=== PATIENT | female | born 1950 | race Asian ===

== ENCOUNTER 2016-11-03 16:22 | Inpatient (IN) | payer MEDICARE, MEDICAID ==
--- NOTE | 2016-11-03 16:49 | ED Physician Chart ---
Chief Complaint/HPI - Patient Information Date Seen:: 11/03/16 Time Seen:: 16:34 Chief Complaint:: psych disorder History of Present Illness:: THIS IS A 65 YO FEMALE PSYCH PATIENT WHO HAS DIFFICULT TO MANAGE, NOT EATING, COMBATIVE AND HAS PERIODS OF CONFUSION. Allergies:: Allergies Allergy/AdvReac Type Severity Reaction Status Date / Time No Known Allergies Allergy Verified 11/03/16 16:33 Vitals:: Vital Signs - 8 hr 11/03/16 16:33 Temp 97.8 F HR 80 RR 16 BP 142/72 O2 Sat % 97 Historian:: EMS, Medical Records Review:: Nurse's Note Reviewed Review of Systems - Review of Systems General/Constitutional: No fever, No chills, No weight loss, No weakness, No diaphoresis, No edema, No loss of appetite, Other (THIS PATIENT IS UNABLE TO GIVE A REVIEW OF SYSTEM.) Skin: No skin lesions, No rash, No bruising Head: No headache, No light-headedness Eyes: No loss of vision, No pain, No diplopia ENT: No earache, No nasal drainage, No sore throat, No tinnitus Neck: No neck pain, No swelling, No thyromegaly, No stiffness, No mass noted Cardio Vascular: No chest pain, No palpitations, No PND, No orthopnea, No edema Pulmonary: No SOB, No cough, No sputum, No wheezing GI: No nausea, No vomiting, No diarrhea, No pain, No melena, No hematochezia, No constipation, No hematemesis G/U: No dysuria, No frequency, No hematuria Musculoskeletal: No bone or joint pain, No back pain, No muscle pain Endocrine: No polyuria, No polydipsia Psychiatric: No prior psych history, No depression, No anxiety, No suicidal ideation Hematopoietic: No bruising, No lymphadenopathy Allergic/Immuno: No urticaria, No angioedema Neurological: No syncope, No focal symptoms, No weakness, No paresthesia, No headache, No seizure, No dizziness, No confusion, No vertigo Past Medical History - Past Medical History Obtainable: Yes Past Medical History: Asthma/COPD, Dyslipidemia, Thyroid disorder, Dementia Social History: Non Smoker, No Alcohol, No Drug Use, Care Facility Surgical History: None Psychiatricy History: Schizophrenia, Dementia Medication: Reviewed Family Medical History - Family Member Mother History Unknown: Yes Physical Exam - Physical Examination General/Constitutional: Awake, Well-developed, well-nourished, Alert, No distress, GCS 15, Non-toxic appearing, Ambulatory Head: Atraumatic Eyes: Lids, conjuctiva normal, PERRL, EOMI Other Eyes comments:: 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 Skin: Nl inspection, No rash, No skin lesions, No ecchymosis, Well hydrated, No lymphadenopathy ENMT: External ears, nose nl, Nasal exam nl, Lips, teeth, gums nl (POOR DENTAL REPAIR) Neck: Nontender, Full ROM w/o pain, No JVD, No nuchal rigidity, No bruit, No mass, No stridor Respiratory: Nl effort/Exclusion, Clear to Auscultation, No Wheeze/Rhonchi/Rales Cardio Vascular: RRR, No murmur, gallop, rubs, NL S1 S2 GI: No tenderness/rebounding/guarding, No organomegaly, No hernia, Normal BS's, Nondistended, No mass/bruits, No McBurney tenderness : No CVA tenderness Extremities: No tenderness or effusion, Full ROM, normal strength in all extremities, No edema, Normal digits & nails Neuro/Psych: DTR's symmetric, Normal sensory exam, Normal motor strength, Normal gait, No focal deficits Other Neuro/Psych comments:: THIS PATIENT IS DISORIENTED TIMES FOUR. SHE IS CONFUSED AND UNCOOPERATIVE Misc: normal gait, Normal back, No paraspinal tenderness Labs/Radiology/EKG Results - Lab Results Results: Laboratory Results - last 24 hr 11/03/16 11/03/16 11/03/16 16:40 16:40 16:40 WBC 7.0 RBC 4.53 Hgb 13.1 Hct 39.1 MCV 86.2 MCH 28.8 MCHC Differential 33.5 RDW 12.9 Plt Count 396 D MPV 7.3 Neutrophils % 61.4 Lymphocytes % 30.2 Monocytes % 7.1 Eosinophils % 0.7 Basophils % 0.6 PT INR PTT (Actin FS) Specimen Source Sample Site pH pCO2 pO2 HCO3 Base Excess O2 Saturation Papa Test Vent Rate Inspired O2 Tidal Volume PEEP Pressure (ins/psv/peep) Critical Value Sodium 138 Potassium 3.7 Chloride 106 Carbon Dioxide 25.0 Anion Gap 10.7 BUN 15 Creatinine 0.6 Est GFR ( Amer) > 60.0 Est GFR (Non-Af Amer) > 60.0 BUN/Creatinine Ratio 25.0 Glucose 99 Calcium 9.7 Total Bilirubin 1.0 AST 24 ALT 20 Alkaline Phosphatase 61 Troponin I Total Protein 8.1 Albumin 3.7 Globulin 4.4 Albumin/Globulin Ratio 0.8 L Triglycerides 165 H Cholesterol 220 H LDL Cholesterol Direct 154 HDL Cholesterol 44 Urine Source Urine Color Urine Clarity Urine pH Ur Specific Seltzer Urine Protein Urine Glucose (UA) Urine Ketones Urine Blood Urine Nitrate Urine Bilirubin Urine Urobilinogen Ur Leukocyte Esterase Urine RBC Urine WBC Ur Epithelial Cells Urine Bacteria 11/03/16 11/03/16 11/03/16 16:40 16:40 16:42 WBC RBC Hgb Hct MCV MCH MCHC Differential RDW Plt Count MPV Neutrophils % Lymphocytes % Monocytes % Eosinophils % Basophils % PT 9.8 INR 0.94 PTT (Actin FS) 24.1 L Specimen Source Sample Site pH pCO2 pO2 HCO3 Base Excess O2 Saturation Papa Test Vent Rate Inspired O2 Tidal Volume PEEP Pressure (ins/psv/peep) Critical Value Sodium Potassium Chloride Carbon Dioxide Anion Gap BUN Creatinine Est GFR ( Amer) Est GFR (Non-Af Amer) BUN/Creatinine Ratio Glucose Calcium Total Bilirubin AST ALT Alkaline Phosphatase Troponin I 0.01 Total Protein Albumin Globulin Albumin/Globulin Ratio Triglycerides Cholesterol LDL Cholesterol Direct HDL Cholesterol Urine Source CLEAN C Urine Color YELLOW Urine Clarity CLEAR Urine pH 7.0 Ur Specific Seltzer 1.015 Urine Protein NEGATIVE Urine Glucose (UA) NEGATIVE Urine Ketones NEGATIVE Urine Blood NEGATIVE Urine Nitrate NEGATIVE Urine Bilirubin NEGATIVE Urine Urobilinogen 0.2 Ur Leukocyte Esterase TRACE H Urine RBC NONE SEEN Urine WBC 2-5 Ur Epithelial Cells NONE SEEN Urine Bacteria NONE SEEN 11/03/16 17:00 WBC RBC Hgb Hct MCV MCH MCHC Differential RDW Plt Count MPV Neutrophils % Lymphocytes % Monocytes % Eosinophils % Basophils % PT INR PTT (Actin FS) Specimen Source Arterial Sample Site Right Radial pH 7.45 pCO2 42.0 pO2 72.0 L HCO3 29.2 H Base Excess 4.7 H O2 Saturation 95.0 Papa Test YES Vent Rate NA Inspired O2 21 Tidal Volume NA PEEP NA Pressure (ins/psv/peep) NA Critical Value E.ARROYO Sodium Potassium Chloride Carbon Dioxide Anion Gap BUN Creatinine Est GFR ( Amer) Est GFR (Non-Af Amer) BUN/Creatinine Ratio Glucose Calcium Total Bilirubin AST ALT Alkaline Phosphatase Troponin I Total Protein Albumin Globulin Albumin/Globulin Ratio Triglycerides Cholesterol LDL Cholesterol Direct HDL Cholesterol Urine Source Urine Color Urine Clarity Urine pH Ur Specific Seltzer Urine Protein Urine Glucose (UA) Urine Ketones Urine Blood Urine Nitrate Urine Bilirubin Urine Urobilinogen Ur Leukocyte Esterase Urine RBC Urine WBC Ur Epithelial Cells Urine Bacteria - Radiology Results Results: CHEST X-RAY = NAD - EKG Interpretations EKG Time:: 17:00 Rhythm: SINUS [place]: RIGHT Rate: 82 ED Septic Shock - . Is Septic Shock (SBP<90, OR Lactate>4 mmol\L) present?: No - <6hrs of presentation: Vital Signs: Vital Signs - 8 hr 11/03/16 16:33 Temp 97.8 F HR 80 RR 16 BP 142/72 O2 Sat % 97 Reassessment (Disposition) - Reassessment Reassessment Condition:: Unchanged - Diagnosis Diagnosis:: HYPOXEMIA PSYCHOSIS URINARY TRACT INFECTION HYPERCHOLESTEROLEMIA - Patient Disposition Discharge/Transfer:: Acute Care w/in this hosp Admitting Medical Physician:: Bhanu Turcios Time:: 17:43 Condition at Disposition:: Improved ED Discharge Plan - Patient Disposition Admit/Discharge/Transfer: Acute Care w/in this hosp Condition at Disposition: Unchanged
[2016-11-03 17:00] LABS: % BASOPHILS 0.6 % (0.0-2.0); % EOSINOPHILS 0.7 % (0.0-5.0); % LYMPHOCYTES 30.2 % (20.0-50.0); % MONOCYTES 7.1 % (2.0-10.0); % NEUTROPHILS 61.4 % (40.0-80.0); HEMATOCRIT 39.1 % (35.0-45.0); HEMOGLOBIN 13.1 gm/dL (11.7-16.1); MEAN CELL VOLUME 86.2 fl (81-100); MEAN CORPUSCULAR HEMOGLOBIN 28.8 pg (27.0-31.0); MEAN CORPUSCULAR HGB CONC 33.5 pg (28.0-36.0); MEAN PLATELET VOLUME 7.3 fl; NEUTROPHILE ABSOLUTE 4.4 Th/cmm (1.8-8.0); RED BLOOD COUNT 4.53 Mil/cmm (3.80-5.20); RED CELL DISTRIBUTION WIDTH 12.9 % (11.5-20.0)
[2016-11-03 17:07] LABS: PLATELET COUNT 396 Th/cmm (150-400)
[2016-11-03 17:10] LABS: INR 0.94 (0.5-1.4); PROTHROMBIN TIME (TEST) 9.8 SECONDS (9.5-11.5)
[2016-11-03 17:14] LABS: ALB/GLOB RATIO 0.8 (1.0-1.8); ALKALINE PHOSPHATASE 61 U/L (34-104); ANION GAP 10.7 (7.0-16.0); BUN - UREA NITROGEN 15 mg/dL (7-25); CALCIUM SERUM 9.7 mg/dL (8.6-10.3); CHLORIDE 106 mEq/L (98-107); CHOLESTEROL 220 mg/dL (<200); CREATININE - SERUM 0.6 mg/dL (0.6-1.2); GLUCOSE 99 mg/dL (70-105); POTASSIUM SERUM 3.7 mEq/L (3.5-5.1); SGOT 24 U/L (13-39); SGPT/ALT 20 U/L (7-52); SODIUM SERUM 138 mEq/L (136-145); TRIGLYCERIDES 165 mg/dL (<150)
[2016-11-03 17:15] LABS: URINE BACTERIA NONE SEEN /hpf (NONE SEEN); URINE BILIRUBIN NEGATIVE (NEGATIVE); URINE BLOOD NEGATIVE (NEGATIVE); URINE COLOR YELLOW; URINE EPITHELIAL CELLS NONE SEEN /lpf (FEW); URINE GLUCOSE (UA) NEGATIVE (NEGATIVE); URINE KETONE NEGATIVE (NEGATIVE); URINE PROTEIN NEGATIVE (NEGATIVE); URINE RBC NONE SEEN /hpf (0-5); URINE UROBILINOGEN 0.2 E.U./dL (0.2 - 1.0)
[2016-11-03 17:30] LABS: ABG SOURCE Arterial; ALLEN TEST YES; BE(B) 4.7 mmol/L (-3.0-3.0); FIO2 21; HCO3 29.2 mmol/L (20.0-26.0); pH 7.45 (7.35-7.45)
[2016-11-03] MEDS ORDERED: Ipratropium Neb 0.5 mg/2.5 mL UD IH PRN (18:58)
[2016-11-03] MEDS ORDERED: guaiFENesin 200 MG/10 ML UDC PO PRN (18:58)
[2016-11-03] MEDS ORDERED: Albuterol Nebulizer 2.5mg/3mL IH PRN (18:58)
[2016-11-03 19:11] VITALS: BP 115/68
[2016-11-03] MEDS ORDERED: Non-Formulary Item 1 EA (Fenofibrate Nanocrystallized [Tricor] 145 MG) PO SCH (21:00)
[2016-11-03] MEDS ORDERED: MIRTAZAPINE 30 MG PO SCH (21:00)
[2016-11-03] MEDS: Levofloxacin 500mg/100mL 500 MG/100 ML BAG IV SCH (21:07)
[2016-11-03] MEDS: D5-0.45NS 1,000 ML IV SCH (21:30)
[2016-11-04] MEDS: Levothyroxine 0.075 Mg Tab PO SCH (06:34)
[2016-11-04] MEDS: Multivitamin Tab PO SCH (09:15)
[2016-11-04] MEDS: Atorvastatin Calcium 10 MG TAB PO SCH (09:16)
[2016-11-04] MEDS: Vitamin B Complex w/Vitamin C Tab PO SCH (09:16)
--- NOTE | 2016-11-04 10:31 | Diagnostic Imaging Report ---
Portable chest x-ray History: Cough Allowing for portable technique the heart size is normal. No focal pulmonary parenchymal processes. No hilar or mediastinal abnormalities. Arthritic changes noted about the shoulders. Impression: No acute abnormalities.
[2016-11-04] MEDS: D5-0.45NS 1,000 ML IV SCH (11:27)
[2016-11-04] MEDS ORDERED: Vancomycin HCl 500 MG in Sodium Chloride 0.9% 100 ML IV SCH (16:00)
[2016-11-04] MEDS: Levofloxacin 500mg/100mL 500 MG/100 ML BAG IV SCH (18:12)
--- NOTE | 2016-11-04 20:41 | Admit Criteria Form ---
Admit Criteria Forms - Admit Criteria Diagnosis: GENERAL ADMISSION CRITERIA (Place 'X' for any and all applicable criteria): Admission is indicated for ANY ONE of the following: [ ]I. Hemodynamic instability as indicated by ANY ONE of the following(1)(2) (3)(4)(5): [ ]a) Vital sign abnormality not readily corrected by appropriate treatment within 12 to 24 hours indicated by ANY ONE of the following: [ ]i) Hypotension [ ]ii) Symptomatic Tachycardia unresponsive to treatment (eg , analgesia, fluids, sedation as indicated) [ ]iii) Orthostatic vital sign changes unresponsive to treatment (eg, fluids) [ ]b) Vital sign abnormality that is severe indicated by ANY ONE of the following: [ ]i) Inadequate perfusion indicated by ANY ONE of the following: [ ]1) Lactic acidosis (greater than 2 mmol/L) [ ]2) New abnormal capillary refill (greater than 3 seconds) [ ]3) Other metabolic acidosis (arterial pH less than 7.35) not otherwise explained [ ]4) Reduced urine output [ ]5) Altered mental status [ ]6) Myocardial Ischemia [ ]v) Mean arterial pressure[A] less than 60 mm Hg [ ]vi) Mean arterial pressure[A] less than 70 mm Hg after 30 minutes of appropriate treatment (eg, fluid resuscitation) [ ]vii) IV inotropic or vasopressor medication required to maintain adequate blood pressure or perfusion [ ]viii) Sustained heart rate greater than 120 beats per minute in adult or child 6 years or older[B]] [ ]II. Hypertension requiring inpatient treatment as indicated by ANY ONE of the following(6)(7)(8): [ ]a) SBP greater than 220 mm Hg or DBP greater than 120 mm Hg despite treatment [ ]b) SBP greater than 140 mm Hg or DBP greater than 100 mm Hg with evidence of acute end organ damage as indicated by ANY ONE of the following: [ ]i) Encephalopathy [ ]ii) Acute renal failure as indicated by new onset of ANY ONE of the following(9)(10)(11)(12)(13): [ ]1) A 3-fold rise in serum creatinine from baseline [ ]2) Serum creatinine greater than 4 mg/dL ( 354 micromoles/L) with acute rise greater than 0.5 mg/dL (44.2 micromoles/L) [ ]3) Reduction of more than 75% in estimated glomerular filtration rate from baseline [ ]4) Estimated glomerular filtration rate less than 35 mL/min/1.73m2 (0.59 mL/sec/1.73m2) in child up to 18 years of age [ ]5) Cessation of urine output indicated by ALL of the following: [ ]A. Adequate volume status [ ]B. Inadequate urine output as indicated by ANY ONE of the following: [ ]a. Urine output less than 0.3 mL/kg/hr for 24 hours [ ]b. Anuria (urine output less than 0.1 mL/kg/hr) for 12 hours [ ]iii) Aortic dissection [ ]iv) Myocardial ischemia [ ]v) Left ventricular heart failure [ ]vi) Retinal hemorrhage [ ]vii) Other significant finding [ ]c) Hypertension in child requiring inpatient treatment as indicated by ALL of the following(14)(15)(16): [ ]i) Outpatient treatment not effective, not available, or not appropriate [ ]ii) SBP or DBP greater than 95th percentile for age [ ]iii) Evidence of acute end organ damage as indicated by ANY ONE of the following: [ ]1) Altered mental status [ ]2) Acute renal failure as indicated by new onset of ANY ONE of the following(9)(10)(11)(12)(13): [ ]A. A 3-fold rise in serum creatinine from baseline [ ]B. Serum creatinine greater than 4 mg/dL (354 micromoles/L) with acute rise greater than 0.5 mg/dL (44.2 micromoles/L) [ ]C. Reduction of more than 75% in estimated glomerular filtration rate from baseline [ ]D. Estimated glomerular filtration rate less than 35 mL/min/1.73m2 (0.59 mL/sec/1.73m2)in child up to 18 years of age [ ]E. Cessation of urine output indicated by ALL of the following: [ ]a. Adequate volume status [ ]b. Inadequate urine output as indicated by ANY ONE of the following: [ ]1) Urine output less than 0.3 mL/kg/hr for 24 hours [ ]2) Anuria (urine output less than 0.1 mL/kg/hr) for 12 hours [ ]3) Severe headache [ ]4) Visual disturbance [ ]5) Retinal hemorrhage [ ]6) Other significant finding [ ]III. Acute cardiac or peripheral ischemia as indicated by ANY ONE of the following: [ ]a) Acute coronary syndrome(17)(18) [ ]b) Acute peripheral ischemia (eg, pulseless, cool, mottled, or cyanotic extremity)(19) [ ]IV. Cardiac arrhythmias or findings of immediate concern indicated by ANY ONE of the following(20)(21): [ ]a) Heart rhythms that are inherently dangerous or unstable indicated by ANY ONE of the following(22)(23)(24): [ ]i) Resuscitated ventricular fibrillation or cardiac arrest [ ]ii) Ventricular escape rhythm [ ]iii) Sustained ventricular tachycardia (30 seconds or more of ventricular rhythm at greater than 100 beats per minute) [ ]iv) Nonsustained ventricular tachycardia and ANY ONE of the following: [ ]1) Suspected cardiac ischemia as cause or consequence of ventricular tachycardia [ ]2) In setting of acute myocarditis [ ]b) Unstable cardiac conduction defects indicated by ANY ONE of the following(24)(25)(26): [ ]i) Type II second-degree atrioventricular block [ ]ii) Third-degree atrioventricular block [ ]iii) New-onset left bundle branch block with suspected myocardial ischemia [ ]c) Any heart rhythm and ANY ONE of the following(22)(23)(27)(28)( 29): [ ] i) Continuous long-term ECG monitoring needed (eg, initiation of drug requiring monitoring for more than 24 hours) [ ] ii) Patient has automatic implanted cardioverter defibrillator that is repeatedly firing, malfunctioning, or in need of immediate adjustment of settings beyond the scope of ambulatory or observation care. [ ]d) Heart rhythms of concern due to ANY ONE of the following: [ ]i) Hypotension [ ]ii) Respiratory distress [ ]iii) Association with other significant symptoms (eg, bradycardia with syncope or ongoing dizziness, supraventricular tachycardia with chest pain) (27)(28) (30) [ ] V. Severe heart failure as indicated by ANY ONE of the following ( 31)(32): [ ]a) Respiratory distress [ ]b) Hypotension [ ]c) Anasarca (refractory to outpatient therapy) [ ]d) Cardiac arrhythmias of immediate concern [ ]e) Myocardial ischemia [X]. Respiratory abnormalities, including ANY ONE of the following(33)(34) (35)(36): [ ]a) Respiratory rate greater than 30 breaths per minute unresponsive to treatment [A] [X]b) New saturation of arterial oxygen less than 90% [ ]c) New partial pressure of carbon dioxide greater than 44 mm Hg ( 5.9 kPa) [X]d) Supplemental oxygen or respiratory treatments needed that are new or not performable at other levels of care [ ]e) New-onset cyanosis [ ]f) Inability to protect airway [ ]g) Chronic lung disease with severe deterioration (not responsive to emergency and observation care treatment as appropriate) as indicated by ANY ONE of the following(34)(36 ): [ ]i) SaO2 5% below baseline in patient with chronic hypoxemia [ ]ii) New requirement for supplemental oxygen to keep SaO2 at baseline or acceptable level [ ]iii) Required supplemental oxygen performable only in acute inpatient setting [ ]iv) Severe airflow or ventilation abnormalities [ ]v) Previously mobile patient unable to walk between rooms [ ]vi Inability to eat or sleep due to dyspnea [ ]vii) Rapid rate of exacerbation onset [ ]viii) Altered mental status ]VII. Severe airflow or ventilation abnormalities (not responsive to emergency and observation care treatment as appropriate) as indicated by ANY ONE of the following(33)(34)(35)(37): [ ]a) PCO2 greater than 42 mm Hg (5.6 kPa) and pH less than 7.35 (new ) [ ]b) Documented PCO2 increased more than 5 mm Hg (0.7 kPa) from disease baseline [ ]c) Airflow measurements [B] less than 60% of previous best or predicted (eg, peak expiratory flow rate less than 300 L/minute) despite intensive emergent treatment [C] [ ]d) Required respiratory treatments that are performable only in acute inpatient setting [ ]VIII. Impending or actual respiratory arrest ( Also use Respiratory Failure GRG for severe respiratory disease and long-term mechanical ventilation patients) [ ]IX. Neurologic abnormalities, including ANY ONE of the following: [ ]a) New findings that suggest ANY ONE of the following: [ ]i) EVP SALES infection(38) [ ]ii) Cerebral bleeding, ischemia, or vasospasm(39)(40) [ ]iii) Increased intracranial pressure, hydrocephalus, or cerebral edema(41)(42)(43) [ ]iv) Spinal cord injury(44) [ ]b) Uncontrolled seizures(45) [ ]c) New-onset coma (eg, [place] coma scale score less than 9) or unexplained abnormal mental status (eg, [place] coma scale score less than 14) [D](41)(46)(47) [ ]X. New-onset severe neurologic findings requiring inpatient care; examples include(42)(48)(49): [ ]a) Papilledema [ ]b) Cerebral edema [ ]c) Mass effect on CT scan [ ]XI. Suspected acute intra-abdominal process with peritoneal signs, abdominal mass, or similar findings (50)(51)(52) [ ]XII. Severe physiologic disorder remaining after emergency or observation level care (as appropriate) as indicated by ANY ONE of the following (53): [ ]a) Significant dehydration [ ]b) Diabetic ketoacidosis [ ]c) Hyperglycemic hyperosmolar state (eg, osmolality greater than 320 mOsm/kg (mmol/kg) [ ]d) Hypoglycemia [ ]e) Other (new) acid-base disorder with pH less than 7.35 or greater than 7.5(54) [ ]f) Thyroid storm (55) [ ]g) Myxedema coma (55) [ ]XIII. Abdominal abnormalities with ANY ONE of the following(56)(57): [ ]a) Absent bowel sounds with complete ileus [ ]b) Signs of intestinal obstruction or peritonitis [E] [ ]c) Nausea and vomiting that cannot be controlled with outpatient or observation care [ ]XIV. Acute renal failure as indicated by new onset of ANY ONE of the following(9)(10)(11)(12)(13): [ ]a) A 3-fold rise in serum creatinine from baseline [ ]b) Serum creatinine greater than 4 mg/dL (354 micromoles/L) with acute rise greater than 0.5 mg/dL (44.2 micromoles/L) [ ]c) Reduction of more than 75% in estimated glomerular filtration rate from baseline [ ]d) Estimated glomerular filtration rate less than 35 mL/min/ 1.73m2 (0.59 mL/sec/1.73m2) in child up to 18 years of age [ ]e) Cessation of urine output indicated by ALL of the following: [ ]i) Adequate volume status [ ]ii) Inadequate urine output as indicated by ANY ONE of the following: [ ]1) Urine output less than 0.3 mL/kg/hr for 24 hours [ ]2) Anuria (urine output less than 0.1 mL/kg/hr) for 12 hours [ ]XV. Significant uremic complications as indicated by ANY ONE of the following(58)(59)(60): [ ]a) Outpatient therapy is ineffective or not feasible for ANY ONE of the following: [ ]i) Severe heart failure [ ]ii) Severehypertension [ ]iii) Pleural effusion [ ]iv) Pericarditis or pericardial effusion [ ]b) Cardiac arrhythmias of immediate concern [ ]c) Intractable nausea or vomiting [ ]d) Recurrent seizures [ ]e) Encephalopathy [ ]f) Bleeding abnormalities (eg, platelet dysfunction) with active (eg, gastrointestinal) bleeding [ ]g) Dialysis indicated before long-term access or ambulatory arrangements can be made [ ]h) Significant metabolic or electrolyte abnormalities (eg, severe acidosis or hyperkalemia) [ ]XVI. High fever or other high-risk infection situation as indicated by ANY ONE of the following(61)(62)(63)(64): [ ]a) Outpatient and observation care antimicrobial treatment unavailable, not effective, or not appropriate [ ]b) Documented bacteremia [ ]c) Temperature greater than 40.5 degrees C (104.9 degrees F) ( oral) [ ]d) Temperature greater than 39.5 degrees C (103.1 degrees F) ( oral) or less than 36 degrees C (96.8 degrees F) (rectal) that does not respond to e treatment and observation care [ ] XVII. Temperature less than 95 degrees F (35 degrees C)(rectal)(65) [ ] XVIII. Severe nutritional abnormalities as indicated by ALL of the following (66)(67): [ ]a) Inability to tolerate or establish sufficient oral or other enteral nutrition in outpatient setting [ ]b) Parenteral nutrition regimen need that must be implemented on inpatient basis [ ] XIX. Severe electrolyte abnormalities indicated by ALL of the following(68) (69)(70): [ ]a) Electrolytes and associated findings are not as expected for patient baseline or acceptable treatment effects. [ ]b) Severe abnormalities indicated by ANY ONE of the following: [ ]i) Sodium less than 130 mEq/L (mmol/L) (new) [ ]ii)Sodium less than 135 mEq/L (mmol/L) with ANY ONE of the following: [ ]1) Uncorrectable (to near normal or chronic baseline) after trial of outpatient and emergency treatment [ ]2) Altered mental status [ ]3) Seizures [ ]4) Severe medical etiology requiring inpatient management (eg, heart failure, hypovolemia) [ ]iii) Sodium greater than 155 mEq/L (mmol/L) [ ]iv) Sodium greater than 150 mEq/L (mmol/L) with ANY ONE of the following: [ ]1) Uncorrectable (to near normal or chronic baseline) with outpatient and emergency treatment [ ]2) Altered mental status [ ]3) Seizures [ ]4) Severe medical etiology (eg, hypovolemia, diabetes insipidus) [ ]v) Potassium less than 2.5 mEq/L (mmol/L) despite outpatient and emergency treatment [ ]vi) Potassium less than 3 mEq/L (mmol/L) with ANY ONE of the following: [ ]1) Weakness [ ]2) Cardiac abnormality (eg, arrhythmia, conduction disturbance) [ ]3) Cardiac ischemia [ ]4) Ileus [ ]5) Ongoing medical cause requiring inpatient management (eg, acute renal wasting or SIADH) [ ]6) Other severe symptoms [ ]vii) Potassium greater than 6.5 mEq/L (mmol/L) [ ]viii) Potassium greater than 5 mEq/L (mmol/L) with ANY ONE of the following: [ ]1) Uncorrectable (to near normal or chronic baseline) with outpatient and emergency treatment [ ]2) Severe ECG findings [F] [ ]3) Acute worsening of renal failure (creatinine greater than 2.5 mg/dL (221 micromoles/L) or significant elevation for age and size) [ ]4) Severe weakness [ ]5) Severe medical etiology (eg, hemolysis, infection, drug overdose) [ ]ix) Calcium less than 7 mg/dL (1.75 mmol/L) despite outpatient and emergency treatment (72) [ ]x) Calcium less than 8 mg/dL (2 mmol/L) with significant symptoms or findings; examples include(72): [ ]1) Altered mental status [ ]2) Muscle spasms [ ]3) Seizures [ ]4) Breathing difficulty [ ]5) Cardiac abnormality (eg, arrhythmia or conduction disturbance) [ ]xi) Calcium greater than 14 mg/dL (3.5 mmol/L)(72) [ ]xii) Calcium greater than 12 mg/dL (3 mmol/L) with ANY ONE of the following(72): [ ]1) Uncorrectable (to near normal or chronic baseline) with outpatient and emergency treatment [ ]2) Significant dehydration or hypovolemia as indicated by ALL of the following(70)(73)(74): [ ]A. Not resolved with initial treatments [ ]B. Clinically significant dehydration as indicated by ANY ONE of the following: [ ]a. Vomiting refractory to outpatient treatment (ie, precluding oral rehydration) [ ]b. Inability to drink [ ]c. Hypernatremia or other electrolyte abnormality unable to be corrected with outpatient and emergency treatment [ ]d. Failure to remain hydrated with outpatient therapy [ ]e. Reduced urine output [ ]f. Hypotension [ ]g. Serious cause for dehydration requiring acute hospitalization (eg, bowel obstruction, increased intracranial pressure, infectious cause) [ ]h. Child with ANY ONE of the following(75): [ ]1) Severe abdominal tenderness [ ]2) Adequate care not available at home [ ]3) Severe dehydration ( greater than 9% loss of body weight) [ ]4) Significant symptoms or findings; examples include: [ ]A. Altered mental status [ ]B. Cardiac abnormality (eg, arrhythmia, conduction disturbance) [ ]C. Malignant etiology requiring inpatient treatment [ ]xiii) Phosphorus less than 1 mg/dL (0.32 mmol/L) [ ]xiv) Phosphorus less than 1.5 mg/dL (0.48 mmol/L) with ANY ONE of the following: [ ]1) Patient unresponsive to outpatient and emergency treatment [ ]2) Significant symptoms or findings; examples include: [ ]A. Weakness [ ]B. Altered mental status [ ]C. Breathing difficulty [ ]D. Seizures [ ]E. Rhabdomyolysis [ ]xv) Phosphorus greater than 10 mg/dL (3.2 mmol/L) [ ]xvi) Phosphorus greater than 4.5 mg/dL (1.45 mmol/L) (new) with ANY ONE of the following: [ ]1) Severe medical etiology (eg, crush injury, acute renal failure) [ ]2) Associated hypocalcemia with significant findings; examples include: [ ]A. Neurologic symptoms [ ]B. Altered mental status [ ]C. Muscle spasms [ ]D. Seizures [ ]E. Breathing difficulty [ ]F. Cardiac abnormality (eg, arrhythmia, conduction disturbance) [ ]xvii) Magnesium less than 1 mg/dL (0.41 mmol/L) [ ]xviii) Magnesium less than 1.5 mg/dL (0.62 mmol/L) with ANY ONE of the following: [ ]1) Patient unresponsive to outpatient and emergency treatment [ ]2) Associated hypocalcemia with significant findings; examples include: [ ]A. Altered mental status [ ]B. Muscle spasms [ ]C. Seizures [ ]D. Breathing difficulty [ ]E. Cardiac abnormality (eg, arrhythmia , conduction disturbance) [ ]3) Associated hypokalemia (potassium less than 3 mEq/L (mmol/L)) with risk of arrhythmia [ ]xix) Magnesium greater than 4 mEq/L (2 mmol/L) [ ]xx) Magnesium greater than 2.5 mEq/L (1.25 mmol/L) with significant symptoms or findings; examples include: [ ]1) Weakness [ ]2) Altered mental status [ ]3) Cardiac abnormality (eg, arrhythmia, conduction disturbance) [ ]4) Breathing difficulty [ ]5) Severe medical etiology (eg, renal failure, hypovolemia) [ ]xxi) Uric acid greater than 20 mg/dL (1190 micromoles/L)(76) [ ]xxii) Uric acid greater than 8 mg/dL (476 micromoles/L) with significant symptoms or findings of tumor lysis syndrome; examples include(76): [ ]1) Creatinine greater than 1.5 times upper limit of normal [ ]2) Cardiac abnormality (eg, arrhythmia, conduction disturbance) [ ]3) Seizure [ ]XX. Acute blood loss causing significant abnormality as indicated by ANY ONE of the following(77)(78): [ ]a) Hemoglobin less than 10 g/dL (100 g/L) (not baseline) [ ]b) Hematocrit less than 30% (0.30) (not baseline) [ ]c) Repeat hematocrit decreased more than 2% (0.02) [ ]d) Uncontrolled bleeding [ ]XXI. Severe anemia indicated by ANY ONE of the following(78)(79): [ ]a) Altered mental status [ ]b) Chest pain [ ]c) Exertional dyspnea [ ]d) Syncope [ ]e) Other findings suggesting inadequate perfusion [ ]f) Treatment with transfusion or volume replacement is ineffective at resolving ANY ONE of the following [G]: [ ]i) Tachycardia for age [ ]ii) Orthostatic vital sign changes as indicated by ANY ONE of the following(80): [ ]1) Fall in SBP of 20 mm Hg or more 1 to 3 minutes after patient sits or stands from recumbent position [ ]2) Fall in DBP of 10 mm Hg or more 1 to 3 minutes after patient sits or stands from recumbent position [ ]XXII. High-risk low platelet count as indicated by ANY ONE of the following( 81)(82): [ ]a) Severe or life-threatening bleeding (eg, intracranial, major gastrointestinal, or extensive mucosal bleeding), with any reduced platelet count [ ]b) Platelet count less than 20,000/mm3 (20 x109/L) with any active bleeding [ ]c) Platelet count less than 10,000/mm3 (10 x109/L) with minor purpura or petechiae [ ]d) Platelet count less than 5000/mm3 (5 x109/L) [ ]e) Low platelet count with hemolytic anemia [ ]XXIII. Disseminated intravascular coagulation(77)(83) [ ]XXIV. Severe adverse drug or systemic toxin reaction requiring inpatient treatment; examples include(84)(85): [ ]a) Serotonin syndrome(86) [ ]b) Neuroleptic malignant syndrome(86) [ ]c) Cholinergic syndrome with severe symptoms (eg, bronchorrhea, weakness, mental status changes, seizures) [ ]d) Sympathetic syndrome with severe symptoms (eg, seizures, mental status changes, cardiac dysrhythmias) [ ]e) Anticholinergic syndrome [ ]XXV. Severe pain requiring acute inpatient management as indicated by ALL of the following (87)(88)(89): [ ]a) Continuous or frequent (eg, every 2 to 4 hours) parenteral analgesics required [H] [ ]b) Rapid improvement expected from treatment or acute intervention (eg, surgery, anesthesia procedure) [ ]XXVI.Severe behavioral health issues judged unmanageable at a lower level of care (eg, residential) in a patient who is ANY ONE of the following(91) [ ]a) Acutely suicidal [ ]b) A danger to self (eg, self-mutilating or suicidal behavior) [ ]c) A danger to others (eg, assaultive or homicidal behavior) [ ]d) Incapacitated because of grave disability (eg, inability to provide for self at lower level of care) (92) [ ]XXVII. Inpatient monitoring needed; examples include(1)(3)(87)(93)(94)(95)(96 ): [ ]a) Vital signs, neurologic signs, or vascular checks more frequently than every 4 hours [ ]b) Cardiac or respiratory monitoring beyond the scope (eg, over 24 hours) of observation care [ ]c) Pulmonary artery catheter monitoring [ ]d) Suspected compartment syndrome(97) (98) [ ]e) Cerebral bleeding, hydrocephalus, or vasospasm monitoring [ ]f) Increased intracranial pressure or cerebral edema monitoring [ ]g) monitoring [ ]XXVIII. Treatment requiring inpatient care; examples include: [ ]a) IV fluid to replace significant ongoing losses (greater than 3 L/m2 per day)(53) [ ]b) High concentration oxygen (greater than 40%)(33)(99)(100) [ ]c) Frequent respiratory therapy (more frequently than every 4 hours) to maintain airflow rates greater than 60% of baseline(33)(99)(100) [ ]d) Epidural analgesia(87) [ ]e) IV anticoagulation, vasoactive, or antiarrhythmic medication(19 )(23) [ ]f) Acute thrombolytics (generally require 24 hours of observation )(101)(102) [ ]XXIX. Emergency procedures needed; examples include: [ ]a) Emergency inpatient surgery [ ]b) Temporary pacemaker placement(103) [ ]c) Chest tube placement with active evacuation (eg, suction, drainage)(104) [ ]d) Emergent cardioversion(105) [ ]e) Emergent cardiac or vascular procedures (eg, cardiac catheterization, angioplasty) (17)(18) [ ]f) Emergent dialysis access placement and institution(10)(106) [ ]g) Emergent pericardiocentesis(107) [ ]h) Emergent plasmapheresis or leukapheresis(83) [ ]i) Emergent tracheostomy The original [employer] content created by [employer] has been revised. The portions of the content which have been revised are identified through the use of italic text or in bold, and [facility] has neither reviewed nor approved the modified material. All other unmodified content is copyright [employer]. Please see references footnoted in the original [facility] edition 2016 Admit Criteria Met?: Yes
[2016-11-04] MEDS ORDERED: Haloperidol Lactate 5 mg/mL 1mL Vial IM ONE (22:35)
[2016-11-05] MEDS: Vancomycin HCl 500 MG in Sodium Chloride 0.9% 100 ML IV SCH ×3 (02:14→18:12)
[2016-11-05 07:20] LABS: HEMOGLOBIN 11.2 gm/dL (11.7-16.1); MEAN PLATELET VOLUME 7.2 fl
[2016-11-05 07:40] LABS: ALB/GLOB RATIO 0.9 (1.0-1.8); ALKALINE PHOSPHATASE 46 U/L (34-104); ANION GAP 6.5 (7.0-16.0); BILIRUBIN,TOTAL 0.5 mg/dL (0.3-1.0); BUN - UREA NITROGEN 14 mg/dL (7-25); CALCIUM SERUM 8.5 mg/dL (8.6-10.3); CHLORIDE 113 mEq/L (98-107); CREATININE - SERUM 0.5 mg/dL (0.6-1.2); GLUCOSE 100 mg/dL (70-105); POTASSIUM SERUM 3.5 mEq/L (3.5-5.1); SGOT 21 U/L (13-39); SGPT/ALT 16 U/L (7-52); SODIUM SERUM 141 mEq/L (136-145)
[2016-11-05 07:45] LABS: RED BLOOD COUNT 3.85 Mil/cmm (3.80-5.20); WHITE BLOOD COUNT 6.1 Th/cmm (4.8-10.8)
[2016-11-05 07:46] LABS: % LYMPHOCYTES 27.2 % (20.0-50.0); % MONOCYTES 11.3 % (2.0-10.0); % NEUTROPHILS 59.2 % (40.0-80.0); HEMATOCRIT 32.8 % (35.0-45.0); MEAN CELL VOLUME 85.2 fl (81-100); MEAN CORPUSCULAR HEMOGLOBIN 29.1 pg (27.0-31.0); MEAN CORPUSCULAR HGB CONC 34.1 pg (28.0-36.0); PLATELET COUNT 318 Th/cmm (150-400); RED CELL DISTRIBUTION WIDTH 12.8 % (11.5-20.0)
[2016-11-05 07:47] LABS: % BASOPHILS 0.7 % (0.0-2.0); NEUTROPHILE ABSOLUTE 3.6 Th/cmm (1.8-8.0)
[2016-11-05 07:48] LABS: % EOSINOPHILS 1.7 % (0.0-5.0)
--- NOTE | 2016-11-05 09:09 | Consultation ---
The patient was seen, chart reviewed, discussed with staff. HISTORY OF PRESENT ILLNESS: The patient is a 65-year-old female with a history of chronic mental illness, known to myself from prior treatment at her [facility] facility, currently on Medical Floor, has been restless, anxious, agitated, talking fast, making no sense at times. The patient has been having some episodes where she requires redirection by staff. PAST PSYCHIATRIC HISTORY: Multiple hospitalizations, chronic history of mental illness. PSYCHOSOCIAL HISTORY: The patient resides at [facility]. She requires complete care. PAST MEDICAL HISTORY: As per Dr. Turcios. MENTAL STATUS EXAMINATION: The patient is somewhat disheveled. Speech is sporadic at times, irrelevant. Thought process is fragmented. Insight is limited. Judgment is impaired. The patient is highly paranoid and talking to herself. ASSESSMENT: Schizoaffective disorder in psychotic phase. MEDICAL: As per medical history. PLAN: At this time, I would recommend continuation of medical and supportive measures. The patient was admitted to the hospital for failure to thrive and dehydration. Monitor p.o. intake. The patient would benefit from psychiatric hospitalization given the level of disorganized behavior. JOB# [id number]
[2016-11-05] MEDS: Levothyroxine 0.075 Mg Tab PO SCH ×2 (09:22→09:51)
[2016-11-05] MEDS: Atorvastatin Calcium 10 MG TAB PO SCH ×2 (09:22→09:51)
[2016-11-05] MEDS: Multivitamin Tab PO SCH ×2 (09:23→09:52)
[2016-11-05] MEDS: Vitamin B Complex w/Vitamin C Tab PO SCH (09:52)
--- NOTE | 2016-11-05 14:28 | Internal Medicine Prog Note ---
Internal Medicine Subjective - Subjective Patient seen and examined:: with staff, chart reviewed Patient is:: awake, verbal, in bed Patient Complaints of:: congestion Per staff patient is:: no adverse event, agitated, combative, noncompliant, confused Internal Medicine Objective - Results Result Diagrams: 11/05/16 06:57 11/05/16 06:57 Recent Labs: Laboratory Last Values WBC 6.1 Th/cmm (4.8-10.8) 11/05/16 06:57 RBC 3.85 Mil/cmm (3.80-5.20) 11/05/16 06:57 Hgb 11.2 gm/dL (11.7-16.1) L 11/05/16 06:57 Hct 32.8 % (35.0-45.0) L D 11/05/16 06:57 MCV 85.2 fl (81-100) 11/05/16 06:57 MCH 29.1 pg (27.0-31.0) 11/05/16 06:57 MCHC Differential 34.1 pg (28.0-36.0) 11/05/16 06:57 RDW 12.8 % (11.5-20.0) 11/05/16 06:57 Plt Count 318 Th/cmm (150-400) 11/05/16 06:57 MPV 7.2 fl 11/05/16 06:57 Neutrophils % 59.2 % (40.0-80.0) 11/05/16 06:57 Lymphocytes % 27.2 % (20.0-50.0) 11/05/16 06:57 Monocytes % 11.3 % (2.0-10.0) H 11/05/16 06:57 Eosinophils % 1.7 % (0.0-5.0) 11/05/16 06:57 Basophils % 0.7 % (0.0-2.0) 11/05/16 06:57 PT 9.8 SECONDS (9.5-11.5) 11/03/16 16:40 INR 0.94 (0.5-1.4) 11/03/16 16:40 PTT (Actin FS) 24.1 SECONDS (26.0-38.0) L 11/03/16 16:40 Specimen Source Arterial 11/03/16 17:00 Sample Site Right Radial 11/03/16 17:00 pH 7.45 (7.35-7.45) 11/03/16 17:00 pCO2 42.0 mmHg (35.0-45.0) 11/03/16 17:00 pO2 72.0 mmHg (80.0-100.0) L 11/03/16 17:00 HCO3 29.2 mmol/L (20.0-26.0) H 11/03/16 17:00 Base Excess 4.7 mmol/L (-3.0-3.0) H 11/03/16 17:00 O2 Saturation 95.0 % (92.0-100.0) 11/03/16 17:00 Papa Test YES 11/03/16 17:00 Vent Rate NA 11/03/16 17:00 Inspired O2 21 11/03/16 17:00 Tidal Volume NA 11/03/16 17:00 PEEP NA 11/03/16 17:00 Pressure (ins/psv/peep) NA 11/03/16 17:00 Critical Value E.ARROYO 11/03/16 17:00 Sodium 141 mEq/L (136-145) 11/05/16 06:57 Potassium 3.5 mEq/L (3.5-5.1) 11/05/16 06:57 Chloride 113 mEq/L (98-107) H 11/05/16 06:57 Carbon Dioxide 25.0 mEq/L (21.0-31.0) 11/05/16 06:57 Anion Gap 6.5 (7.0-16.0) L 11/05/16 06:57 BUN 14 mg/dL (7-25) 11/05/16 06:57 Creatinine 0.5 mg/dL (0.6-1.2) L 11/05/16 06:57 Est GFR ( Amer) > 60.0 ml/min (>90) 11/05/16 06:57 Est GFR (Non-Af Amer) > 60.0 ml/min 11/05/16 06:57 BUN/Creatinine Ratio 28.0 11/05/16 06:57 Glucose 100 mg/dL (70-105) 11/05/16 06:57 Calcium 8.5 mg/dL (8.6-10.3) L 11/05/16 06:57 Magnesium 2.0 mg/dL (1.9-2.7) 11/05/16 06:57 Total Bilirubin 0.5 mg/dL (0.3-1.0) 11/05/16 06:57 AST 21 U/L (13-39) 11/05/16 06:57 ALT 16 U/L (7-52) 11/05/16 06:57 Alkaline Phosphatase 46 U/L (34-104) 11/05/16 06:57 Ammonia 44 umol/L (16-53) 11/05/16 06:57 Troponin I 0.01 ng/mL (0.01-0.05) 11/03/16 16:40 B-Natriuretic Peptide 29.8 pg/mL (5.0-100.0) 11/05/16 06:57 Total Protein 6.3 gm/dL (6.0-8.3) 11/05/16 06:57 Albumin 2.9 gm/dL (3.7-5.3) L 11/05/16 06:57 Globulin 3.4 gm/dL 11/05/16 06:57 Albumin/Globulin Ratio 0.9 (1.0-1.8) L 11/05/16 06:57 Triglycerides 165 mg/dL (<150) H 11/03/16 16:40 Cholesterol 220 mg/dL (<200) H 11/03/16 16:40 LDL Cholesterol Direct 154 mg/dL (75-193) 11/03/16 16:40 HDL Cholesterol 44 mg/dL (23-92) 11/03/16 16:40 TSH 1.69 uIU/ml (0.34-5.60) 11/03/16 16:40 Urine Source CLEAN C 11/03/16 16:42 Urine Color YELLOW 11/03/16 16:42 Urine Clarity CLEAR (CLEAR) 11/03/16 16:42 Urine pH 7.0 11/03/16 16:42 Ur Specific [place] 1.015 (1.005-1.030) 11/03/16 16:42 Urine Protein NEGATIVE mg/dL (NEGATIVE) 11/03/16 16:42 Urine Glucose (UA) NEGATIVE mg/dL (NEGATIVE) 11/03/16 16:42 Urine Ketones NEGATIVE mg/dL (NEGATIVE) 11/03/16 16:42 Urine Blood NEGATIVE (NEGATIVE) 11/03/16 16:42 Urine Nitrate NEGATIVE (NEGATIVE) 11/03/16 16:42 Urine Bilirubin NEGATIVE (NEGATIVE) 11/03/16 16:42 Urine Urobilinogen 0.2 E.U./dL (0.2 - 1.0) 11/03/16 16:42 Ur Leukocyte Esterase TRACE (NEGATIVE) H 11/03/16 16:42 Urine RBC NONE SEEN /hpf (0-5) 11/03/16 16:42 Urine WBC 2-5 /hpf (0-5) 11/03/16 16:42 Ur Epithelial Cells NONE SEEN /lpf (FEW) 11/03/16 16:42 Urine Bacteria NONE SEEN /hpf (NONE SEEN) 11/03/16 16:42 RPR NONREACTIVE (NONREACTIVE) 11/03/16 16:40 - Physical Exam Vitals and I&O: Vital Signs Temp 97.5 F 11/05/16 00:00 Pulse 69 11/05/16 07:59 Resp 16 11/05/16 08:40 BP 101/55 11/05/16 00:00 Pulse Ox 96 11/05/16 07:59 Intake & Output 11/04/16 11/05/16 11/05/16 18:59 06:59 18:59 Intake Total 1000 100 100 Balance 1000 100 100 Weight (lbs) 46.584 kg Intake: Intake, IV Amount 1000 100 100 D5-0.45NS 1,000 ml @ 80 1000 mls/hr IV .[id number] [facility] Rx #:[id number] Vancomycin HCl 500 mg In 100 100 Sodium Chloride 0.9% 100 ml @ 100 mls/hr IV Q8HR@ 0000,0800,1600 [facility] Rx#: [id number] Active Medications: Current Medications Acetaminophen (Tylenol) 650 mg PO Q4HR PRN PRN Reason: Fever > 100.5 Stop: 01/02/17 18:52 Albuterol Sulfate (Albuterol 2.5mg/3ml Neb Ud) 2.5 mg IH Q2HR PRN PRN Reason: Shortness of Breath or Wheeze Stop: 01/02/17 18:57 Ascorbic Acid (Vitamin C) 500 mg PO DAILY [facility] Stop: 01/03/17 08:59 Last Admin: 11/05/16 09:51 Dose: Not Given Atorvastatin Calcium (Lipitor) 20 mg PO DAILY [facility] PRN Reason: Protocol Stop: 01/03/17 08:59 Last Admin: 11/05/16 09:51 Dose: Not Given Diphenhydramine HCl (Benadryl 50 Mg/Ml) 50 mg IM Q4HR PRN PRN Reason: Agitation Stop: 01/03/17 22:31 Fenofibrate (Tricor) 134 mg PO HS [facility] Stop: 01/04/17 20:59 Guaifenesin (Robitussin) 100 mg PO Q4H PRN PRN Reason: Cough or Congestion Stop: 01/02/17 18:57 Heparin Sodium (Porcine) (Heparin) 5,000 units SUBQ Q12HR [facility] Stop: 01/02/17 20:59 Last Admin: 11/05/16 09:51 Dose: Not Given Dextrose/Sodium Chloride (D5-0.45ns) 1,000 mls @ 80 mls/hr IV .[id number] [facility] Stop: 01/02/17 18:59 Last Admin: 11/04/16 11:27 Dose: 80 mls/hr Levofloxacin (Levaquin Pb) 500 mg in 100 mls @ 100 mls/hr IV Q24HR [facility] Stop: 01/02/17 18:59 Last Admin: 11/04/16 18:12 Dose: 100 mls/hr Vancomycin HCl 500 mg/ Sodium (Chloride) 100 mls @ 100 mls/hr IV Q8HR@0000,0800 ,1600 [facility] Stop: 01/03/17 15:59 Last Infusion: 11/05/16 11:30 Dose: Infused Ipratropium [place] (Atrovent Neb 0.5mg/2.5ml) 0.5 mg IH Q2HR PRN PRN Reason: Shortness of Breath or Wheeze Stop: 01/02/17 18:57 Levothyroxine Sodium (Synthroid) 0.075 mg PO QDAC [facility] Stop: 01/03/17 07:29 Last Admin: 11/05/16 09:51 Dose: Not Given Lorazepam (Ativan) 2 mg PO Q8H PRN; Protocol PRN Reason: Anxiety Stop: 01/02/17 18:52 Last Admin: 11/04/16 21:25 Dose: 2 mg Mirtazapine (Remeron) 30 mg PO HS [facility] Stop: 01/04/17 20:59 Miscellaneous (Vancomycin Iv Per Pharmacy) 1 ea MC PRN [facility] Stop: 01/03/17 15:14 Multivitamins/Vitamin C (Theragran) 1 tab PO DAILY [facility] Stop: 01/03/17 08:59 Last Admin: 11/05/16 09:52 Dose: Not Given Mupirocin (Bactroban Oint) 1 appl NS BID [facility] Stop: 11/09/16 17:01 Last Admin: 11/05/16 09:54 Dose: Not Given Olanzapine (Zyprexa) 10 mg PO BID [facility] PRN Reason: Protocol Stop: 01/03/17 08:59 Last Admin: 11/05/16 09:52 Dose: Not Given Ondansetron HCl (Zofran) 4 mg IV Q8H PRN PRN Reason: Nausea / Vomiting Stop: 01/02/17 18:57 Vitamin B Complex/Vit C/Folic Acid (Vitamin B Complex W/Vitamin C) 1 tab PO DAILY [facility] Stop: 01/03/17 08:59 Last Admin: 11/05/16 09:52 Dose: Not Given General: demented HEENT: NC/AT, PERRLA Neck: Supple, No JVD Lungs: congested Cardiovascular: RRR, Normal S1, Normal S2 Abdomen: soft non-tender, globular, positive bowel sound Extremities: excoriation, contracture Neurological: disorganized, unable to follow command - Procedures Procedures: Procedures Procedure Code Date EMERGENCY DEPT VISIT 19131 11/13/11 EMERGENCY DEPT VISIT 43327 10/11/11 Internal Medicine Assmt/Plan - Assessment Assessment: uti ftt agitation sad hypoxemia - Plan Plan: cont on iv abx iv hydration psych fu cpm dw rn huong dubois yesterday Nutritional Asmnt/Malnutr-PDOC - Dietary Evaluation Malnutrition Findings (Please click <Entered> for more info): Nutritional Asmnt/Malnutrition Start: 11/05/16 10: 29 Text: Status: Complete Freq: Document 11/05/16 10:30 [facility] (Rec: 11/05/16 10:31 [facility] [id number]) Nutritional Asmnt/Malnutrition Patient General Information Nutritional Screening Consult Diagnosis Schizoaffective disorder Pertinent Medical Hx/Surgical Hx Asthma/COPD, dyslipidemia, thyroid disorder, dementia, schizophrenia, chronic hx of mental illness Subjective Information Nutrition consult for failure to thrive received and completed. Pt is a 65-year-old female from [facility] admitted with chief complaint of psych disorder. Pt was easily arousable during time of visit. Pt speaks another language and some Japanese as well. Pt able to verbalize her needs and preferences. Pt appears thin with a small body frame but no signs of muscle or fat depletion observed. Per ER report, pt was not eating prior to admit with periods of confusion. Currently, appetite has improved with consistent PO intake of 100%. RD verified intake by reviewing breakfast tray. Pt is not an appropriate historian for nutrition education at this time. RD weighed pt today via bedscale. Pt was unable to recall her current body weight or UBW. IBW 104#/47.3 kg adjusted for small body frame. Current Diet Order/ Nutrition Support Regular Patient / S.O Not Indicated Pertinent Medications Vitamin C, Lipitor, D5-0.45 ns (provides additional 170 kcals/day), Levaquin, Theragran, Zyprexa, Zofran, Vancomycin, Vitamin B Complex/ Vitamin C/Folic Acid Pertinent Labs (11/05) Creatinine 0.5L Nutritional Hx/Data Height 1.6 m Height (Calculated Centimeters) 160.0 Current Weight (lbs) 46.584 kg Weight (Calculated Kilograms) 46.6 Weight (Calculated Grams) 90050.9 [place] Body Weight 104 % [place] Body Weight 99 Weight Status Underweight GI Symptoms GI Symptoms None Food Allergies No Cultural/Ethnic/Mu-Ism Belief Per medical records at [facility], cultural preferences of large bowl of rice at all meals. Pt likes apple, orange juice, soda, rice, and chicken nuggets. Usual diet at home Fortified regular with HPN 4 oz at meals, Magic Cup and lunch and dinner Skin Integrity/Comment: Jose G [place]. Skin intact. Current %PO Good (75-100%) Estimated Nutritional Goals BEE in Kcals: Using Current wt Calories/Kcals/Kg Based on CBW 102.7#/46.7 kg, promote gradual wt gain due to low BMI Kcals Calculated 5713-4953 kcals/day (30-35 kcals/kg) Protein: Using Current wt Protein g/kg: Based on CBW 102.7#/46.7 kg, promote gradual wt gain due to low BMI Protein Calculated 47-58 gm/day (1-1.25 gm/kg) Fluid: ml 7389-7815 ml/day (1 ml/kcal) Nutritional Problem 1. Problem Problem Underweight related to Etiology small body frame and possible inconsistent nutrient intake as evidenced by Signs/Symptoms: BMI 18.2 kg/m2, ER report with poor PO intake prior to admission. Malnutrition Alert Is there a minimum of two criteria No selected? Query Text:Check all the applicable criteria. A minimum of two criteria are recommended for diagnosis of either severe or non-severe malnutrition. Malnutrition Related to Morbid Obesity Malnutrition related to morbid obesity No Intervention/Recommendation Comments 1. Continue with current diet. PO intake is appropriate to meet estimated nutritional needs. [place] food preferences, as able. Expected Outcomes/Goals Expected Outcomes/Goals Upward wt gain towards IBW or normal BMI range. Physician Parameters for PEM Normal Weight % 90% - 110% (Normal) Body Mass Index (BMI) 18 - 24 (Mild) Serum Albumin (g/dl) 2.4 - 3.0 (Moderate) 11/05/16 10:45 Dietitian Notes by Mili Rodriguez Nutrition Note Nutrition Consult and Initial Nutrition Assessment completed by Mili Rodriguez on 11/05/16. Please refer to nutrition assessment under Patient Care tab of EMR. Nutrition Interventions: 1. Continue with current diet. PO intake is appropriate to meet estimated nutritional needs. [place] food preferences, as able. F/U in 3-5 days as Moderate risk, 11/08-11/10. Initialized on 11/05/16 10:45 - END OF NOTE
[2016-11-05] MEDS: Fenofibrate, Micronized 134 mg Cap PO SCH (21:32)
--- NOTE | 2016-11-06 02:28 | Progress Notes ---
SUBJECTIVE: The patient was seen. Still restless, anxious, required being given emergency medications last night. The patient was pulling out IVs and attempting to hit staff. Her insight is poor and judgment remains impaired. ASSESSMENT: The patient is still highly agitated. PLAN: We will continue to monitor closely. Continue supportive measures. Consider psychiatric hospitalization. [facility]# [id number]
[2016-11-06] MEDS: Vancomycin HCl 500 MG in Sodium Chloride 0.9% 100 ML IV SCH ×2 (02:44→10:04)
[2016-11-06] MEDS: D5-0.45NS 1,000 ML IV SCH (06:42)
[2016-11-06] MEDS: Levothyroxine 0.075 Mg Tab PO SCH (10:01)
[2016-11-06] MEDS: Multivitamin Tab PO SCH (10:03)
[2016-11-06] MEDS: Atorvastatin Calcium 10 MG TAB PO SCH (10:03)
[2016-11-06] MEDS: Vitamin B Complex w/Vitamin C Tab PO SCH (10:04)
[2016-11-06] MEDS: Sulfamethoxazole/TMP 800/160mg Tab PO SCH (16:39)
[2016-11-06] MEDS: Fenofibrate, Micronized 134 mg Cap PO SCH (21:12)
--- NOTE | 2016-11-07 01:16 | Progress Notes ---
SUBJECTIVE: The patient was seen today, discussed with staff, chart reviewed. Still disorganized, confused, irritable, easily agitated episodes, where she is talking to herself. The patient's insight is still limited. Judgment remains impaired. The patient required being given emergency medications yesterday. ASSESSMENT: The patient is still in psychotic phase. PLAN: Continue to monitor closely. Continue stabilization. The patient might benefit from psychiatric hospitalization once medically cleared. [facility]# [id number]
[2016-11-07 06:13] LABS: FOLIC ACID 15.2 ng/mL (>3.0)
[2016-11-07] MEDS: Levothyroxine 0.075 Mg Tab PO SCH (08:05)
[2016-11-07] MEDS: Atorvastatin Calcium 10 MG TAB PO SCH (09:34)
[2016-11-07] MEDS: Multivitamin Tab PO SCH (09:35)
[2016-11-07] MEDS: Sulfamethoxazole/TMP 800/160mg Tab PO SCH ×2 (09:36→17:15)
[2016-11-07] MEDS: Vitamin B Complex w/Vitamin C Tab PO SCH (09:36)
--- NOTE | 2016-11-07 11:34 | Internal Medicine Prog Note ---
Internal Medicine Subjective - Subjective Service Date: 11/07/16 Patient seen and examined:: with staff Patient is:: awake Per staff patient is:: no adverse event Internal Medicine Objective - Results Result Diagrams: 11/05/16 06:57 11/05/16 06:57 Recent Labs: Laboratory Last Values WBC 6.1 Th/cmm (4.8-10.8) 11/05/16 06:57 RBC 3.85 Mil/cmm (3.80-5.20) 11/05/16 06:57 Hgb 11.2 gm/dL (11.7-16.1) L 11/05/16 06:57 Hct 32.8 % (35.0-45.0) L D 11/05/16 06:57 MCV 85.2 fl (81-100) 11/05/16 06:57 MCH 29.1 pg (27.0-31.0) 11/05/16 06:57 MCHC Differential 34.1 pg (28.0-36.0) 11/05/16 06:57 RDW 12.8 % (11.5-20.0) 11/05/16 06:57 Plt Count 318 Th/cmm (150-400) 11/05/16 06:57 MPV 7.2 fl 11/05/16 06:57 Neutrophils % 59.2 % (40.0-80.0) 11/05/16 06:57 Lymphocytes % 27.2 % (20.0-50.0) 11/05/16 06:57 Monocytes % 11.3 % (2.0-10.0) H 11/05/16 06:57 Eosinophils % 1.7 % (0.0-5.0) 11/05/16 06:57 Basophils % 0.7 % (0.0-2.0) 11/05/16 06:57 PT 9.8 SECONDS (9.5-11.5) 11/03/16 16:40 INR 0.94 (0.5-1.4) 11/03/16 16:40 PTT (Actin FS) 24.1 SECONDS (26.0-38.0) L 11/03/16 16:40 Specimen Source Arterial 11/03/16 17:00 Sample Site Right Radial 11/03/16 17:00 pH 7.45 (7.35-7.45) 11/03/16 17:00 pCO2 42.0 mmHg (35.0-45.0) 11/03/16 17:00 pO2 72.0 mmHg (80.0-100.0) L 11/03/16 17:00 HCO3 29.2 mmol/L (20.0-26.0) H 11/03/16 17:00 Base Excess 4.7 mmol/L (-3.0-3.0) H 11/03/16 17:00 O2 Saturation 95.0 % (92.0-100.0) 11/03/16 17:00 Papa Test YES 11/03/16 17:00 Vent Rate NA 11/03/16 17:00 Inspired O2 21 11/03/16 17:00 Tidal Volume NA 11/03/16 17:00 PEEP NA 11/03/16 17:00 Pressure (ins/psv/peep) NA 11/03/16 17:00 Critical Value E.ARROYO 11/03/16 17:00 Sodium 141 mEq/L (136-145) 11/05/16 06:57 Potassium 3.5 mEq/L (3.5-5.1) 11/05/16 06:57 Chloride 113 mEq/L (98-107) H 11/05/16 06:57 Carbon Dioxide 25.0 mEq/L (21.0-31.0) 11/05/16 06:57 Anion Gap 6.5 (7.0-16.0) L 11/05/16 06:57 BUN 14 mg/dL (7-25) 11/05/16 06:57 Creatinine 0.5 mg/dL (0.6-1.2) L 11/05/16 06:57 Est GFR ( Amer) > 60.0 ml/min (>90) 11/05/16 06:57 Est GFR (Non-Af Amer) > 60.0 ml/min 11/05/16 06:57 BUN/Creatinine Ratio 28.0 11/05/16 06:57 Glucose 100 mg/dL (70-105) 11/05/16 06:57 Calcium 8.5 mg/dL (8.6-10.3) L 11/05/16 06:57 Magnesium 2.0 mg/dL (1.9-2.7) 11/05/16 06:57 Total Bilirubin 0.5 mg/dL (0.3-1.0) 11/05/16 06:57 AST 21 U/L (13-39) 11/05/16 06:57 ALT 16 U/L (7-52) 11/05/16 06:57 Alkaline Phosphatase 46 U/L (34-104) 11/05/16 06:57 Ammonia 44 umol/L (16-53) 11/05/16 06:57 Troponin I 0.01 ng/mL (0.01-0.05) 11/03/16 16:40 B-Natriuretic Peptide 29.8 pg/mL (5.0-100.0) 11/05/16 06:57 Total Protein 6.3 gm/dL (6.0-8.3) 11/05/16 06:57 Albumin 2.9 gm/dL (3.7-5.3) L 11/05/16 06:57 Globulin 3.4 gm/dL 11/05/16 06:57 Albumin/Globulin Ratio 0.9 (1.0-1.8) L 11/05/16 06:57 Triglycerides 165 mg/dL (<150) H 11/03/16 16:40 Cholesterol 220 mg/dL (<200) H 11/03/16 16:40 LDL Cholesterol Direct 154 mg/dL (75-193) 11/03/16 16:40 HDL Cholesterol 44 mg/dL (23-92) 11/03/16 16:40 Vitamin B12 785 pg/mL (211-946) 11/05/16 06:57 Folic Acid 15.2 ng/mL (>3.0) 11/05/16 06:57 TSH 1.69 uIU/ml (0.34-5.60) 11/03/16 16:40 Urine Source CLEAN C 11/03/16 16:42 Urine Color YELLOW 11/03/16 16:42 Urine Clarity CLEAR (CLEAR) 11/03/16 16:42 Urine pH 7.0 11/03/16 16:42 Ur Specific [place] 1.015 (1.005-1.030) 11/03/16 16:42 Urine Protein NEGATIVE mg/dL (NEGATIVE) 11/03/16 16:42 Urine Glucose (UA) NEGATIVE mg/dL (NEGATIVE) 11/03/16 16:42 Urine Ketones NEGATIVE mg/dL (NEGATIVE) 11/03/16 16:42 Urine Blood NEGATIVE (NEGATIVE) 11/03/16 16:42 Urine Nitrate NEGATIVE (NEGATIVE) 11/03/16 16:42 Urine Bilirubin NEGATIVE (NEGATIVE) 11/03/16 16:42 Urine Urobilinogen 0.2 E.U./dL (0.2 - 1.0) 11/03/16 16:42 Ur Leukocyte Esterase TRACE (NEGATIVE) H 11/03/16 16:42 Urine RBC NONE SEEN /hpf (0-5) 11/03/16 16:42 Urine WBC 2-5 /hpf (0-5) 11/03/16 16:42 Ur Epithelial Cells NONE SEEN /lpf (FEW) 11/03/16 16:42 Urine Bacteria NONE SEEN /hpf (NONE SEEN) 11/03/16 16:42 Vancomycin Trough 4.2 ug/mL (10-20) L 11/07/16 07:30 RPR NONREACTIVE (NONREACTIVE) 11/03/16 16:40 - Physical Exam Vitals and I&O: Vital Signs Temp 98.4 F 11/07/16 04:00 Pulse 77 11/07/16 04:00 Resp 18 11/07/16 04:00 BP 136/84 11/07/16 04:00 Pulse Ox 98 11/07/16 04:00 Intake & Output 11/06/16 11/07/16 11/07/16 18:59 06:59 18:59 Intake Total 350 200 Balance 350 200 Intake: Oral 350 200 Other: # Voids 2 3 # Bowel Movements 1 Stool Characteristics Formed Active Medications: Current Medications Acetaminophen (Tylenol) 650 mg PO Q4HR PRN PRN Reason: Fever > 100.5 Stop: 01/02/17 18:52 Ascorbic Acid (Vitamin C) 500 mg PO DAILY [facility] Stop: 01/03/17 08:59 Last Admin: 11/07/16 09:35 Dose: 500 mg Atorvastatin Calcium (Lipitor) 20 mg PO DAILY [facility] PRN Reason: Protocol Stop: 01/03/17 08:59 Last Admin: 11/07/16 09:34 Dose: 20 mg Fenofibrate (Tricor) 134 mg PO HS [facility] Stop: 01/04/17 20:59 Last Admin: 11/06/16 21:12 Dose: 134 mg Levothyroxine Sodium (Synthroid) 0.075 mg PO QDAC [facility] Stop: 01/03/17 07:29 Last Admin: 11/06/16 10:01 Dose: 0.075 mg Lorazepam (Ativan) 2 mg PO Q8H PRN; Protocol PRN Reason: Anxiety Stop: 01/02/17 18:52 Last Admin: 11/06/16 16:39 Dose: 2 mg Mirtazapine (Remeron) 30 mg PO HS [facility] Stop: 01/04/17 20:59 Last Admin: 11/06/16 21:11 Dose: 30 mg Multivitamins/Vitamin C (Theragran) 1 tab PO DAILY [facility] Stop: 01/03/17 08:59 Last Admin: 11/07/16 09:35 Dose: 1 tab Mupirocin (Bactroban Oint) 1 appl NS BID [facility] Stop: 11/09/16 17:01 Last Admin: 11/07/16 09:37 Dose: 1 appl Olanzapine (Zyprexa) 10 mg PO BID [facility] PRN Reason: Protocol Stop: 01/03/17 08:59 Last Admin: 11/07/16 09:35 Dose: 10 mg Trimethoprim/Sulfamethoxazole (Bactrim Ds) 1 tab PO BID [facility] Stop: 11/13/16 16:59 Last Admin: 11/07/16 09:36 Dose: 1 tab Vitamin B Complex/Vit C/Folic Acid (Vitamin B Complex W/Vitamin C) 1 tab PO DAILY [facility] Stop: 01/03/17 08:59 Last Admin: 11/07/16 09:36 Dose: 1 tab General: alert HEENT: NC/AT, PERRLA Neck: Supple Lungs: CTAB Cardiovascular: RRR, Normal S1, Normal S2, without murmur Abdomen: soft non-tender, non-distended Extremities: clear - Procedures Procedures: Procedures Procedure Code Date EMERGENCY DEPT VISIT 67218 11/13/11 EMERGENCY DEPT VISIT 45470 10/11/11 Internal Medicine Assmt/Plan - Assessment Assessment: uti ftt agitation sad hypoxemia - Plan Plan: cont on iv abx ivf for hydration awaiting for bed available in [facility] Nutritional Asmnt/Malnutr-PDOC - Dietary Evaluation Malnutrition Findings (Please click <Entered> for more info): Nutritional Asmnt/Malnutrition Start: 11/05/16 10: 29 Text: Status: Complete Freq: Document 11/05/16 10:30 [facility] [address] (Rec: 11/05/16 10:31 [facility] [id number]) Nutritional Asmnt/Malnutrition Patient General Information Nutritional Screening Consult Diagnosis Schizoaffective disorder Pertinent Medical Hx/Surgical Hx Asthma/COPD, dyslipidemia, thyroid disorder, dementia, schizophrenia, chronic hx of mental illness Subjective Information Nutrition consult for failure to thrive received and completed. Pt is a 65-year-old female from [facility] admitted with chief complaint of psych disorder. Pt was easily arousable during time of visit. Pt speaks another language and some [place]ian as well. Pt able to verbalize her needs and preferences. Pt appears thin with a small body frame but no signs of muscle or fat depletion observed. Per ER report, pt was not eating prior to admit with periods of confusion. Currently, appetite has improved with consistent PO intake of 100%. RD verified intake by reviewing breakfast tray. Pt is not an appropriate historian for nutrition education at this time. RD weighed pt today via bedscale. Pt was unable to recall her current body weight or UBW. IBW 104#/47.3 kg adjusted for small body frame. Current Diet Order/ Nutrition Support Regular Patient / S.O Not Indicated Pertinent Medications Vitamin C, Lipitor, D5-0.45 ns (provides additional 170 kcals/day), Levaquin, Theragran, Zyprexa, Zofran, Vancomycin, Vitamin B Complex/ Vitamin C/Folic Acid Pertinent Labs (11/05) Creatinine 0.5L Nutritional Hx/Data Height 5 ft 3 in Height (Calculated Centimeters) 160.0 Current Weight (lbs) 102 lb 11.2 oz Weight (Calculated Kilograms) 46.6 Weight (Calculated Grams) 44867.9 [place] Body Weight 104 % [place] Body Weight 99 Weight Status Underweight GI Symptoms GI Symptoms None Food Allergies No Cultural/Ethnic/B[employer]ist Belief Per medical records at [facility], cultural preferences of large bowl of rice at all meals. Pt likes apple, orange juice, soda, rice, and chicken nuggets. Usual diet at home Fortified regular with HPN 4 oz at meals, Magic Cup and lunch and dinner Skin Integrity/Comment: Jose G 20. Skin intact. Current %PO Good (75-100%) Estimated Nutritional Goals BEE in Kcals: Using Current wt Calories/Kcals/Kg Based on CBW 102.7#/46.7 kg, promote gradual wt gain due to low BMI Kcals Calculated 1995-5855 kcals/day (30-35 kcals/kg) Protein: Using Current wt Protein g/kg: Based on CBW 102.7#/46.7 kg, promote gradual wt gain due to low BMI Protein Calculated 47-58 gm/day (1-1.25 gm/kg) Fluid: ml 7532-3813 ml/day (1 ml/kcal) Nutritional Problem 1. Problem Problem Underweight related to Etiology small body frame and possible inconsistent nutrient intake as evidenced by Signs/Symptoms: BMI 18.2 kg/m2, ER report with poor PO intake prior to admission. Malnutrition Alert Is there a minimum of two criteria No selected? Query Text:Check all the applicable criteria. A minimum of two criteria are recommended for diagnosis of either severe or non-severe malnutrition. Malnutrition Related to Morbid Obesity Malnutrition related to morbid obesity No Intervention/Recommendation Comments 1. Continue with current diet. PO intake is appropriate to meet estimated nutritional needs. [place] food preferences, as able. Expected Outcomes/Goals Expected Outcomes/Goals Upward wt gain towards IBW or normal BMI range. Physician Parameters for PEM Normal Weight % 90% - 110% (Normal) Body Mass Index (BMI) 18 - 24 (Mild) Serum Albumin (g/dl) 2.4 - 3.0 (Moderate) 11/05/16 10:45 Dietitian Notes by Mili Rodriguez Nutrition Note Nutrition Consult and Initial Nutrition Assessment completed by Mili Rodriguez on 11/05/16. Please refer to nutrition assessment under Patient Care tab of EMR. Nutrition Interventions: 1. Continue with current diet. PO intake is appropriate to meet estimated nutritional needs. [place] food preferences, as able. F/U in 3-5 days as Moderate risk, 11/08-11/10. Initialized on 11/05/16 10:45 - END OF NOTE
[2016-11-07] MEDS: Fenofibrate, Micronized 134 mg Cap PO SCH (20:53)
--- NOTE | 2016-11-10 14:31 | History & Physical ---
CHIEF COMPLAINT: Change in mental status . HISTORY OF PRESENT ILLNESS: This is a 65-year-old Moroc[place] female with history of dementia, Alzheimer's, hypercholesterolemia and hypothyroidism, who was admitted from a nursing facility secondary to not eating or drinking. The patient was clinically dehydrated. The patient ____ fever in the nursing facility. Apparently, labs showed Gram-positive growth in the blood culture. PAST MEDICAL HISTORY: As mentioned in History of Present Illness. PAST SURGICAL HISTORY: Denies surgeries in the past. ALLERGIES: No known drug allergies. MEDICATIONS: The patient is on Synthroid, Ativan, atorvastatin, Tylenol, olanzapine, Vitamin B and C. FAMILY HISTORY: Noncontributory. SOCIAL HISTORY: The patient is a [facility] patient, requiring 24-hour total care. REVIEW OF SYSTEMS: This is limited secondary to the patient's current medical status. We will obtain more detailed review of systems at a later date by talking to family members number [phone]. We will also try to get information from nursing staff at [facility], , as well as from Dr. Archer who knows the patient. PHYSICAL EXAMINATION: VITAL SIGNS: Blood pressure ____/74, respirations 18, pulse 77, temperature 98.0. GENERAL: Elderly female who appears stated age. NECK: Supple. No mass. LUNGS: Equal breath sounds, few rhonchi. HEART: Regular rate and rhythm. No appreciable murmurs. ABDOMEN: Soft and nontender. EXTREMITIES: No clubbing, cyanosis or edema. LABORATORY DATA: Blood culture is growing Gram-positive cocci. WBC 7.7, hemoglobin 13, platelets 306. The pO2 was 72. ____ 220. UA showed 5 wbc's. ASSESSMENT: 1. Gram-positive bacteremia. 2. Hypoxemia. 3. Sepsis. 4. Failure to thrive. 5. Urinary tract infection. 6. Dehydration. 7. Hypothyroidism. 8. Dementia. 9. Status post fall. 10. Hypercholesterolemia. PLAN: We will continue the patient on IV antibiotic and IV hydration. We will continue ____ the patient. We will add vancomycin ____. We will continue to monitor the patient closely. JOB# [id number]
--- NOTE | 2016-12-14 08:53 | Discharge Summary ---
DATE OF DISCHARGE: 11/07/2016 FINAL DIAGNOSES: Gram-positive bacteremia, hypoxemia, sepsis, failure to thrive, urinary tract infection, dehydration, hypothyroidism, dementia, status post fall, hypercholesterolemia. HISTORY OF PRESENT ILLNESS: This is a 65-year-old [place] female with history of dementia, Alzheimer's, hypercholesterolemia and hypothyroidism who is admitted from nursing facility secondary to not eating or drinking. The patient clinically is dehydrated. PHYSICAL EXAMINATION: GENERAL: The patient is well developed, well nourished, in no acute distress. VITAL SIGNS: Stable. HEENT: Head is normocephalic and atraumatic. NECK: Supple. No mass. LUNGS: Clear. CARDIOVASCULAR: Regular rate rhythm. ABDOMEN: Soft, nontender, and nondistended. HOSPITAL COURSE: During the hospital stay, the patient was admitted to the Med/Surg unit. The patient was kept on empiric IV antibiotics, also IV fluids for hydration. The patient's CBC and BMP were being monitored. The patient had a chest x-ray done and the impression is no acute abnormality. The patient did not have any fevers during hospital stay ____. The patient was stable for discharge. CONDITION UPON DISCHARGE: Fair. DISPOSITION: The patient is going to Geropsych unit. JOB# [id number]
== END 2016-11-07 21:55 | DRG 871 ==
LOC: ER 16:22 → MSI 17:57
PROVIDERS: ADMIT Internal Medicine; ATTEND Internal Medicine
DX: A41.9 Sepsis, unspecified organism (principal); E43 Unspecified severe protein-calorie malnutrition; G93.41 Metabolic encephalopathy; N39.0 Urinary tract infection, site not specified; F03.90 Unspecified dementia, unspecified severity, without behavioral disturbance, psychotic disturbance, mood disturbance, and anxiety; F25.9 Schizoaffective disorder, unspecified; R62.7 Adult failure to thrive; R09.02 Hypoxemia; E78.5 Hyperlipidemia, unspecified; E03.9 Hypothyroidism, unspecified; J44.9 Chronic obstructive pulmonary disease, unspecified; F29 Unspecified psychosis not due to a substance or known physiological condition; E78.00 Pure hypercholesterolemia, unspecified; Z91.14 Patient's other noncompliance with medication regimen
CPT/HCPCS: 36415-UA; 36600-90; 71010-TC; 80053-TC; 80061-TC; 80202-TC; 81001-TC; 82140-TC; 82607-90; 82746-90; 82803-TC; 82948-90; 83735-TC; 83880-TC; 84443-TC; 84484-TC; 85025-TC; 85610-TC; 85730-TC; 86592-TC; 93005; 94760; J1200; J1644; J1956; J3370; J7030; J7051; Z7610

== ENCOUNTER 2016-11-07 22:10 | Inpatient (IN) | payer MEDICARE, MEDICAID ==
[2016-11-07] MEDS ORDERED: Magnesium Hydroxide (MOM) 30 mL UDC PO PRN (23:38)
[2016-11-07] MEDS ORDERED: Maalox 30 mL Cup PO PRN (23:38)
--- NOTE | 2016-11-08 00:53 | Progress Notes ---
SUBJECTIVE: The patient was seen and discussed with staff. Still anxious, guarded, still paranoid, talking to herself, episodes of restlessness. The patient, however, is taking her medications most of the time with from staff. The patient remains poor. Judgment remains impaired. ASSESSMENT: Schizoaffective disorder, still in psychotic phase. PLAN: We will continue supportive measure. Continue medication management. Inpatient hospitalization is recommended. [facility]# [id number]
[2016-11-08 04:45] VITALS: BP 136/78
[2016-11-08] MEDS: Levothyroxine 0.075 Mg Tab PO SCH (06:37)
[2016-11-08] MEDS: Multivitamin Tab PO SCH ×3 (08:57→12:19)
[2016-11-08] MEDS: Sulfamethoxazole/TMP 800/160mg Tab PO SCH ×4 (08:57→17:26)
[2016-11-08] MEDS: Vitamin B Complex w/Vitamin C Tab PO SCH ×3 (08:57→12:19)
[2016-11-08] MEDS: Atorvastatin Calcium 10 MG TAB PO SCH ×3 (08:57→12:18)
--- NOTE | 2016-11-08 11:10 | Internal Medicine Prog Note ---
Internal Medicine Subjective - Subjective Service Date: 11/08/16 Patient seen and examined:: with staff Patient is:: awake Per staff patient is:: no adverse event Internal Medicine Objective - Physical Exam Vitals and I&O: Vital Signs Temp 98.0 F 11/08/16 06:08 Pulse 77 11/08/16 06:08 Resp 20 11/08/16 06:08 BP 133/89 11/08/16 06:08 Pulse Ox 98 11/08/16 06:08 Intake & Output 11/07/16 11/08/16 11/08/16 18:59 06:59 18:59 Other: # Voids 1 # Bowel Movements 0 Active Medications: Current Medications Acetaminophen (Tylenol) 650 mg PO Q4HR PRN PRN Reason: Pain Stop: 01/06/17 23:37 Al Hydrox/Mg Hydrox/Simethicone (Maalox) 30 ml PO Q4HR PRN PRN Reason: GI DISTRESS Stop: 01/06/17 23:37 Ascorbic Acid (Vitamin C) 500 mg PO DAILY GUS Stop: 01/07/17 08:59 Last Admin: 11/08/16 09:05 Dose: Not Given Atorvastatin Calcium (Lipitor) 20 mg PO DAILY GUS PRN Reason: Protocol Stop: 01/07/17 08:59 Last Admin: 11/08/16 09:04 Dose: Not Given Fenofibrate (Tricor) 134 mg PO HS GUS Stop: 01/07/17 20:59 Levothyroxine Sodium (Synthroid) 0.075 mg PO QDAC GUS Stop: 01/07/17 07:29 Last Admin: 11/08/16 06:37 Dose: 0.075 mg Lorazepam (Ativan) 0.5 mg PO Q4HR PRN; Protocol PRN Reason: Anxiety Stop: 12/07/16 23:37 Mirtazapine (Remeron) 30 mg PO HS GUS PRN Reason: Protocol Stop: 01/07/17 20:59 Multivitamins/Vitamin C (Theragran) 1 tab PO DAILY GUS Stop: 01/07/17 08:59 Last Admin: 11/08/16 09:11 Dose: Not Given Mupirocin (Bactroban Oint) 1 appl NS BID GUS Stop: 11/09/16 17:01 Last Admin: 11/08/16 09:04 Dose: Not Given Olanzapine (Zyprexa) 10 mg PO BID GUS PRN Reason: Protocol Stop: 01/07/17 08:59 Last Admin: 11/08/16 09:04 Dose: Not Given Trimethoprim/Sulfamethoxazole (Bactrim Ds) 1 tab PO BID [facility] Stop: 11/12/16 08:59 Last Admin: 11/08/16 09:05 Dose: Not Given Vitamin B Complex/Vit C/Folic Acid (Vitamin B Complex W/Vitamin C) 1 tab PO DAILY [facility] Stop: 01/07/17 08:59 Last Admin: 11/08/16 09:11 Dose: Not Given Zolpidem Tartrate (Ambien) 5 mg PO HS PRN PRN Reason: Insomnia Stop: 01/06/17 23:37 General: alert HEENT: NC/AT, PERRLA Neck: Supple Lungs: CTAB Cardiovascular: RRR, Normal S1, Normal S2, without murmur Abdomen: soft non-tender, non-distended, positive bowel sound Neurological: no change - Procedures Procedures: Procedures Procedure Code Date EMERGENCY DEPT VISIT 34257 11/13/11 EMERGENCY DEPT VISIT 37037 10/11/11 Internal Medicine Assmt/Plan - Assessment Assessment: uti agitation sad - Plan Plan: encourage fluids fall precautions cpm
[2016-11-08] MEDS: Fenofibrate, Micronized 134 mg Cap PO SCH (20:20)
--- NOTE | 2016-11-08 21:11 | Psychosocial Evaluation ---
TIME OF EVALUATION: 4 p.m. CHIEF COMPLAINT: Psychotic disorder. HISTORY OF PRESENT ILLNESS: The patient is a 65-year-old female with a history of schizoaffective disorder, known to myself from treatment at their facility, was on medical floor, transferred to geropsychiatric unit because of increased agitation, paranoia, hitting staff, talking to herself. The patient has a baseline of some psychosis and hallucinations, but usually she is not this agitated and she is calmer patient, she is a very poor historian, kept talking to herself. PAST PSYCHIATRIC HISTORY: Multiple hospitalizations, chronic history of mental illness. PAST MEDICAL HISTORY: As per Dr. Turcios. PSYCHOSOCIAL HISTORY: The patient resides at [facility]. She requires complete care. MENTAL STATUS EXAMINATION: The patient is disheveled, unkempt, oriented to person, not oriented to time, but she is oriented to place. Thought process, fragmented, poverty of thoughts. The patient is actively hallucinating, talking to herself, highly agitated. The patient's strengths, the patient is passively accepting treatment and medication. The patient's weakness, lack of insight. ASSESSMENT: Schizoaffective disorder in psychotic phase, rule out dementia, Alzheimer's type ____ has medical history. PLAN: At this time, we will admit the patient for hospitalization, we will start individual and group therapy to assess psychopharmacological intervention. ESTIMATED LENGTH OF STAY: 7 days. CRITERIA FOR DISCHARGE: Improved condition, no agitation, further stabilization and safe disposition, outpatient treatment plan. [facility]# [id number]
[2016-11-09] MEDS: Levothyroxine 0.075 Mg Tab PO SCH (06:35)
[2016-11-09] MEDS: Multivitamin Tab PO SCH (09:07)
[2016-11-09] MEDS: Vitamin B Complex w/Vitamin C Tab PO SCH (09:07)
[2016-11-09] MEDS: Atorvastatin Calcium 10 MG TAB PO SCH (09:08)
[2016-11-09] MEDS: Sulfamethoxazole/TMP 800/160mg Tab PO SCH ×2 (09:08→16:31)
--- NOTE | 2016-11-09 11:38 | Internal Medicine Prog Note ---
Internal Medicine Subjective - Subjective Service Date: 11/09/16 Patient seen and examined:: with staff Patient is:: awake Per staff patient is:: no adverse event Internal Medicine Objective - Physical Exam Vitals and I&O: Vital Signs Temp 97.8 F 11/08/16 15:36 Pulse 87 11/09/16 10:16 Resp 18 11/09/16 10:16 BP 110/72 11/08/16 15:36 Pulse Ox 98 11/08/16 06:08 Intake & Output 11/08/16 11/09/16 11/09/16 18:59 06:59 18:59 Intake Total 1400 Balance 1400 Intake: Oral 1400 Other: # Voids 3 # Bowel Movements 1 Stool Characteristics Soft Soft Formed Formed Active Medications: Current Medications Acetaminophen (Tylenol) 650 mg PO Q4HR PRN PRN Reason: Pain Stop: 01/06/17 23:37 Al Hydrox/Mg Hydrox/Simethicone (Maalox) 30 ml PO Q4HR PRN PRN Reason: GI DISTRESS Stop: 01/06/17 23:37 Ascorbic Acid (Vitamin C) 500 mg PO DAILY GUS Stop: 01/07/17 08:59 Last Admin: 11/09/16 09:07 Dose: 500 mg Atorvastatin Calcium (Lipitor) 20 mg PO DAILY GUS PRN Reason: Protocol Stop: 01/07/17 08:59 Last Admin: 11/09/16 09:08 Dose: 20 mg Fenofibrate (Tricor) 134 mg PO HS GUS Stop: 01/07/17 20:59 Last Admin: 11/08/16 20:20 Dose: 134 mg Levothyroxine Sodium (Synthroid) 0.075 mg PO QDAC GUS Stop: 01/07/17 07:29 Last Admin: 11/09/16 06:35 Dose: 0.075 mg Lorazepam (Ativan) 0.5 mg PO Q4HR PRN; Protocol PRN Reason: Anxiety Stop: 12/07/16 23:37 Last Admin: 11/09/16 09:08 Dose: 0.5 mg Mirtazapine (Remeron) 30 mg PO HS GUS PRN Reason: Protocol Stop: 01/07/17 20:59 Last Admin: 11/08/16 20:20 Dose: 30 mg Multivitamins/Vitamin C (Theragran) 1 tab PO DAILY GUS Stop: 01/07/17 08:59 Last Admin: 11/09/16 09:07 Dose: 1 tab Mupirocin (Bactroban Oint) 1 appl NS BID [facility] Stop: 11/09/16 17:01 Last Admin: 11/09/16 09:08 Dose: 1 appl Olanzapine (Zyprexa) 10 mg PO BID GUS PRN Reason: Protocol Stop: 01/07/17 08:59 Last Admin: 11/09/16 09:08 Dose: 10 mg Trimethoprim/Sulfamethoxazole (Bactrim Ds) 1 tab PO BID GUS Stop: 11/12/16 08:59 Last Admin: 11/09/16 09:08 Dose: 1 tab Vitamin B Complex/Vit C/Folic Acid (Vitamin B Complex W/Vitamin C) 1 tab PO DAILY [facility] Stop: 01/07/17 08:59 Last Admin: 11/09/16 09:07 Dose: 1 tab Zolpidem Tartrate (Ambien) 5 mg PO HS PRN PRN Reason: Insomnia Stop: 01/06/17 23:37 General: weak HEENT: NC/AT Neck: Supple Lungs: CTAB Cardiovascular: RRR, Normal S1, Normal S2, without murmur Abdomen: soft non-tender, non-distended - Procedures Procedures: Procedures Procedure Code Date EMERGENCY DEPT VISIT 48283 11/13/11 EMERGENCY DEPT VISIT 98606 10/11/11 Internal Medicine Assmt/Plan - Assessment Assessment: uti agitation sad - Plan Plan: encourage fluids fall precautions cpm
[2016-11-09] MEDS: Fenofibrate, Micronized 134 mg Cap PO SCH (20:54)
--- NOTE | 2016-11-10 06:31 | Progress Notes ---
SUBJECTIVE: The patient was seen. Remains paranoid, disorganized, talking to herself, actively hallucinating, requiring redirecting by staff, still with episodes of anger outburst. ASSESSMENT: The patient is still in psychotic phase, highly disorganized. PLAN: Continue hospitalization. Continue stabilization. Continue to monitor closely. JOB# [id number]
[2016-11-10] MEDS: Levothyroxine 0.075 Mg Tab PO SCH (06:36)
[2016-11-10] MEDS: Atorvastatin Calcium 10 MG TAB PO SCH (09:21)
[2016-11-10] MEDS: Vitamin B Complex w/Vitamin C Tab PO SCH (09:22)
[2016-11-10] MEDS: Sulfamethoxazole/TMP 800/160mg Tab PO SCH ×2 (09:22→16:31)
[2016-11-10] MEDS: Multivitamin Tab PO SCH (09:22)
--- NOTE | 2016-11-10 13:18 | Internal Medicine Prog Note ---
Internal Medicine Subjective - Subjective Patient seen and examined:: with staff, chart reviewed Patient is:: awake, verbal, interactive Per staff patient is:: no adverse event, combative, noncompliant, confused Internal Medicine Objective - Physical Exam Vitals and I&O: Vital Signs Temp 98.1 F 11/10/16 06:48 Pulse 84 11/10/16 06:48 Resp 19 11/10/16 06:48 BP 114/80 11/10/16 06:48 Pulse Ox 99 11/10/16 06:48 Intake & Output 11/09/16 11/10/16 11/10/16 18:59 06:59 18:59 Intake Total 1500 Balance 1500 Intake: Oral 1500 Other: # Voids 4 2 # Bowel Movements 1 Stool Characteristics Soft Formed Active Medications: Current Medications Acetaminophen (Tylenol) 650 mg PO Q4HR PRN PRN Reason: Pain Stop: 01/06/17 23:37 Al Hydrox/Mg Hydrox/Simethicone (Maalox) 30 ml PO Q4HR PRN PRN Reason: GI DISTRESS Stop: 01/06/17 23:37 Ascorbic Acid (Vitamin C) 500 mg PO DAILY GUS Stop: 01/07/17 08:59 Last Admin: 11/10/16 09:21 Dose: 500 mg Atorvastatin Calcium (Lipitor) 20 mg PO DAILY GUS PRN Reason: Protocol Stop: 01/07/17 08:59 Last Admin: 11/10/16 09:21 Dose: 20 mg Fenofibrate (Tricor) 134 mg PO HS GUS Stop: 01/07/17 20:59 Last Admin: 11/09/16 20:54 Dose: Not Given Levothyroxine Sodium (Synthroid) 0.075 mg PO QDAC GUS Stop: 01/07/17 07:29 Last Admin: 11/10/16 06:36 Dose: 0.075 mg Lorazepam (Ativan) 0.5 mg PO Q4HR PRN; Protocol PRN Reason: Anxiety Stop: 12/07/16 23:37 Last Admin: 11/09/16 19:43 Dose: 0.5 mg Mirtazapine (Remeron) 30 mg PO HS GUS PRN Reason: Protocol Stop: 01/07/17 20:59 Last Admin: 11/09/16 20:54 Dose: Not Given Multivitamins/Vitamin C (Theragran) 1 tab PO DAILY GUS Stop: 01/07/17 08:59 Last Admin: 11/10/16 09:22 Dose: 1 tab Olanzapine (Zyprexa) 10 mg PO BID GUS PRN Reason: Protocol Stop: 01/07/17 08:59 Last Admin: 11/10/16 09:22 Dose: 10 mg Trimethoprim/Sulfamethoxazole (Bactrim Ds) 1 tab PO BID GUS Stop: 11/12/16 08:59 Last Admin: 11/10/16 09:22 Dose: 1 tab Vitamin B Complex/Vit C/Folic Acid (Vitamin B Complex W/Vitamin C) 1 tab PO DAILY GUS Stop: 01/07/17 08:59 Last Admin: 11/10/16 09:22 Dose: 1 tab Zolpidem Tartrate (Ambien) 5 mg PO HS PRN PRN Reason: Insomnia Stop: 01/06/17 23:37 General: demented HEENT: NC/AT, PERRLA Neck: Supple, No JVD Lungs: CTAB Cardiovascular: RRR, Normal S1, Normal S2 Abdomen: soft non-tender, globular Extremities: excoriation, contracture Neurological: disorganized, unable to follow command - Procedures Procedures: Procedures Procedure Code Date EMERGENCY DEPT VISIT 85339 11/13/11 EMERGENCY DEPT VISIT 72250 10/11/11 Internal Medicine Assmt/Plan - Assessment Assessment: uti agitation sad - Plan Plan: cont on bp meds low na diet fall and aspiration precaution dw rn Nutritional Asmnt/Malnutr-PDOC - Dietary Evaluation Malnutrition Findings (Please click <Entered> for more info): Nutritional Asmnt/Malnutrition Start: 11/09/16 16: 40 Text: Status: Complete Freq: Document 11/09/16 16:42 GSUN (Rec: 11/09/16 16:43 GSUN [email or web address]) Nutritional Asmnt/Malnutrition Patient General Information Nutritional Screening High Risk Screening Diagnosis Agitation, UTI Pertinent Medical Hx/Surgical Hx RN notes: COPD, hyperlipidemia , anemia schizophrenia, anxiety, hypercholesterolemia, adult FTT Subjective Information 65 year old female from SNF, trasnfered from [facility]. Pt was seen sitting in rec room with CHILLER TECHNICIAN assisting with meals, no difficulties noted. Pt speaks both Irish and Mandarin, responds more to Mandarin. Pt was confused, talking about personal life, needs encouragement to take every bite. CHILLER TECHNICIAN informed RD of pt's food preferences. Pt appeared small frame, no significant fat/muscle wasting noted. Avg PO intake 75-100% of meals, meeting nutritional needs. Current Diet Order/ Nutrition Support Regular Pertinent Medications Maalox, Vitamin C, Lipitor, Synthroid, Theragran, Vitamin B Complex w/Vitamin C Pertinent Labs No current labs. Nutritional Hx/Data Height 1.6 m Height (Calculated Centimeters) 160.0 Current Weight (lbs) 46.584 kg Weight (Calculated Kilograms) 46.6 Weight (Calculated Grams) 15359.9 [place] Body Weight 115lb Weight Status Underweight GI Symptoms Cultural/Ethnic/Episcopalian Belief Unknown. Usual diet at home [facility] SNF: regular. Skin Integrity/Comment: Jose G 18. Skin intact. Current %PO Good (75-100%) Estimated Nutritional Goals Calories/Kcals/Kg IBW 115lb/52kg, 25-30kcal/kg Kcals Calculated 1300-1560kcal Protein g/kg: IBW, 1g/kg Protein Calculated 52g Fluid: ml 1300-1560ml (1ml/kcal) Nutritional Problem 1. Problem Problem Slef-feeding difficulty related to Etiology likely cognition/dementia aeb Signs/Symptoms: requiring total assist, requiring encouragement with every bite, looks at food confused Intervention/Recommendation Comments 1. Continue with regular diet. Continue with total assist. Encourage PO with every bite. 2. FNS will honor pt's food preferences. 3. Obtain new weight. Current BMI 18.19 Expected Outcomes/Goals Expected Outcomes/Goals 1. PO intake continue to meet at least 100% of estimated nutritional needs.
[2016-11-10] MEDS: Fenofibrate, Micronized 134 mg Cap PO SCH (20:18)
--- NOTE | 2016-11-11 03:15 | Progress Notes ---
SUBJECTIVE: I met this patient, discussed with staff, chart reviewed. Remains superficial talking to herself, anger outbursts, episodes of restlessness, still pacing on the unit requiring redirection by staff. The patient's thought process is fragmented. Insight is limited, judgment remains impaired. ASSESSMENT: The patient continues to be in psychotic phase. PLAN: Continue hospitalization. Continue medication management. The patient continues to have episodes of agitation. JOB# [id number]
[2016-11-11] MEDS: Levothyroxine 0.075 Mg Tab PO SCH (06:35)
[2016-11-11] MEDS: Vitamin B Complex w/Vitamin C Tab PO SCH (09:32)
[2016-11-11] MEDS: Atorvastatin Calcium 10 MG TAB PO SCH (09:32)
[2016-11-11] MEDS: Sulfamethoxazole/TMP 800/160mg Tab PO SCH ×2 (09:32→17:14)
[2016-11-11] MEDS: Multivitamin Tab PO SCH (09:32)
--- NOTE | 2016-11-11 12:52 | Internal Medicine Prog Note ---
Internal Medicine Subjective - Subjective Service Date: 11/11/16 Patient seen and examined:: with staff Patient is:: awake Per staff patient is:: no adverse event Internal Medicine Objective - Physical Exam Vitals and I&O: Vital Signs Temp 98.1 F 11/10/16 20:11 Pulse 76 11/10/16 20:11 Resp 20 11/10/16 20:11 BP 115/72 11/10/16 20:11 Pulse Ox 98 11/10/16 20:11 Intake & Output 11/10/16 11/11/16 11/11/16 18:59 06:59 18:59 Intake Total 850 240 Balance 850 240 Intake: Oral 850 240 Other: # Voids 3 1 2 # Bowel Movements 0 Stool Characteristics Soft Formed Active Medications: Current Medications Acetaminophen (Tylenol) 650 mg PO Q4HR PRN PRN Reason: Pain Stop: 01/06/17 23:37 Al Hydrox/Mg Hydrox/Simethicone (Maalox) 30 ml PO Q4HR PRN PRN Reason: GI DISTRESS Stop: 01/06/17 23:37 Ascorbic Acid (Vitamin C) 500 mg PO DAILY GUS Stop: 01/07/17 08:59 Last Admin: 11/11/16 09:32 Dose: 500 mg Atorvastatin Calcium (Lipitor) 20 mg PO DAILY GUS PRN Reason: Protocol Stop: 01/07/17 08:59 Last Admin: 11/11/16 09:32 Dose: 20 mg Fenofibrate (Tricor) 134 mg PO HS GUS Stop: 01/07/17 20:59 Last Admin: 11/10/16 20:18 Dose: 134 mg Levothyroxine Sodium (Synthroid) 0.075 mg PO QDAC GUS Stop: 01/07/17 07:29 Last Admin: 11/11/16 06:35 Dose: 0.075 mg Lorazepam (Ativan) 0.5 mg PO Q4HR PRN; Protocol PRN Reason: Anxiety Stop: 12/07/16 23:37 Last Admin: 11/11/16 11:56 Dose: 0.5 mg Mirtazapine (Remeron) 30 mg PO HS GUS PRN Reason: Protocol Stop: 01/07/17 20:59 Last Admin: 11/10/16 20:18 Dose: 30 mg Multivitamins/Vitamin C (Theragran) 1 tab PO DAILY GUS Stop: 01/07/17 08:59 Last Admin: 11/11/16 09:32 Dose: 1 tab Olanzapine (Zyprexa) 10 mg PO BID GUS PRN Reason: Protocol Stop: 01/07/17 08:59 Last Admin: 11/11/16 09:32 Dose: 10 mg Trimethoprim/Sulfamethoxazole (Bactrim Ds) 1 tab PO BID GUS Stop: 11/12/16 08:59 Last Admin: 11/11/16 09:32 Dose: 1 tab Vitamin B Complex/Vit C/Folic Acid (Vitamin B Complex W/Vitamin C) 1 tab PO DAILY GUS Stop: 01/07/17 08:59 Last Admin: 11/11/16 09:32 Dose: 1 tab Zolpidem Tartrate (Ambien) 5 mg PO HS PRN PRN Reason: Insomnia Stop: 01/06/17 23:37 General: alert HEENT: NC/AT, PERRLA Neck: Supple Lungs: CTAB Cardiovascular: RRR, Normal S1, Normal S2, without murmur Abdomen: soft non-tender, non-distended Extremities: clear - Procedures Procedures: Procedures Procedure Code Date EMERGENCY DEPT VISIT 97150 11/13/11 EMERGENCY DEPT VISIT 51305 10/11/11 Internal Medicine Assmt/Plan - Assessment Assessment: uti agitation sad - Plan Plan: encourage fluids fall precautions cpm Nutritional Asmnt/Malnutr-PDOC - Dietary Evaluation Malnutrition Findings (Please click <Entered> for more info): Nutritional Asmnt/Malnutrition Start: 11/09/16 16: 40 Text: Status: Complete Freq: Document 11/09/16 16:42 GSUN (Rec: 11/09/16 16:43 GSUN [email or web address]) Nutritional Asmnt/Malnutrition Patient General Information Nutritional Screening High Risk Screening Diagnosis Agitation, UTI Pertinent Medical Hx/Surgical Hx RN notes: COPD, hyperlipidemia , anemia schizophrenia, anxiety, hypercholesterolemia, adult FTT Subjective Information 65 year old female from SNF, trasnfered from [facility]. Pt was seen sitting in rec room with DIMENSION [employer]ARRY SUPERVISOR assisting with meals, no difficulties noted. Pt speaks both Panamanian and Mandarin, responds more to Mandarin. Pt was confused, talking about personal life, needs encouragement to take every bite. DIMENSION STONE [employer]ARRY SUPERVISOR informed RD of pt's food preferences. Pt appeared small frame, no significant fat/muscle wasting noted. Avg PO intake 75-100% of meals, meeting nutritional needs. Current Diet Order/ Nutrition Support Regular Pertinent Medications Maalox, Vitamin C, Lipitor, Synthroid, Theragran, Vitamin B Complex w/Vitamin C Pertinent Labs No current labs. Nutritional Hx/Data Height 5 ft 3 in Height (Calculated Centimeters) 160.0 Current Weight (lbs) 102 lb 11.2 oz Weight (Calculated Kilograms) 46.6 Weight (Calculated Grams) 80301.9 [place] Body Weight 115lb Weight Status Underweight GI Symptoms Cultural/Ethnic/Samaritan Belief Unknown. Usual diet at home [facility]: regular. Skin Integrity/Comment: Jose G 18. Skin intact. Current %PO Good (75-100%) Estimated Nutritional Goals Calories/Kcals/Kg IBW 115lb/52kg, 25-30kcal/kg Kcals Calculated 1300-1560kcal Protein g/kg: IBW, 1g/kg Protein Calculated 52g Fluid: ml 1300-1560ml (1ml/kcal) Nutritional Problem 1. Problem Problem Slef-feeding difficulty related to Etiology likely cognition/dementia aeb Signs/Symptoms: requiring total assist, requiring encouragement with every bite, looks at food confused Intervention/Recommendation Comments 1. Continue with regular diet. Continue with total assist. Encourage PO with every bite. 2. FNS will honor pt's food preferences. 3. Obtain new weight. Current BMI 18.19 Expected Outcomes/Goals Expected Outcomes/Goals 1. PO intake continue to meet at least 100% of estimated nutritional needs.
--- NOTE | 2016-11-11 20:08 | Progress Notes ---
SUBJECTIVE: The patient was seen and discussed with staff. Still guarded, paranoid, and still talking to herself. Insight is poor. Judgment remains impaired. The patient continues to require redirecting by staff. ASSESSMENT: The patient is still in psychotic phase. PLAN: Continue stabilization. Continue medication management. Add risperidone 0.5 mg p.o. b.i.d. Unfortunately, when psychotic, it has not been enough and she has refractory psychosis. [facility]# [id number]
[2016-11-11] MEDS: Fenofibrate, Micronized 134 mg Cap PO SCH (20:12)
[2016-11-12] MEDS: Levothyroxine 0.075 Mg Tab PO SCH (06:32)
[2016-11-12] MEDS: Atorvastatin Calcium 10 MG TAB PO SCH (08:16)
[2016-11-12] MEDS: Multivitamin Tab PO SCH (08:16)
[2016-11-12] MEDS: Vitamin B Complex w/Vitamin C Tab PO SCH (08:17)
--- NOTE | 2016-11-12 16:07 | Internal Medicine Prog Note ---
Internal Medicine Subjective - Subjective Service Date: 11/12/16 Patient seen and examined:: with staff Patient is:: awake Per staff patient is:: no adverse event Internal Medicine Objective - Physical Exam Vitals and I&O: Vital Signs Temp 97.6 F 11/12/16 15:29 Pulse 103 11/12/16 15:29 Resp 20 11/12/16 15:29 BP 120/59 11/12/16 15:29 Pulse Ox 95 11/12/16 15:29 Intake & Output 11/11/16 11/12/16 11/12/16 17:59 06:59 18:59 Intake Total Balance Intake: Oral Other: # Voids # Bowel Movements Stool Characteristics Active Medications: Current Medications Acetaminophen (Tylenol) 650 mg PO Q4HR PRN PRN Reason: Pain Stop: 01/06/17 23:37 Al Hydrox/Mg Hydrox/Simethicone (Maalox) 30 ml PO Q4HR PRN PRN Reason: GI DISTRESS Stop: 01/06/17 23:37 Ascorbic Acid (Vitamin C) 500 mg PO DAILY GUS Stop: 01/07/17 08:59 Last Admin: 11/12/16 08:17 Dose: 500 mg Atorvastatin Calcium (Lipitor) 20 mg PO DAILY GUS PRN Reason: Protocol Stop: 01/07/17 08:59 Last Admin: 11/12/16 08:16 Dose: 20 mg Fenofibrate (Tricor) 134 mg PO HS GUS Stop: 01/07/17 20:59 Last Admin: 11/11/16 20:12 Dose: 134 mg Levothyroxine Sodium (Synthroid) 0.075 mg PO QDAC GUS Stop: 01/07/17 07:29 Last Admin: 11/12/16 06:32 Dose: 0.075 mg Lorazepam (Ativan) 0.5 mg PO Q4HR PRN; Protocol PRN Reason: Anxiety Stop: 12/07/16 23:37 Last Admin: 11/11/16 17:14 Dose: 0.5 mg Mirtazapine (Remeron) 30 mg PO HS GUS PRN Reason: Protocol Stop: 01/07/17 20:59 Last Admin: 11/11/16 20:12 Dose: 30 mg Multivitamins/Vitamin C (Theragran) 1 tab PO DAILY GUS Stop: 01/07/17 08:59 Last Admin: 11/12/16 08:16 Dose: 1 tab Olanzapine (Zyprexa) 10 mg PO BID GUS PRN Reason: Protocol Stop: 01/07/17 08:59 Last Admin: 11/12/16 08:17 Dose: 10 mg Risperidone (Risperdal) 0.5 mg PO BID GUS PRN Reason: Protocol Stop: 01/10/17 16:59 Last Admin: 11/12/16 08:17 Dose: 0.5 mg Vitamin B Complex/Vit C/Folic Acid (Vitamin B Complex W/Vitamin C) 1 tab PO DAILY GUS Stop: 01/07/17 08:59 Last Admin: 11/12/16 08:17 Dose: 1 tab Zolpidem Tartrate (Ambien) 5 mg PO HS PRN PRN Reason: Insomnia Stop: 01/06/17 23:37 General: alert HEENT: NC/AT, PERRLA Neck: Supple Lungs: CTAB Cardiovascular: RRR, Normal S1, Normal S2, without murmur Abdomen: soft non-tender, non-distended, positive bowel sound Neurological: no change - Procedures Procedures: Procedures Procedure Code Date EMERGENCY DEPT VISIT 01628 11/13/11 EMERGENCY DEPT VISIT 55761 10/11/11 Internal Medicine Assmt/Plan - Assessment Assessment: uti agitation sad - Plan Plan: encourage fluids fall precautions cpm Nutritional Asmnt/Malnutr-PDOC - Dietary Evaluation Malnutrition Findings (Please click <Entered> for more info): Nutritional Asmnt/Malnutrition Start: 11/09/16 16: 40 Text: Status: Complete Freq: Document 11/09/16 16:42 GSUN (Rec: 11/09/16 16:43 GSUN [email or web address]) Nutritional Asmnt/Malnutrition Patient General Information Nutritional Screening High Risk Screening Diagnosis Agitation, UTI Pertinent Medical Hx/Surgical Hx RN notes: COPD, hyperlipidemia , anemia schizophrenia, anxiety, hypercholesterolemia, adult FTT Subjective Information 65 year old female from SNF, trasnfered from [facility]. Pt was seen sitting in rec room with PLASTIC FIXTURE BUILDER assisting with meals, no difficulties noted. Pt speaks both Latvian and Mandarin, responds more to Mandarin. Pt was confused, talking about personal life, needs encouragement to take every bite. PLASTIC FIXTURE BUILDER informed RD of pt's food preferences. Pt appeared small frame, no significant fat/muscle wasting noted. Avg PO intake 75-100% of meals, meeting nutritional needs. Current Diet Order/ Nutrition Support Regular Pertinent Medications Maalox, Vitamin C, Lipitor, Synthroid, Theragran, Vitamin B Complex w/Vitamin C Pertinent Labs No current labs. Nutritional Hx/Data Height 5 ft 3 in Height (Calculated Centimeters) 160.0 Current Weight (lbs) 102 lb 11.2 oz Weight (Calculated Kilograms) 46.6 Weight (Calculated Grams) 48431.9 [place] Body Weight 115lb Weight Status Underweight GI Symptoms Cultural/Ethnic/Denominational Belief Unknown. Usual diet at home [facility]: regular. Skin Integrity/Comment: Jose G 18. Skin intact. Current %PO Good (75-100%) Estimated Nutritional Goals Calories/Kcals/Kg IBW 115lb/52kg, 25-30kcal/kg Kcals Calculated 1300-1560kcal Protein g/kg: IBW, 1g/kg Protein Calculated 52g Fluid: ml 1300-1560ml (1ml/kcal) Nutritional Problem 1. Problem Problem Slef-feeding difficulty related to Etiology likely cognition/dementia aeb Signs/Symptoms: requiring total assist, requiring encouragement with every bite, looks at food confused Intervention/Recommendation Comments 1. Continue with regular diet. Continue with total assist. Encourage PO with every bite. 2. FNS will honor pt's food preferences. 3. Obtain new weight. Current BMI 18.19 Expected Outcomes/Goals Expected Outcomes/Goals 1. PO intake continue to meet at least 100% of estimated nutritional needs.
[2016-11-12] MEDS: Fenofibrate, Micronized 134 mg Cap PO SCH (20:35)
--- NOTE | 2016-11-12 22:51 | Progress Notes ---
SUBJECTIVE: The patient was seen, discussed with staff, chart reviewed. Still wandering on the unit, talking to herself, some anger outburst episodes, where she is paranoid, actively hallucinating, limited insight to her issues. The patient, however, is taking her medications. Vital signs stable. ASSESSMENT: The patient is still in psychotic phase, highly disorganized. PLAN: We will continue to monitor closely. Continue supportive measures. [facility]# [id number]
[2016-11-13] MEDS: Levothyroxine 0.075 Mg Tab PO SCH (06:35)
[2016-11-13] MEDS: Multivitamin Tab PO SCH (08:20)
[2016-11-13] MEDS: Vitamin B Complex w/Vitamin C Tab PO SCH (08:21)
[2016-11-13] MEDS: Atorvastatin Calcium 10 MG TAB PO SCH (08:21)
--- NOTE | 2016-11-13 12:17 | Internal Medicine Prog Note ---
Internal Medicine Subjective - Subjective Service Date: 11/13/16 Patient seen and examined:: with staff Patient is:: awake Per staff patient is:: no adverse event Internal Medicine Objective - Physical Exam Vitals and I&O: Vital Signs Temp 97.7 F 11/13/16 06:42 Pulse 66 11/13/16 09:56 Resp 18 11/13/16 09:56 BP 126/75 11/13/16 06:42 Pulse Ox 97 11/13/16 06:42 Intake & Output 11/12/16 11/13/16 11/13/16 18:59 06:59 18:59 Intake Total 900 120 Balance 900 120 Intake: Oral 900 120 Other: # Voids 3 3 # Bowel Movements 1 Active Medications: Current Medications Acetaminophen (Tylenol) 650 mg PO Q4HR PRN PRN Reason: Pain Stop: 01/06/17 23:37 Al Hydrox/Mg Hydrox/Simethicone (Maalox) 30 ml PO Q4HR PRN PRN Reason: GI DISTRESS Stop: 01/06/17 23:37 Ascorbic Acid (Vitamin C) 500 mg PO DAILY GUS Stop: 01/07/17 08:59 Last Admin: 11/13/16 08:21 Dose: 500 mg Atorvastatin Calcium (Lipitor) 20 mg PO DAILY GUS PRN Reason: Protocol Stop: 01/07/17 08:59 Last Admin: 11/13/16 08:21 Dose: 20 mg Fenofibrate (Tricor) 134 mg PO HS GUS Stop: 01/07/17 20:59 Last Admin: 11/12/16 20:35 Dose: 134 mg Levothyroxine Sodium (Synthroid) 0.075 mg PO QDAC GUS Stop: 01/07/17 07:29 Last Admin: 11/13/16 06:35 Dose: 0.075 mg Lorazepam (Ativan) 0.5 mg PO Q4HR PRN; Protocol PRN Reason: Anxiety Stop: 12/07/16 23:37 Last Admin: 11/11/16 17:14 Dose: 0.5 mg Mirtazapine (Remeron) 30 mg PO HS GUS PRN Reason: Protocol Stop: 01/07/17 20:59 Last Admin: 11/12/16 20:35 Dose: 30 mg Multivitamins/Vitamin C (Theragran) 1 tab PO DAILY GUS Stop: 01/07/17 08:59 Last Admin: 11/13/16 08:20 Dose: 1 tab Olanzapine (Zyprexa) 10 mg PO BID GUS PRN Reason: Protocol Stop: 01/07/17 08:59 Last Admin: 11/13/16 08:20 Dose: 10 mg Risperidone (Risperdal) 0.5 mg PO BID GUS PRN Reason: Protocol Stop: 01/10/17 16:59 Last Admin: 11/13/16 08:20 Dose: 0.5 mg Vitamin B Complex/Vit C/Folic Acid (Vitamin B Complex W/Vitamin C) 1 tab PO DAILY GUS Stop: 01/07/17 08:59 Last Admin: 11/13/16 08:21 Dose: 1 tab Zolpidem Tartrate (Ambien) 5 mg PO HS PRN PRN Reason: Insomnia Stop: 01/06/17 23:37 General: alert HEENT: NC/AT, PERRLA Neck: Supple Lungs: CTAB Cardiovascular: RRR, Normal S1, Normal S2, without murmur Abdomen: soft non-tender, non-distended Extremities: clear - Procedures Procedures: Procedures Procedure Code Date EMERGENCY DEPT VISIT 36023 11/13/11 EMERGENCY DEPT VISIT 88218 10/11/11 Internal Medicine Assmt/Plan - Assessment Assessment: uti agitation sad - Plan Plan: encourage fluids fall precautions cpm Nutritional Asmnt/Malnutr-PDOC - Dietary Evaluation Malnutrition Findings (Please click <Entered> for more info): Nutritional Asmnt/Malnutrition Start: 11/09/16 16: 40 Text: Status: Complete Freq: Document 11/09/16 16:42 GSUN (Rec: 11/09/16 16:43 GSUN [email or web address]) Nutritional Asmnt/Malnutrition Patient General Information Nutritional Screening High Risk Screening Diagnosis Agitation, UTI Pertinent Medical Hx/Surgical Hx RN notes: COPD, hyperlipidemia , anemia schizophrenia, anxiety, hypercholesterolemia, adult FTT Subjective Information 65 year old female from SNF, trasnfered from [facility]. Pt was seen sitting in rec room with BUTTON TUFTING MACHINE OPERATOR assisting with meals, no difficulties noted. Pt speaks both Estonian and Mandarin, responds more to Mandarin. Pt was confused, talking about personal life, needs encouragement to take every bite. BUTTON TUFTING MACHINE OPERATOR informed RD of pt's food preferences. Pt appeared small frame, no significant fat/muscle wasting noted. Avg PO intake 75-100% of meals, meeting nutritional needs. Current Diet Order/ Nutrition Support Regular Pertinent Medications Maalox, Vitamin C, Lipitor, Synthroid, Theragran, Vitamin B Complex w/Vitamin C Pertinent Labs No current labs. Nutritional Hx/Data Height 5 ft 3 in Height (Calculated Centimeters) 160.0 Current Weight (lbs) 102 lb 11.2 oz Weight (Calculated Kilograms) 46.6 Weight (Calculated Grams) 32760.9 [place] Body Weight 115lb Weight Status Underweight GI Symptoms Cultural/Ethnic/Confucianist Belief Unknown. Usual diet at home [facility]: regular. Skin Integrity/Comment: Jose G 18. Skin intact. Current %PO Good (75-100%) Estimated Nutritional Goals Calories/Kcals/Kg IBW 115lb/52kg, 25-30kcal/kg Kcals Calculated 1300-1560kcal Protein g/kg: IBW, 1g/kg Protein Calculated 52g Fluid: ml 1300-1560ml (1ml/kcal) Nutritional Problem 1. Problem Problem Slef-feeding difficulty related to Etiology likely cognition/dementia aeb Signs/Symptoms: requiring total assist, requiring encouragement with every bite, looks at food confused Intervention/Recommendation Comments 1. Continue with regular diet. Continue with total assist. Encourage PO with every bite. 2. FNS will honor pt's food preferences. 3. Obtain new weight. Current BMI 18.19 Expected Outcomes/Goals Expected Outcomes/Goals 1. PO intake continue to meet at least 100% of estimated nutritional needs.
--- NOTE | 2016-11-13 20:04 | Progress Notes ---
SUBJECTIVE: I met this patient, discussed with staff, and chart reviewed. Still forgetful and confused, running around the unit, requiring redirecting by staff, still talking to herself. Her agitation and anger outburst appear to be decreasing and she is easier to redirect. ASSESSMENT: The patient is still in psychotic phase. PLAN: Continue hospitalization. Continue supportive measures. Monitor closely. [facility]# [id number]
[2016-11-13] MEDS: Fenofibrate, Micronized 134 mg Cap PO SCH (21:13)
[2016-11-14] MEDS: Levothyroxine 0.075 Mg Tab PO SCH (06:45)
[2016-11-14] MEDS: Atorvastatin Calcium 10 MG TAB PO SCH (09:44)
[2016-11-14] MEDS: Vitamin B Complex w/Vitamin C Tab PO SCH (09:44)
[2016-11-14] MEDS: Multivitamin Tab PO SCH (09:44)
--- NOTE | 2016-11-14 12:51 | Internal Medicine Prog Note ---
Internal Medicine Subjective - Subjective Service Date: 11/14/16 Patient seen and examined:: with staff Patient is:: awake Per staff patient is:: no adverse event Internal Medicine Objective - Physical Exam Vitals and I&O: Vital Signs Temp 98.1 F 11/14/16 06:31 Pulse 92 11/14/16 06:31 Resp 20 11/14/16 06:31 BP 111/72 11/14/16 06:31 Pulse Ox 95 11/14/16 06:31 Intake & Output 11/13/16 11/14/16 11/14/16 18:59 06:59 18:59 Intake Total 950 120 Balance 950 120 Intake: Oral 950 120 Other: # Voids 3 2 # Bowel Movements 1 0 Active Medications: Current Medications Acetaminophen (Tylenol) 650 mg PO Q4HR PRN PRN Reason: Pain Stop: 01/06/17 23:37 Al Hydrox/Mg Hydrox/Simethicone (Maalox) 30 ml PO Q4HR PRN PRN Reason: GI DISTRESS Stop: 01/06/17 23:37 Ascorbic Acid (Vitamin C) 500 mg PO DAILY GUS Stop: 01/07/17 08:59 Last Admin: 11/14/16 09:44 Dose: Not Given Atorvastatin Calcium (Lipitor) 20 mg PO DAILY GUS PRN Reason: Protocol Stop: 01/07/17 08:59 Last Admin: 11/14/16 09:44 Dose: Not Given Fenofibrate (Tricor) 134 mg PO HS GUS Stop: 01/07/17 20:59 Last Admin: 11/13/16 21:13 Dose: Not Given Levothyroxine Sodium (Synthroid) 0.075 mg PO QDAC GUS Stop: 01/07/17 07:29 Last Admin: 11/14/16 06:45 Dose: Not Given Lorazepam (Ativan) 0.5 mg PO Q4HR PRN; Protocol PRN Reason: Anxiety Stop: 12/07/16 23:37 Last Admin: 11/13/16 17:18 Dose: 0.5 mg Mirtazapine (Remeron) 30 mg PO HS GUS PRN Reason: Protocol Stop: 01/07/17 20:59 Last Admin: 11/13/16 21:13 Dose: Not Given Multivitamins/Vitamin C (Theragran) 1 tab PO DAILY GUS Stop: 01/07/17 08:59 Last Admin: 03/14/17 09:44 Dose: Not Given Olanzapine (Zyprexa) 10 mg PO BID GUS PRN Reason: Protocol Stop: 01/07/17 08:59 Last Admin: 11/14/16 09:44 Dose: Not Given Risperidone (Risperdal) 0.5 mg PO BID GUS PRN Reason: Protocol Stop: 01/10/17 16:59 Last Admin: 11/14/16 09:44 Dose: Not Given Vitamin B Complex/Vit C/Folic Acid (Vitamin B Complex W/Vitamin C) 1 tab PO DAILY GUS Stop: 01/07/17 08:59 Last Admin: 11/14/16 09:44 Dose: Not Given Zolpidem Tartrate (Ambien) 5 mg PO HS PRN PRN Reason: Insomnia Stop: 01/06/17 23:37 General: alert HEENT: NC/AT Neck: Supple Lungs: CTAB Cardiovascular: RRR, Normal S1, Normal S2, without murmur Abdomen: soft non-tender, non-distended, positive bowel sound Extremities: clear Neurological: no change - Procedures Procedures: Procedures Procedure Code Date EMERGENCY DEPT VISIT 52620 11/13/11 EMERGENCY DEPT VISIT 62220 10/11/11 Internal Medicine Assmt/Plan - Assessment Assessment: uti agitation sad - Plan Plan: encourage fluids fall precautions cpm Nutritional Asmnt/Malnutr-PDOC - Dietary Evaluation Malnutrition Findings (Please click <Entered> for more info): Nutritional Asmnt/Malnutrition Start: 11/09/16 16: 40 Text: Status: Complete Freq: Document 11/09/16 16:42 GSUN (Rec: 11/09/16 16:43 GSUN [email or web address]) Nutritional Asmnt/Malnutrition Patient General Information Nutritional Screening High Risk Screening Diagnosis Agitation, UTI Pertinent Medical Hx/Surgical Hx RN notes: COPD, hyperlipidemia , anemia schizophrenia, anxiety, hypercholesterolemia, adult FTT Subjective Information 65 year old female from SNF, trasnfered from [facility]. Pt was seen sitting in rec room with TURF SALES PERSON assisting with meals, no difficulties noted. Pt speaks both Salvadorean and Mandarin, responds more to Mandarin. Pt was confused, talking about personal life, needs encouragement to take every bite. TURF SALES PERSON informed RD of pt's food preferences. Pt appeared small frame, no significant fat/muscle wasting noted. Avg PO intake 75-100% of meals, meeting nutritional needs. Current Diet Order/ Nutrition Support Regular Pertinent Medications Maalox, Vitamin C, Lipitor, Synthroid, Theragran, Vitamin B Complex w/Vitamin C Pertinent Labs No current labs. Nutritional Hx/Data Height 5 ft 3 in Height (Calculated Centimeters) 160.0 Current Weight (lbs) 102 lb 11.2 oz Weight (Calculated Kilograms) 46.6 Weight (Calculated Grams) 38423.9 [place] Body Weight 115lb Weight Status Underweight GI Symptoms Cultural/Ethnic/Orthodoxy Belief Unknown. Usual diet at home [facility] SNF: regular. Skin Integrity/Comment: Jose G 18. Skin intact. Current %PO Good (75-100%) Estimated Nutritional Goals Calories/Kcals/Kg IBW 115lb/52kg, 25-30kcal/kg Kcals Calculated 1300-1560kcal Protein g/kg: IBW, 1g/kg Protein Calculated 52g Fluid: ml 1300-1560ml (1ml/kcal) Nutritional Problem 1. Problem Problem Slef-feeding difficulty related to Etiology likely cognition/dementia aeb Signs/Symptoms: requiring total assist, requiring encouragement with every bite, looks at food confused Intervention/Recommendation Comments 1. Continue with regular diet. Continue with total assist. Encourage PO with every bite. 2. FNS will honor pt's food preferences. 3. Obtain new weight. Current BMI 18.19 Expected Outcomes/Goals Expected Outcomes/Goals 1. PO intake continue to meet at least 100% of estimated nutritional needs.
[2016-11-14] MEDS: Fenofibrate, Micronized 134 mg Cap PO SCH (21:22)
--- NOTE | 2016-11-15 03:43 | Progress Notes ---
SUBJECTIVE: I met this patient, remains confused, disorganized, still paranoid; however, she is easier to redirect by staff and her anger outburst appears to be decreasing. The patient is tolerating the addition of risperidone well. Her insight remains poor, judgment remains impaired. ASSESSMENT: The patient still in psychotic phase. PLAN: We will continue supportive measures, continue to monitor closely. JOB# [id number]
[2016-11-15] MEDS: Levothyroxine 0.075 Mg Tab PO SCH (06:37)
[2016-11-15] MEDS: Atorvastatin Calcium 10 MG TAB PO SCH (09:28)
[2016-11-15] MEDS: Multivitamin Tab PO SCH (09:28)
[2016-11-15] MEDS: Vitamin B Complex w/Vitamin C Tab PO SCH (09:28)
--- NOTE | 2016-11-15 16:15 | Internal Medicine Prog Note ---
Internal Medicine Subjective - Subjective Service Date: 11/15/16 Patient seen and examined:: with staff Patient is:: awake Per staff patient is:: no adverse event, unstable gait Internal Medicine Objective - Physical Exam Vitals and I&O: Vital Signs Temp 97.8 F 11/15/16 06:18 Pulse 96 11/15/16 11:15 Resp 20 11/15/16 11:15 BP 116/76 11/15/16 06:18 Pulse Ox 98 11/15/16 06:18 Intake & Output 11/14/16 11/15/16 11/15/16 18:59 06:59 18:59 Intake Total 850 240 Balance 850 240 Intake: Oral 850 240 Other: # Voids 3 3 # Bowel Movements 1 0 Active Medications: Current Medications Acetaminophen (Tylenol) 650 mg PO Q4HR PRN PRN Reason: Pain Stop: 01/06/17 23:37 Al Hydrox/Mg Hydrox/Simethicone (Maalox) 30 ml PO Q4HR PRN PRN Reason: GI DISTRESS Stop: 01/06/17 23:37 Ascorbic Acid (Vitamin C) 500 mg PO DAILY GUS Stop: 01/07/17 08:59 Last Admin: 11/15/16 09:28 Dose: Not Given Atorvastatin Calcium (Lipitor) 20 mg PO DAILY GUS PRN Reason: Protocol Stop: 01/07/17 08:59 Last Admin: 11/15/16 09:28 Dose: Not Given Fenofibrate (Tricor) 134 mg PO HS GUS Stop: 01/07/17 20:59 Last Admin: 11/14/16 21:22 Dose: 134 mg Levothyroxine Sodium (Synthroid) 0.075 mg PO QDAC GUS Stop: 01/07/17 07:29 Last Admin: 11/15/16 06:37 Dose: 0.075 mg Lorazepam (Ativan) 0.5 mg PO Q4HR PRN; Protocol PRN Reason: Anxiety Stop: 12/07/16 23:37 Last Admin: 11/13/16 17:18 Dose: 0.5 mg Mirtazapine (Remeron) 30 mg PO HS GUS PRN Reason: Protocol Stop: 01/07/17 20:59 Last Admin: 11/14/16 21:22 Dose: 30 mg Multivitamins/Vitamin C (Theragran) 1 tab PO DAILY GUS Stop: 01/07/17 08:59 Last Admin: 11/15/16 09:28 Dose: Not Given Olanzapine (Zyprexa) 10 mg PO BID GUS PRN Reason: Protocol Stop: 01/07/17 08:59 Last Admin: 11/15/16 09:28 Dose: Not Given Risperidone (Risperdal) 1 mg PO BID GUS PRN Reason: Protocol Stop: 01/14/17 16:01 Vitamin B Complex/Vit C/Folic Acid (Vitamin B Complex W/Vitamin C) 1 tab PO DAILY GUS Stop: 01/07/17 08:59 Last Admin: 11/15/16 09:28 Dose: Not Given Zolpidem Tartrate (Ambien) 5 mg PO HS PRN PRN Reason: Insomnia Stop: 01/06/17 23:37 Last Admin: 11/14/16 21:22 Dose: 5 mg General: alert HEENT: NC/AT, PERRLA Neck: Supple Lungs: CTAB Cardiovascular: RRR, Normal S1, Normal S2, without murmur Abdomen: soft non-tender, non-distended, positive bowel sound Neurological: no change - Procedures Procedures: Procedures Procedure Code Date EMERGENCY DEPT VISIT 48828 11/13/11 EMERGENCY DEPT VISIT 72242 10/11/11 Internal Medicine Assmt/Plan - Assessment Assessment: uti agitation sad - Plan Plan: encourage fluids fall precautions cpm Nutritional Asmnt/Malnutr-PDOC - Dietary Evaluation Malnutrition Findings (Please click <Entered> for more info): Nutritional Asmnt/Malnutrition Start: 11/09/16 16: 40 Text: Status: Complete Freq: Document 11/09/16 16:42 GSUN (Rec: 11/09/16 16:43 GSUN [email or web address]) Nutritional Asmnt/Malnutrition Patient General Information Nutritional Screening High Risk Screening Diagnosis Agitation, UTI Pertinent Medical Hx/Surgical Hx RN notes: COPD, hyperlipidemia , anemia schizophrenia, anxiety, hypercholesterolemia, adult FTT Subjective Information 65 year old female from SNF, trasnfered from [facility]. Pt was seen sitting in rec room with HABILITATION WORKER assisting with meals, no difficulties noted. Pt speaks both Polish and Mandarin, responds more to Mandarin. Pt was confused, talking about personal life, needs encouragement to take every bite. HABILITATION WORKER informed RD of pt's food preferences. Pt appeared small frame, no significant fat/muscle wasting noted. Avg PO intake 75-100% of meals, meeting nutritional needs. Current Diet Order/ Nutrition Support Regular Pertinent Medications Maalox, Vitamin C, Lipitor, Synthroid, Theragran, Vitamin B Complex w/Vitamin C Pertinent Labs No current labs. Nutritional Hx/Data Height 5 ft 3 in Height (Calculated Centimeters) 160.0 Current Weight (lbs) 102 lb 11.2 oz Weight (Calculated Kilograms) 46.6 Weight (Calculated Grams) 44602.9 [place] Body Weight 115lb Weight Status Underweight GI Symptoms Cultural/Ethnic/Yarsanism Belief Unknown. Usual diet at home [facility]: regular. Skin Integrity/Comment: Jose G 18. Skin intact. Current %PO Good (75-100%) Estimated Nutritional Goals Calories/Kcals/Kg IBW 115lb/52kg, 25-30kcal/kg Kcals Calculated 1300-1560kcal Protein g/kg: IBW, 1g/kg Protein Calculated 52g Fluid: ml 1300-1560ml (1ml/kcal) Nutritional Problem 1. Problem Problem Slef-feeding difficulty related to Etiology likely cognition/dementia aeb Signs/Symptoms: requiring total assist, requiring encouragement with every bite, looks at food confused Intervention/Recommendation Comments 1. Continue with regular diet. Continue with total assist. Encourage PO with every bite. 2. FNS will honor pt's food preferences. 3. Obtain new weight. Current BMI 18.19 Expected Outcomes/Goals Expected Outcomes/Goals 1. PO intake continue to meet at least 100% of estimated nutritional needs.
--- NOTE | 2016-11-15 20:29 | Progress Notes ---
SUBJECTIVE: I met this patient. She is still guarded, still paranoid. Still episodes of ____. She was talking to herself, but her insight is limited and judgment remains impaired. The patient's anger outbursts have decreased. The patient is taking her medications. ASSESSMENT: The patient is still in psychotic phase. PLAN: Continue stabilization. Continue hospitalization. Continue to monitor closely. Increase risperidone to 1 mg p.o. b.i.d. Monitor closely for any sedation. [facility]# [id number]
[2016-11-15] MEDS: Fenofibrate, Micronized 134 mg Cap PO SCH (20:58)
[2016-11-16] MEDS: Levothyroxine 0.075 Mg Tab PO SCH (06:36)
[2016-11-16] MEDS: Atorvastatin Calcium 10 MG TAB PO SCH (08:21)
[2016-11-16] MEDS: Multivitamin Tab PO SCH (08:21)
[2016-11-16] MEDS: Vitamin B Complex w/Vitamin C Tab PO SCH (08:23)
[2016-11-16] MEDS ORDERED: Haloperidol Lactate 5 mg/mL 1mL Vial ONE (15:28)
[2016-11-16] MEDS ORDERED: Haloperidol Lactate 5 mg/mL 1mL Vial IM ONE (15:30)
[2016-11-16] MEDS: Fenofibrate, Micronized 134 mg Cap PO SCH (20:57)
--- NOTE | 2016-11-16 21:06 | Internal Medicine Prog Note ---
Internal Medicine Subjective - Subjective Patient seen and examined:: with staff, chart reviewed Patient is:: awake, verbal, interactive Per staff patient is:: no adverse event, no episodes of fall, confused Internal Medicine Objective - Physical Exam Vitals and I&O: Vital Signs Temp 97.6 F 11/16/16 14:00 Pulse 80 11/16/16 14:00 Resp 20 11/16/16 14:00 BP 112/66 11/16/16 14:00 Pulse Ox 96 11/16/16 14:00 Intake & Output 11/16/16 11/16/16 11/17/16 06:59 18:59 06:59 Intake Total 120 1000 Balance 120 1000 Intake: Oral 120 1000 Other: # Voids 3 3 # Bowel Movements 1 Active Medications: Current Medications Acetaminophen (Tylenol) 650 mg PO Q4HR PRN PRN Reason: Pain Stop: 01/06/17 23:37 Al Hydrox/Mg Hydrox/Simethicone (Maalox) 30 ml PO Q4HR PRN PRN Reason: GI DISTRESS Stop: 01/06/17 23:37 Ascorbic Acid (Vitamin C) 500 mg PO DAILY GUS Stop: 01/07/17 08:59 Last Admin: 11/16/16 08:21 Dose: Not Given Atorvastatin Calcium (Lipitor) 20 mg PO DAILY GUS PRN Reason: Protocol Stop: 01/07/17 08:59 Last Admin: 11/16/16 08:21 Dose: Not Given Fenofibrate (Tricor) 134 mg PO HS GUS Stop: 01/07/17 20:59 Last Admin: 11/16/16 20:57 Dose: 134 mg Levothyroxine Sodium (Synthroid) 0.075 mg PO QDAC GUS Stop: 01/07/17 07:29 Last Admin: 11/16/16 06:36 Dose: 0.075 mg Lorazepam (Ativan) 0.5 mg PO Q4HR PRN; Protocol PRN Reason: Anxiety Stop: 12/07/16 23:37 Last Admin: 11/13/16 17:18 Dose: 0.5 mg Mirtazapine (Remeron) 30 mg PO HS GUS PRN Reason: Protocol Stop: 01/07/17 20:59 Last Admin: 11/16/16 20:57 Dose: 30 mg Multivitamins/Vitamin C (Theragran) 1 tab PO DAILY GUS Stop: 01/07/17 08:59 Last Admin: 11/16/16 08:21 Dose: Not Given Olanzapine (Zyprexa) 10 mg PO BID GUS PRN Reason: Protocol Stop: 01/07/17 08:59 Last Admin: 11/16/16 17:25 Dose: Not Given Risperidone (Risperdal) 1 mg PO BID GUS PRN Reason: Protocol Stop: 01/14/17 16:01 Last Admin: 11/16/16 17:25 Dose: Not Given Vitamin B Complex/Vit C/Folic Acid (Vitamin B Complex W/Vitamin C) 1 tab PO DAILY GUS Stop: 01/07/17 08:59 Last Admin: 11/16/16 08:23 Dose: Not Given Zolpidem Tartrate (Ambien) 5 mg PO HS PRN PRN Reason: Insomnia Stop: 01/06/17 23:37 Last Admin: 11/14/16 21:22 Dose: 5 mg General: demented HEENT: NC/AT, PERRLA Neck: Supple, No JVD Lungs: CTAB Cardiovascular: RRR, Normal S1, Normal S2 Abdomen: soft non-tender, globular, positive bowel sound Extremities: excoriation Neurological: no change, disorganized - Procedures Procedures: Procedures Procedure Code Date EMERGENCY DEPT VISIT 67967 11/13/11 EMERGENCY DEPT VISIT 28313 10/11/11 Internal Medicine Assmt/Plan - Assessment Assessment: uti agitation sad dementia - Plan Plan: cont on bp meds low na diet fall and aspiration precaution dw rn Nutritional Asmnt/Malnutr-PDOC - Dietary Evaluation Malnutrition Findings (Please click <Entered> for more info): Nutritional Asmnt/Malnutrition Start: 11/09/16 16: 40 Text: Status: Complete Freq: Document 11/09/16 16:42 GSUN (Rec: 11/09/16 16:43 GSUN [email or web address]) Nutritional Asmnt/Malnutrition Patient General Information Nutritional Screening High Risk Screening Diagnosis Agitation, UTI Pertinent Medical Hx/Surgical Hx RN notes: COPD, hyperlipidemia , anemia schizophrenia, anxiety, hypercholesterolemia, adult FTT Subjective Information 65 year old female from SNF, trasnfered from [facility]. Pt was seen sitting in rec room with GENERAL COUNSEL assisting with meals, no difficulties noted. Pt speaks both [place] and Mandarin, responds more to Mandarin. Pt was confused, talking about personal life, needs encouragement to take every bite. GENERAL COUNSEL informed RD of pt's food preferences. Pt appeared small frame, no significant fat/muscle wasting noted. Avg PO intake 75-100% of meals, meeting nutritional needs. Current Diet Order/ Nutrition Support Regular Pertinent Medications Maalox, Vitamin C, Lipitor, Synthroid, Theragran, Vitamin B Complex w/Vitamin C Pertinent Labs No current labs. Nutritional Hx/Data Height 1.6 m Height (Calculated Centimeters) 160.0 Current Weight (lbs) 46.584 kg Weight (Calculated Kilograms) 46.6 Weight (Calculated Grams) 13211.9 [place] Body Weight 115lb Weight Status Underweight GI Symptoms Cultural/Ethnic/Episcopalian Belief Unknown. Usual diet at home [facility] SNF: regular. Skin Integrity/Comment: Jose G Nicholson. Skin intact. Current %PO Good (75-100%) Estimated Nutritional Goals Calories/Kcals/Kg IBW 115lb/52kg, 25-30kcal/kg Kcals Calculated 1300-1560kcal Protein g/kg: IBW, 1g/kg Protein Calculated 52g Fluid: ml 1300-1560ml (1ml/kcal) Nutritional Problem 1. Problem Problem Slef-feeding difficulty related to Etiology likely cognition/dementia aeb Signs/Symptoms: requiring total assist, requiring encouragement with every bite, looks at food confused Intervention/Recommendation Comments 1. Continue with regular diet. Continue with total assist. Encourage PO with every bite. 2. FNS will honor pt's food preferences. 3. Obtain new weight. Current BMI 18.19 Expected Outcomes/Goals Expected Outcomes/Goals 1. PO intake continue to meet at least 100% of estimated nutritional needs.
--- NOTE | 2016-11-16 22:33 | Progress Notes ---
SUBJECTIVE: I met this patient, still talking to herself, actively hallucinating, some paranoia and agitation, episodes of trying to hit staff when they are trying to help her with her ADLs or clean her. The patient is compliant with her medications, but her insight remains poor. Judgment still impaired. ASSESSMENT: The patient still in psychotic phase, still highly paranoid and agitated. PLAN: Continue hospitalization. Continue medications. The patient is currently taking 2 antipsychotics. [facility]# [id number]
[2016-11-17] MEDS: Levothyroxine 0.075 Mg Tab PO SCH (06:39)
[2016-11-17] MEDS: Multivitamin Tab PO SCH (08:40)
[2016-11-17] MEDS: Vitamin B Complex w/Vitamin C Tab PO SCH (08:40)
[2016-11-17] MEDS: Atorvastatin Calcium 10 MG TAB PO SCH (08:40)
--- NOTE | 2016-11-17 14:22 | Internal Medicine Prog Note ---
Internal Medicine Subjective - Subjective Service Date: 11/17/16 Patient seen and examined:: with staff Patient is:: awake Per staff patient is:: no adverse event Internal Medicine Objective - Physical Exam Vitals and I&O: Vital Signs Temp 97 F 11/17/16 13:46 Pulse 69 11/17/16 13:46 Resp 18 11/17/16 13:46 BP 118/75 11/17/16 13:46 Pulse Ox 98 11/17/16 13:46 Intake & Output 11/16/16 11/17/16 11/17/16 18:59 06:59 18:59 Intake Total 1000 120 Balance 1000 120 Intake: Oral 1000 120 Other: # Voids 3 3 # Bowel Movements 1 Active Medications: Current Medications Acetaminophen (Tylenol) 650 mg PO Q4HR PRN PRN Reason: Pain Stop: 01/06/17 23:37 Al Hydrox/Mg Hydrox/Simethicone (Maalox) 30 ml PO Q4HR PRN PRN Reason: GI DISTRESS Stop: 01/06/17 23:37 Ascorbic Acid (Vitamin C) 500 mg PO DAILY GUS Stop: 01/07/17 08:59 Last Admin: 11/17/16 08:39 Dose: Not Given Atorvastatin Calcium (Lipitor) 20 mg PO DAILY GUS PRN Reason: Protocol Stop: 01/07/17 08:59 Last Admin: 11/17/16 08:40 Dose: Not Given Fenofibrate (Tricor) 134 mg PO HS GUS Stop: 01/07/17 20:59 Last Admin: 11/16/16 20:57 Dose: 134 mg Levothyroxine Sodium (Synthroid) 0.075 mg PO QDAC GUS Stop: 01/07/17 07:29 Last Admin: 11/17/16 06:39 Dose: Not Given Lorazepam (Ativan) 0.5 mg PO Q4HR PRN; Protocol PRN Reason: Anxiety Stop: 12/07/16 23:37 Last Admin: 11/13/16 17:18 Dose: 0.5 mg Mirtazapine (Remeron) 30 mg PO HS GUS PRN Reason: Protocol Stop: 01/07/17 20:59 Last Admin: 11/16/16 20:57 Dose: 30 mg Multivitamins/Vitamin C (Theragran) 1 tab PO DAILY GUS Stop: 01/07/17 08:59 Last Admin: 11/17/16 08:40 Dose: Not Given Olanzapine (Zyprexa) 10 mg PO BID GUS PRN Reason: Protocol Stop: 01/07/17 08:59 Last Admin: 11/17/16 08:40 Dose: Not Given Risperidone (Risperdal) 1 mg PO BID GUS PRN Reason: Protocol Stop: 01/14/17 16:01 Last Admin: 11/17/16 08:40 Dose: Not Given Vitamin B Complex/Vit C/Folic Acid (Vitamin B Complex W/Vitamin C) 1 tab PO DAILY GUS Stop: 01/07/17 08:59 Last Admin: 11/17/16 08:40 Dose: Not Given Zolpidem Tartrate (Ambien) 5 mg PO HS PRN PRN Reason: Insomnia Stop: 01/06/17 23:37 Last Admin: 11/14/16 21:22 Dose: 5 mg General: alert HEENT: NC/AT, PERRLA Neck: Supple Lungs: CTAB Cardiovascular: RRR, Normal S1, Normal S2, without murmur Abdomen: soft non-tender, non-distended, positive bowel sound Neurological: no change - Procedures Procedures: Procedures Procedure Code Date EMERGENCY DEPT VISIT 12838 11/13/11 EMERGENCY DEPT VISIT 58788 10/11/11 Internal Medicine Assmt/Plan - Assessment Assessment: uti agitation sad - Plan Plan: encourage fluids fall precautions cpm Nutritional Asmnt/Malnutr-PDOC - Dietary Evaluation Malnutrition Findings (Please click <Entered> for more info): Nutritional Asmnt/Malnutrition Start: 11/09/16 16: 40 Text: Status: Complete Freq: Document 11/09/16 16:42 GSUN (Rec: 11/09/16 16:43 GSUN [email or web address]) Nutritional Asmnt/Malnutrition Patient General Information Nutritional Screening High Risk Screening Diagnosis Agitation, UTI Pertinent Medical Hx/Surgical Hx RN notes: COPD, hyperlipidemia , anemia schizophrenia, anxiety, hypercholesterolemia, adult FTT Subjective Information 65 year old female from SNF, trasnfered from [facility]. Pt was seen sitting in rec room with RECRUITING SCHEDULER assisting with meals, no difficulties noted. Pt speaks both [place] and Mandarin, responds more to Mandarin. Pt was confused, talking about personal life, needs encouragement to take every bite. RECRUITING SCHEDULER informed RD of pt's food preferences. Pt appeared small frame, no significant fat/muscle wasting noted. Avg PO intake 75-100% of meals, meeting nutritional needs. Current Diet Order/ Nutrition Support Regular Pertinent Medications Maalox, Vitamin C, Lipitor, Synthroid, Theragran, Vitamin B Complex w/Vitamin C Pertinent Labs No current labs. Nutritional Hx/Data Height 5 ft 3 in Height (Calculated Centimeters) 160.0 Current Weight (lbs) 102 lb 11.2 oz Weight (Calculated Kilograms) 46.6 Weight (Calculated Grams) 19565.9 [place] Body Weight 115lb Weight Status Underweight GI Symptoms Cultural/Ethnic/Oriental Orthodox Belief Unknown. Usual diet at home [facility] SNF: regular. Skin Integrity/Comment: Jose G 18. Skin intact. Current %PO Good (75-100%) Estimated Nutritional Goals Calories/Kcals/Kg IBW 115lb/52kg, 25-30kcal/kg Kcals Calculated 1300-1560kcal Protein g/kg: IBW, 1g/kg Protein Calculated 52g Fluid: ml 1300-1560ml (1ml/kcal) Nutritional Problem 1. Problem Problem Slef-feeding difficulty related to Etiology likely cognition/dementia aeb Signs/Symptoms: requiring total assist, requiring encouragement with every bite, looks at food confused Intervention/Recommendation Comments 1. Continue with regular diet. Continue with total assist. Encourage PO with every bite. 2. FNS will honor pt's food preferences. 3. Obtain new weight. Current BMI 18.19 Expected Outcomes/Goals Expected Outcomes/Goals 1. PO intake continue to meet at least 100% of estimated nutritional needs.
--- NOTE | 2016-11-17 19:46 | Discharge Summary ---
REASON FOR HOSPITALIZATION: Schizoaffective disorder, psychotic phase. HISTORY OF PRESENT ILLNESS: The patient is a 65-year-old female with a history of chronic mental illness, was admitted to the hospital for increased paranoia and agitation, aggressive behavior and increased confusion. The patient was noticed talking to herself and having episodes where she was threatening staff for no apparent reason. HOSPITALIZATION COURSE: The medications were implemented. The patient's compliance improved. Risperidone was added. Anger outbursts and agitation subsided down. On 11/17/2016, the patient was superficially disorganized, no longer angry or agitated. She is oriented to person, being in the hospital. The patient has no suicidal or homicidal thoughts. The patient's appetite and sleep were fair. The patient was discharged back to her facility. FINAL DIAGNOSES: Schizophrenia, paranoid type, versus schizoaffective disorder. Medical: Hypertension, hyperlipidemia. CONDITION ON DISCHARGE: Improved. No agitation, no aggressive behavior with stable vital signs. Fair sleep and appetite. No suicidal or homicidal thoughts. DISPOSITION: The patient was discharged to [facility]. EXPECTED COURSE OF RECOVERY: The patient with chronic condition. JOB# [id number]
== END 2016-11-17 19:30 | DRG 885 ==
LOC: GERO 22:10
DX: F20.0 Paranoid schizophrenia (principal); Z91.14 Patient's other noncompliance with medication regimen; I10 Essential (primary) hypertension; N39.0 Urinary tract infection, site not specified; E78.5 Hyperlipidemia, unspecified
CPT/HCPCS: 90899; G0410; J1200; J1630; J2060; Z7610

== ENCOUNTER 2017-05-08 18:46 | Inpatient (IN) | payer MEDICARE, MEDICAID ==
--- NOTE | 2017-05-08 19:09 | ED Physician Chart ---
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 pt has been cross w staff and striking out at staff. here for bandar morales. no known recent illness. pt was cooperative w ems in transit. Allergies:: Allergies Allergy/AdvReac Type Severity Reaction Status Date / Time No Known Allergies Allergy Verified 11/03/16 16:33 Historian:: Patient, EMS Review:: Transfer documents Reviewed Review of Systems - Review of Systems General/Constitutional: No fever, No chills, No weight loss, No weakness, No diaphoresis, No edema, No loss of appetite Skin: No skin lesions, No rash, No bruising Head: No headache, No light-headedness Eyes: No loss of vision, No pain, No diplopia ENT: No earache, No nasal drainage, No sore throat, No tinnitus Neck: No neck pain, No swelling, No thyromegaly, No stiffness, No mass noted Cardio Vascular: No chest pain, No palpitations, No PND, No orthopnea, No edema Pulmonary: No SOB, No cough, No sputum, No wheezing GI: No nausea, No vomiting, No diarrhea, No pain, No melena, No hematochezia, No constipation, No hematemesis G/U: No dysuria, No frequency, No hematuria Musculoskeletal: No bone or joint pain, No back pain, No muscle pain Endocrine: No polyuria, No polydipsia Psychiatric: Prior psych history, No depression, No anxiety, No suicidal ideation, Other (agitation) Hematopoietic: No bruising, No lymphadenopathy Allergic/Immuno: No urticaria, No angioedema Neurological: No syncope, No focal symptoms, No weakness, No paresthesia, No headache, No seizure, No dizziness, No confusion, No vertigo Past Medical History - Past Medical History Past Medical History: Asthma/COPD, Dyslipidemia, Thyroid disorder, Other (anemia ) Social History: Non Smoker, Care Facility Medication: Reviewed Family Medical History - Family Member Mother History Unknown: Yes Ethnicity: Non- Living Status: Unknown Hx Family Cancer: (unknown PT CONFUSED) Hx Family Coronary Artery Disease: (UNKNOWN) Hx Family Congestive Heart Failure: (UNKNOWN) Hx Family Hypertension: (UNKNOWN) Hx Family Stroke: (UNKNOWN) Hx Family Diabetes: (UNKNOWN) Hx Family Seizures: (UNKNOWN) Hx Family Dementia: (UNKNOWN) Hx Family AIDS: (UNKNOWN) Hx Family COPD: (UNKNOWN) Hx Family Hepatitis: (UNKNOWN) Hx Family Psychiatric Problems: (UNKNOWN) Hx Family Tuberculosis: (UNKNOWN) Physical Exam - Physical Examination General/Constitutional: Awake, Well-developed, well-nourished, Alert, No distress, GCS 15, Non-toxic appearing, Ambulatory Other Gen/Cons comments:: alert and talking. very alert...talking to self at times. wn/wh. no obvious injury. moves all extr well. Head: Atraumatic Eyes: Lids, conjuctiva normal, PERRL, EOMI Skin: Nl inspection, No rash, No skin lesions, No ecchymosis, Well hydrated, No lymphadenopathy ENMT: External ears, nose nl, Nasal exam nl, Lips, teeth, gums nl Neck: Nontender, Full ROM w/o pain, No JVD, No nuchal rigidity, No bruit, No mass, No stridor Respiratory: Nl effort/Exclusion, Clear to Auscultation, No Wheeze/Rhonchi/Rales Cardio Vascular: RRR, No murmur, gallop, rubs, NL S1 S2 GI: No tenderness/rebounding/guarding, No organomegaly, No hernia, Normal BS's, Nondistended, No mass/bruits, No McBurney tenderness : No CVA tenderness Extremities: No tenderness or effusion, Full ROM, normal strength in all extremities, No edema, Normal digits & nails Neuro/Psych: Alert/oriented, DTR's symmetric, Normal sensory exam, Normal motor strength, Judgement/insight normal, Mood normal, Normal gait, No focal deficits Misc: normal gait, Normal back, No paraspinal tenderness Labs/Radiology/EKG Results - Lab Results Results: Laboratory Tests 05/08/17 05/08/17 05/08/17 19:14 19:14 19:14 WBC 9.5 D RBC 4.20 Hgb 12.6 Hct 37.1 D MCV 88.3 MCH 30.0 MCHC Differential 34.0 RDW 13.2 Plt Count 334 MPV 6.8 Neutrophils % 66.5 Lymphocytes % 24.5 Monocytes % 6.6 Eosinophils % 0.9 Basophils % 1.5 Sodium 136 Potassium 3.7 Chloride 104 Carbon Dioxide 24.0 Anion Gap 11.7 BUN 22 Creatinine 0.7 Est GFR ( Amer) > 60.0 Est GFR (Non-Af Amer) > 60.0 BUN/Creatinine Ratio 31.4 Glucose 146 H Calcium 9.3 Total Bilirubin 0.5 AST 20 ALT 16 Alkaline Phosphatase 79 Total Protein 6.8 Albumin 3.9 Globulin 2.9 Albumin/Globulin Ratio 1.3 Triglycerides 299 H Cholesterol 186 LDL Cholesterol Direct 129 HDL Cholesterol 39 TSH 3.33 Salicylates < 25.0 L Acetaminophen < 10.0 L Ethyl Alcohol < 10 - EKG Interpretations EKG Time:: 19:20 Rate & Rhythm: nsr 80 [place]: 75 Intervals: qtc 451 ED Septic Shock - . Is Septic Shock (SBP<90, OR Lactate>4 mmol\L) present?: No Reassessment (Disposition) - Reassessment Reassessment Condition:: Unchanged - Diagnosis Diagnosis:: 1 aggressive behavior 2 medically clear for geripsych admit - Patient Disposition Admitted to:: [facility] Condition at Disposition:: Unchanged
[2017-05-08 19:20] LABS: % BASOPHILS 1.5 % (0.0-2.0); % EOSINOPHILS 0.9 % (0.0-5.0); % LYMPHOCYTES 24.5 % (20.0-50.0); % MONOCYTES 6.6 % (2.0-10.0); % NEUTROPHILS 66.5 % (40.0-80.0); HEMOGLOBIN 12.6 gm/dL (11.7-16.1); MEAN CELL VOLUME 88.3 fl (81-100); MEAN PLATELET VOLUME 6.8 fl; NEUTROPHILE ABSOLUTE 6.4 Th/cmm (1.8-8.0); PLATELET COUNT 334 Th/cmm (150-400); RED CELL DISTRIBUTION WIDTH 13.2 % (11.5-20.0)
[2017-05-08 19:24] LABS: HEMATOCRIT 37.1 % (35.0-45.0); WHITE BLOOD COUNT 9.5 Th/cmm (4.8-10.8)
[2017-05-08 19:56] LABS: ALB/GLOB RATIO 1.3 (1.0-1.8); ALKALINE PHOSPHATASE 79 U/L (34-104); ANION GAP 11.7 (7.0-16.0); BILIRUBIN,TOTAL 0.5 mg/dL (0.3-1.0); BUN - UREA NITROGEN 22 mg/dL (7-25); BUN/CREATININE RATIO 31.4; CALCIUM SERUM 9.3 mg/dL (8.6-10.3); CHLORIDE 104 mEq/L (98-107); CHOLESTEROL 186 mg/dL (<200); CREATININE - SERUM 0.7 mg/dL (0.6-1.2); GLUCOSE 146 mg/dL (70-105); POTASSIUM SERUM 3.7 mEq/L (3.5-5.1); SGOT 20 U/L (13-39); SGPT/ALT 16 U/L (7-52); SODIUM SERUM 136 mEq/L (136-145); TRIGLYCERIDES 299 mg/dL (<150)
[2017-05-08 20:15] LABS: ACETAMINOPHEN < 10.0 ug/mL (10.0-30.0)
[2017-05-08 20:51] LABS: URINE BILIRUBIN NEGATIVE (NEGATIVE); URINE BLOOD NEGATIVE (NEGATIVE); URINE GLUCOSE (UA) NEGATIVE (NEGATIVE); URINE KETONE NEGATIVE (NEGATIVE); URINE PH 5.5 (4.6 - 8.0); URINE PROTEIN NEGATIVE (NEGATIVE); URINE UROBILINOGEN 0.2 E.U./dL (0.2 - 1.0)
[2017-05-08 21:12] LABS: AMPHETAMINE URINE NEGATIVE (NEGATIVE); BARBITURATES URINE NEGATIVE (NEGATIVE); METHADONE URINE NEGATIVE (NEGATIVE)
[2017-05-08 21:37] LABS: URINE COLOR YELLOW
[2017-05-08 21:38] LABS: URINE BACTERIA NONE SEEN /hpf (NONE SEEN); URINE EPITHELIAL CELLS NONE SEEN /lpf (FEW); URINE RBC NONE SEEN /hpf (0-5)
[2017-05-08] MEDS ORDERED: Maalox 30 mL Cup PO PRN (21:56)
[2017-05-08] MEDS ORDERED: Magnesium Hydroxide (MOM) 30 mL UDC PO PRN (21:56)
[2017-05-09 00:22] VITALS: BP 147/87
[2017-05-09] MEDS: Levothyroxine 0.075 Mg Tab PO SCH (06:34)
[2017-05-09] MEDS: Vitamin B Complex w/Vitamin C Tab PO SCH (09:06)
[2017-05-09] MEDS: Atorvastatin Calcium 10 MG TAB PO SCH (09:06)
[2017-05-09] MEDS: Multivitamin Tab PO SCH (09:07)
[2017-05-09] MEDS ORDERED: Haloperidol Lactate 5 mg/mL 1mL Vial ONE (09:30)
[2017-05-09] MEDS ORDERED: Haloperidol Lactate 5 mg/mL 1mL Vial IM ONE (09:35)
[2017-05-09] MEDS: Maxitrol Ophth Susp 5 mL Bottle LEFT EYE SCH ×3 (13:20→20:30)
--- NOTE | 2017-05-09 14:22 | Internal Medicine Prog Note ---
Internal Medicine Subjective - Subjective Service Date: 05/09/17 ([id number] [facility] ) Internal Medicine Objective - Results Result Diagrams: 05/08/17 19:14 05/08/17 19:14 Recent Labs: Laboratory Last Values WBC 9.5 Th/cmm (4.8-10.8) D 05/08/17 19:14 RBC 4.20 Mil/cmm (3.80-5.20) 05/08/17 19:14 Hgb 12.6 gm/dL (11.7-16.1) 05/08/17 19:14 Hct 37.1 % (35.0-45.0) D 05/08/17 19:14 MCV 88.3 fl (81-100) 05/08/17 19:14 MCH 30.0 pg (27.0-31.0) 05/08/17 19:14 MCHC Differential 34.0 pg (28.0-36.0) 05/08/17 19:14 RDW 13.2 % (11.5-20.0) 05/08/17 19:14 Plt Count 334 Th/cmm (150-400) 05/08/17 19:14 MPV 6.8 fl 05/08/17 19:14 Neutrophils % 66.5 % (40.0-80.0) 05/08/17 19:14 Lymphocytes % 24.5 % (20.0-50.0) 05/08/17 19:14 Monocytes % 6.6 % (2.0-10.0) 05/08/17 19:14 Eosinophils % 0.9 % (0.0-5.0) 05/08/17 19:14 Basophils % 1.5 % (0.0-2.0) 05/08/17 19:14 Sodium 136 mEq/L (136-145) 05/08/17 19:14 Potassium 3.7 mEq/L (3.5-5.1) 05/08/17 19:14 Chloride 104 mEq/L (98-107) 05/08/17 19:14 Carbon Dioxide 24.0 mEq/L (21.0-31.0) 05/08/17 19:14 Anion Gap 11.7 (7.0-16.0) 05/08/17 19:14 BUN 22 mg/dL (7-25) 05/08/17 19:14 Creatinine 0.7 mg/dL (0.6-1.2) 05/08/17 19:14 Est GFR ( Amer) > 60.0 ml/min (>90) 05/08/17 19:14 Est GFR (Non-Af Amer) > 60.0 ml/min 05/08/17 19:14 BUN/Creatinine Ratio 31.4 05/08/17 19:14 Glucose 146 mg/dL (70-105) H 05/08/17 19:14 Calcium 9.3 mg/dL (8.6-10.3) 05/08/17 19:14 Total Bilirubin 0.5 mg/dL (0.3-1.0) 05/08/17 19:14 AST 20 U/L (13-39) 05/08/17 19:14 ALT 16 U/L (7-52) 05/08/17 19:14 Alkaline Phosphatase 79 U/L (34-104) 05/08/17 19:14 Total Protein 6.8 gm/dL (6.0-8.3) 05/08/17 19:14 Albumin 3.9 gm/dL (3.7-5.3) 05/08/17 19:14 Globulin 2.9 gm/dL 05/08/17 19:14 Albumin/Globulin Ratio 1.3 (1.0-1.8) 05/08/17 19:14 Triglycerides 299 mg/dL (<150) H 05/08/17 19:14 Cholesterol 186 mg/dL (<200) 05/08/17 19:14 LDL Cholesterol Direct 129 mg/dL (75-193) 05/08/17 19:14 HDL Cholesterol 39 mg/dL (23-92) 05/08/17 19:14 TSH 3.33 uIU/ml (0.34-5.60) 05/08/17 19:14 Urine Source CLEAN C 05/08/17 20:25 Urine Color YELLOW 05/08/17 20:25 Urine Clarity CLEAR (CLEAR) 05/08/17 20:25 Urine pH 5.5 (4.6 - 8.0) 05/08/17 20:25 Ur Specific [place] 1.025 (1.005-1.030) 05/08/17 20:25 Urine Protein NEGATIVE mg/dL (NEGATIVE) 05/08/17 20:25 Urine Glucose (UA) NEGATIVE mg/dL (NEGATIVE) 05/08/17 20:25 Urine Ketones NEGATIVE mg/dL (NEGATIVE) 05/08/17 20:25 Urine Blood NEGATIVE (NEGATIVE) 05/08/17 20:25 Urine Nitrate NEGATIVE (NEGATIVE) 05/08/17 20:25 Urine Bilirubin NEGATIVE (NEGATIVE) 05/08/17 20:25 Urine Urobilinogen 0.2 E.U./dL (0.2 - 1.0) 05/08/17 20:25 Ur Leukocyte Esterase TRACE (NEGATIVE) H 05/08/17 20:25 Urine RBC NONE SEEN /hpf (0-5) 05/08/17 20:25 Urine WBC 2-5 /hpf (0-5) 05/08/17 20:25 Ur Epithelial Cells NONE SEEN /lpf (FEW) 05/08/17 20:25 Urine Bacteria NONE SEEN /hpf (NONE SEEN) 05/08/17 20:25 Salicylates < 25.0 mg/L (30.0-100.0) L 05/08/17 19:14 Urine Opiates Screen NEGATIVE (NEGATIVE) 05/08/17 20:25 Urine Methadone Screen NEGATIVE (NEGATIVE) 05/08/17 20:25 Acetaminophen < 10.0 ug/mL (10.0-30.0) L 05/08/17 19:14 Ur Barbiturates Screen NEGATIVE (NEGATIVE) 05/08/17 20:25 Ur Tricyclics Screen NEGATIVE (NEGATIVE) 05/08/17 20:25 Ur Phencyclidine Scrn NEGATIVE (NEGATIVE) 05/08/17 20:25 Amphetamines Screen NEGATIVE (NEGATIVE) 05/08/17 20:25 U Methamphetamines Scrn NEGATIVE (NEGATIVE) 05/08/17 20:25 U Benzodiazepines Scrn NEGATIVE (NEGATIVE) 05/08/17 20:25 U Cocaine Metab Screen NEGATIVE (NEGATIVE) 05/08/17 20:25 U Cannabinoids Screen NEGATIVE (NEGATIVE) 05/08/17 20:25 Ethyl Alcohol < 10 mg/dL (0-10) 05/08/17 19:14 - Physical Exam Vitals and I&O: Vital Signs Temp 97.9 F 05/09/17 06:35 Pulse 64 05/09/17 09:57 Resp 18 05/09/17 09:57 BP 129/78 05/09/17 06:35 Pulse Ox 98 05/09/17 06:35 Intake & Output 05/08/17 05/09/17 05/09/17 18:59 06:59 18:59 Other: # Voids 3 # Bowel Movements 0 Active Medications: Current Medications Acetaminophen (Tylenol) 650 mg PO Q4HR PRN PRN Reason: Mild Pain / Temp above 100 Stop: 07/07/17 21:55 Al Hydrox/Mg Hydrox/Simethicone (Maalox) 30 ml PO Q4HR PRN PRN Reason: GI DISTRESS Stop: 07/07/17 21:55 Atorvastatin Calcium (Lipitor) 10 mg PO DAILY GUS PRN Reason: Protocol Stop: 07/08/17 08:59 Last Admin: 05/09/17 09:06 Dose: 10 mg Benztropine Mesylate (Cogentin) 1 mg PO BID GUS Stop: 07/08/17 16:59 Fenofibrate (Tricor) 134 mg PO HS GUS Stop: 07/08/17 20:59 Haloperidol Decanoate (Haldol Dec) 50 mg IM QMONTH GUS PRN Reason: Protocol Stop: 07/12/17 08:59 Levothyroxine Sodium (Synthroid) 0.075 mg PO QDAC GUS Stop: 07/08/17 07:29 Last Admin: 05/09/17 06:34 Dose: Not Given Lorazepam (Ativan) 0.5 mg PO Q4HR PRN; Protocol PRN Reason: Anxiety Stop: 06/07/17 21:55 Magnesium Hydroxide (Milk Of Magnesia) 30 ml PO HS PRN PRN Reason: Constipation Multivitamins/Vitamin C (Theragran) 1 tab PO DAILY GUS Stop: 07/08/17 08:59 Last Admin: 05/09/17 09:07 Dose: 1 tab Neomycin/Polymyxin/Dexamethasone (Maxitrol Ophth Susp) 1 drop LEFT EYE TID GUS Stop: 07/08/17 08:59 Last Admin: 05/09/17 13:29 Dose: Not Given Quetiapine Fumarate (Seroquel) 150 mg PO HS GUS PRN Reason: Protocol Stop: 07/08/17 20:59 Quetiapine Fumarate (Seroquel) 50 mg PO BID GUS PRN Reason: Protocol Stop: 07/08/17 08:59 Last Admin: 05/09/17 13:26 Dose: 50 mg Vitamin B Complex/Vit C/Folic Acid (Vitamin B Complex W/Vitamin C) 1 tab PO DAILY GUS Stop: 07/08/17 08:59 Last Admin: 05/09/17 09:06 Dose: 1 tab Zolpidem Tartrate (Ambien) 5 mg PO HS PRN PRN Reason: Insomnia Stop: 07/07/17 21:55 - Procedures Procedures: Procedures Procedure Code Date EMERGENCY DEPT VISIT 94485 11/13/11 EMERGENCY DEPT VISIT 54502 10/11/11 Internal Medicine Assmt/Plan - Assessment Assessment: AGITATION ASTHMA COPD DYSLIPIDEMIA ANEMIA
--- NOTE | 2017-05-09 14:39 | History & Physical ---
ADMIT DATE: 05/09/2017 CHIEF COMPLAINT: Agitation. HISTORY OF PRESENT ILLNESS: This is a 66-year-old female who is a resident of [facility], was brought here to [facility] for increase of agitation, difficulty behavior. PAST MEDICAL HISTORY: Asthma, COPD, dyslipidemia, hypothyroid, anemia. SOCIAL HISTORY: The patient is a group home resident, requiring 24-hour nursing care. MEDICATIONS: Please see medication reconciliation. REVIEW OF SYSTEMS: Unable to obtain, patient is uncooperative. PHYSICAL EXAMINATION: GENERAL: The patient is well developed, well nourished, no acute distress. VITAL SIGNS: Temperature 97.9, heart rate 64, blood pressure ____, respiration 18, O2 98%. HEENT: Head; normocephalic, atraumatic. NECK: Supple. No mass. LUNGS: Clear bilaterally. HEART: Regular rate and rhythm. ABDOMEN: Soft and nontender. LABORATORY DATA: WBC 9.5, H and H 12.6 and 37.1, platelet of ____. Sodium 136, potassium 3.7, chloride 104, BUN 22, creatinine 0.7. ASSESSMENT: 1. Agitation. 2. Asthma. 3. Chronic obstructive pulmonary disease. 4. Dyslipidemia. 5. Hypothyroid. 5. Anemia. PLAN: We will add inhalation treatments as needed. Psychiatry followup. The patient to continue medications from the group home. We will continue to monitor the patient. [facility]# [id number]
[2017-05-09] MEDS: Benztropine 1 MG TAB PO SCH (16:29)
[2017-05-09] MEDS: Fenofibrate, Micronized 134 mg Cap PO SCH (20:23)
--- NOTE | 2017-05-09 22:48 | Psychosocial Evaluation ---
DATE OF SERVICE: 05/09/2017 CHIEF COMPLAINT: Psychotic disorder. HISTORY OF PRESENT ILLNESS: The patient is a 66-year-old female with chronic history of mental illness who was sent from her half-way facility for increased anger outburst, agitation, striking out at staff, talking to herself. The patient has been compliant with her medications for the most part, but at times she has episodes where she is refusing. The patient is a poor historian, required being given emergency medications this morning. PAST PSYCHIATRIC HISTORY: Multiple psychiatric hospitalizations, chronic history of mental illness. PAST MEDICAL HISTORY: Medically cleared in ER. PSYCHOSOCIAL HISTORY: The patient resides at [facility] as she requires complete care. MENTAL STATUS EXAMINATION: The patient is disheveled, unkempt. The patient is wandering around on the unit, refused to sit down, have a conversation. The patient was talking to herself, internally preoccupied and she is oriented to person, knew she was in the hospital. She did not know the time. Insight is poor. Judgment is impaired. The patient's strength, the patient is passively accepting treatment. The patient's weaknesses is poor impulse control. ASSESSMENT: Schizophrenia, paranoid type, acute exacerbation, dementia, Alzheimer's type. MEDICAL: As in medical history. PLAN: We will admit the patient for hospitalization. We will start individual and group therapy, assess psychopharmacological intervention. ESTIMATED LENGTH OF STAY: 5-7 days. CRITERIA FOR DISCHARGE: Improved condition, less agitation, no aggressive behavior and safe disposition, outpatient treatment plan. [facility]# [id number]
[2017-05-10] MEDS: Levothyroxine 0.075 Mg Tab PO SCH (06:45)
[2017-05-10] MEDS: Atorvastatin Calcium 10 MG TAB PO SCH (08:50)
[2017-05-10] MEDS: Multivitamin Tab PO SCH (08:51)
[2017-05-10] MEDS: Vitamin B Complex w/Vitamin C Tab PO SCH (08:52)
[2017-05-10] MEDS: Benztropine 1 MG TAB PO SCH ×2 (08:53→16:42)
[2017-05-10] MEDS: Maxitrol Ophth Susp 5 mL Bottle LEFT EYE SCH ×2 (09:42→13:11)
--- NOTE | 2017-05-10 10:26 | Internal Medicine Prog Note ---
Internal Medicine Subjective - Subjective Service Date: 05/10/17 Patient seen and examined:: with staff Patient is:: awake, verbal, ambulating, talking Per staff patient has:: no adverse event Internal Medicine Objective - Results Result Diagrams: 05/08/17 19:14 05/08/17 19:14 Recent Labs: Laboratory Last Values WBC 9.5 Th/cmm (4.8-10.8) D 05/08/17 19:14 RBC 4.20 Mil/cmm (3.80-5.20) 05/08/17 19:14 Hgb 12.6 gm/dL (11.7-16.1) 05/08/17 19:14 Hct 37.1 % (35.0-45.0) D 05/08/17 19:14 MCV 88.3 fl (81-100) 05/08/17 19:14 MCH 30.0 pg (27.0-31.0) 05/08/17 19:14 MCHC Differential 34.0 pg (28.0-36.0) 05/08/17 19:14 RDW 13.2 % (11.5-20.0) 05/08/17 19:14 Plt Count 334 Th/cmm (150-400) 05/08/17 19:14 MPV 6.8 fl 05/08/17 19:14 Neutrophils % 66.5 % (40.0-80.0) 05/08/17 19:14 Lymphocytes % 24.5 % (20.0-50.0) 05/08/17 19:14 Monocytes % 6.6 % (2.0-10.0) 05/08/17 19:14 Eosinophils % 0.9 % (0.0-5.0) 05/08/17 19:14 Basophils % 1.5 % (0.0-2.0) 05/08/17 19:14 Sodium 136 mEq/L (136-145) 05/08/17 19:14 Potassium 3.7 mEq/L (3.5-5.1) 05/08/17 19:14 Chloride 104 mEq/L (98-107) 05/08/17 19:14 Carbon Dioxide 24.0 mEq/L (21.0-31.0) 05/08/17 19:14 Anion Gap 11.7 (7.0-16.0) 05/08/17 19:14 BUN 22 mg/dL (7-25) 05/08/17 19:14 Creatinine 0.7 mg/dL (0.6-1.2) 05/08/17 19:14 Est GFR ( Amer) > 60.0 ml/min (>90) 05/08/17 19:14 Est GFR (Non-Af Amer) > 60.0 ml/min 05/08/17 19:14 BUN/Creatinine Ratio 31.4 05/08/17 19:14 Glucose 146 mg/dL (70-105) H 05/08/17 19:14 Calcium 9.3 mg/dL (8.6-10.3) 05/08/17 19:14 Total Bilirubin 0.5 mg/dL (0.3-1.0) 05/08/17 19:14 AST 20 U/L (13-39) 05/08/17 19:14 ALT 16 U/L (7-52) 05/08/17 19:14 Alkaline Phosphatase 79 U/L (34-104) 05/08/17 19:14 Total Protein 6.8 gm/dL (6.0-8.3) 05/08/17 19:14 Albumin 3.9 gm/dL (3.7-5.3) 05/08/17 19:14 Globulin 2.9 gm/dL 05/08/17 19:14 Albumin/Globulin Ratio 1.3 (1.0-1.8) 05/08/17 19:14 Triglycerides 299 mg/dL (<150) H 05/08/17 19:14 Cholesterol 186 mg/dL (<200) 05/08/17 19:14 LDL Cholesterol Direct 129 mg/dL (75-193) 05/08/17 19:14 HDL Cholesterol 39 mg/dL (23-92) 05/08/17 19:14 TSH 3.33 uIU/ml (0.34-5.60) 05/08/17 19:14 Urine Source CLEAN C 05/08/17 20:25 Urine Color YELLOW 05/08/17 20:25 Urine Clarity CLEAR (CLEAR) 05/08/17 20:25 Urine pH 5.5 (4.6 - 8.0) 05/08/17 20:25 Ur Specific [place] 1.025 (1.005-1.030) 05/08/17 20:25 Urine Protein NEGATIVE mg/dL (NEGATIVE) 05/08/17 20:25 Urine Glucose (UA) NEGATIVE mg/dL (NEGATIVE) 05/08/17 20:25 Urine Ketones NEGATIVE mg/dL (NEGATIVE) 05/08/17 20:25 Urine Blood NEGATIVE (NEGATIVE) 05/08/17 20:25 Urine Nitrate NEGATIVE (NEGATIVE) 05/08/17 20:25 Urine Bilirubin NEGATIVE (NEGATIVE) 05/08/17 20:25 Urine Urobilinogen 0.2 E.U./dL (0.2 - 1.0) 05/08/17 20:25 Ur Leukocyte Esterase TRACE (NEGATIVE) H 05/08/17 20:25 Urine RBC NONE SEEN /hpf (0-5) 05/08/17 20:25 Urine WBC 2-5 /hpf (0-5) 05/08/17 20:25 Ur Epithelial Cells NONE SEEN /lpf (FEW) 05/08/17 20:25 Urine Bacteria NONE SEEN /hpf (NONE SEEN) 05/08/17 20:25 Salicylates < 25.0 mg/L (30.0-100.0) L 05/08/17 19:14 Urine Opiates Screen NEGATIVE (NEGATIVE) 05/08/17 20:25 Urine Methadone Screen NEGATIVE (NEGATIVE) 05/08/17 20:25 Acetaminophen < 10.0 ug/mL (10.0-30.0) L 05/08/17 19:14 Ur Barbiturates Screen NEGATIVE (NEGATIVE) 05/08/17 20:25 Ur Tricyclics Screen NEGATIVE (NEGATIVE) 05/08/17 20:25 Ur Phencyclidine Scrn NEGATIVE (NEGATIVE) 05/08/17 20:25 Amphetamines Screen NEGATIVE (NEGATIVE) 05/08/17 20:25 U Methamphetamines Scrn NEGATIVE (NEGATIVE) 05/08/17 20:25 U Benzodiazepines Scrn NEGATIVE (NEGATIVE) 05/08/17 20:25 U Cocaine Metab Screen NEGATIVE (NEGATIVE) 05/08/17 20:25 U Cannabinoids Screen NEGATIVE (NEGATIVE) 05/08/17 20:25 Ethyl Alcohol < 10 mg/dL (0-10) 05/08/17 19:14 - Physical Exam Vitals and I&O: Vital Signs Temp 98 F 05/10/17 06:42 Pulse 67 05/10/17 06:42 Resp 21 05/10/17 06:42 BP 117/66 05/10/17 06:42 Pulse Ox 96 05/10/17 06:42 Intake & Output 05/09/17 05/10/17 05/10/17 18:59 06:59 18:59 Intake Total 800 120 Balance 800 120 Intake: Oral 800 120 Other: # Voids 3 3 # Bowel Movements 1 Active Medications: Current Medications Acetaminophen (Tylenol) 650 mg PO Q4HR PRN PRN Reason: Mild Pain / Temp above 100 Stop: 07/07/17 21:55 Al Hydrox/Mg Hydrox/Simethicone (Maalox) 30 ml PO Q4HR PRN PRN Reason: GI DISTRESS Stop: 07/07/17 21:55 Atorvastatin Calcium (Lipitor) 10 mg PO DAILY GUS PRN Reason: Protocol Stop: 07/08/17 08:59 Last Admin: 05/10/17 08:50 Dose: Not Given Benztropine Mesylate (Cogentin) 1 mg PO BID GUS Stop: 07/08/17 16:59 Last Admin: 05/10/17 08:53 Dose: Not Given Fenofibrate (Tricor) 134 mg PO HS GUS Stop: 07/08/17 20:59 Last Admin: 05/09/17 20:23 Dose: Not Given Haloperidol Decanoate (Haldol Dec) 50 mg IM QMONTH GUS PRN Reason: Protocol Stop: 07/12/17 08:59 Levothyroxine Sodium (Synthroid) 0.075 mg PO QDAC GUS Stop: 07/08/17 07:29 Last Admin: 05/10/17 06:45 Dose: Not Given Lorazepam (Ativan) 0.5 mg PO Q4HR PRN; Protocol PRN Reason: Anxiety Stop: 06/07/17 21:55 Magnesium Hydroxide (Milk Of Magnesia) 30 ml PO HS PRN PRN Reason: Constipation Multivitamins/Vitamin C (Theragran) 1 tab PO DAILY GUS Stop: 07/08/17 08:59 Last Admin: 05/10/17 08:51 Dose: 1 tab Neomycin/Polymyxin/Dexamethasone (Maxitrol Ophth Susp) 1 drop LEFT EYE TID GUS Stop: 07/08/17 08:59 Last Admin: 05/10/17 09:42 Dose: Not Given Quetiapine Fumarate (Seroquel) 150 mg PO HS GUS PRN Reason: Protocol Stop: 07/08/17 20:59 Last Admin: 05/09/17 20:23 Dose: Not Given Quetiapine Fumarate (Seroquel) 50 mg PO BID GUS PRN Reason: Protocol Stop: 07/08/17 08:59 Last Admin: 05/10/17 08:53 Dose: Not Given Vitamin B Complex/Vit C/Folic Acid (Vitamin B Complex W/Vitamin C) 1 tab PO DAILY GUS Stop: 07/08/17 08:59 Last Admin: 05/10/17 08:52 Dose: 1 tab Zolpidem Tartrate (Ambien) 5 mg PO HS PRN PRN Reason: Insomnia Stop: 07/07/17 21:55 General: alert HEENT: NC/AT, PERRLA Neck: Supple Lungs: CTAB Cardiovascular: RRR, Normal S1, Normal S2, without murmur Abdomen: soft, non-tender, non-distended Extremities: clear Neurological: no change - Procedures Procedures: Procedures Procedure Code Date EMERGENCY DEPT VISIT 60326 11/13/11 EMERGENCY DEPT VISIT 04452 10/11/11 Internal Medicine Assmt/Plan - Assessment Assessment: AGITATION ASTHMA COPD DYSLIPIDEMIA ANEMIA - Plan Plan: fall precautions continue current medications psych f/u
[2017-05-10] MEDS: NEOMYCIN LEFT EYE SCH (20:22)
[2017-05-10] MEDS: DEXAMETHASONE LEFT EYE SCH (20:22)
[2017-05-10] MEDS: POLYMYXIN B LEFT EYE SCH (20:22)
[2017-05-10] MEDS: Fenofibrate, Micronized 134 mg Cap PO SCH (20:23)
--- NOTE | 2017-05-10 23:17 | Progress Notes ---
DATE: 05/10/2017 SUBJECTIVE: The patient was seen, chart reviewed. Still anxious, restless. The patient is still easily agitated, wandering on the unit, requiring redirecting by staff. The patient continues to have some episodes also where she states she is single now and then she starts yelling at other patients for no apparent reason. ASSESSMENT: The patient is still in psychotic phase. PLAN: Continue stabilization. Increase Seroquel to 200 mg p.o. at bedtime. Continue rest of her medications. Monitor mood closely. JOB# [id number]
--- NOTE | 2017-05-11 03:59 | Admit Criteria Form ---
Admit Criteria Forms - Admit Criteria Diagnosis: PSYCHIATRIC DISORDERS (Place 'X' for any and all applicable criteria): Ongoing inpatient care may be needed for 1 or more of the following(1)(2)(3)(4)( 6)(7)(8): [ ]I. Danger to self or others not manageable at lower level of care. [ ]II. Grave disability (eg, inability to perform self care necessary at lower level of care) [X ]III. Agitation or inappropriate behavior interfering with care for primary condition (eg, attempting to discontinue lines or drains prematurely, unable to cooperate with respiratory care) [ ]IV. Severe disability or disorder indicated by ALL of the following: [ ]a) Severe behavioral health disorder-related symptoms or condition indicated by 1 or more of the following: [ ]i) Severe problem with cognition, memory, judgment, or impulse control [ ]ii) Severe clinical manifestations (eg, hallucinations, delusions, other acute psychotic symptoms, ellis, extreme agitation or anxiety) [ ]b) Patient management at lower level of care is not feasible until acute intervention or modification is initiated. Extended stay beyond goal length of stay for the primary condition may be needed until ALLof the following are present(1)(2)(3)(4)(722)(23): [ ]a) Danger to self or others is absent or manageable at lower level of care [ ]b) Behavior crisis management, including physical or chemical restraints, is required and is not available at a lower level of care. [ ]c) Behavioral symptoms (e.g., agitation, somnolence, inappropriate behavior) are present, and are not manageable at a lower level of care. [ ]d) Patient cannot understand follow-up treatment and crisis plan. [ ]e) Provider and supports are sufficiently available at lower level of care. [ ]f) Patient can participate (e.g., verify absence of plan for harm) and is in needed of monitoring. The original [facility] content created by [facility] has been revised. The portions of the content which have been revised are identified through the use of italic text or in bold, and [email or web address] has neither reviewed nor approved the modified material. All other unmodified content is copyright [facility]. Please see references footnoted in the original [facility] edition 2017 Admit Criteria Met?: Yes
[2017-05-11] MEDS: Levothyroxine 0.075 Mg Tab PO SCH (06:49)
[2017-05-11] MEDS: Multivitamin Tab PO SCH (09:08)
[2017-05-11] MEDS: Benztropine 1 MG TAB PO SCH ×2 (09:08→16:35)
[2017-05-11] MEDS: POLYMYXIN B LEFT EYE SCH ×3 (09:08→20:23)
[2017-05-11] MEDS: DEXAMETHASONE LEFT EYE SCH ×3 (09:08→20:23)
[2017-05-11] MEDS: NEOMYCIN LEFT EYE SCH ×3 (09:08→20:23)
[2017-05-11] MEDS: Atorvastatin Calcium 10 MG TAB PO SCH (09:08)
[2017-05-11] MEDS: Vitamin B Complex w/Vitamin C Tab PO SCH (09:09)
--- NOTE | 2017-05-11 13:01 | Internal Medicine Prog Note ---
Internal Medicine Subjective - Subjective Service Date: 05/11/17 Patient is:: awake, verbal, ambulating, talking Per staff patient has:: no adverse event Internal Medicine Objective - Results Result Diagrams: 05/08/17 19:14 05/08/17 19:14 Recent Labs: Laboratory Last Values WBC 9.5 Th/cmm (4.8-10.8) D 05/08/17 19:14 RBC 4.20 Mil/cmm (3.80-5.20) 05/08/17 19:14 Hgb 12.6 gm/dL (11.7-16.1) 05/08/17 19:14 Hct 37.1 % (35.0-45.0) D 05/08/17 19:14 MCV 88.3 fl (81-100) 05/08/17 19:14 MCH 30.0 pg (27.0-31.0) 05/08/17 19:14 MCHC Differential 34.0 pg (28.0-36.0) 05/08/17 19:14 RDW 13.2 % (11.5-20.0) 05/08/17 19:14 Plt Count 334 Th/cmm (150-400) 05/08/17 19:14 MPV 6.8 fl 05/08/17 19:14 Neutrophils % 66.5 % (40.0-80.0) 05/08/17 19:14 Lymphocytes % 24.5 % (20.0-50.0) 05/08/17 19:14 Monocytes % 6.6 % (2.0-10.0) 05/08/17 19:14 Eosinophils % 0.9 % (0.0-5.0) 05/08/17 19:14 Basophils % 1.5 % (0.0-2.0) 05/08/17 19:14 Sodium 136 mEq/L (136-145) 05/08/17 19:14 Potassium 3.7 mEq/L (3.5-5.1) 05/08/17 19:14 Chloride 104 mEq/L (98-107) 05/08/17 19:14 Carbon Dioxide 24.0 mEq/L (21.0-31.0) 05/08/17 19:14 Anion Gap 11.7 (7.0-16.0) 05/08/17 19:14 BUN 22 mg/dL (7-25) 05/08/17 19:14 Creatinine 0.7 mg/dL (0.6-1.2) 05/08/17 19:14 Est GFR ( Amer) > 60.0 ml/min (>90) 05/08/17 19:14 Est GFR (Non-Af Amer) > 60.0 ml/min 05/08/17 19:14 BUN/Creatinine Ratio 31.4 05/08/17 19:14 Glucose 146 mg/dL (70-105) H 05/08/17 19:14 Calcium 9.3 mg/dL (8.6-10.3) 05/08/17 19:14 Total Bilirubin 0.5 mg/dL (0.3-1.0) 05/08/17 19:14 AST 20 U/L (13-39) 05/08/17 19:14 ALT 16 U/L (7-52) 05/08/17 19:14 Alkaline Phosphatase 79 U/L (34-104) 05/08/17 19:14 Total Protein 6.8 gm/dL (6.0-8.3) 05/08/17 19:14 Albumin 3.9 gm/dL (3.7-5.3) 05/08/17 19:14 Globulin 2.9 gm/dL 05/08/17 19:14 Albumin/Globulin Ratio 1.3 (1.0-1.8) 05/08/17 19:14 Triglycerides 299 mg/dL (<150) H 05/08/17 19:14 Cholesterol 186 mg/dL (<200) 05/08/17 19:14 LDL Cholesterol Direct 129 mg/dL (75-193) 05/08/17 19:14 HDL Cholesterol 39 mg/dL (23-92) 05/08/17 19:14 TSH 3.33 uIU/ml (0.34-5.60) 05/08/17 19:14 Urine Source CLEAN C 05/08/17 20:25 Urine Color YELLOW 05/08/17 20:25 Urine Clarity CLEAR (CLEAR) 05/08/17 20:25 Urine pH 5.5 (4.6 - 8.0) 05/08/17 20:25 Ur Specific [place] 1.025 (1.005-1.030) 05/08/17 20:25 Urine Protein NEGATIVE mg/dL (NEGATIVE) 05/08/17 20:25 Urine Glucose (UA) NEGATIVE mg/dL (NEGATIVE) 05/08/17 20:25 Urine Ketones NEGATIVE mg/dL (NEGATIVE) 05/08/17 20:25 Urine Blood NEGATIVE (NEGATIVE) 05/08/17 20:25 Urine Nitrate NEGATIVE (NEGATIVE) 05/08/17 20:25 Urine Bilirubin NEGATIVE (NEGATIVE) 05/08/17 20:25 Urine Urobilinogen 0.2 E.U./dL (0.2 - 1.0) 05/08/17 20:25 Ur Leukocyte Esterase TRACE (NEGATIVE) H 05/08/17 20:25 Urine RBC NONE SEEN /hpf (0-5) 05/08/17 20:25 Urine WBC 2-5 /hpf (0-5) 05/08/17 20:25 Ur Epithelial Cells NONE SEEN /lpf (FEW) 05/08/17 20:25 Urine Bacteria NONE SEEN /hpf (NONE SEEN) 05/08/17 20:25 Salicylates < 25.0 mg/L (30.0-100.0) L 05/08/17 19:14 Urine Opiates Screen NEGATIVE (NEGATIVE) 05/08/17 20:25 Urine Methadone Screen NEGATIVE (NEGATIVE) 05/08/17 20:25 Acetaminophen < 10.0 ug/mL (10.0-30.0) L 05/08/17 19:14 Ur Barbiturates Screen NEGATIVE (NEGATIVE) 05/08/17 20:25 Ur Tricyclics Screen NEGATIVE (NEGATIVE) 05/08/17 20:25 Ur Phencyclidine Scrn NEGATIVE (NEGATIVE) 05/08/17 20:25 Amphetamines Screen NEGATIVE (NEGATIVE) 05/08/17 20:25 U Methamphetamines Scrn NEGATIVE (NEGATIVE) 05/08/17 20:25 U Benzodiazepines Scrn NEGATIVE (NEGATIVE) 05/08/17 20:25 U Cocaine Metab Screen NEGATIVE (NEGATIVE) 05/08/17 20:25 U Cannabinoids Screen NEGATIVE (NEGATIVE) 05/08/17 20:25 Ethyl Alcohol < 10 mg/dL (0-10) 05/08/17 19:14 - Physical Exam Vitals and I&O: Vital Signs Temp 97.6 F 05/10/17 20:00 Pulse 67 05/10/17 20:00 Resp 19 05/10/17 20:00 BP 139/87 05/10/17 20:00 Pulse Ox 98 05/10/17 20:00 Intake & Output 05/10/17 05/11/17 05/11/17 18:59 06:59 18:59 Intake Total 1200 120 Balance 1200 120 Weight (lbs) 121 lb 9.6 oz Intake: Oral 1200 120 Other: # Voids 2 # Bowel Movements 1 Active Medications: Current Medications Acetaminophen (Tylenol) 650 mg PO Q4HR PRN PRN Reason: Mild Pain / Temp above 100 Stop: 07/07/17 21:55 Al Hydrox/Mg Hydrox/Simethicone (Maalox) 30 ml PO Q4HR PRN PRN Reason: GI DISTRESS Stop: 07/07/17 21:55 Atorvastatin Calcium (Lipitor) 10 mg PO DAILY GUS PRN Reason: Protocol Stop: 07/08/17 08:59 Last Admin: 05/11/17 09:08 Dose: Not Given Benztropine Mesylate (Cogentin) 1 mg PO BID GUS Stop: 07/08/17 16:59 Last Admin: 05/11/17 09:08 Dose: Not Given Fenofibrate (Tricor) 134 mg PO HS GUS Stop: 07/08/17 20:59 Last Admin: 05/10/17 20:23 Dose: Not Given Haloperidol Decanoate (Haldol Dec) 50 mg IM QMONTH GUS PRN Reason: Protocol Stop: 07/10/17 11:01 Last Admin: 05/11/17 11:18 Dose: 50 mg Levothyroxine Sodium (Synthroid) 0.075 mg PO QDAC GUS Stop: 07/08/17 07:29 Last Admin: 05/11/17 06:49 Dose: Not Given Lorazepam (Ativan) 0.5 mg PO Q4HR PRN; Protocol PRN Reason: Anxiety Stop: 06/07/17 21:55 Magnesium Hydroxide (Milk Of Magnesia) 30 ml PO HS PRN PRN Reason: Constipation Multivitamins/Vitamin C (Theragran) 1 tab PO DAILY GUS Stop: 07/08/17 08:59 Last Admin: 05/11/17 09:08 Dose: Not Given Neomycin/Polymyxin/Dexamethasone (Maxitrol Ophth Oint) 1 appl LEFT EYE TID GUS Stop: 07/09/17 20:59 Last Admin: 05/11/17 09:08 Dose: Not Given Quetiapine Fumarate (Seroquel) 50 mg PO BID GUS PRN Reason: Protocol Stop: 07/08/17 08:59 Last Admin: 05/11/17 09:09 Dose: Not Given Quetiapine Fumarate (Seroquel) 200 mg PO HS GUS PRN Reason: Protocol Stop: 07/09/17 12:34 Last Admin: 05/10/17 20:23 Dose: Not Given Vitamin B Complex/Vit C/Folic Acid (Vitamin B Complex W/Vitamin C) 1 tab PO DAILY GUS Stop: 07/08/17 08:59 Last Admin: 05/11/17 09:09 Dose: Not Given Zolpidem Tartrate (Ambien) 5 mg PO HS PRN PRN Reason: Insomnia Stop: 07/07/17 21:55 General: alert HEENT: NC/AT, PERRLA Neck: Supple Lungs: CTAB Cardiovascular: RRR, Normal S1, Normal S2, without murmur Abdomen: soft, non-tender, non-distended Extremities: clear Neurological: no change - Procedures Procedures: Procedures Procedure Code Date EMERGENCY DEPT VISIT 94853 11/13/11 EMERGENCY DEPT VISIT 56007 10/11/11 Internal Medicine Assmt/Plan - Assessment Assessment: AGITATION ASTHMA COPD DYSLIPIDEMIA ANEMIA - Plan Plan: fall precautions continue current medications psych f/u Nutritional Asmnt/Malnutr-PDOC - Dietary Evaluation Malnutrition Findings (Please click <Entered> for more info): Nutritional Asmnt/Malnutrition Start: 05/10/17 18: 07 Text: Status: Complete Freq: Document 05/10/17 18:08 NICANOR (Rec: 05/10/17 18:15 [email or web address] [email or web address]) Nutritional Asmnt/Malnutrition Patient General Information Nutritional Screening Moderate Risk Screening Diagnosis Schizophrenia paranoid type acute exacerbation, dementia Alzheimer's Pertinent Medical Hx/Surgical Hx Asthma, COPD, dyslipidemia, hypothyrdois, anemia Subjective Information 66 year old female from SNF. Pt seen pacing in hallway, RD accompanied pt back to room and obtained CBW 121.6lb with bed properly calibrated. Pt with a belly, no muscle/fat wasting noted. Few missing teeth, no difficulties noted. Pt deneid nutritional concerns , focused topic on two children. Avg PO intake 75-100 % of meals since adm, meeting nutritional needs. Observed pt finishing almost 100% of meals during lunch. Spoke to RN TRAINING, RN TRAINING stated pt with great appetite, no nutritional concerns. Current Diet Order/ Nutrition Support Regular, Prosource QD Pertinent Medications Haldol, MOM, Theragran, Seroquel, Vitamin B Complex W/ Vitamin C Pertinent Labs 05/08: glucose 146H, triglycerides 299H Nutritional Hx/Data Height 5 ft 3 in Height (Calculated Centimeters) 160.0 Current Weight (lbs) 121 lb 9.6 oz Weight (Calculated Kilograms) 55.2 Weight (Calculated Grams) 39705.8 [place] Body Weight 115 Weight Status Approriate GI Symptoms Skin Integrity/Comment: Jose G 22. Skin intact. Current %PO Good (75-100%) Estimated Nutritional Goals BEE in Kcals: Using Current wt Calories/Kcals/Kg CBW 121.6lb/55.3kg Kcals Calculated 1383-1659kcal (25-30kcal/kg) Protein: Using Current wt Protein Calculated 55g (1g/kg) Fluid: ml 1383-1659ml (1ml/kcal) Nutritional Problem 1. Problem Problem No nutritional problem at this time. Intervention/Recommendation Comments 1. Continue with current diet order. Avg PO itnake is adequate. Expected Outcomes/Goals Expected Outcomes/Goals 1. PO intake continue to meet at least 75% of estimated nutritional needs.
[2017-05-11] MEDS: Fenofibrate, Micronized 134 mg Cap PO SCH (20:23)
--- NOTE | 2017-05-11 22:50 | Progress Notes ---
DATE: 05/11/2017 CHIEF COMPLAINT: Psychotic disorder. SUBJECTIVE: The patient was seen, discussed with staff, chart reviewed. Still wandering on the unit aimlessly, talking to herself, some anger outbursts, refusing medications most of the time. MENTAL STATUS EXAM: The patient is actively hallucinating, highly paranoid, suspicious, internally preoccupied. Insight is poor. Judgment is impaired. ASSESSMENT: The patient continues to be in psychotic phase. PLAN: Continue medication management. Encourage the patient to comply with medications. The patient agreed to take her Haldol injectable. [facility]# [id number]
[2017-05-12] MEDS: Levothyroxine 0.075 Mg Tab PO SCH (06:30)
[2017-05-12] MEDS: DEXAMETHASONE LEFT EYE SCH ×3 (08:10→20:31)
[2017-05-12] MEDS: Multivitamin Tab PO SCH (08:10)
[2017-05-12] MEDS: NEOMYCIN LEFT EYE SCH ×3 (08:10→20:31)
[2017-05-12] MEDS: POLYMYXIN B LEFT EYE SCH ×3 (08:10→20:31)
[2017-05-12] MEDS: Benztropine 1 MG TAB PO SCH ×2 (08:10→16:09)
[2017-05-12] MEDS: Atorvastatin Calcium 10 MG TAB PO SCH (08:10)
[2017-05-12] MEDS: Vitamin B Complex w/Vitamin C Tab PO SCH (08:10)
--- NOTE | 2017-05-12 14:00 | Progress Notes ---
DATE: 05/12/2017 SUBJECTIVE: The patient was seen, chart is reviewed, discussed with staff. Still ____, talking to herself, episodes where she is ____, but other episodes where she starts yelling require redirecting patient, however, took her Haldol Decanoate yesterday, but still refusing rest of her p.o. medications. ASSESSMENT: The patient still in psychotic phase. PLAN: Continue stabilization. Encourage the patient to comply with p.o. medications. JOB# [id number]
--- NOTE | 2017-05-12 15:00 | Internal Medicine Prog Note ---
Internal Medicine Subjective - Subjective Patient seen and examined:: with staff, chart reviewed Patient is:: awake, verbal, ambulating, talking Per staff patient has:: no adverse event, tolerating meds Internal Medicine Objective - Results Result Diagrams: 05/08/17 19:14 05/08/17 19:14 Recent Labs: Laboratory Last Values WBC 9.5 Th/cmm (4.8-10.8) D 05/08/17 19:14 RBC 4.20 Mil/cmm (3.80-5.20) 05/08/17 19:14 Hgb 12.6 gm/dL (11.7-16.1) 05/08/17 19:14 Hct 37.1 % (35.0-45.0) D 05/08/17 19:14 MCV 88.3 fl (81-100) 05/08/17 19:14 MCH 30.0 pg (27.0-31.0) 05/08/17 19:14 MCHC Differential 34.0 pg (28.0-36.0) 05/08/17 19:14 RDW 13.2 % (11.5-20.0) 05/08/17 19:14 Plt Count 334 Th/cmm (150-400) 05/08/17 19:14 MPV 6.8 fl 05/08/17 19:14 Neutrophils % 66.5 % (40.0-80.0) 05/08/17 19:14 Lymphocytes % 24.5 % (20.0-50.0) 05/08/17 19:14 Monocytes % 6.6 % (2.0-10.0) 05/08/17 19:14 Eosinophils % 0.9 % (0.0-5.0) 05/08/17 19:14 Basophils % 1.5 % (0.0-2.0) 05/08/17 19:14 Sodium 136 mEq/L (136-145) 05/08/17 19:14 Potassium 3.7 mEq/L (3.5-5.1) 05/08/17 19:14 Chloride 104 mEq/L (98-107) 05/08/17 19:14 Carbon Dioxide 24.0 mEq/L (21.0-31.0) 05/08/17 19:14 Anion Gap 11.7 (7.0-16.0) 05/08/17 19:14 BUN 22 mg/dL (7-25) 05/08/17 19:14 Creatinine 0.7 mg/dL (0.6-1.2) 05/08/17 19:14 Est GFR ( Amer) > 60.0 ml/min (>90) 05/08/17 19:14 Est GFR (Non-Af Amer) > 60.0 ml/min 05/08/17 19:14 BUN/Creatinine Ratio 31.4 05/08/17 19:14 Glucose 146 mg/dL (70-105) H 05/08/17 19:14 Calcium 9.3 mg/dL (8.6-10.3) 05/08/17 19:14 Total Bilirubin 0.5 mg/dL (0.3-1.0) 05/08/17 19:14 AST 20 U/L (13-39) 05/08/17 19:14 ALT 16 U/L (7-52) 05/08/17 19:14 Alkaline Phosphatase 79 U/L (34-104) 05/08/17 19:14 Total Protein 6.8 gm/dL (6.0-8.3) 05/08/17 19:14 Albumin 3.9 gm/dL (3.7-5.3) 05/08/17 19:14 Globulin 2.9 gm/dL 05/08/17 19:14 Albumin/Globulin Ratio 1.3 (1.0-1.8) 05/08/17 19:14 Triglycerides 299 mg/dL (<150) H 05/08/17 19:14 Cholesterol 186 mg/dL (<200) 05/08/17 19:14 LDL Cholesterol Direct 129 mg/dL (75-193) 05/08/17 19:14 HDL Cholesterol 39 mg/dL (23-92) 05/08/17 19:14 TSH 3.33 uIU/ml (0.34-5.60) 05/08/17 19:14 Urine Source CLEAN C 05/08/17 20:25 Urine Color YELLOW 05/08/17 20:25 Urine Clarity CLEAR (CLEAR) 05/08/17 20:25 Urine pH 5.5 (4.6 - 8.0) 05/08/17 20:25 Ur Specific [place] 1.025 (1.005-1.030) 05/08/17 20:25 Urine Protein NEGATIVE mg/dL (NEGATIVE) 05/08/17 20:25 Urine Glucose (UA) NEGATIVE mg/dL (NEGATIVE) 05/08/17 20:25 Urine Ketones NEGATIVE mg/dL (NEGATIVE) 05/08/17 20:25 Urine Blood NEGATIVE (NEGATIVE) 05/08/17 20:25 Urine Nitrate NEGATIVE (NEGATIVE) 05/08/17 20:25 Urine Bilirubin NEGATIVE (NEGATIVE) 05/08/17 20:25 Urine Urobilinogen 0.2 E.U./dL (0.2 - 1.0) 05/08/17 20:25 Ur Leukocyte Esterase TRACE (NEGATIVE) H 05/08/17 20:25 Urine RBC NONE SEEN /hpf (0-5) 05/08/17 20:25 Urine WBC 2-5 /hpf (0-5) 05/08/17 20:25 Ur Epithelial Cells NONE SEEN /lpf (FEW) 05/08/17 20:25 Urine Bacteria NONE SEEN /hpf (NONE SEEN) 05/08/17 20:25 Salicylates < 25.0 mg/L (30.0-100.0) L 05/08/17 19:14 Urine Opiates Screen NEGATIVE (NEGATIVE) 05/08/17 20:25 Urine Methadone Screen NEGATIVE (NEGATIVE) 05/08/17 20:25 Acetaminophen < 10.0 ug/mL (10.0-30.0) L 05/08/17 19:14 Ur Barbiturates Screen NEGATIVE (NEGATIVE) 05/08/17 20:25 Ur Tricyclics Screen NEGATIVE (NEGATIVE) 05/08/17 20:25 Ur Phencyclidine Scrn NEGATIVE (NEGATIVE) 05/08/17 20:25 Amphetamines Screen NEGATIVE (NEGATIVE) 05/08/17 20:25 U Methamphetamines Scrn NEGATIVE (NEGATIVE) 05/08/17 20:25 U Benzodiazepines Scrn NEGATIVE (NEGATIVE) 05/08/17 20:25 U Cocaine Metab Screen NEGATIVE (NEGATIVE) 05/08/17 20:25 U Cannabinoids Screen NEGATIVE (NEGATIVE) 05/08/17 20:25 Ethyl Alcohol < 10 mg/dL (0-10) 05/08/17 19:14 RPR NONREACTIVE (NONREACTIVE) 05/08/17 19:14 - Physical Exam Vitals and I&O: Vital Signs Temp 98.3 F 05/12/17 06:51 Pulse 95 05/12/17 14:08 Resp 18 05/12/17 14:08 BP 148/98 05/12/17 06:51 Pulse Ox 98 05/12/17 06:51 Intake & Output 05/11/17 05/12/17 05/12/17 18:59 06:59 18:59 Intake Total 950 Balance 950 Intake: Oral 950 Other: # Voids 4 3 # Bowel Movements 1 0 Stool Characteristics Formed Active Medications: Current Medications Acetaminophen (Tylenol) 650 mg PO Q4HR PRN PRN Reason: Mild Pain / Temp above 100 Stop: 07/07/17 21:55 Al Hydrox/Mg Hydrox/Simethicone (Maalox) 30 ml PO Q4HR PRN PRN Reason: GI DISTRESS Stop: 07/07/17 21:55 Atorvastatin Calcium (Lipitor) 10 mg PO DAILY GUS PRN Reason: Protocol Stop: 07/08/17 08:59 Last Admin: 05/12/17 08:10 Dose: Not Given Benztropine Mesylate (Cogentin) 1 mg PO BID GUS Stop: 07/08/17 16:59 Last Admin: 05/12/17 08:10 Dose: Not Given Fenofibrate (Tricor) 134 mg PO HS GUS Stop: 07/08/17 20:59 Last Admin: 05/11/17 20:23 Dose: Not Given Haloperidol Decanoate (Haldol Dec) 50 mg IM QMONTH GUS PRN Reason: Protocol Stop: 07/10/17 11:01 Last Admin: 05/11/17 11:18 Dose: 50 mg Levothyroxine Sodium (Synthroid) 0.075 mg PO QDAC GUS Stop: 07/08/17 07:29 Last Admin: 05/12/17 06:30 Dose: Not Given Lorazepam (Ativan) 0.5 mg PO Q4HR PRN; Protocol PRN Reason: Anxiety Stop: 06/07/17 21:55 Magnesium Hydroxide (Milk Of Magnesia) 30 ml PO HS PRN PRN Reason: Constipation Multivitamins/Vitamin C (Theragran) 1 tab PO DAILY GUS Stop: 07/08/17 08:59 Last Admin: 05/12/17 08:10 Dose: Not Given Neomycin/Polymyxin/Dexamethasone (Maxitrol Ophth Oint) 1 appl LEFT EYE TID GUS Stop: 07/09/17 20:59 Last Admin: 05/12/17 13:25 Dose: Not Given Quetiapine Fumarate (Seroquel) 50 mg PO BID GUS PRN Reason: Protocol Stop: 07/08/17 08:59 Last Admin: 05/12/17 08:10 Dose: Not Given Quetiapine Fumarate (Seroquel) 200 mg PO HS GUS PRN Reason: Protocol Stop: 07/09/17 12:34 Last Admin: 05/11/17 20:23 Dose: Not Given Vitamin B Complex/Vit C/Folic Acid (Vitamin B Complex W/Vitamin C) 1 tab PO DAILY GUS Stop: 07/08/17 08:59 Last Admin: 05/12/17 08:10 Dose: Not Given Zolpidem Tartrate (Ambien) 5 mg PO HS PRN PRN Reason: Insomnia Stop: 07/07/17 21:55 General: alert HEENT: NC/AT, PERRLA Neck: Supple Lungs: CTAB Cardiovascular: RRR, Normal S1, Normal S2, without murmur Abdomen: soft, non-tender, non-distended Extremities: clear Neurological: no change - Procedures Procedures: Procedures Procedure Code Date EMERGENCY DEPT VISIT 97216 11/13/11 EMERGENCY DEPT VISIT 71015 10/11/11 Internal Medicine Assmt/Plan - Assessment Assessment: AGITATION ASTHMA COPD DYSLIPIDEMIA ANEMIA - Plan Plan: - Plan Plan: fall precautions continue current medications psych f/u Nutritional Asmnt/Malnutr-PDOC - Dietary Evaluation Malnutrition Findings (Please click <Entered> for more info): Nutritional Asmnt/Malnutrition Start: 05/10/17 18: 07 Text: Status: Complete Freq: Document 05/10/17 18:08 GSUN (Rec: 05/10/17 18:15 [email or web address]) Nutritional Asmnt/Malnutrition Patient General Information Nutritional Screening Moderate Risk Screening Diagnosis Schizophrenia paranoid type acute exacerbation, dementia Alzheimer's Pertinent Medical Hx/Surgical Hx Asthma, COPD, dyslipidemia, hypothyrdois, anemia Subjective Information 66 year old female from SNF. Pt seen pacing in hallway, RD accompanied pt back to room and obtained CBW 121.6lb with bed properly calibrated. Pt with a belly, no muscle/fat wasting noted. Few missing teeth, no difficulties noted. Pt deneid nutritional concerns , focused topic on two children. Avg PO intake 75-100 % of meals since adm, meeting nutritional needs. Observed pt finishing almost 100% of meals during lunch. Spoke to [employer] PROFESSOR, [employer] PROFESSOR stated pt with great appetite, no nutritional concerns. Current Diet Order/ Nutrition Support Regular, Prosource QD Pertinent Medications Haldol, MOM, Theragran, Seroquel, Vitamin B Complex W/ Vitamin C Pertinent Labs 05/08: glucose 146H, triglycerides 299H Nutritional Hx/Data Height 1.6 m Height (Calculated Centimeters) 160.0 Current Weight (lbs) 55.157 kg Weight (Calculated Kilograms) 55.2 Weight (Calculated Grams) 36733.8 [place] Body Weight 115 Weight Status Approriate GI Symptoms Skin Integrity/Comment: Jose G [place]. Skin intact. Current %PO Good (75-100%) Estimated Nutritional Goals BEE in Kcals: Using Current wt Calories/Kcals/Kg CBW 121.6lb/55.3kg Kcals Calculated 1383-1659kcal (25-30kcal/kg) Protein: Using Current wt Protein Calculated 55g (1g/kg) Fluid: ml 1383-1659ml (1ml/kcal) Nutritional Problem 1. Problem Problem No nutritional problem at this time. Intervention/Recommendation Comments 1. Continue with current diet order. Avg PO itnake is adequate. Expected Outcomes/Goals Expected Outcomes/Goals 1. PO intake continue to meet at least 75% of estimated nutritional needs.
[2017-05-12] MEDS: Fenofibrate, Micronized 134 mg Cap PO SCH (20:31)
[2017-05-13] MEDS: Levothyroxine 0.075 Mg Tab PO SCH (06:31)
[2017-05-13] MEDS: Benztropine 1 MG TAB PO SCH ×2 (08:20→16:45)
[2017-05-13] MEDS: Atorvastatin Calcium 10 MG TAB PO SCH (08:20)
[2017-05-13] MEDS: NEOMYCIN LEFT EYE SCH ×3 (08:21→20:07)
[2017-05-13] MEDS: POLYMYXIN B LEFT EYE SCH ×3 (08:21→20:07)
[2017-05-13] MEDS: Multivitamin Tab PO SCH (08:21)
[2017-05-13] MEDS: DEXAMETHASONE LEFT EYE SCH ×3 (08:21→20:07)
[2017-05-13] MEDS: Vitamin B Complex w/Vitamin C Tab PO SCH (08:21)
--- NOTE | 2017-05-13 13:10 | Progress Notes ---
DATE: 05/13/2017 SUBJECTIVE: The patient was seen, discussed with staff, chart reviewed. Still ____ talking to herself. At times, refusing medications. MENTAL STATUS EXAM: The patient is guarded, irritable, still actively hallucinating. Insight is limited. Judgment is impaired. She is oriented to person and being in the hospital, but not oriented to time. ASSESSMENT: The patient is still in psychotic phase. PLAN: We will continue stabilization. Continue hospitalization. The patient received Haldol Decanoate a couple of days ago, still awaiting clinical efficacy. JOB# [id number]
--- NOTE | 2017-05-13 14:05 | Internal Medicine Prog Note ---
Internal Medicine Subjective - Subjective Patient seen and examined:: with staff, chart reviewed Patient is:: awake, verbal, ambulating, talking Per staff patient has:: no adverse event, tolerating meds Internal Medicine Objective - Results Result Diagrams: 05/08/17 19:14 05/08/17 19:14 Recent Labs: Laboratory Last Values WBC 9.5 Th/cmm (4.8-10.8) D 05/08/17 19:14 RBC 4.20 Mil/cmm (3.80-5.20) 05/08/17 19:14 Hgb 12.6 gm/dL (11.7-16.1) 05/08/17 19:14 Hct 37.1 % (35.0-45.0) D 05/08/17 19:14 MCV 88.3 fl (81-100) 05/08/17 19:14 MCH 30.0 pg (27.0-31.0) 05/08/17 19:14 MCHC Differential 34.0 pg (28.0-36.0) 05/08/17 19:14 RDW 13.2 % (11.5-20.0) 05/08/17 19:14 Plt Count 334 Th/cmm (150-400) 05/08/17 19:14 MPV 6.8 fl 05/08/17 19:14 Neutrophils % 66.5 % (40.0-80.0) 05/08/17 19:14 Lymphocytes % 24.5 % (20.0-50.0) 05/08/17 19:14 Monocytes % 6.6 % (2.0-10.0) 05/08/17 19:14 Eosinophils % 0.9 % (0.0-5.0) 05/08/17 19:14 Basophils % 1.5 % (0.0-2.0) 05/08/17 19:14 Sodium 136 mEq/L (136-145) 05/08/17 19:14 Potassium 3.7 mEq/L (3.5-5.1) 05/08/17 19:14 Chloride 104 mEq/L (98-107) 05/08/17 19:14 Carbon Dioxide 24.0 mEq/L (21.0-31.0) 05/08/17 19:14 Anion Gap 11.7 (7.0-16.0) 05/08/17 19:14 BUN 22 mg/dL (7-25) 05/08/17 19:14 Creatinine 0.7 mg/dL (0.6-1.2) 05/08/17 19:14 Est GFR ( Amer) > 60.0 ml/min (>90) 05/08/17 19:14 Est GFR (Non-Af Amer) > 60.0 ml/min 05/08/17 19:14 BUN/Creatinine Ratio 31.4 05/08/17 19:14 Glucose 146 mg/dL (70-105) H 05/08/17 19:14 Calcium 9.3 mg/dL (8.6-10.3) 05/08/17 19:14 Total Bilirubin 0.5 mg/dL (0.3-1.0) 05/08/17 19:14 AST 20 U/L (13-39) 05/08/17 19:14 ALT 16 U/L (7-52) 05/08/17 19:14 Alkaline Phosphatase 79 U/L (34-104) 05/08/17 19:14 Total Protein 6.8 gm/dL (6.0-8.3) 05/08/17 19:14 Albumin 3.9 gm/dL (3.7-5.3) 05/08/17 19:14 Globulin 2.9 gm/dL 05/08/17 19:14 Albumin/Globulin Ratio 1.3 (1.0-1.8) 05/08/17 19:14 Triglycerides 299 mg/dL (<150) H 05/08/17 19:14 Cholesterol 186 mg/dL (<200) 05/08/17 19:14 LDL Cholesterol Direct 129 mg/dL (75-193) 05/08/17 19:14 HDL Cholesterol 39 mg/dL (23-92) 05/08/17 19:14 TSH 3.33 uIU/ml (0.34-5.60) 05/08/17 19:14 Urine Source CLEAN C 05/08/17 20:25 Urine Color YELLOW 05/08/17 20:25 Urine Clarity CLEAR (CLEAR) 05/08/17 20:25 Urine pH 5.5 (4.6 - 8.0) 05/08/17 20:25 Ur Specific [place] 1.025 (1.005-1.030) 05/08/17 20:25 Urine Protein NEGATIVE mg/dL (NEGATIVE) 05/08/17 20:25 Urine Glucose (UA) NEGATIVE mg/dL (NEGATIVE) 05/08/17 20:25 Urine Ketones NEGATIVE mg/dL (NEGATIVE) 05/08/17 20:25 Urine Blood NEGATIVE (NEGATIVE) 05/08/17 20:25 Urine Nitrate NEGATIVE (NEGATIVE) 05/08/17 20:25 Urine Bilirubin NEGATIVE (NEGATIVE) 05/08/17 20:25 Urine Urobilinogen 0.2 E.U./dL (0.2 - 1.0) 05/08/17 20:25 Ur Leukocyte Esterase TRACE (NEGATIVE) H 05/08/17 20:25 Urine RBC NONE SEEN /hpf (0-5) 05/08/17 20:25 Urine WBC 2-5 /hpf (0-5) 05/08/17 20:25 Ur Epithelial Cells NONE SEEN /lpf (FEW) 05/08/17 20:25 Urine Bacteria NONE SEEN /hpf (NONE SEEN) 05/08/17 20:25 Salicylates < 25.0 mg/L (30.0-100.0) L 05/08/17 19:14 Urine Opiates Screen NEGATIVE (NEGATIVE) 05/08/17 20:25 Urine Methadone Screen NEGATIVE (NEGATIVE) 05/08/17 20:25 Acetaminophen < 10.0 ug/mL (10.0-30.0) L 05/08/17 19:14 Ur Barbiturates Screen NEGATIVE (NEGATIVE) 05/08/17 20:25 Ur Tricyclics Screen NEGATIVE (NEGATIVE) 05/08/17 20:25 Ur Phencyclidine Scrn NEGATIVE (NEGATIVE) 05/08/17 20:25 Amphetamines Screen NEGATIVE (NEGATIVE) 05/08/17 20:25 U Methamphetamines Scrn NEGATIVE (NEGATIVE) 05/08/17 20:25 U Benzodiazepines Scrn NEGATIVE (NEGATIVE) 05/08/17 20:25 U Cocaine Metab Screen NEGATIVE (NEGATIVE) 05/08/17 20:25 U Cannabinoids Screen NEGATIVE (NEGATIVE) 05/08/17 20:25 Ethyl Alcohol < 10 mg/dL (0-10) 05/08/17 19:14 RPR NONREACTIVE (NONREACTIVE) 05/08/17 19:14 - Physical Exam Vitals and I&O: Vital Signs Temp 97.1 F 05/13/17 06:21 Pulse 88 05/13/17 06:21 Resp 20 05/13/17 06:21 BP 147/86 05/13/17 06:21 Pulse Ox 99 05/13/17 06:21 Intake & Output 05/12/17 05/13/17 05/13/17 18:59 06:59 18:59 Intake Total 1000 120 Balance 1000 120 Intake: Oral 1000 120 Other: # Voids 3 3 # Bowel Movements 1 Active Medications: Current Medications Acetaminophen (Tylenol) 650 mg PO Q4HR PRN PRN Reason: Mild Pain / Temp above 100 Stop: 07/07/17 21:55 Al Hydrox/Mg Hydrox/Simethicone (Maalox) 30 ml PO Q4HR PRN PRN Reason: GI DISTRESS Stop: 07/07/17 21:55 Atorvastatin Calcium (Lipitor) 10 mg PO DAILY GUS PRN Reason: Protocol Stop: 07/08/17 08:59 Last Admin: 05/13/17 08:20 Dose: Not Given Benztropine Mesylate (Cogentin) 1 mg PO BID GUS Stop: 07/08/17 16:59 Last Admin: 05/13/17 08:20 Dose: Not Given Fenofibrate (Tricor) 134 mg PO HS GUS Stop: 07/08/17 20:59 Last Admin: 05/12/17 20:31 Dose: Not Given Haloperidol Decanoate (Haldol Dec) 50 mg IM QMONTH GUS PRN Reason: Protocol Stop: 07/10/17 11:01 Last Admin: 05/11/17 11:18 Dose: 50 mg Levothyroxine Sodium (Synthroid) 0.075 mg PO QDAC GUS Stop: 07/08/17 07:29 Last Admin: 05/13/17 06:31 Dose: Not Given Lorazepam (Ativan) 0.5 mg PO Q4HR PRN; Protocol PRN Reason: Anxiety Stop: 06/07/17 21:55 Magnesium Hydroxide (Milk Of Magnesia) 30 ml PO HS PRN PRN Reason: Constipation Multivitamins/Vitamin C (Theragran) 1 tab PO DAILY GUS Stop: 07/08/17 08:59 Last Admin: 05/13/17 08:21 Dose: Not Given Neomycin/Polymyxin/Dexamethasone (Maxitrol Ophth Oint) 1 appl LEFT EYE TID GUS Stop: 07/09/17 20:59 Last Admin: 05/13/17 08:21 Dose: Not Given Quetiapine Fumarate (Seroquel) 50 mg PO BID GUS PRN Reason: Protocol Stop: 07/08/17 08:59 Last Admin: 05/13/17 08:21 Dose: Not Given Quetiapine Fumarate (Seroquel) 200 mg PO HS GUS PRN Reason: Protocol Stop: 07/09/17 12:34 Last Admin: 05/12/17 20:31 Dose: Not Given Vitamin B Complex/Vit C/Folic Acid (Vitamin B Complex W/Vitamin C) 1 tab PO DAILY GUS Stop: 07/08/17 08:59 Last Admin: 05/13/17 08:21 Dose: Not Given Zolpidem Tartrate (Ambien) 5 mg PO HS PRN PRN Reason: Insomnia Stop: 07/07/17 21:55 General: alert HEENT: NC/AT, PERRLA Neck: Supple Lungs: CTAB Cardiovascular: RRR, Normal S1, Normal S2, without murmur Abdomen: soft, non-tender, non-distended Extremities: clear Neurological: no change - Procedures Procedures: Procedures Procedure Code Date EMERGENCY DEPT VISIT 70656 11/13/11 EMERGENCY DEPT VISIT 59875 10/11/11 Internal Medicine Assmt/Plan - Assessment Assessment: AGITATION ASTHMA COPD DYSLIPIDEMIA ANEMIA - Plan Plan: - Plan Plan: fall precautions continue current medications psych f/u Nutritional Asmnt/Malnutr-PDOC - Dietary Evaluation Malnutrition Findings (Please click <Entered> for more info): Nutritional Asmnt/Malnutrition Start: 05/10/17 18: 07 Text: Status: Complete Freq: Document 05/10/17 18:08 GSUN (Rec: 05/10/17 18:15 [email or web address]) Nutritional Asmnt/Malnutrition Patient General Information Nutritional Screening Moderate Risk Screening Diagnosis Schizophrenia paranoid type acute exacerbation, dementia Alzheimer's Pertinent Medical Hx/Surgical Hx Asthma, COPD, dyslipidemia, hypothyrdois, anemia Subjective Information 66 year old female from SNF. Pt seen pacing in hallway, RD accompanied pt back to room and obtained CBW 121.6lb with bed properly calibrated. Pt with a belly, no muscle/fat wasting noted. Few missing teeth, no difficulties noted. Pt deneid nutritional concerns , focused topic on two children. Avg PO intake 75-100 % of meals since adm, meeting nutritional needs. Observed pt finishing almost 100% of meals during lunch. Spoke to CORRECTIONS OFFICER, CORRECTIONS OFFICER stated pt with great appetite, no nutritional concerns. Current Diet Order/ Nutrition Support Regular, Prosource QD Pertinent Medications Haldol, MOM, Theragran, Seroquel, Vitamin B Complex W/ Vitamin C Pertinent Labs 05/08: glucose 146H, triglycerides 299H Nutritional Hx/Data Height 1.6 m Height (Calculated Centimeters) 160.0 Current Weight (lbs) 55.157 kg Weight (Calculated Kilograms) 55.2 Weight (Calculated Grams) 88444.8 [place] Body Weight 115 Weight Status Approriate GI Symptoms Skin Integrity/Comment: Jose G Arce. Skin intact. Current %PO Good (75-100%) Estimated Nutritional Goals BEE in Kcals: Using Current wt Calories/Kcals/Kg CBW 121.6lb/55.3kg Kcals Calculated 1383-1659kcal (25-30kcal/kg) Protein: Using Current wt Protein Calculated 55g (1g/kg) Fluid: ml 1383-1659ml (1ml/kcal) Nutritional Problem 1. Problem Problem No nutritional problem at this time. Intervention/Recommendation Comments 1. Continue with current diet order. Avg PO itnake is adequate. Expected Outcomes/Goals Expected Outcomes/Goals 1. PO intake continue to meet at least 75% of estimated nutritional needs.
[2017-05-13] MEDS: Fenofibrate, Micronized 134 mg Cap PO SCH (20:07)
[2017-05-14] MEDS: Levothyroxine 0.075 Mg Tab PO SCH (06:35)
[2017-05-14] MEDS: Multivitamin Tab PO SCH (09:32)
[2017-05-14] MEDS: Atorvastatin Calcium 10 MG TAB PO SCH (09:32)
[2017-05-14] MEDS: DEXAMETHASONE LEFT EYE SCH ×3 (09:33→21:08)
[2017-05-14] MEDS: Vitamin B Complex w/Vitamin C Tab PO SCH (09:33)
[2017-05-14] MEDS: NEOMYCIN LEFT EYE SCH ×3 (09:33→21:08)
[2017-05-14] MEDS: POLYMYXIN B LEFT EYE SCH ×3 (09:33→21:08)
[2017-05-14] MEDS: Benztropine 1 MG TAB PO SCH ×2 (09:33→16:38)
--- NOTE | 2017-05-14 11:18 | Internal Medicine Prog Note ---
Internal Medicine Subjective - Subjective Service Date: 05/14/17 Patient is:: awake, verbal, ambulating, talking Per staff patient has:: no adverse event, tolerating meds Internal Medicine Objective - Results Result Diagrams: 05/08/17 19:14 05/08/17 19:14 Recent Labs: Laboratory Last Values WBC 9.5 Th/cmm (4.8-10.8) D 05/08/17 19:14 RBC 4.20 Mil/cmm (3.80-5.20) 05/08/17 19:14 Hgb 12.6 gm/dL (11.7-16.1) 05/08/17 19:14 Hct 37.1 % (35.0-45.0) D 05/08/17 19:14 MCV 88.3 fl (81-100) 05/08/17 19:14 MCH 30.0 pg (27.0-31.0) 05/08/17 19:14 MCHC Differential 34.0 pg (28.0-36.0) 05/08/17 19:14 RDW 13.2 % (11.5-20.0) 05/08/17 19:14 Plt Count 334 Th/cmm (150-400) 05/08/17 19:14 MPV 6.8 fl 05/08/17 19:14 Neutrophils % 66.5 % (40.0-80.0) 05/08/17 19:14 Lymphocytes % 24.5 % (20.0-50.0) 05/08/17 19:14 Monocytes % 6.6 % (2.0-10.0) 05/08/17 19:14 Eosinophils % 0.9 % (0.0-5.0) 05/08/17 19:14 Basophils % 1.5 % (0.0-2.0) 05/08/17 19:14 Sodium 136 mEq/L (136-145) 05/08/17 19:14 Potassium 3.7 mEq/L (3.5-5.1) 05/08/17 19:14 Chloride 104 mEq/L (98-107) 05/08/17 19:14 Carbon Dioxide 24.0 mEq/L (21.0-31.0) 05/08/17 19:14 Anion Gap 11.7 (7.0-16.0) 05/08/17 19:14 BUN 22 mg/dL (7-25) 05/08/17 19:14 Creatinine 0.7 mg/dL (0.6-1.2) 05/08/17 19:14 Est GFR ( Amer) > 60.0 ml/min (>90) 05/08/17 19:14 Est GFR (Non-Af Amer) > 60.0 ml/min 05/08/17 19:14 BUN/Creatinine Ratio 31.4 05/08/17 19:14 Glucose 146 mg/dL (70-105) H 05/08/17 19:14 Calcium 9.3 mg/dL (8.6-10.3) 05/08/17 19:14 Total Bilirubin 0.5 mg/dL (0.3-1.0) 05/08/17 19:14 AST 20 U/L (13-39) 05/08/17 19:14 ALT 16 U/L (7-52) 05/08/17 19:14 Alkaline Phosphatase 79 U/L (34-104) 05/08/17 19:14 Total Protein 6.8 gm/dL (6.0-8.3) 05/08/17 19:14 Albumin 3.9 gm/dL (3.7-5.3) 05/08/17 19:14 Globulin 2.9 gm/dL 05/08/17 19:14 Albumin/Globulin Ratio 1.3 (1.0-1.8) 05/08/17 19:14 Triglycerides 299 mg/dL (<150) H 05/08/17 19:14 Cholesterol 186 mg/dL (<200) 05/08/17 19:14 LDL Cholesterol Direct 129 mg/dL (75-193) 05/08/17 19:14 HDL Cholesterol 39 mg/dL (23-92) 05/08/17 19:14 TSH 3.33 uIU/ml (0.34-5.60) 05/08/17 19:14 Urine Source CLEAN C 05/08/17 20:25 Urine Color YELLOW 05/08/17 20:25 Urine Clarity CLEAR (CLEAR) 05/08/17 20:25 Urine pH 5.5 (4.6 - 8.0) 05/08/17 20:25 Ur Specific [place] 1.025 (1.005-1.030) 05/08/17 20:25 Urine Protein NEGATIVE mg/dL (NEGATIVE) 05/08/17 20:25 Urine Glucose (UA) NEGATIVE mg/dL (NEGATIVE) 05/08/17 20:25 Urine Ketones NEGATIVE mg/dL (NEGATIVE) 05/08/17 20:25 Urine Blood NEGATIVE (NEGATIVE) 05/08/17 20:25 Urine Nitrate NEGATIVE (NEGATIVE) 05/08/17 20:25 Urine Bilirubin NEGATIVE (NEGATIVE) 05/08/17 20:25 Urine Urobilinogen 0.2 E.U./dL (0.2 - 1.0) 05/08/17 20:25 Ur Leukocyte Esterase TRACE (NEGATIVE) H 05/08/17 20:25 Urine RBC NONE SEEN /hpf (0-5) 05/08/17 20:25 Urine WBC 2-5 /hpf (0-5) 05/08/17 20:25 Ur Epithelial Cells NONE SEEN /lpf (FEW) 05/08/17 20:25 Urine Bacteria NONE SEEN /hpf (NONE SEEN) 05/08/17 20:25 Salicylates < 25.0 mg/L (30.0-100.0) L 05/08/17 19:14 Urine Opiates Screen NEGATIVE (NEGATIVE) 05/08/17 20:25 Urine Methadone Screen NEGATIVE (NEGATIVE) 05/08/17 20:25 Acetaminophen < 10.0 ug/mL (10.0-30.0) L 05/08/17 19:14 Ur Barbiturates Screen NEGATIVE (NEGATIVE) 05/08/17 20:25 Ur Tricyclics Screen NEGATIVE (NEGATIVE) 05/08/17 20:25 Ur Phencyclidine Scrn NEGATIVE (NEGATIVE) 05/08/17 20:25 Amphetamines Screen NEGATIVE (NEGATIVE) 05/08/17 20:25 U Methamphetamines Scrn NEGATIVE (NEGATIVE) 05/08/17 20:25 U Benzodiazepines Scrn NEGATIVE (NEGATIVE) 05/08/17 20:25 U Cocaine Metab Screen NEGATIVE (NEGATIVE) 05/08/17 20:25 U Cannabinoids Screen NEGATIVE (NEGATIVE) 05/08/17 20:25 Ethyl Alcohol < 10 mg/dL (0-10) 05/08/17 19:14 RPR NONREACTIVE (NONREACTIVE) 05/08/17 19:14 - Physical Exam Vitals and I&O: Vital Signs Temp 98.5 F 05/14/17 06:36 Pulse 73 05/14/17 06:36 Resp 20 05/14/17 06:36 BP 149/94 05/14/17 06:36 Pulse Ox 94 05/14/17 06:36 Intake & Output 05/13/17 05/14/17 05/14/17 18:59 06:59 18:59 Intake Total 800 Balance 800 Intake: Oral 800 Other: # Voids 2 3 # Bowel Movements 1 0 Active Medications: Current Medications Acetaminophen (Tylenol) 650 mg PO Q4HR PRN PRN Reason: Mild Pain / Temp above 100 Stop: 07/07/17 21:55 Al Hydrox/Mg Hydrox/Simethicone (Maalox) 30 ml PO Q4HR PRN PRN Reason: GI DISTRESS Stop: 07/07/17 21:55 Atorvastatin Calcium (Lipitor) 10 mg PO DAILY GUS PRN Reason: Protocol Stop: 07/08/17 08:59 Last Admin: 05/14/17 09:32 Dose: 10 mg Benztropine Mesylate (Cogentin) 1 mg PO BID GUS Stop: 07/08/17 16:59 Last Admin: 05/14/17 09:33 Dose: 1 mg Fenofibrate (Tricor) 134 mg PO HS GUS Stop: 07/08/17 20:59 Last Admin: 05/13/17 20:07 Dose: Not Given Haloperidol Decanoate (Haldol Dec) 50 mg IM QMONTH GUS PRN Reason: Protocol Stop: 07/10/17 11:01 Last Admin: 05/11/17 11:18 Dose: 50 mg Levothyroxine Sodium (Synthroid) 0.075 mg PO QDAC GUS Stop: 07/08/17 07:29 Last Admin: 05/14/17 06:35 Dose: Not Given Lorazepam (Ativan) 0.5 mg PO Q4HR PRN; Protocol PRN Reason: Anxiety Stop: 06/07/17 21:55 Magnesium Hydroxide (Milk Of Magnesia) 30 ml PO HS PRN PRN Reason: Constipation Multivitamins/Vitamin C (Theragran) 1 tab PO DAILY GUS Stop: 07/08/17 08:59 Last Admin: 05/14/17 09:32 Dose: 1 tab Neomycin/Polymyxin/Dexamethasone (Maxitrol Ophth Oint) 1 appl LEFT EYE TID GUS Stop: 07/09/17 20:59 Last Admin: 05/14/17 09:33 Dose: 1 appl Quetiapine Fumarate (Seroquel) 50 mg PO BID GUS PRN Reason: Protocol Stop: 07/08/17 08:59 Last Admin: 05/14/17 09:32 Dose: 50 mg Quetiapine Fumarate (Seroquel) 200 mg PO HS GUS PRN Reason: Protocol Stop: 07/09/17 12:34 Last Admin: 05/13/17 20:07 Dose: Not Given Vitamin B Complex/Vit C/Folic Acid (Vitamin B Complex W/Vitamin C) 1 tab PO DAILY GUS Stop: 07/08/17 08:59 Last Admin: 05/14/17 09:33 Dose: 1 tab Zolpidem Tartrate (Ambien) 5 mg PO HS PRN PRN Reason: Insomnia Stop: 07/07/17 21:55 General: alert HEENT: NC/AT, PERRLA Neck: Supple Lungs: CTAB Cardiovascular: RRR, Normal S1, Normal S2, without murmur Abdomen: soft, non-tender, non-distended Extremities: clear Neurological: no change - Procedures Procedures: Procedures Procedure Code Date EMERGENCY DEPT VISIT 26117 11/13/11 EMERGENCY DEPT VISIT 48204 10/11/11 Internal Medicine Assmt/Plan - Assessment Assessment: AGITATION ASTHMA COPD DYSLIPIDEMIA ANEMIA - Plan Plan: fall precautions continue current medications psych f/u Nutritional Asmnt/Malnutr-PDOC - Dietary Evaluation Malnutrition Findings (Please click <Entered> for more info): Nutritional Asmnt/Malnutrition Start: 05/10/17 18: 07 Text: Status: Complete Freq: Document 05/10/17 18:08 GSUN (Rec: 05/10/17 18:15 [email or web address] [email or web address]) Nutritional Asmnt/Malnutrition Patient General Information Nutritional Screening Moderate Risk Screening Diagnosis Schizophrenia paranoid type acute exacerbation, dementia Alzheimer's Pertinent Medical Hx/Surgical Hx Asthma, COPD, dyslipidemia, hypothyrdois, anemia Subjective Information 66 year old female from SNF. Pt seen pacing in hallway, RD accompanied pt back to room and obtained CBW 121.6lb with bed properly calibrated. Pt with a belly, no muscle/fat wasting noted. Few missing teeth, no difficulties noted. Pt deneid nutritional concerns , focused topic on two children. Avg PO intake 75-100 % of meals since adm, meeting nutritional needs. Observed pt finishing almost 100% of meals during lunch. Spoke to UPPER LEATHER SORTER, UPPER LEATHER SORTER stated pt with great appetite, no nutritional concerns. Current Diet Order/ Nutrition Support Regular, Prosource QD Pertinent Medications Haldol, MOM, Theragran, Seroquel, Vitamin B Complex W/ Vitamin C Pertinent Labs 05/08: glucose 146H, triglycerides 299H Nutritional Hx/Data Height 5 ft 3 in Height (Calculated Centimeters) 160.0 Current Weight (lbs) 121 lb 9.6 oz Weight (Calculated Kilograms) 55.2 Weight (Calculated Grams) 30491.8 [place] Body Weight 115 Weight Status Approriate GI Symptoms Skin Integrity/Comment: Jose G 22. Skin intact. Current %PO Good (75-100%) Estimated Nutritional Goals BEE in Kcals: Using Current wt Calories/Kcals/Kg CBW 121.6lb/55.3kg Kcals Calculated 1383-1659kcal (25-30kcal/kg) Protein: Using Current wt Protein Calculated 55g (1g/kg) Fluid: ml 1383-1659ml (1ml/kcal) Nutritional Problem 1. Problem Problem No nutritional problem at this time. Intervention/Recommendation Comments 1. Continue with current diet order. Avg PO itnake is adequate. Expected Outcomes/Goals Expected Outcomes/Goals 1. PO intake continue to meet at least 75% of estimated nutritional needs.
[2017-05-14] MEDS: Fenofibrate, Micronized 134 mg Cap PO SCH (21:08)
--- NOTE | 2017-05-15 00:13 | Progress Notes ---
DATE: 05/14/2017 PSYCHIATRIC PROGRESS NOTE SUBJECTIVE: Staff was spoken to. The patient is interviewed. Mood is noted to be irritable. Affect is constricted. Coping skills are noted to be still poor. Sleep and appetite are also noted to be poor. The patient continues to be very agitated. Insight and judgment are very much impaired. The patient is also noted to be very intrusive. The patient has no insight into her illness. The patient is screaming and yelling and is very paranoid. The patient is pacing most of the time on the unit. ASSESSMENT: The patient is still grossly psychotic and impulsive. PLAN: To continue the patient with Seroquel and the patient has been on Haldol; plan to continue the patient with that one also and follow the patient with the supportive therapy. JOB# [id number]
[2017-05-15] MEDS: Levothyroxine 0.075 Mg Tab PO SCH (06:32)
[2017-05-15] MEDS: Atorvastatin Calcium 10 MG TAB PO SCH ×2 (09:05→09:14)
[2017-05-15] MEDS: Vitamin B Complex w/Vitamin C Tab PO SCH ×2 (09:05→09:14)
[2017-05-15] MEDS: NEOMYCIN LEFT EYE SCH ×3 (09:05→20:11)
[2017-05-15] MEDS: Benztropine 1 MG TAB PO SCH ×4 (09:05→16:49)
[2017-05-15] MEDS: DEXAMETHASONE LEFT EYE SCH ×3 (09:05→20:11)
[2017-05-15] MEDS: POLYMYXIN B LEFT EYE SCH ×3 (09:05→20:11)
[2017-05-15] MEDS: Multivitamin Tab PO SCH ×2 (09:05→09:14)
--- NOTE | 2017-05-15 11:27 | Internal Medicine Prog Note ---
Internal Medicine Subjective - Subjective Service Date: 05/15/17 Patient is:: awake, verbal, ambulating, talking Per staff patient has:: no adverse event, tolerating meds Internal Medicine Objective - Results Result Diagrams: 05/08/17 19:14 05/08/17 19:14 Recent Labs: Laboratory Last Values WBC 9.5 Th/cmm (4.8-10.8) D 05/08/17 19:14 RBC 4.20 Mil/cmm (3.80-5.20) 05/08/17 19:14 Hgb 12.6 gm/dL (11.7-16.1) 05/08/17 19:14 Hct 37.1 % (35.0-45.0) D 05/08/17 19:14 MCV 88.3 fl (81-100) 05/08/17 19:14 MCH 30.0 pg (27.0-31.0) 05/08/17 19:14 MCHC Differential 34.0 pg (28.0-36.0) 05/08/17 19:14 RDW 13.2 % (11.5-20.0) 05/08/17 19:14 Plt Count 334 Th/cmm (150-400) 05/08/17 19:14 MPV 6.8 fl 05/08/17 19:14 Neutrophils % 66.5 % (40.0-80.0) 05/08/17 19:14 Lymphocytes % 24.5 % (20.0-50.0) 05/08/17 19:14 Monocytes % 6.6 % (2.0-10.0) 05/08/17 19:14 Eosinophils % 0.9 % (0.0-5.0) 05/08/17 19:14 Basophils % 1.5 % (0.0-2.0) 05/08/17 19:14 Sodium 136 mEq/L (136-145) 05/08/17 19:14 Potassium 3.7 mEq/L (3.5-5.1) 05/08/17 19:14 Chloride 104 mEq/L (98-107) 05/08/17 19:14 Carbon Dioxide 24.0 mEq/L (21.0-31.0) 05/08/17 19:14 Anion Gap 11.7 (7.0-16.0) 05/08/17 19:14 BUN 22 mg/dL (7-25) 05/08/17 19:14 Creatinine 0.7 mg/dL (0.6-1.2) 05/08/17 19:14 Est GFR ( Amer) > 60.0 ml/min (>90) 05/08/17 19:14 Est GFR (Non-Af Amer) > 60.0 ml/min 05/08/17 19:14 BUN/Creatinine Ratio 31.4 05/08/17 19:14 Glucose 146 mg/dL (70-105) H 05/08/17 19:14 Calcium 9.3 mg/dL (8.6-10.3) 05/08/17 19:14 Total Bilirubin 0.5 mg/dL (0.3-1.0) 05/08/17 19:14 AST 20 U/L (13-39) 05/08/17 19:14 ALT 16 U/L (7-52) 05/08/17 19:14 Alkaline Phosphatase 79 U/L (34-104) 05/08/17 19:14 Total Protein 6.8 gm/dL (6.0-8.3) 05/08/17 19:14 Albumin 3.9 gm/dL (3.7-5.3) 05/08/17 19:14 Globulin 2.9 gm/dL 05/08/17 19:14 Albumin/Globulin Ratio 1.3 (1.0-1.8) 05/08/17 19:14 Triglycerides 299 mg/dL (<150) H 05/08/17 19:14 Cholesterol 186 mg/dL (<200) 05/08/17 19:14 LDL Cholesterol Direct 129 mg/dL (75-193) 05/08/17 19:14 HDL Cholesterol 39 mg/dL (23-92) 05/08/17 19:14 TSH 3.33 uIU/ml (0.34-5.60) 05/08/17 19:14 Urine Source CLEAN C 05/08/17 20:25 Urine Color YELLOW 05/08/17 20:25 Urine Clarity CLEAR (CLEAR) 05/08/17 20:25 Urine pH 5.5 (4.6 - 8.0) 05/08/17 20:25 Ur Specific [place] 1.025 (1.005-1.030) 05/08/17 20:25 Urine Protein NEGATIVE mg/dL (NEGATIVE) 05/08/17 20:25 Urine Glucose (UA) NEGATIVE mg/dL (NEGATIVE) 05/08/17 20:25 Urine Ketones NEGATIVE mg/dL (NEGATIVE) 05/08/17 20:25 Urine Blood NEGATIVE (NEGATIVE) 05/08/17 20:25 Urine Nitrate NEGATIVE (NEGATIVE) 05/08/17 20:25 Urine Bilirubin NEGATIVE (NEGATIVE) 05/08/17 20:25 Urine Urobilinogen 0.2 E.U./dL (0.2 - 1.0) 05/08/17 20:25 Ur Leukocyte Esterase TRACE (NEGATIVE) H 05/08/17 20:25 Urine RBC NONE SEEN /hpf (0-5) 05/08/17 20:25 Urine WBC 2-5 /hpf (0-5) 05/08/17 20:25 Ur Epithelial Cells NONE SEEN /lpf (FEW) 05/08/17 20:25 Urine Bacteria NONE SEEN /hpf (NONE SEEN) 05/08/17 20:25 Salicylates < 25.0 mg/L (30.0-100.0) L 05/08/17 19:14 Urine Opiates Screen NEGATIVE (NEGATIVE) 05/08/17 20:25 Urine Methadone Screen NEGATIVE (NEGATIVE) 05/08/17 20:25 Acetaminophen < 10.0 ug/mL (10.0-30.0) L 05/08/17 19:14 Ur Barbiturates Screen NEGATIVE (NEGATIVE) 05/08/17 20:25 Ur Tricyclics Screen NEGATIVE (NEGATIVE) 05/08/17 20:25 Ur Phencyclidine Scrn NEGATIVE (NEGATIVE) 05/08/17 20:25 Amphetamines Screen NEGATIVE (NEGATIVE) 05/08/17 20:25 U Methamphetamines Scrn NEGATIVE (NEGATIVE) 05/08/17 20:25 U Benzodiazepines Scrn NEGATIVE (NEGATIVE) 05/08/17 20:25 U Cocaine Metab Screen NEGATIVE (NEGATIVE) 05/08/17 20:25 U Cannabinoids Screen NEGATIVE (NEGATIVE) 05/08/17 20:25 Ethyl Alcohol < 10 mg/dL (0-10) 05/08/17 19:14 RPR NONREACTIVE (NONREACTIVE) 05/08/17 19:14 - Physical Exam Vitals and I&O: Vital Signs Temp 98.3 F 05/14/17 16:26 Pulse 98 05/14/17 16:26 Resp 20 05/14/17 19:42 BP 102/53 05/14/17 16:26 Pulse Ox 95 05/14/17 16:26 Intake & Output 05/14/17 05/15/17 05/15/17 18:59 06:59 18:59 Intake Total 700 60 Balance 700 60 Intake: Oral 700 60 Other: # Voids 4 1 # Bowel Movements 1 0 Active Medications: Current Medications Acetaminophen (Tylenol) 650 mg PO Q4HR PRN PRN Reason: Mild Pain / Temp above 100 Stop: 07/07/17 21:55 Al Hydrox/Mg Hydrox/Simethicone (Maalox) 30 ml PO Q4HR PRN PRN Reason: GI DISTRESS Stop: 07/07/17 21:55 Atorvastatin Calcium (Lipitor) 10 mg PO DAILY GUS PRN Reason: Protocol Stop: 07/08/17 08:59 Last Admin: 05/15/17 09:14 Dose: Not Given Benztropine Mesylate (Cogentin) 1 mg PO BID GUS Stop: 07/08/17 16:59 Last Admin: 05/15/17 09:14 Dose: Not Given Fenofibrate (Tricor) 134 mg PO HS GUS Stop: 07/08/17 20:59 Last Admin: 05/14/17 21:08 Dose: Not Given Haloperidol Decanoate (Haldol Dec) 50 mg IM QMONTH GUS PRN Reason: Protocol Stop: 07/10/17 11:01 Last Admin: 05/11/17 11:18 Dose: 50 mg Levothyroxine Sodium (Synthroid) 0.075 mg PO QDAC GUS Stop: 07/08/17 07:29 Last Admin: 05/15/17 06:32 Dose: Not Given Lorazepam (Ativan) 0.5 mg PO Q4HR PRN; Protocol PRN Reason: Anxiety Stop: 06/07/17 21:55 Magnesium Hydroxide (Milk Of Magnesia) 30 ml PO HS PRN PRN Reason: Constipation Multivitamins/Vitamin C (Theragran) 1 tab PO DAILY GUS Stop: 07/08/17 08:59 Last Admin: 05/15/17 09:14 Dose: Not Given Neomycin/Polymyxin/Dexamethasone (Maxitrol Ophth Oint) 1 appl LEFT EYE TID GUS Stop: 07/09/17 20:59 Last Admin: 05/15/17 09:05 Dose: 1 appl Olanzapine (Zyprexa) 10 mg IM ONCE ONE PRN Reason: Protocol Stop: 05/16/17 19:00 Quetiapine Fumarate (Seroquel) 50 mg PO BID GUS PRN Reason: Protocol Stop: 07/08/17 08:59 Last Admin: 05/15/17 09:14 Dose: Not Given Quetiapine Fumarate (Seroquel) 200 mg PO HS GUS PRN Reason: Protocol Stop: 07/09/17 12:34 Last Admin: 05/14/17 21:08 Dose: Not Given Vitamin B Complex/Vit C/Folic Acid (Vitamin B Complex W/Vitamin C) 1 tab PO DAILY GUS Stop: 07/08/17 08:59 Last Admin: 05/15/17 09:14 Dose: Not Given Zolpidem Tartrate (Ambien) 5 mg PO HS PRN PRN Reason: Insomnia Stop: 07/07/17 21:55 General: alert HEENT: NC/AT, PERRLA Neck: Supple Lungs: CTAB Cardiovascular: RRR, Normal S1, Normal S2, without murmur Abdomen: soft, non-tender, non-distended Extremities: clear Neurological: no change - Procedures Procedures: Procedures Procedure Code Date EMERGENCY DEPT VISIT 61244 11/13/11 EMERGENCY DEPT VISIT 30815 10/11/11 Internal Medicine Assmt/Plan - Assessment Assessment: AGITATION ASTHMA COPD DYSLIPIDEMIA ANEMIA - Plan Plan: fall precautions continue current medications psych f/u Nutritional Asmnt/Malnutr-PDOC - Dietary Evaluation Malnutrition Findings (Please click <Entered> for more info): Nutritional Asmnt/Malnutrition Start: 05/10/17 18: 07 Text: Status: Complete Freq: Document 05/10/17 18:08 GSUN (Rec: 05/10/17 18:15 [email or web address] [email or web address]) Nutritional Asmnt/Malnutrition Patient General Information Nutritional Screening Moderate Risk Screening Diagnosis Schizophrenia paranoid type acute exacerbation, dementia Alzheimer's Pertinent Medical Hx/Surgical Hx Asthma, COPD, dyslipidemia, hypothyrdois, anemia Subjective Information 66 year old female from SNF. Pt seen pacing in hallway, RD accompanied pt back to room and obtained CBW 121.6lb with bed properly calibrated. Pt with a belly, no muscle/fat wasting noted. Few missing teeth, no difficulties noted. Pt deneid nutritional concerns , focused topic on two children. Avg PO intake 75-100 % of meals since adm, meeting nutritional needs. Observed pt finishing almost 100% of meals during lunch. Spoke to CLOCKSMITH, CLOCKSMITH stated pt with great appetite, no nutritional concerns. Current Diet Order/ Nutrition Support Regular, Prosource QD Pertinent Medications Haldol, MOM, Theragran, Seroquel, Vitamin B Complex W/ Vitamin C Pertinent Labs 05/08: glucose 146H, triglycerides 299H Nutritional Hx/Data Height 5 ft 3 in Height (Calculated Centimeters) 160.0 Current Weight (lbs) 121 lb 9.6 oz Weight (Calculated Kilograms) 55.2 Weight (Calculated Grams) 25819.8 [place] Body Weight 115 Weight Status Approriate GI Symptoms Skin Integrity/Comment: Jose G Arce. Skin intact. Current %PO Good (75-100%) Estimated Nutritional Goals BEE in Kcals: Using Current wt Calories/Kcals/Kg CBW 121.6lb/55.3kg Kcals Calculated 1383-1659kcal (25-30kcal/kg) Protein: Using Current wt Protein Calculated 55g (1g/kg) Fluid: ml 1383-1659ml (1ml/kcal) Nutritional Problem 1. Problem Problem No nutritional problem at this time. Intervention/Recommendation Comments 1. Continue with current diet order. Avg PO itnake is adequate. Expected Outcomes/Goals Expected Outcomes/Goals 1. PO intake continue to meet at least 75% of estimated nutritional needs.
[2017-05-15] MEDS: Fenofibrate, Micronized 134 mg Cap PO SCH (20:11)
--- NOTE | 2017-05-16 05:31 | Progress Notes ---
DATE: 05/15/2017 SUBJECTIVE: Staff was spoken to. The patient is interviewed. Mood is irritable. Affect is constricted. Insight and judgment are noted to be still impaired. The patient has been given the dose of the medication to calm her down. The patient's coping skills at this time are noted to be very poor. Insight and judgment also noted to be very poor. The patient is still testing the limits. The patient has no insight into her illness. The patient is very intrusive. The patient is currently receiving 50 mg twice a day of Seroquel and 200 mg at bedtime. The patient has been having difficult time. The patient has to be given 10 mg dose of olanzapine to calm her down. ASSESSMENT: The patient is still psychotic and impulsive. PLAN: To continue the patient with current medications. I encouraged the patient to verbalize the concerns rather than to act out. In view of aggressive behavior and mood swings, it is decided to start the patient with Depakote and the patient is going to be given Depakote ER 250 mg b.i.d., and the patient is going to be followed up with supportive therapy. JOB# [id number]
[2017-05-16] MEDS: Levothyroxine 0.075 Mg Tab PO SCH (06:36)
[2017-05-16] MEDS: Benztropine 1 MG TAB PO SCH ×2 (08:25→16:51)
[2017-05-16] MEDS: DEXAMETHASONE LEFT EYE SCH ×3 (10:05→20:38)
[2017-05-16] MEDS: POLYMYXIN B LEFT EYE SCH ×3 (10:05→20:38)
[2017-05-16] MEDS: NEOMYCIN LEFT EYE SCH ×3 (10:05→20:38)
--- NOTE | 2017-05-16 10:36 | Internal Medicine Prog Note ---
Internal Medicine Subjective - Subjective Service Date: 05/16/17 Patient is:: awake, verbal, ambulating, talking Per staff patient has:: no adverse event, tolerating meds Internal Medicine Objective - Results Result Diagrams: 05/08/17 19:14 05/08/17 19:14 Recent Labs: Laboratory Last Values WBC 9.5 Th/cmm (4.8-10.8) D 05/08/17 19:14 RBC 4.20 Mil/cmm (3.80-5.20) 05/08/17 19:14 Hgb 12.6 gm/dL (11.7-16.1) 05/08/17 19:14 Hct 37.1 % (35.0-45.0) D 05/08/17 19:14 MCV 88.3 fl (81-100) 05/08/17 19:14 MCH 30.0 pg (27.0-31.0) 05/08/17 19:14 MCHC Differential 34.0 pg (28.0-36.0) 05/08/17 19:14 RDW 13.2 % (11.5-20.0) 05/08/17 19:14 Plt Count 334 Th/cmm (150-400) 05/08/17 19:14 MPV 6.8 fl 05/08/17 19:14 Neutrophils % 66.5 % (40.0-80.0) 05/08/17 19:14 Lymphocytes % 24.5 % (20.0-50.0) 05/08/17 19:14 Monocytes % 6.6 % (2.0-10.0) 05/08/17 19:14 Eosinophils % 0.9 % (0.0-5.0) 05/08/17 19:14 Basophils % 1.5 % (0.0-2.0) 05/08/17 19:14 Sodium 136 mEq/L (136-145) 05/08/17 19:14 Potassium 3.7 mEq/L (3.5-5.1) 05/08/17 19:14 Chloride 104 mEq/L (98-107) 05/08/17 19:14 Carbon Dioxide 24.0 mEq/L (21.0-31.0) 05/08/17 19:14 Anion Gap 11.7 (7.0-16.0) 05/08/17 19:14 BUN 22 mg/dL (7-25) 05/08/17 19:14 Creatinine 0.7 mg/dL (0.6-1.2) 05/08/17 19:14 Est GFR ( Amer) > 60.0 ml/min (>90) 05/08/17 19:14 Est GFR (Non-Af Amer) > 60.0 ml/min 05/08/17 19:14 BUN/Creatinine Ratio 31.4 05/08/17 19:14 Glucose 146 mg/dL (70-105) H 05/08/17 19:14 Calcium 9.3 mg/dL (8.6-10.3) 05/08/17 19:14 Total Bilirubin 0.5 mg/dL (0.3-1.0) 05/08/17 19:14 AST 20 U/L (13-39) 05/08/17 19:14 ALT 16 U/L (7-52) 05/08/17 19:14 Alkaline Phosphatase 79 U/L (34-104) 05/08/17 19:14 Total Protein 6.8 gm/dL (6.0-8.3) 05/08/17 19:14 Albumin 3.9 gm/dL (3.7-5.3) 05/08/17 19:14 Globulin 2.9 gm/dL 05/08/17 19:14 Albumin/Globulin Ratio 1.3 (1.0-1.8) 05/08/17 19:14 Triglycerides 299 mg/dL (<150) H 05/08/17 19:14 Cholesterol 186 mg/dL (<200) 05/08/17 19:14 LDL Cholesterol Direct 129 mg/dL (75-193) 05/08/17 19:14 HDL Cholesterol 39 mg/dL (23-92) 05/08/17 19:14 TSH 3.33 uIU/ml (0.34-5.60) 05/08/17 19:14 Urine Source CLEAN C 05/08/17 20:25 Urine Color YELLOW 05/08/17 20:25 Urine Clarity CLEAR (CLEAR) 05/08/17 20:25 Urine pH 5.5 (4.6 - 8.0) 05/08/17 20:25 Ur Specific [place] 1.025 (1.005-1.030) 05/08/17 20:25 Urine Protein NEGATIVE mg/dL (NEGATIVE) 05/08/17 20:25 Urine Glucose (UA) NEGATIVE mg/dL (NEGATIVE) 05/08/17 20:25 Urine Ketones NEGATIVE mg/dL (NEGATIVE) 05/08/17 20:25 Urine Blood NEGATIVE (NEGATIVE) 05/08/17 20:25 Urine Nitrate NEGATIVE (NEGATIVE) 05/08/17 20:25 Urine Bilirubin NEGATIVE (NEGATIVE) 05/08/17 20:25 Urine Urobilinogen 0.2 E.U./dL (0.2 - 1.0) 05/08/17 20:25 Ur Leukocyte Esterase TRACE (NEGATIVE) H 05/08/17 20:25 Urine RBC NONE SEEN /hpf (0-5) 05/08/17 20:25 Urine WBC 2-5 /hpf (0-5) 05/08/17 20:25 Ur Epithelial Cells NONE SEEN /lpf (FEW) 05/08/17 20:25 Urine Bacteria NONE SEEN /hpf (NONE SEEN) 05/08/17 20:25 Salicylates < 25.0 mg/L (30.0-100.0) L 05/08/17 19:14 Urine Opiates Screen NEGATIVE (NEGATIVE) 05/08/17 20:25 Urine Methadone Screen NEGATIVE (NEGATIVE) 05/08/17 20:25 Acetaminophen < 10.0 ug/mL (10.0-30.0) L 05/08/17 19:14 Ur Barbiturates Screen NEGATIVE (NEGATIVE) 05/08/17 20:25 Ur Tricyclics Screen NEGATIVE (NEGATIVE) 05/08/17 20:25 Ur Phencyclidine Scrn NEGATIVE (NEGATIVE) 05/08/17 20:25 Amphetamines Screen NEGATIVE (NEGATIVE) 05/08/17 20:25 U Methamphetamines Scrn NEGATIVE (NEGATIVE) 05/08/17 20:25 U Benzodiazepines Scrn NEGATIVE (NEGATIVE) 05/08/17 20:25 U Cocaine Metab Screen NEGATIVE (NEGATIVE) 05/08/17 20:25 U Cannabinoids Screen NEGATIVE (NEGATIVE) 05/08/17 20:25 Ethyl Alcohol < 10 mg/dL (0-10) 05/08/17 19:14 RPR NONREACTIVE (NONREACTIVE) 05/08/17 19:14 - Physical Exam Vitals and I&O: Vital Signs Temp 97 F 05/16/17 06:34 Pulse 65 05/16/17 06:34 Resp 19 05/16/17 06:34 BP 133/76 05/16/17 06:34 Pulse Ox 96 05/16/17 06:34 Intake & Output 05/15/17 05/16/17 05/16/17 18:59 06:59 18:59 Intake Total 900 120 Balance 900 120 Intake: Oral 900 120 Other: # Voids 4 3 # Bowel Movements 1 0 Active Medications: Current Medications Acetaminophen (Tylenol) 650 mg PO Q4HR PRN PRN Reason: Mild Pain / Temp above 100 Stop: 07/07/17 21:55 Al Hydrox/Mg Hydrox/Simethicone (Maalox) 30 ml PO Q4HR PRN PRN Reason: GI DISTRESS Stop: 07/07/17 21:55 Atorvastatin Calcium (Lipitor) 10 mg PO DAILY GUS PRN Reason: Protocol Stop: 07/08/17 08:59 Last Admin: 05/15/17 09:14 Dose: Not Given Benztropine Mesylate (Cogentin) 1 mg PO BID GUS Stop: 07/08/17 16:59 Last Admin: 05/16/17 08:25 Dose: 1 mg Divalproex Sodium (Depakote Dr) 250 mg PO TID GUS PRN Reason: Protocol Stop: 07/15/17 13:59 Fenofibrate (Tricor) 134 mg PO HS [facility] Stop: 07/08/17 20:59 Last Admin: 05/15/17 20:11 Dose: 134 mg Haloperidol Decanoate (Haldol Dec) 50 mg IM QMONTH GUS PRN Reason: Protocol Stop: 07/10/17 11:01 Last Admin: 05/11/17 11:18 Dose: 50 mg Levothyroxine Sodium (Synthroid) 0.075 mg PO QDAC GUS Stop: 07/08/17 07:29 Last Admin: 05/16/17 06:36 Dose: Not Given Lorazepam (Ativan) 0.5 mg PO Q4HR PRN; Protocol PRN Reason: Anxiety Stop: 06/07/17 21:55 Magnesium Hydroxide (Milk Of Magnesia) 30 ml PO HS PRN PRN Reason: Constipation Multivitamins/Vitamin C (Theragran) 1 tab PO DAILY GUS Stop: 07/08/17 08:59 Last Admin: 05/15/17 09:14 Dose: Not Given Neomycin/Polymyxin/Dexamethasone (Maxitrol Ophth Oint) 1 appl LEFT EYE TID GUS Stop: 07/09/17 20:59 Last Admin: 05/15/17 20:11 Dose: Not Given Quetiapine Fumarate (Seroquel) 200 mg PO HS GUS PRN Reason: Protocol Stop: 07/09/17 12:34 Last Admin: 05/15/17 20:11 Dose: 200 mg Quetiapine Fumarate (Seroquel) 100 mg PO DAILY GUS PRN Reason: Protocol Stop: 07/16/17 08:59 Vitamin B Complex/Vit C/Folic Acid (Vitamin B Complex W/Vitamin C) 1 tab PO DAILY GUS Stop: 07/08/17 08:59 Last Admin: 05/15/17 09:14 Dose: Not Given Zolpidem Tartrate (Ambien) 5 mg PO HS PRN PRN Reason: Insomnia Stop: 07/07/17 21:55 Last Admin: 05/15/17 20:11 Dose: 5 mg General: alert HEENT: NC/AT, PERRLA Neck: Supple Lungs: CTAB Cardiovascular: RRR, Normal S1, Normal S2, without murmur Abdomen: soft, non-tender, non-distended Extremities: clear Neurological: no change - Procedures Procedures: Procedures Procedure Code Date EMERGENCY DEPT VISIT 66795 11/13/11 EMERGENCY DEPT VISIT 18119 10/11/11 Internal Medicine Assmt/Plan - Assessment Assessment: AGITATION ASTHMA COPD DYSLIPIDEMIA ANEMIA - Plan Plan: fall precautions continue current medications psych f/u Nutritional Asmnt/Malnutr-PDOC - Dietary Evaluation Malnutrition Findings (Please click <Entered> for more info): Nutritional Asmnt/Malnutrition Start: 05/10/17 18: 07 Text: Status: Complete Freq: Document 05/10/17 18:08 GSUN (Rec: 05/10/17 18:15 NICANOR [email or web address]) Nutritional Asmnt/Malnutrition Patient General Information Nutritional Screening Moderate Risk Screening Diagnosis Schizophrenia paranoid type acute exacerbation, dementia Alzheimer's Pertinent Medical Hx/Surgical Hx Asthma, COPD, dyslipidemia, hypothyrdois, anemia Subjective Information 66 year old female from SNF. Pt seen pacing in hallway, RD accompanied pt back to room and obtained CBW 121.6lb with bed properly calibrated. Pt with a belly, no muscle/fat wasting noted. Few missing teeth, no difficulties noted. Pt deneid nutritional concerns , focused topic on two children. Avg PO intake 75-100 % of meals since adm, meeting nutritional needs. Observed pt finishing almost 100% of meals during lunch. Spoke to [employer]OL[employer], [employer]OL[employer] stated pt with great appetite, no nutritional concerns. Current Diet Order/ Nutrition Support Regular, Prosource QD Pertinent Medications Haldol, MOM, Theragran, Seroquel, Vitamin B Complex W/ Vitamin C Pertinent Labs 05/08: glucose 146H, triglycerides 299H Nutritional Hx/Data Height 5 ft 3 in Height (Calculated Centimeters) 160.0 Current Weight (lbs) 121 lb 9.6 oz Weight (Calculated Kilograms) 55.2 Weight (Calculated Grams) 87397.8 [place] Body Weight 115 Weight Status Approriate GI Symptoms Skin Integrity/Comment: Jose G Arce. Skin intact. Current %PO Good (75-100%) Estimated Nutritional Goals BEE in Kcals: Using Current wt Calories/Kcals/Kg CBW 121.6lb/55.3kg Kcals Calculated 1383-1659kcal (25-30kcal/kg) Protein: Using Current wt Protein Calculated 55g (1g/kg) Fluid: ml 1383-1659ml (1ml/kcal) Nutritional Problem 1. Problem Problem No nutritional problem at this time. Intervention/Recommendation Comments 1. Continue with current diet order. Avg PO itnake is adequate. Expected Outcomes/Goals Expected Outcomes/Goals 1. PO intake continue to meet at least 75% of estimated nutritional needs.
[2017-05-16] MEDS: Multivitamin Tab PO SCH (13:10)
[2017-05-16] MEDS: Vitamin B Complex w/Vitamin C Tab PO SCH (13:10)
[2017-05-16] MEDS: Atorvastatin Calcium 10 MG TAB PO SCH (13:10)
[2017-05-16] MEDS: Fenofibrate, Micronized 134 mg Cap PO SCH (20:35)
--- NOTE | 2017-05-17 01:50 | Progress Notes ---
DATE: 05/16/2017 SUBJECTIVE: Staff was spoken to. The patient is interviewed. Mood is noted to be irritable. Affect is constricted. Insight and judgment are noted to be still impaired. Impulse control is noted to be poor. Coping skills are noted to be poor. The patient is very intrusive and has been getting into other people's business. The patient is very hard to be redirected. Coping skills at this time are noted to be very poor. ASSESSMENT: The patient is currently on Depakote 250 mg b.i.d., which is going to be increased to 3 times a day and Seroquel is going to be increased to 100 mg in the morning and 200 mg will be continued at bedtime. The patient is going to be closely monitored. Please note that the patient is grossly psychotic and is not ready to be discharged to a lower level of care yet and the patient is going to be followed up with the supportive therapy. JOB# [id number]
[2017-05-17] MEDS: Levothyroxine 0.075 Mg Tab PO SCH (06:37)
[2017-05-17] MEDS: NEOMYCIN LEFT EYE SCH ×3 (08:57→21:13)
[2017-05-17] MEDS: Vitamin B Complex w/Vitamin C Tab PO SCH (08:57)
[2017-05-17] MEDS: Multivitamin Tab PO SCH (08:57)
[2017-05-17] MEDS: DEXAMETHASONE LEFT EYE SCH ×3 (08:57→21:13)
[2017-05-17] MEDS: POLYMYXIN B LEFT EYE SCH ×3 (08:57→21:13)
[2017-05-17] MEDS: Atorvastatin Calcium 10 MG TAB PO SCH (08:59)
[2017-05-17] MEDS: Benztropine 1 MG TAB PO SCH ×2 (08:59→16:32)
--- NOTE | 2017-05-17 11:28 | Internal Medicine Prog Note ---
Internal Medicine Subjective - Subjective Service Date: 05/17/17 Patient is:: awake, verbal, ambulating, talking Per staff patient has:: no adverse event, tolerating meds Internal Medicine Objective - Results Result Diagrams: 05/08/17 19:14 05/08/17 19:14 Recent Labs: Laboratory Last Values WBC 9.5 Th/cmm (4.8-10.8) D 05/08/17 19:14 RBC 4.20 Mil/cmm (3.80-5.20) 05/08/17 19:14 Hgb 12.6 gm/dL (11.7-16.1) 05/08/17 19:14 Hct 37.1 % (35.0-45.0) D 05/08/17 19:14 MCV 88.3 fl (81-100) 05/08/17 19:14 MCH 30.0 pg (27.0-31.0) 05/08/17 19:14 MCHC Differential 34.0 pg (28.0-36.0) 05/08/17 19:14 RDW 13.2 % (11.5-20.0) 05/08/17 19:14 Plt Count 334 Th/cmm (150-400) 05/08/17 19:14 MPV 6.8 fl 05/08/17 19:14 Neutrophils % 66.5 % (40.0-80.0) 05/08/17 19:14 Lymphocytes % 24.5 % (20.0-50.0) 05/08/17 19:14 Monocytes % 6.6 % (2.0-10.0) 05/08/17 19:14 Eosinophils % 0.9 % (0.0-5.0) 05/08/17 19:14 Basophils % 1.5 % (0.0-2.0) 05/08/17 19:14 Sodium 136 mEq/L (136-145) 05/08/17 19:14 Potassium 3.7 mEq/L (3.5-5.1) 05/08/17 19:14 Chloride 104 mEq/L (98-107) 05/08/17 19:14 Carbon Dioxide 24.0 mEq/L (21.0-31.0) 05/08/17 19:14 Anion Gap 11.7 (7.0-16.0) 05/08/17 19:14 BUN 22 mg/dL (7-25) 05/08/17 19:14 Creatinine 0.7 mg/dL (0.6-1.2) 05/08/17 19:14 Est GFR ( Amer) > 60.0 ml/min (>90) 05/08/17 19:14 Est GFR (Non-Af Amer) > 60.0 ml/min 05/08/17 19:14 BUN/Creatinine Ratio 31.4 05/08/17 19:14 Glucose 146 mg/dL (70-105) H 05/08/17 19:14 Calcium 9.3 mg/dL (8.6-10.3) 05/08/17 19:14 Total Bilirubin 0.5 mg/dL (0.3-1.0) 05/08/17 19:14 AST 20 U/L (13-39) 05/08/17 19:14 ALT 16 U/L (7-52) 05/08/17 19:14 Alkaline Phosphatase 79 U/L (34-104) 05/08/17 19:14 Total Protein 6.8 gm/dL (6.0-8.3) 05/08/17 19:14 Albumin 3.9 gm/dL (3.7-5.3) 05/08/17 19:14 Globulin 2.9 gm/dL 05/08/17 19:14 Albumin/Globulin Ratio 1.3 (1.0-1.8) 05/08/17 19:14 Triglycerides 299 mg/dL (<150) H 05/08/17 19:14 Cholesterol 186 mg/dL (<200) 05/08/17 19:14 LDL Cholesterol Direct 129 mg/dL (75-193) 05/08/17 19:14 HDL Cholesterol 39 mg/dL (23-92) 05/08/17 19:14 TSH 3.33 uIU/ml (0.34-5.60) 05/08/17 19:14 Urine Source CLEAN C 05/08/17 20:25 Urine Color YELLOW 05/08/17 20:25 Urine Clarity CLEAR (CLEAR) 05/08/17 20:25 Urine pH 5.5 (4.6 - 8.0) 05/08/17 20:25 Ur Specific [place] 1.025 (1.005-1.030) 05/08/17 20:25 Urine Protein NEGATIVE mg/dL (NEGATIVE) 05/08/17 20:25 Urine Glucose (UA) NEGATIVE mg/dL (NEGATIVE) 05/08/17 20:25 Urine Ketones NEGATIVE mg/dL (NEGATIVE) 05/08/17 20:25 Urine Blood NEGATIVE (NEGATIVE) 05/08/17 20:25 Urine Nitrate NEGATIVE (NEGATIVE) 05/08/17 20:25 Urine Bilirubin NEGATIVE (NEGATIVE) 05/08/17 20:25 Urine Urobilinogen 0.2 E.U./dL (0.2 - 1.0) 05/08/17 20:25 Ur Leukocyte Esterase TRACE (NEGATIVE) H 05/08/17 20:25 Urine RBC NONE SEEN /hpf (0-5) 05/08/17 20:25 Urine WBC 2-5 /hpf (0-5) 05/08/17 20:25 Ur Epithelial Cells NONE SEEN /lpf (FEW) 05/08/17 20:25 Urine Bacteria NONE SEEN /hpf (NONE SEEN) 05/08/17 20:25 Salicylates < 25.0 mg/L (30.0-100.0) L 05/08/17 19:14 Urine Opiates Screen NEGATIVE (NEGATIVE) 05/08/17 20:25 Urine Methadone Screen NEGATIVE (NEGATIVE) 05/08/17 20:25 Acetaminophen < 10.0 ug/mL (10.0-30.0) L 05/08/17 19:14 Ur Barbiturates Screen NEGATIVE (NEGATIVE) 05/08/17 20:25 Ur Tricyclics Screen NEGATIVE (NEGATIVE) 05/08/17 20:25 Ur Phencyclidine Scrn NEGATIVE (NEGATIVE) 05/08/17 20:25 Amphetamines Screen NEGATIVE (NEGATIVE) 05/08/17 20:25 U Methamphetamines Scrn NEGATIVE (NEGATIVE) 05/08/17 20:25 U Benzodiazepines Scrn NEGATIVE (NEGATIVE) 05/08/17 20:25 U Cocaine Metab Screen NEGATIVE (NEGATIVE) 05/08/17 20:25 U Cannabinoids Screen NEGATIVE (NEGATIVE) 05/08/17 20:25 Ethyl Alcohol < 10 mg/dL (0-10) 05/08/17 19:14 RPR NONREACTIVE (NONREACTIVE) 05/08/17 19:14 - Physical Exam Vitals and I&O: Vital Signs Temp 97.8 F 05/17/17 06:34 Pulse 70 05/17/17 06:34 Resp 20 05/17/17 06:34 BP 112/66 05/17/17 06:34 Pulse Ox 100 05/17/17 06:34 Intake & Output 05/16/17 05/17/17 05/17/17 18:59 06:59 18:59 Intake Total 1000 120 Balance 1000 120 Intake: Oral 1000 120 Other: # Voids 3 3 # Bowel Movements 1 Active Medications: Current Medications Acetaminophen (Tylenol) 650 mg PO Q4HR PRN PRN Reason: Mild Pain / Temp above 100 Stop: 07/07/17 21:55 Al Hydrox/Mg Hydrox/Simethicone (Maalox) 30 ml PO Q4HR PRN PRN Reason: GI DISTRESS Stop: 07/07/17 21:55 Atorvastatin Calcium (Lipitor) 10 mg PO DAILY GUS PRN Reason: Protocol Stop: 07/08/17 08:59 Last Admin: 05/17/17 08:59 Dose: Not Given Benztropine Mesylate (Cogentin) 1 mg PO BID GUS Stop: 07/08/17 16:59 Last Admin: 05/17/17 08:59 Dose: Not Given Divalproex Sodium (Depakote Dr) 250 mg PO TID GUS PRN Reason: Protocol Stop: 07/15/17 13:59 Last Admin: 05/17/17 08:59 Dose: Not Given Fenofibrate (Tricor) 134 mg PO HS GUS Stop: 07/08/17 20:59 Last Admin: 05/16/17 20:35 Dose: 134 mg Haloperidol Decanoate (Haldol Dec) 50 mg IM QMONTH GUS PRN Reason: Protocol Stop: 07/10/17 11:01 Last Admin: 05/11/17 11:18 Dose: 50 mg Levothyroxine Sodium (Synthroid) 0.075 mg PO QDAC GUS Stop: 07/08/17 07:29 Last Admin: 05/17/17 06:37 Dose: 0.075 mg Lorazepam (Ativan) 0.5 mg PO Q4HR PRN; Protocol PRN Reason: Anxiety Stop: 06/07/17 21:55 Magnesium Hydroxide (Milk Of Magnesia) 30 ml PO HS PRN PRN Reason: Constipation Multivitamins/Vitamin C (Theragran) 1 tab PO DAILY GUS Stop: 07/08/17 08:59 Last Admin: 05/17/17 08:57 Dose: 1 tab Neomycin/Polymyxin/Dexamethasone (Maxitrol Ophth Oint) 1 appl LEFT EYE TID GUS Stop: 07/09/17 20:59 Last Admin: 05/17/17 08:57 Dose: 1 appl Quetiapine Fumarate (Seroquel) 200 mg PO HS GUS PRN Reason: Protocol Stop: 07/09/17 12:34 Last Admin: 05/16/17 20:35 Dose: 200 mg Quetiapine Fumarate (Seroquel) 100 mg PO DAILY GUS PRN Reason: Protocol Stop: 07/16/17 08:59 Last Admin: 05/17/17 09:00 Dose: Not Given Vitamin B Complex/Vit C/Folic Acid (Vitamin B Complex W/Vitamin C) 1 tab PO DAILY GUS Stop: 07/08/17 08:59 Last Admin: 05/17/17 08:57 Dose: 1 tab Zolpidem Tartrate (Ambien) 5 mg PO HS PRN PRN Reason: Insomnia Stop: 07/07/17 21:55 Last Admin: 05/15/17 20:11 Dose: 5 mg General: alert HEENT: NC/AT, PERRLA Neck: Supple Lungs: CTAB Cardiovascular: RRR, Normal S1, Normal S2, without murmur Abdomen: soft, non-tender, non-distended Extremities: clear Neurological: no change - Procedures Procedures: Procedures Procedure Code Date EMERGENCY DEPT VISIT 13147 11/13/11 EMERGENCY DEPT VISIT 88534 10/11/11 Internal Medicine Assmt/Plan - Assessment Assessment: AGITATION ASTHMA COPD DYSLIPIDEMIA ANEMIA - Plan Plan: fall precautions continue current medications psych f/u Nutritional Asmnt/Malnutr-PDOC - Dietary Evaluation Malnutrition Findings (Please click <Entered> for more info): Nutritional Asmnt/Malnutrition Start: 05/10/17 18: 07 Text: Status: Complete Freq: Document 05/10/17 18:08 GSUN (Rec: 05/10/17 18:15 [id number] [email or web address]) Nutritional Asmnt/Malnutrition Patient General Information Nutritional Screening Moderate Risk Screening Diagnosis Schizophrenia paranoid type acute exacerbation, dementia Alzheimer's Pertinent Medical Hx/Surgical Hx Asthma, COPD, dyslipidemia, hypothyrdois, anemia Subjective Information 66 year old female from SNF. Pt seen pacing in hallway, RD accompanied pt back to room and obtained CBW 121.6lb with bed properly calibrated. Pt with a belly, no muscle/fat wasting noted. Few missing teeth, no difficulties noted. Pt deneid nutritional concerns , focused topic on two children. Avg PO intake 75-100 % of meals since adm, meeting nutritional needs. Observed pt finishing almost 100% of meals during lunch. Spoke to SALES REPRESENTATIVE ADDING MACHINES, SALES REPRESENTATIVE ADDING MACHINES stated pt with great appetite, no nutritional concerns. Current Diet Order/ Nutrition Support Regular, Prosource QD Pertinent Medications Haldol, MOM, Theragran, Seroquel, Vitamin B Complex W/ Vitamin C Pertinent Labs 05/08: glucose 146H, triglycerides 299H Nutritional Hx/Data Height 5 ft 3 in Height (Calculated Centimeters) 160.0 Current Weight (lbs) 121 lb 9.6 oz Weight (Calculated Kilograms) 55.2 Weight (Calculated Grams) 34533.8 [place] Body Weight 115 Weight Status Approriate GI Symptoms Skin Integrity/Comment: Jose G Arce. Skin intact. Current %PO Good (75-100%) Estimated Nutritional Goals BEE in Kcals: Using Current wt Calories/Kcals/Kg CBW 121.6lb/55.3kg Kcals Calculated 1383-1659kcal (25-30kcal/kg) Protein: Using Current wt Protein Calculated 55g (1g/kg) Fluid: ml 1383-1659ml (1ml/kcal) Nutritional Problem 1. Problem Problem No nutritional problem at this time. Intervention/Recommendation Comments 1. Continue with current diet order. Avg PO itnake is adequate. Expected Outcomes/Goals Expected Outcomes/Goals 1. PO intake continue to meet at least 75% of estimated nutritional needs.
[2017-05-17] MEDS: Fenofibrate, Micronized 134 mg Cap PO SCH (21:12)
--- NOTE | 2017-05-18 01:51 | Progress Notes ---
DATE: 05/16/2017 SUBJECTIVE: Staff was spoken to. The patient is interviewed. Mood is noted to be irritable. Affect is constricted. The patient is still very intrusive. The patient is making gestures with her hands. Coping skills are noted to be very poor. Sleep and appetite are also noted to be very poor. The patient tends to test the limits constantly. The patient needs to be redirected. ASSESSMENT: The patient is still grossly psychotic and impulsive. PLAN: To continue the patient with supportive therapy, encouraged the patient to verbalize the concerns rather than to act out. JOB# [id number]
[2017-05-18] MEDS: Levothyroxine 0.075 Mg Tab PO SCH (06:36)
[2017-05-18] MEDS: Benztropine 1 MG TAB PO SCH ×2 (10:16→17:43)
--- NOTE | 2017-05-18 11:59 | Internal Medicine Prog Note ---
Internal Medicine Subjective - Subjective Service Date: 05/18/17 Patient is:: awake, verbal, ambulating, talking Per staff patient has:: no adverse event, tolerating meds Internal Medicine Objective - Results Result Diagrams: 05/08/17 19:14 05/08/17 19:14 Recent Labs: Laboratory Last Values WBC 9.5 Th/cmm (4.8-10.8) D 05/08/17 19:14 RBC 4.20 Mil/cmm (3.80-5.20) 05/08/17 19:14 Hgb 12.6 gm/dL (11.7-16.1) 05/08/17 19:14 Hct 37.1 % (35.0-45.0) D 05/08/17 19:14 MCV 88.3 fl (81-100) 05/08/17 19:14 MCH 30.0 pg (27.0-31.0) 05/08/17 19:14 MCHC Differential 34.0 pg (28.0-36.0) 05/08/17 19:14 RDW 13.2 % (11.5-20.0) 05/08/17 19:14 Plt Count 334 Th/cmm (150-400) 05/08/17 19:14 MPV 6.8 fl 05/08/17 19:14 Neutrophils % 66.5 % (40.0-80.0) 05/08/17 19:14 Lymphocytes % 24.5 % (20.0-50.0) 05/08/17 19:14 Monocytes % 6.6 % (2.0-10.0) 05/08/17 19:14 Eosinophils % 0.9 % (0.0-5.0) 05/08/17 19:14 Basophils % 1.5 % (0.0-2.0) 05/08/17 19:14 Sodium 136 mEq/L (136-145) 05/08/17 19:14 Potassium 3.7 mEq/L (3.5-5.1) 05/08/17 19:14 Chloride 104 mEq/L (98-107) 05/08/17 19:14 Carbon Dioxide 24.0 mEq/L (21.0-31.0) 05/08/17 19:14 Anion Gap 11.7 (7.0-16.0) 05/08/17 19:14 BUN 22 mg/dL (7-25) 05/08/17 19:14 Creatinine 0.7 mg/dL (0.6-1.2) 05/08/17 19:14 Est GFR ( Amer) > 60.0 ml/min (>90) 05/08/17 19:14 Est GFR (Non-Af Amer) > 60.0 ml/min 05/08/17 19:14 BUN/Creatinine Ratio 31.4 05/08/17 19:14 Glucose 146 mg/dL (70-105) H 05/08/17 19:14 Calcium 9.3 mg/dL (8.6-10.3) 05/08/17 19:14 Total Bilirubin 0.5 mg/dL (0.3-1.0) 05/08/17 19:14 AST 20 U/L (13-39) 05/08/17 19:14 ALT 16 U/L (7-52) 05/08/17 19:14 Alkaline Phosphatase 79 U/L (34-104) 05/08/17 19:14 Total Protein 6.8 gm/dL (6.0-8.3) 05/08/17 19:14 Albumin 3.9 gm/dL (3.7-5.3) 05/08/17 19:14 Globulin 2.9 gm/dL 05/08/17 19:14 Albumin/Globulin Ratio 1.3 (1.0-1.8) 05/08/17 19:14 Triglycerides 299 mg/dL (<150) H 05/08/17 19:14 Cholesterol 186 mg/dL (<200) 05/08/17 19:14 LDL Cholesterol Direct 129 mg/dL (75-193) 05/08/17 19:14 HDL Cholesterol 39 mg/dL (23-92) 05/08/17 19:14 TSH 3.33 uIU/ml (0.34-5.60) 05/08/17 19:14 Urine Source CLEAN C 05/08/17 20:25 Urine Color YELLOW 05/08/17 20:25 Urine Clarity CLEAR (CLEAR) 05/08/17 20:25 Urine pH 5.5 (4.6 - 8.0) 05/08/17 20:25 Ur Specific [place] 1.025 (1.005-1.030) 05/08/17 20:25 Urine Protein NEGATIVE mg/dL (NEGATIVE) 05/08/17 20:25 Urine Glucose (UA) NEGATIVE mg/dL (NEGATIVE) 05/08/17 20:25 Urine Ketones NEGATIVE mg/dL (NEGATIVE) 05/08/17 20:25 Urine Blood NEGATIVE (NEGATIVE) 05/08/17 20:25 Urine Nitrate NEGATIVE (NEGATIVE) 05/08/17 20:25 Urine Bilirubin NEGATIVE (NEGATIVE) 05/08/17 20:25 Urine Urobilinogen 0.2 E.U./dL (0.2 - 1.0) 05/08/17 20:25 Ur Leukocyte Esterase TRACE (NEGATIVE) H 05/08/17 20:25 Urine RBC NONE SEEN /hpf (0-5) 05/08/17 20:25 Urine WBC 2-5 /hpf (0-5) 05/08/17 20:25 Ur Epithelial Cells NONE SEEN /lpf (FEW) 05/08/17 20:25 Urine Bacteria NONE SEEN /hpf (NONE SEEN) 05/08/17 20:25 Salicylates < 25.0 mg/L (30.0-100.0) L 05/08/17 19:14 Urine Opiates Screen NEGATIVE (NEGATIVE) 05/08/17 20:25 Urine Methadone Screen NEGATIVE (NEGATIVE) 05/08/17 20:25 Acetaminophen < 10.0 ug/mL (10.0-30.0) L 05/08/17 19:14 Ur Barbiturates Screen NEGATIVE (NEGATIVE) 05/08/17 20:25 Ur Tricyclics Screen NEGATIVE (NEGATIVE) 05/08/17 20:25 Ur Phencyclidine Scrn NEGATIVE (NEGATIVE) 05/08/17 20:25 Amphetamines Screen NEGATIVE (NEGATIVE) 05/08/17 20:25 U Methamphetamines Scrn NEGATIVE (NEGATIVE) 05/08/17 20:25 U Benzodiazepines Scrn NEGATIVE (NEGATIVE) 05/08/17 20:25 U Cocaine Metab Screen NEGATIVE (NEGATIVE) 05/08/17 20:25 U Cannabinoids Screen NEGATIVE (NEGATIVE) 05/08/17 20:25 Ethyl Alcohol < 10 mg/dL (0-10) 05/08/17 19:14 RPR NONREACTIVE (NONREACTIVE) 05/08/17 19:14 - Physical Exam Vitals and I&O: Vital Signs Temp 97.6 F 05/18/17 06:34 Pulse 88 05/18/17 06:34 Resp 20 05/18/17 06:34 BP 155/79 05/18/17 06:34 Pulse Ox 98 05/18/17 06:34 Intake & Output 05/17/17 05/18/17 05/18/17 18:59 06:59 18:59 Intake Total 1200 120 Balance 1200 120 Intake: Oral 1200 120 Other: # Voids 3 3 # Bowel Movements 1 Active Medications: Current Medications Acetaminophen (Tylenol) 650 mg PO Q4HR PRN PRN Reason: Mild Pain / Temp above 100 Stop: 07/07/17 21:55 Al Hydrox/Mg Hydrox/Simethicone (Maalox) 30 ml PO Q4HR PRN PRN Reason: GI DISTRESS Stop: 07/07/17 21:55 Atorvastatin Calcium (Lipitor) 10 mg PO DAILY GUS PRN Reason: Protocol Stop: 07/08/17 08:59 Last Admin: 05/17/17 08:59 Dose: Not Given Benztropine Mesylate (Cogentin) 1 mg PO BID GUS Stop: 07/08/17 16:59 Last Admin: 05/18/17 10:16 Dose: 1 mg Divalproex Sodium (Depakote Dr) 250 mg PO TID GUS PRN Reason: Protocol Stop: 07/15/17 13:59 Last Admin: 05/18/17 10:16 Dose: 250 mg Fenofibrate (Tricor) 134 mg PO HS GUS Stop: 07/08/17 20:59 Last Admin: 05/17/17 21:12 Dose: Not Given Haloperidol Decanoate (Haldol Dec) 50 mg IM QMONTH GUS PRN Reason: Protocol Stop: 07/10/17 11:01 Last Admin: 05/11/17 11:18 Dose: 50 mg Levothyroxine Sodium (Synthroid) 0.075 mg PO QDAC GUS Stop: 07/08/17 07:29 Last Admin: 05/18/17 06:36 Dose: Not Given Lorazepam (Ativan) 0.5 mg PO Q4HR PRN; Protocol PRN Reason: Anxiety Stop: 06/07/17 21:55 Last Admin: 05/18/17 10:18 Dose: 0.5 mg Magnesium Hydroxide (Milk Of Magnesia) 30 ml PO HS PRN PRN Reason: Constipation Multivitamins/Vitamin C (Theragran) 1 tab PO DAILY GUS Stop: 07/08/17 08:59 Last Admin: 05/17/17 08:57 Dose: 1 tab Neomycin/Polymyxin/Dexamethasone (Maxitrol Ophth Oint) 1 appl LEFT EYE TID GUS Stop: 07/09/17 20:59 Last Admin: 05/17/17 21:13 Dose: Not Given Quetiapine Fumarate (Seroquel) 200 mg PO HS GUS PRN Reason: Protocol Stop: 07/09/17 12:34 Last Admin: 05/17/17 21:12 Dose: Not Given Quetiapine Fumarate (Seroquel) 100 mg PO DAILY GUS PRN Reason: Protocol Stop: 07/16/17 08:59 Last Admin: 05/18/17 10:18 Dose: 100 mg Vitamin B Complex/Vit C/Folic Acid (Vitamin B Complex W/Vitamin C) 1 tab PO DAILY GUS Stop: 07/08/17 08:59 Last Admin: 05/17/17 08:57 Dose: 1 tab Zolpidem Tartrate (Ambien) 5 mg PO HS PRN PRN Reason: Insomnia Stop: 07/07/17 21:55 Last Admin: 05/15/17 20:11 Dose: 5 mg General: alert HEENT: NC/AT, PERRLA Neck: Supple Lungs: CTAB Cardiovascular: RRR, Normal S1, Normal S2, without murmur Abdomen: soft, non-tender, non-distended Extremities: clear Neurological: no change - Procedures Procedures: Procedures Procedure Code Date EMERGENCY DEPT VISIT 95408 11/13/11 EMERGENCY DEPT VISIT 06678 10/11/11 Internal Medicine Assmt/Plan - Assessment Assessment: AGITATION ASTHMA COPD DYSLIPIDEMIA ANEMIA - Plan Plan: fall precautions continue current medications psych f/u Nutritional Asmnt/Malnutr-PDOC - Dietary Evaluation Malnutrition Findings (Please click <Entered> for more info): Nutritional Asmnt/Malnutrition Start: 05/10/17 18: 07 Text: Status: Complete Freq: Document 05/10/17 18:08 GSUN (Rec: 05/10/17 18:15 [email or web address] [email or web address]) Nutritional Asmnt/Malnutrition Patient General Information Nutritional Screening Moderate Risk Screening Diagnosis Schizophrenia paranoid type acute exacerbation, dementia Alzheimer's Pertinent Medical Hx/Surgical Hx Asthma, COPD, dyslipidemia, hypothyrdois, anemia Subjective Information 66 year old female from SNF. Pt seen pacing in hallway, RD accompanied pt back to room and obtained CBW 121.6lb with bed properly calibrated. Pt with a belly, no muscle/fat wasting noted. Few missing teeth, no difficulties noted. Pt deneid nutritional concerns , focused topic on two children. Avg PO intake 75-100 % of meals since adm, meeting nutritional needs. Observed pt finishing almost 100% of meals during lunch. Spoke to PLASMA SPECIALIST, PLASMA SPECIALIST stated pt with great appetite, no nutritional concerns. Current Diet Order/ Nutrition Support Regular, Prosource QD Pertinent Medications Haldol, MOM, Theragran, Seroquel, Vitamin B Complex W/ Vitamin C Pertinent Labs 05/08: glucose 146H, triglycerides 299H Nutritional Hx/Data Height 5 ft 3 in Height (Calculated Centimeters) 160.0 Current Weight (lbs) 121 lb 9.6 oz Weight (Calculated Kilograms) 55.2 Weight (Calculated Grams) 53782.8 [place] Body Weight 115 Weight Status Approriate GI Symptoms Skin Integrity/Comment: Jose G 22. Skin intact. Current %PO Good (75-100%) Estimated Nutritional Goals BEE in Kcals: Using Current wt Calories/Kcals/Kg CBW 121.6lb/55.3kg Kcals Calculated 1383-1659kcal (25-30kcal/kg) Protein: Using Current wt Protein Calculated 55g (1g/kg) Fluid: ml 1383-1659ml (1ml/kcal) Nutritional Problem 1. Problem Problem No nutritional problem at this time. Intervention/Recommendation Comments 1. Continue with current diet order. Avg PO itnake is adequate. Expected Outcomes/Goals Expected Outcomes/Goals 1. PO intake continue to meet at least 75% of estimated nutritional needs.
[2017-05-18] MEDS: Atorvastatin Calcium 10 MG TAB PO SCH (17:42)
[2017-05-18] MEDS: DEXAMETHASONE LEFT EYE SCH ×2 (17:42→21:00)
[2017-05-18] MEDS: NEOMYCIN LEFT EYE SCH ×2 (17:42→21:00)
[2017-05-18] MEDS: POLYMYXIN B LEFT EYE SCH ×2 (17:42→21:00)
[2017-05-18] MEDS: Vitamin B Complex w/Vitamin C Tab PO SCH (17:43)
[2017-05-18] MEDS: Multivitamin Tab PO SCH (17:43)
[2017-05-18] MEDS: Fenofibrate, Micronized 134 mg Cap PO SCH (21:17)
--- NOTE | 2017-05-19 02:57 | Progress Notes ---
DATE: 05/18/2017 PSYCHIATRIC PROGRESS NOTE SUBJECTIVE: Staff was spoken to. The patient is interviewed. Mood is noted to be irritable. Affect is constricted. The patient is paranoid. The patient is perseverative. Coping skills are noted to be very poor at this time. Insight and judgment are noted to be impaired. Impulse control seems to be limited. The patient is very intrusive. ASSESSMENT: The patient is still psychotic. PLAN: To continue the patient with the supportive therapy and current medications. I encouraged the patient to verbalize the concerns rather than to act out. JOB# [id number]
[2017-05-19] MEDS: Levothyroxine 0.075 Mg Tab PO SCH (06:33)
[2017-05-19] MEDS: Benztropine 1 MG TAB PO SCH ×2 (09:47→17:35)
[2017-05-19] MEDS: Atorvastatin Calcium 10 MG TAB PO SCH (09:47)
[2017-05-19] MEDS: Vitamin B Complex w/Vitamin C Tab PO SCH (09:47)
[2017-05-19] MEDS: NEOMYCIN LEFT EYE SCH ×3 (09:48→23:35)
[2017-05-19] MEDS: POLYMYXIN B LEFT EYE SCH ×3 (09:48→23:35)
[2017-05-19] MEDS: DEXAMETHASONE LEFT EYE SCH ×3 (09:48→23:35)
[2017-05-19] MEDS: Multivitamin Tab PO SCH (09:48)
--- NOTE | 2017-05-19 15:14 | Internal Medicine Prog Note ---
Internal Medicine Subjective - Subjective Service Date: 05/19/17 Patient is:: awake, verbal, ambulating, talking Per staff patient has:: no adverse event, tolerating meds Internal Medicine Objective - Results Result Diagrams: 05/08/17 19:14 05/08/17 19:14 Recent Labs: Laboratory Last Values WBC 9.5 Th/cmm (4.8-10.8) D 05/08/17 19:14 RBC 4.20 Mil/cmm (3.80-5.20) 05/08/17 19:14 Hgb 12.6 gm/dL (11.7-16.1) 05/08/17 19:14 Hct 37.1 % (35.0-45.0) D 05/08/17 19:14 MCV 88.3 fl (81-100) 05/08/17 19:14 MCH 30.0 pg (27.0-31.0) 05/08/17 19:14 MCHC Differential 34.0 pg (28.0-36.0) 05/08/17 19:14 RDW 13.2 % (11.5-20.0) 05/08/17 19:14 Plt Count 334 Th/cmm (150-400) 05/08/17 19:14 MPV 6.8 fl 05/08/17 19:14 Neutrophils % 66.5 % (40.0-80.0) 05/08/17 19:14 Lymphocytes % 24.5 % (20.0-50.0) 05/08/17 19:14 Monocytes % 6.6 % (2.0-10.0) 05/08/17 19:14 Eosinophils % 0.9 % (0.0-5.0) 05/08/17 19:14 Basophils % 1.5 % (0.0-2.0) 05/08/17 19:14 Sodium 136 mEq/L (136-145) 05/08/17 19:14 Potassium 3.7 mEq/L (3.5-5.1) 05/08/17 19:14 Chloride 104 mEq/L (98-107) 05/08/17 19:14 Carbon Dioxide 24.0 mEq/L (21.0-31.0) 05/08/17 19:14 Anion Gap 11.7 (7.0-16.0) 05/08/17 19:14 BUN 22 mg/dL (7-25) 05/08/17 19:14 Creatinine 0.7 mg/dL (0.6-1.2) 05/08/17 19:14 Est GFR ( Amer) > 60.0 ml/min (>90) 05/08/17 19:14 Est GFR (Non-Af Amer) > 60.0 ml/min 05/08/17 19:14 BUN/Creatinine Ratio 31.4 05/08/17 19:14 Glucose 146 mg/dL (70-105) H 05/08/17 19:14 Calcium 9.3 mg/dL (8.6-10.3) 05/08/17 19:14 Total Bilirubin 0.5 mg/dL (0.3-1.0) 05/08/17 19:14 AST 20 U/L (13-39) 05/08/17 19:14 ALT 16 U/L (7-52) 05/08/17 19:14 Alkaline Phosphatase 79 U/L (34-104) 05/08/17 19:14 Total Protein 6.8 gm/dL (6.0-8.3) 05/08/17 19:14 Albumin 3.9 gm/dL (3.7-5.3) 05/08/17 19:14 Globulin 2.9 gm/dL 05/08/17 19:14 Albumin/Globulin Ratio 1.3 (1.0-1.8) 05/08/17 19:14 Triglycerides 299 mg/dL (<150) H 05/08/17 19:14 Cholesterol 186 mg/dL (<200) 05/08/17 19:14 LDL Cholesterol Direct 129 mg/dL (75-193) 05/08/17 19:14 HDL Cholesterol 39 mg/dL (23-92) 05/08/17 19:14 TSH 3.33 uIU/ml (0.34-5.60) 05/08/17 19:14 Urine Source CLEAN C 05/08/17 20:25 Urine Color YELLOW 05/08/17 20:25 Urine Clarity CLEAR (CLEAR) 05/08/17 20:25 Urine pH 5.5 (4.6 - 8.0) 05/08/17 20:25 Ur Specific [place] 1.025 (1.005-1.030) 05/08/17 20:25 Urine Protein NEGATIVE mg/dL (NEGATIVE) 05/08/17 20:25 Urine Glucose (UA) NEGATIVE mg/dL (NEGATIVE) 05/08/17 20:25 Urine Ketones NEGATIVE mg/dL (NEGATIVE) 05/08/17 20:25 Urine Blood NEGATIVE (NEGATIVE) 05/08/17 20:25 Urine Nitrate NEGATIVE (NEGATIVE) 05/08/17 20:25 Urine Bilirubin NEGATIVE (NEGATIVE) 05/08/17 20:25 Urine Urobilinogen 0.2 E.U./dL (0.2 - 1.0) 05/08/17 20:25 Ur Leukocyte Esterase TRACE (NEGATIVE) H 05/08/17 20:25 Urine RBC NONE SEEN /hpf (0-5) 05/08/17 20:25 Urine WBC 2-5 /hpf (0-5) 05/08/17 20:25 Ur Epithelial Cells NONE SEEN /lpf (FEW) 05/08/17 20:25 Urine Bacteria NONE SEEN /hpf (NONE SEEN) 05/08/17 20:25 Salicylates < 25.0 mg/L (30.0-100.0) L 05/08/17 19:14 Urine Opiates Screen NEGATIVE (NEGATIVE) 05/08/17 20:25 Urine Methadone Screen NEGATIVE (NEGATIVE) 05/08/17 20:25 Acetaminophen < 10.0 ug/mL (10.0-30.0) L 05/08/17 19:14 Ur Barbiturates Screen NEGATIVE (NEGATIVE) 05/08/17 20:25 Ur Tricyclics Screen NEGATIVE (NEGATIVE) 05/08/17 20:25 Ur Phencyclidine Scrn NEGATIVE (NEGATIVE) 05/08/17 20:25 Amphetamines Screen NEGATIVE (NEGATIVE) 05/08/17 20:25 U Methamphetamines Scrn NEGATIVE (NEGATIVE) 05/08/17 20:25 U Benzodiazepines Scrn NEGATIVE (NEGATIVE) 05/08/17 20:25 U Cocaine Metab Screen NEGATIVE (NEGATIVE) 05/08/17 20:25 U Cannabinoids Screen NEGATIVE (NEGATIVE) 05/08/17 20:25 Ethyl Alcohol < 10 mg/dL (0-10) 05/08/17 19:14 RPR NONREACTIVE (NONREACTIVE) 05/08/17 19:14 - Physical Exam Vitals and I&O: Vital Signs Temp 97.7 F 05/19/17 06:23 Pulse 68 05/19/17 06:23 Resp 20 05/19/17 06:23 BP 129/73 05/19/17 06:23 Pulse Ox 98 05/19/17 06:23 Intake & Output 05/18/17 05/19/17 05/19/17 18:59 06:59 18:59 Intake Total 1000 120 Balance 1000 120 Intake: Oral 1000 120 Other: # Voids 4 3 # Bowel Movements 1 Active Medications: Current Medications Acetaminophen (Tylenol) 650 mg PO Q4HR PRN PRN Reason: Mild Pain / Temp above 100 Stop: 07/07/17 21:55 Al Hydrox/Mg Hydrox/Simethicone (Maalox) 30 ml PO Q4HR PRN PRN Reason: GI DISTRESS Stop: 07/07/17 21:55 Atorvastatin Calcium (Lipitor) 10 mg PO DAILY GUS PRN Reason: Protocol Stop: 07/08/17 08:59 Last Admin: 05/19/17 09:47 Dose: 10 mg Benztropine Mesylate (Cogentin) 1 mg PO BID GUS Stop: 07/08/17 16:59 Last Admin: 05/19/17 09:47 Dose: 1 mg Divalproex Sodium (Depakote Dr) 250 mg PO TID GUS PRN Reason: Protocol Stop: 07/15/17 13:59 Last Admin: 05/19/17 09:48 Dose: 250 mg Fenofibrate (Tricor) 134 mg PO HS GUS Stop: 07/08/17 20:59 Last Admin: 05/18/17 21:17 Dose: 134 mg Haloperidol Decanoate (Haldol Dec) 50 mg IM QMONTH GUS PRN Reason: Protocol Stop: 07/10/17 11:01 Last Admin: 05/11/17 11:18 Dose: 50 mg Levothyroxine Sodium (Synthroid) 0.075 mg PO QDAC GUS Stop: 07/08/17 07:29 Last Admin: 05/19/17 06:33 Dose: 0.075 mg Lorazepam (Ativan) 0.5 mg PO Q4HR PRN; Protocol PRN Reason: Anxiety Stop: 06/07/17 21:55 Last Admin: 05/19/17 09:48 Dose: 0.5 mg Magnesium Hydroxide (Milk Of Magnesia) 30 ml PO HS PRN PRN Reason: Constipation Multivitamins/Vitamin C (Theragran) 1 tab PO DAILY GUS Stop: 07/08/17 08:59 Last Admin: 05/19/17 09:48 Dose: Not Given Neomycin/Polymyxin/Dexamethasone (Maxitrol Ophth Oint) 1 appl LEFT EYE TID GUS Stop: 07/09/17 20:59 Last Admin: 05/19/17 09:48 Dose: Not Given Quetiapine Fumarate (Seroquel) 200 mg PO HS GUS PRN Reason: Protocol Stop: 07/09/17 12:34 Last Admin: 05/18/17 21:17 Dose: 200 mg Quetiapine Fumarate (Seroquel) 100 mg PO DAILY GUS PRN Reason: Protocol Stop: 07/16/17 08:59 Last Admin: 05/19/17 09:48 Dose: 100 mg Vitamin B Complex/Vit C/Folic Acid (Vitamin B Complex W/Vitamin C) 1 tab PO DAILY GUS Stop: 07/08/17 08:59 Last Admin: 05/19/17 09:47 Dose: 1 tab Zolpidem Tartrate (Ambien) 5 mg PO HS PRN PRN Reason: Insomnia Stop: 07/07/17 21:55 Last Admin: 05/15/17 20:11 Dose: 5 mg General: alert HEENT: NC/AT, PERRLA Neck: Supple Lungs: CTAB Cardiovascular: RRR, Normal S1, Normal S2, without murmur Abdomen: soft, non-tender, non-distended Extremities: clear Neurological: no change - Procedures Procedures: Procedures Procedure Code Date EMERGENCY DEPT VISIT 44836 11/13/11 EMERGENCY DEPT VISIT 51347 10/11/11 Internal Medicine Assmt/Plan - Assessment Assessment: AGITATION ASTHMA COPD DYSLIPIDEMIA ANEMIA - Plan Plan: fall precautions continue current medications psych f/u Nutritional Asmnt/Malnutr-PDOC - Dietary Evaluation Malnutrition Findings (Please click <Entered> for more info): Nutritional Asmnt/Malnutrition Start: 05/10/17 18: 07 Text: Status: Complete Freq: Document 05/10/17 18:08 GSUN (Rec: 05/10/17 18:15 [email or web address] [email or web address]) Nutritional Asmnt/Malnutrition Patient General Information Nutritional Screening Moderate Risk Screening Diagnosis Schizophrenia paranoid type acute exacerbation, dementia Alzheimer's Pertinent Medical Hx/Surgical Hx Asthma, COPD, dyslipidemia, hypothyrdois, anemia Subjective Information 66 year old female from SNF. Pt seen pacing in hallway, RD accompanied pt back to room and obtained CBW 121.6lb with bed properly calibrated. Pt with a belly, no muscle/fat wasting noted. Few missing teeth, no difficulties noted. Pt deneid nutritional concerns , focused topic on two children. Avg PO intake 75-100 % of meals since adm, meeting nutritional needs. Observed pt finishing almost 100% of meals during lunch. Spoke to AIRCRAFT CLEANER, AIRCRAFT CLEANER stated pt with great appetite, no nutritional concerns. Current Diet Order/ Nutrition Support Regular, Prosource QD Pertinent Medications Haldol, MOM, Theragran, Seroquel, Vitamin B Complex W/ Vitamin C Pertinent Labs 05/08: glucose 146H, triglycerides 299H Nutritional Hx/Data Height 5 ft 3 in Height (Calculated Centimeters) 160.0 Current Weight (lbs) 121 lb 9.6 oz Weight (Calculated Kilograms) 55.2 Weight (Calculated Grams) 48387.8 [place] Body Weight 115 Weight Status Approriate GI Symptoms Skin Integrity/Comment: Jose G 22. Skin intact. Current %PO Good (75-100%) Estimated Nutritional Goals BEE in Kcals: Using Current wt Calories/Kcals/Kg CBW 121.6lb/55.3kg Kcals Calculated 1383-1659kcal (25-30kcal/kg) Protein: Using Current wt Protein Calculated 55g (1g/kg) Fluid: ml 1383-1659ml (1ml/kcal) Nutritional Problem 1. Problem Problem No nutritional problem at this time. Intervention/Recommendation Comments 1. Continue with current diet order. Avg PO itnake is adequate. Expected Outcomes/Goals Expected Outcomes/Goals 1. PO intake continue to meet at least 75% of estimated nutritional needs.
[2017-05-19] MEDS: Fenofibrate, Micronized 134 mg Cap PO SCH (21:39)
[2017-05-20] MEDS: Levothyroxine 0.075 Mg Tab PO SCH (06:39)
[2017-05-20] MEDS: Benztropine 1 MG TAB PO SCH ×2 (08:32→16:27)
[2017-05-20] MEDS: Atorvastatin Calcium 10 MG TAB PO SCH (08:32)
[2017-05-20] MEDS: Vitamin B Complex w/Vitamin C Tab PO SCH (08:32)
[2017-05-20] MEDS: Multivitamin Tab PO SCH (08:32)
[2017-05-20] MEDS: DEXAMETHASONE LEFT EYE SCH ×3 (08:39→21:00)
[2017-05-20] MEDS: POLYMYXIN B LEFT EYE SCH ×3 (08:39→21:00)
[2017-05-20] MEDS: NEOMYCIN LEFT EYE SCH ×3 (08:39→21:00)
--- NOTE | 2017-05-20 15:00 | Internal Medicine Prog Note ---
Internal Medicine Subjective - Subjective Service Date: 05/20/17 Patient is:: awake, verbal, ambulating, talking Per staff patient has:: no adverse event, tolerating meds Internal Medicine Objective - Results Result Diagrams: 05/08/17 19:14 05/08/17 19:14 Recent Labs: Laboratory Last Values WBC 9.5 Th/cmm (4.8-10.8) D 05/08/17 19:14 RBC 4.20 Mil/cmm (3.80-5.20) 05/08/17 19:14 Hgb 12.6 gm/dL (11.7-16.1) 05/08/17 19:14 Hct 37.1 % (35.0-45.0) D 05/08/17 19:14 MCV 88.3 fl (81-100) 05/08/17 19:14 MCH 30.0 pg (27.0-31.0) 05/08/17 19:14 MCHC Differential 34.0 pg (28.0-36.0) 05/08/17 19:14 RDW 13.2 % (11.5-20.0) 05/08/17 19:14 Plt Count 334 Th/cmm (150-400) 05/08/17 19:14 MPV 6.8 fl 05/08/17 19:14 Neutrophils % 66.5 % (40.0-80.0) 05/08/17 19:14 Lymphocytes % 24.5 % (20.0-50.0) 05/08/17 19:14 Monocytes % 6.6 % (2.0-10.0) 05/08/17 19:14 Eosinophils % 0.9 % (0.0-5.0) 05/08/17 19:14 Basophils % 1.5 % (0.0-2.0) 05/08/17 19:14 Sodium 136 mEq/L (136-145) 05/08/17 19:14 Potassium 3.7 mEq/L (3.5-5.1) 05/08/17 19:14 Chloride 104 mEq/L (98-107) 05/08/17 19:14 Carbon Dioxide 24.0 mEq/L (21.0-31.0) 05/08/17 19:14 Anion Gap 11.7 (7.0-16.0) 05/08/17 19:14 BUN 22 mg/dL (7-25) 05/08/17 19:14 Creatinine 0.7 mg/dL (0.6-1.2) 05/08/17 19:14 Est GFR ( Amer) > 60.0 ml/min (>90) 05/08/17 19:14 Est GFR (Non-Af Amer) > 60.0 ml/min 05/08/17 19:14 BUN/Creatinine Ratio 31.4 05/08/17 19:14 Glucose 146 mg/dL (70-105) H 05/08/17 19:14 Calcium 9.3 mg/dL (8.6-10.3) 05/08/17 19:14 Total Bilirubin 0.5 mg/dL (0.3-1.0) 05/08/17 19:14 AST 20 U/L (13-39) 05/08/17 19:14 ALT 16 U/L (7-52) 05/08/17 19:14 Alkaline Phosphatase 79 U/L (34-104) 05/08/17 19:14 Total Protein 6.8 gm/dL (6.0-8.3) 05/08/17 19:14 Albumin 3.9 gm/dL (3.7-5.3) 05/08/17 19:14 Globulin 2.9 gm/dL 05/08/17 19:14 Albumin/Globulin Ratio 1.3 (1.0-1.8) 05/08/17 19:14 Triglycerides 299 mg/dL (<150) H 05/08/17 19:14 Cholesterol 186 mg/dL (<200) 05/08/17 19:14 LDL Cholesterol Direct 129 mg/dL (75-193) 05/08/17 19:14 HDL Cholesterol 39 mg/dL (23-92) 05/08/17 19:14 TSH 3.33 uIU/ml (0.34-5.60) 05/08/17 19:14 Urine Source CLEAN C 05/08/17 20:25 Urine Color YELLOW 05/08/17 20:25 Urine Clarity CLEAR (CLEAR) 05/08/17 20:25 Urine pH 5.5 (4.6 - 8.0) 05/08/17 20:25 Ur Specific [place] 1.025 (1.005-1.030) 05/08/17 20:25 Urine Protein NEGATIVE mg/dL (NEGATIVE) 05/08/17 20:25 Urine Glucose (UA) NEGATIVE mg/dL (NEGATIVE) 05/08/17 20:25 Urine Ketones NEGATIVE mg/dL (NEGATIVE) 05/08/17 20:25 Urine Blood NEGATIVE (NEGATIVE) 05/08/17 20:25 Urine Nitrate NEGATIVE (NEGATIVE) 05/08/17 20:25 Urine Bilirubin NEGATIVE (NEGATIVE) 05/08/17 20:25 Urine Urobilinogen 0.2 E.U./dL (0.2 - 1.0) 05/08/17 20:25 Ur Leukocyte Esterase TRACE (NEGATIVE) H 05/08/17 20:25 Urine RBC NONE SEEN /hpf (0-5) 05/08/17 20:25 Urine WBC 2-5 /hpf (0-5) 05/08/17 20:25 Ur Epithelial Cells NONE SEEN /lpf (FEW) 05/08/17 20:25 Urine Bacteria NONE SEEN /hpf (NONE SEEN) 05/08/17 20:25 Salicylates < 25.0 mg/L (30.0-100.0) L 05/08/17 19:14 Urine Opiates Screen NEGATIVE (NEGATIVE) 05/08/17 20:25 Urine Methadone Screen NEGATIVE (NEGATIVE) 05/08/17 20:25 Acetaminophen < 10.0 ug/mL (10.0-30.0) L 05/08/17 19:14 Ur Barbiturates Screen NEGATIVE (NEGATIVE) 05/08/17 20:25 Ur Tricyclics Screen NEGATIVE (NEGATIVE) 05/08/17 20:25 Ur Phencyclidine Scrn NEGATIVE (NEGATIVE) 05/08/17 20:25 Amphetamines Screen NEGATIVE (NEGATIVE) 05/08/17 20:25 U Methamphetamines Scrn NEGATIVE (NEGATIVE) 05/08/17 20:25 U Benzodiazepines Scrn NEGATIVE (NEGATIVE) 05/08/17 20:25 U Cocaine Metab Screen NEGATIVE (NEGATIVE) 05/08/17 20:25 U Cannabinoids Screen NEGATIVE (NEGATIVE) 05/08/17 20:25 Ethyl Alcohol < 10 mg/dL (0-10) 05/08/17 19:14 RPR NONREACTIVE (NONREACTIVE) 05/08/17 19:14 - Physical Exam Vitals and I&O: Vital Signs Temp 98.2 F 05/20/17 06:53 Pulse 65 05/20/17 06:53 Resp 19 05/20/17 06:53 BP 118/60 05/20/17 06:53 Pulse Ox 98 05/20/17 06:53 Intake & Output 05/19/17 05/20/17 05/20/17 18:59 06:59 18:59 Intake Total 1000 720 Balance 1000 720 Intake: Oral 1000 720 Other: # Voids 4 1 # Bowel Movements 1 Active Medications: Current Medications Acetaminophen (Tylenol) 650 mg PO Q4HR PRN PRN Reason: Mild Pain / Temp above 100 Stop: 07/07/17 21:55 Al Hydrox/Mg Hydrox/Simethicone (Maalox) 30 ml PO Q4HR PRN PRN Reason: GI DISTRESS Stop: 07/07/17 21:55 Atorvastatin Calcium (Lipitor) 10 mg PO DAILY GUS PRN Reason: Protocol Stop: 07/08/17 08:59 Last Admin: 05/20/17 08:32 Dose: 10 mg Benztropine Mesylate (Cogentin) 1 mg PO BID GUS Stop: 07/08/17 16:59 Last Admin: 05/20/17 08:32 Dose: 1 mg Divalproex Sodium (Depakote Dr) 500 mg PO BID GUS PRN Reason: Protocol Stop: 07/19/17 16:59 Fenofibrate (Tricor) 134 mg PO HS GUS Stop: 07/08/17 20:59 Last Admin: 05/19/17 21:39 Dose: 134 mg Haloperidol Decanoate (Haldol Dec) 50 mg IM QMONTH GUS PRN Reason: Protocol Stop: 07/10/17 11:01 Last Admin: 05/11/17 11:18 Dose: 50 mg Levothyroxine Sodium (Synthroid) 0.075 mg PO QDAC GUS Stop: 07/08/17 07:29 Last Admin: 05/20/17 06:39 Dose: 0.075 mg Lorazepam (Ativan) 0.5 mg PO Q4HR PRN; Protocol PRN Reason: Anxiety Stop: 06/07/17 21:55 Last Admin: 05/19/17 09:48 Dose: 0.5 mg Magnesium Hydroxide (Milk Of Magnesia) 30 ml PO HS PRN PRN Reason: Constipation Multivitamins/Vitamin C (Theragran) 1 tab PO DAILY GUS Stop: 07/08/17 08:59 Last Admin: 05/20/17 08:32 Dose: 1 tab Neomycin/Polymyxin/Dexamethasone (Maxitrol Ophth Oint) 1 appl LEFT EYE TID GUS Stop: 07/09/17 20:59 Last Admin: 05/20/17 08:39 Dose: Not Given Quetiapine Fumarate (Seroquel) 200 mg PO HS GUS PRN Reason: Protocol Stop: 07/09/17 12:34 Last Admin: 05/19/17 21:38 Dose: 200 mg Quetiapine Fumarate (Seroquel) 100 mg PO DAILY GUS PRN Reason: Protocol Stop: 07/16/17 08:59 Last Admin: 05/20/17 08:33 Dose: 100 mg Vitamin B Complex/Vit C/Folic Acid (Vitamin B Complex W/Vitamin C) 1 tab PO DAILY GUS Stop: 07/08/17 08:59 Last Admin: 05/20/17 08:32 Dose: 1 tab Zolpidem Tartrate (Ambien) 5 mg PO HS PRN PRN Reason: Insomnia Stop: 07/07/17 21:55 Last Admin: 05/15/17 20:11 Dose: 5 mg General: alert HEENT: NC/AT, PERRLA Neck: Supple Lungs: CTAB Cardiovascular: RRR, Normal S1, Normal S2, without murmur Abdomen: soft, non-tender, non-distended Extremities: clear Neurological: no change - Procedures Procedures: Procedures Procedure Code Date EMERGENCY DEPT VISIT 54212 11/13/11 EMERGENCY DEPT VISIT 56677 10/11/11 Internal Medicine Assmt/Plan - Assessment Assessment: AGITATION ASTHMA COPD DYSLIPIDEMIA ANEMIA - Plan Plan: fall precautions continue current medications psych f/u Nutritional Asmnt/Malnutr-PDOC - Dietary Evaluation Malnutrition Findings (Please click <Entered> for more info): Nutritional Asmnt/Malnutrition Start: 05/10/17 18: 07 Text: Status: Complete Freq: Document 05/10/17 18:08 GSUN (Rec: 05/10/17 18:15 [email or web address]) Nutritional Asmnt/Malnutrition Patient General Information Nutritional Screening Moderate Risk Screening Diagnosis Schizophrenia paranoid type acute exacerbation, dementia Alzheimer's Pertinent Medical Hx/Surgical Hx Asthma, COPD, dyslipidemia, hypothyrdois, anemia Subjective Information 66 year old female from SNF. Pt seen pacing in hallway, RD accompanied pt back to room and obtained CBW 121.6lb with bed properly calibrated. Pt with a belly, no muscle/fat wasting noted. Few missing teeth, no difficulties noted. Pt deneid nutritional concerns , focused topic on two children. Avg PO intake 75-100 % of meals since adm, meeting nutritional needs. Observed pt finishing almost 100% of meals during lunch. Spoke to KICK PLATE INSTALLER, KICK PLATE INSTALLER stated pt with great appetite, no nutritional concerns. Current Diet Order/ Nutrition Support Regular, Prosource QD Pertinent Medications Haldol, MOM, Theragran, Seroquel, Vitamin B Complex W/ Vitamin C Pertinent Labs 05/08: glucose 146H, triglycerides 299H Nutritional Hx/Data Height 5 ft 3 in Height (Calculated Centimeters) 160.0 Current Weight (lbs) 121 lb 9.6 oz Weight (Calculated Kilograms) 55.2 Weight (Calculated Grams) 92459.8 [place] Body Weight 115 Weight Status Approriate GI Symptoms Skin Integrity/Comment: Jose G Arce. Skin intact. Current %PO Good (75-100%) Estimated Nutritional Goals BEE in Kcals: Using Current wt Calories/Kcals/Kg CBW 121.6lb/55.3kg Kcals Calculated 1383-1659kcal (25-30kcal/kg) Protein: Using Current wt Protein Calculated 55g (1g/kg) Fluid: ml 1383-1659ml (1ml/kcal) Nutritional Problem 1. Problem Problem No nutritional problem at this time. Intervention/Recommendation Comments 1. Continue with current diet order. Avg PO itnake is adequate. Expected Outcomes/Goals Expected Outcomes/Goals 1. PO intake continue to meet at least 75% of estimated nutritional needs.
--- NOTE | 2017-05-20 21:04 | Progress Notes ---
DATE: 05/19/2017 PSYCHIATRIC PROGRESS NOTE SUBJECTIVE: Staff was spoken to. The patient is interviewed. Mood is noted to be irritable. Affect is constricted. Insight and judgment are noted to be still impaired. Coping skills are noted to be poor. The patient has been having difficult time to cope with the stress. No side effects to the medications are noted. The patient is still paranoid, but denies any command hallucinations. The patient is very intrusive and needs to be redirected. No side effects to the medications are noted at this time. The patient has been able to tolerate the Depakote, which is being given at 250 mg twice a day and haloperidol has been given ____ dose 50 mg on 05/20. The patient is continued on the Seroquel, which is being given at 200 mg at bedtime and 100 mg in the morning and the patient is able to tolerate the medication. PLAN: To continue the patient with current medications and followup. JOB# [id number]
[2017-05-20] MEDS: Fenofibrate, Micronized 134 mg Cap PO SCH (21:11)
[2017-05-21] MEDS: Levothyroxine 0.075 Mg Tab PO SCH (06:35)
[2017-05-21] MEDS: Benztropine 1 MG TAB PO SCH ×2 (08:23→16:27)
[2017-05-21] MEDS: Vitamin B Complex w/Vitamin C Tab PO SCH (08:23)
[2017-05-21] MEDS: Atorvastatin Calcium 10 MG TAB PO SCH (08:23)
[2017-05-21] MEDS: Multivitamin Tab PO SCH (08:23)
[2017-05-21] MEDS: NEOMYCIN LEFT EYE SCH ×2 (08:24→14:02)
[2017-05-21] MEDS: DEXAMETHASONE LEFT EYE SCH ×2 (08:24→14:02)
[2017-05-21] MEDS: POLYMYXIN B LEFT EYE SCH ×2 (08:24→14:02)
--- NOTE | 2017-05-21 10:30 | Progress Notes ---
DATE: 05/20/2017 PSYCHIATRIC PROGRESS NOTE SUBJECTIVE: Staff was spoken to. The patient is interviewed. Mood is noted to be irritable. Affect is constricted. The patient is noted to be still intrusive and impulsive and has been having mood swings. The patient goes on talking nonsensically. PLAN: In view of mood swings, it is decided to increase the dose on the Depakote to 500 mg twice a day and continue the patient with the supportive therapy. The patient has been given the Haldol Decanoate. We will closely monitor the patient for any side effects and follow up with the supportive therapy. [facility]# [id number]
--- NOTE | 2017-05-21 13:45 | Internal Medicine Prog Note ---
Internal Medicine Subjective - Subjective Service Date: 05/21/17 Patient is:: awake, verbal, ambulating, talking Per staff patient has:: no adverse event, tolerating meds Internal Medicine Objective - Results Result Diagrams: 05/08/17 19:14 05/08/17 19:14 Recent Labs: Laboratory Last Values WBC 9.5 Th/cmm (4.8-10.8) D 05/08/17 19:14 RBC 4.20 Mil/cmm (3.80-5.20) 05/08/17 19:14 Hgb 12.6 gm/dL (11.7-16.1) 05/08/17 19:14 Hct 37.1 % (35.0-45.0) D 05/08/17 19:14 MCV 88.3 fl (81-100) 05/08/17 19:14 MCH 30.0 pg (27.0-31.0) 05/08/17 19:14 MCHC Differential 34.0 pg (28.0-36.0) 05/08/17 19:14 RDW 13.2 % (11.5-20.0) 05/08/17 19:14 Plt Count 334 Th/cmm (150-400) 05/08/17 19:14 MPV 6.8 fl 05/08/17 19:14 Neutrophils % 66.5 % (40.0-80.0) 05/08/17 19:14 Lymphocytes % 24.5 % (20.0-50.0) 05/08/17 19:14 Monocytes % 6.6 % (2.0-10.0) 05/08/17 19:14 Eosinophils % 0.9 % (0.0-5.0) 05/08/17 19:14 Basophils % 1.5 % (0.0-2.0) 05/08/17 19:14 Sodium 136 mEq/L (136-145) 05/08/17 19:14 Potassium 3.7 mEq/L (3.5-5.1) 05/08/17 19:14 Chloride 104 mEq/L (98-107) 05/08/17 19:14 Carbon Dioxide 24.0 mEq/L (21.0-31.0) 05/08/17 19:14 Anion Gap 11.7 (7.0-16.0) 05/08/17 19:14 BUN 22 mg/dL (7-25) 05/08/17 19:14 Creatinine 0.7 mg/dL (0.6-1.2) 05/08/17 19:14 Est GFR ( Amer) > 60.0 ml/min (>90) 05/08/17 19:14 Est GFR (Non-Af Amer) > 60.0 ml/min 05/08/17 19:14 BUN/Creatinine Ratio 31.4 05/08/17 19:14 Glucose 146 mg/dL (70-105) H 05/08/17 19:14 Calcium 9.3 mg/dL (8.6-10.3) 05/08/17 19:14 Total Bilirubin 0.5 mg/dL (0.3-1.0) 05/08/17 19:14 AST 20 U/L (13-39) 05/08/17 19:14 ALT 16 U/L (7-52) 05/08/17 19:14 Alkaline Phosphatase 79 U/L (34-104) 05/08/17 19:14 Total Protein 6.8 gm/dL (6.0-8.3) 05/08/17 19:14 Albumin 3.9 gm/dL (3.7-5.3) 05/08/17 19:14 Globulin 2.9 gm/dL 05/08/17 19:14 Albumin/Globulin Ratio 1.3 (1.0-1.8) 05/08/17 19:14 Triglycerides 299 mg/dL (<150) H 05/08/17 19:14 Cholesterol 186 mg/dL (<200) 05/08/17 19:14 LDL Cholesterol Direct 129 mg/dL (75-193) 05/08/17 19:14 HDL Cholesterol 39 mg/dL (23-92) 05/08/17 19:14 TSH 3.33 uIU/ml (0.34-5.60) 05/08/17 19:14 Urine Source CLEAN C 05/08/17 20:25 Urine Color YELLOW 05/08/17 20:25 Urine Clarity CLEAR (CLEAR) 05/08/17 20:25 Urine pH 5.5 (4.6 - 8.0) 05/08/17 20:25 Ur Specific [place] 1.025 (1.005-1.030) 05/08/17 20:25 Urine Protein NEGATIVE mg/dL (NEGATIVE) 05/08/17 20:25 Urine Glucose (UA) NEGATIVE mg/dL (NEGATIVE) 05/08/17 20:25 Urine Ketones NEGATIVE mg/dL (NEGATIVE) 05/08/17 20:25 Urine Blood NEGATIVE (NEGATIVE) 05/08/17 20:25 Urine Nitrate NEGATIVE (NEGATIVE) 05/08/17 20:25 Urine Bilirubin NEGATIVE (NEGATIVE) 05/08/17 20:25 Urine Urobilinogen 0.2 E.U./dL (0.2 - 1.0) 05/08/17 20:25 Ur Leukocyte Esterase TRACE (NEGATIVE) H 05/08/17 20:25 Urine RBC NONE SEEN /hpf (0-5) 05/08/17 20:25 Urine WBC 2-5 /hpf (0-5) 05/08/17 20:25 Ur Epithelial Cells NONE SEEN /lpf (FEW) 05/08/17 20:25 Urine Bacteria NONE SEEN /hpf (NONE SEEN) 05/08/17 20:25 Salicylates < 25.0 mg/L (30.0-100.0) L 05/08/17 19:14 Urine Opiates Screen NEGATIVE (NEGATIVE) 05/08/17 20:25 Urine Methadone Screen NEGATIVE (NEGATIVE) 05/08/17 20:25 Acetaminophen < 10.0 ug/mL (10.0-30.0) L 05/08/17 19:14 Ur Barbiturates Screen NEGATIVE (NEGATIVE) 05/08/17 20:25 Ur Tricyclics Screen NEGATIVE (NEGATIVE) 05/08/17 20:25 Ur Phencyclidine Scrn NEGATIVE (NEGATIVE) 05/08/17 20:25 Amphetamines Screen NEGATIVE (NEGATIVE) 05/08/17 20:25 U Methamphetamines Scrn NEGATIVE (NEGATIVE) 05/08/17 20:25 U Benzodiazepines Scrn NEGATIVE (NEGATIVE) 05/08/17 20:25 U Cocaine Metab Screen NEGATIVE (NEGATIVE) 05/08/17 20:25 U Cannabinoids Screen NEGATIVE (NEGATIVE) 05/08/17 20:25 Ethyl Alcohol < 10 mg/dL (0-10) 05/08/17 19:14 RPR NONREACTIVE (NONREACTIVE) 05/08/17 19:14 - Physical Exam Vitals and I&O: Vital Signs Temp 98.1 F 05/21/17 06:23 Pulse 79 05/21/17 06:23 Resp 20 05/21/17 06:23 BP 119/75 05/21/17 06:23 Pulse Ox 95 05/21/17 06:23 Intake & Output 05/20/17 05/21/17 05/21/17 18:59 06:59 18:59 Intake Total 950 480 Balance 950 480 Intake: Oral 950 480 Other: # Voids 4 2 # Bowel Movements 1 0 Active Medications: Current Medications Acetaminophen (Tylenol) 650 mg PO Q4HR PRN PRN Reason: Mild Pain / Temp above 100 Stop: 07/07/17 21:55 Al Hydrox/Mg Hydrox/Simethicone (Maalox) 30 ml PO Q4HR PRN PRN Reason: GI DISTRESS Stop: 07/07/17 21:55 Atorvastatin Calcium (Lipitor) 10 mg PO DAILY GUS PRN Reason: Protocol Stop: 07/08/17 08:59 Last Admin: 05/21/17 08:23 Dose: 10 mg Benztropine Mesylate (Cogentin) 1 mg PO BID GUS Stop: 07/08/17 16:59 Last Admin: 05/21/17 08:23 Dose: 1 mg Divalproex Sodium (Depakote Dr) 500 mg PO BID GUS PRN Reason: Protocol Stop: 07/19/17 16:59 Last Admin: 05/21/17 08:23 Dose: 500 mg Fenofibrate (Tricor) 134 mg PO HS GUS Stop: 07/08/17 20:59 Last Admin: 05/20/17 21:11 Dose: 134 mg Haloperidol Decanoate (Haldol Dec) 50 mg IM QMONTH GUS PRN Reason: Protocol Stop: 07/10/17 11:01 Last Admin: 05/11/17 11:18 Dose: 50 mg Levothyroxine Sodium (Synthroid) 0.075 mg PO QDAC GUS Stop: 07/08/17 07:29 Last Admin: 05/21/17 06:35 Dose: 0.075 mg Lorazepam (Ativan) 0.5 mg PO Q4HR PRN; Protocol PRN Reason: Anxiety Stop: 06/07/17 21:55 Last Admin: 05/19/17 09:48 Dose: 0.5 mg Magnesium Hydroxide (Milk Of Magnesia) 30 ml PO HS PRN PRN Reason: Constipation Multivitamins/Vitamin C (Theragran) 1 tab PO DAILY GUS Stop: 07/08/17 08:59 Last Admin: 05/21/17 08:23 Dose: 1 tab Neomycin/Polymyxin/Dexamethasone (Maxitrol Ophth Oint) 1 appl LEFT EYE TID GUS Stop: 07/09/17 20:59 Last Admin: 05/21/17 08:24 Dose: Not Given Quetiapine Fumarate (Seroquel) 200 mg PO HS GUS PRN Reason: Protocol Stop: 07/09/17 12:34 Last Admin: 05/20/17 21:11 Dose: 200 mg Quetiapine Fumarate (Seroquel) 100 mg PO DAILY GUS PRN Reason: Protocol Stop: 07/16/17 08:59 Last Admin: 05/21/17 08:24 Dose: 100 mg Vitamin B Complex/Vit C/Folic Acid (Vitamin B Complex W/Vitamin C) 1 tab PO DAILY GUS Stop: 07/08/17 08:59 Last Admin: 05/21/17 08:23 Dose: 1 tab Zolpidem Tartrate (Ambien) 5 mg PO HS PRN PRN Reason: Insomnia Stop: 07/07/17 21:55 Last Admin: 05/15/17 20:11 Dose: 5 mg General: alert HEENT: NC/AT, PERRLA Neck: Supple Lungs: CTAB Cardiovascular: RRR, Normal S1, Normal S2, without murmur Abdomen: soft, non-tender, non-distended Extremities: clear Neurological: no change - Procedures Procedures: Procedures Procedure Code Date EMERGENCY DEPT VISIT 52766 11/13/11 EMERGENCY DEPT VISIT 76061 10/11/11 Internal Medicine Assmt/Plan - Assessment Assessment: AGITATION ASTHMA COPD DYSLIPIDEMIA ANEMIA - Plan Plan: fall precautions continue current medications psych f/u Nutritional Asmnt/Malnutr-PDOC - Dietary Evaluation Malnutrition Findings (Please click <Entered> for more info): Nutritional Asmnt/Malnutrition Start: 05/10/17 18: 07 Text: Status: Complete Freq: Document 05/10/17 18:08 GSANTHONY (Rec: 05/10/17 18:15 [email or web address] [email or web address]) Nutritional Asmnt/Malnutrition Patient General Information Nutritional Screening Moderate Risk Screening Diagnosis Schizophrenia paranoid type acute exacerbation, dementia Alzheimer's Pertinent Medical Hx/Surgical Hx Asthma, COPD, dyslipidemia, hypothyrdois, anemia Subjective Information 66 year old female from SNF. Pt seen pacing in hallway, RD accompanied pt back to room and obtained CBW 121.6lb with bed properly calibrated. Pt with a belly, no muscle/fat wasting noted. Few missing teeth, no difficulties noted. Pt deneid nutritional concerns , focused topic on two children. Avg PO intake 75-100 % of meals since adm, meeting nutritional needs. Observed pt finishing almost 100% of meals during lunch. Spoke to APPRENTICE COSMETOLOGIST, APPRENTICE COSMETOLOGIST stated pt with great appetite, no nutritional concerns. Current Diet Order/ Nutrition Support Regular, Prosource QD Pertinent Medications Haldol, MOM, Theragran, Seroquel, Vitamin B Complex W/ Vitamin C Pertinent Labs 05/08: glucose 146H, triglycerides 299H Nutritional Hx/Data Height 5 ft 3 in Height (Calculated Centimeters) 160.0 Current Weight (lbs) 121 lb 9.6 oz Weight (Calculated Kilograms) 55.2 Weight (Calculated Grams) 91530.8 Levan Body Weight 115 Weight Status Approriate GI Symptoms Skin Integrity/Comment: Jose G 22. Skin intact. Current %PO Good (75-100%) Estimated Nutritional Goals BEE in Kcals: Using Current wt Calories/Kcals/Kg CBW 121.6lb/55.3kg Kcals Calculated 1383-1659kcal (25-30kcal/kg) Protein: Using Current wt Protein Calculated 55g (1g/kg) Fluid: ml 1383-1659ml (1ml/kcal) Nutritional Problem 1. Problem Problem No nutritional problem at this time. Intervention/Recommendation Comments 1. Continue with current diet order. Avg PO itnake is adequate. Expected Outcomes/Goals Expected Outcomes/Goals 1. PO intake continue to meet at least 75% of estimated nutritional needs.
--- NOTE | 2017-05-22 03:06 | Progress Notes ---
DATE: 05/21/2017 SUBJECTIVE: Staff was spoken to. The patient is interviewed. Mood is noted to be anxious. Affect is appropriate. Not suicidal or homicidal. Paranoia is still noted but the patient is not presenting with any threats to harm self or others. ASSESSMENT: The patient is stabilizing. PLAN: To discharge the patient today for followup on outpatient basis. JOB# [id number]
--- NOTE | 2017-05-30 19:13 | Discharge Summary ---
DATE OF DISCHARGE: 05/21/2017 REASON FOR HOSPITALIZATION: Schizophrenia, paranoid type, acute exacerbation; rule out dementia, Alzheimer's type. HISTORY OF PRESENT ILLNESS: The patient is a 66-year-old female, who was admitted to the hospital after she was transferred from her custodial facility for increased agitation, yelling episodes, becoming more confused, refusing care, refusing medications. The patient was evaluated and was admitted. HOSPITALIZATION COURSE: The patient continued to refuse medications for a few days, was then her compliance improved. The patient received Haldol Decanoate 50 mg IM. The patient did not have any side effects. Agitation resolved over time, aggressive behavior resolved, but she continued to have forgetfulness, which is consistent with her dementia. The patient was discharged to custodial back on 05/21/2017. FINAL DIAGNOSES: Schizophrenia, paranoid type; dementia, Alzheimer's typ. MEDICAL: Hyperlipidemia and hypothyroidism. CONDITION ON DISCHARGE: Improved. No agitation, no aggressive sleep and appetite. No suicidal or homicidal thoughts. DISPOSITION: The patient was discharged back to her custodial facility. EXPECTED COURSE OF RECOVERY: Chronic. JOB# [id number]
== END 2017-05-21 18:30 | disposition home or self-care (01) | DRG 885 ==
LOC: ER 18:46 → GERO 20:55
DX: F20.0 Paranoid schizophrenia (principal); G30.9 Alzheimer's disease, unspecified; F02.80 Dementia in other diseases classified elsewhere, unspecified severity, without behavioral disturbance, psychotic disturbance, mood disturbance, and anxiety; J44.9 Chronic obstructive pulmonary disease, unspecified; E78.5 Hyperlipidemia, unspecified; E03.9 Hypothyroidism, unspecified; D64.9 Anemia, unspecified
CPT/HCPCS: 36415-UA; 80053-TC; 80061-TC; 80307; 80320-TC; 80329-TC; 81001-TC; 84443-TC; 85025-TC; 86592-TC; 90899; 93005; A4216; J1200; J1630; J1631; J2060; Z7610

== ENCOUNTER 2017-10-09 12:40 | Inpatient (IN) | payer MEDICARE, MEDICAID ==
--- NOTE | 2017-10-09 12:52 | ED Physician Chart ---
ED Chief Complaint/HPI - Patient Information Date Seen:: 10/09/17 Time Seen:: 12:35 Chief Complaint:: AMS History of Present Illness:: onset x one day of AMS, poor oral intake, and failure to thrive; no report of trauma, H/As, S/T, neck pain, C/P, SOB, Abd. Pain, N/V/D/C, fever, chills, or urinary s/s Allergies:: Allergies Allergy/AdvReac Type Severity Reaction Status Date / Time No Known Allergies Allergy Verified 11/03/16 16:33 Historian:: Patient, EMS Review:: Nurse's Note Reviewed, Old Chart Reviewed, EMS run form Reviewed ED Review of Systems - Review of Systems General/Constitutional: No fever, No chills, No weight loss, No weakness, No diaphoresis, No edema, No loss of appetite Skin: No skin lesions, No rash, No bruising Head: No headache, No light-headedness Eyes: No loss of vision, No pain, No diplopia ENT: No earache, No nasal drainage, No sore throat, No tinnitus Neck: No neck pain, No swelling, No thyromegaly, No stiffness, No mass noted Cardio Vascular: No chest pain, No palpitations, No PND, No orthopnea, No edema Pulmonary: SOB, Cough, No sputum, Wheezing GI: No nausea, No vomiting, No diarrhea, No pain, No melena, No hematochezia, No constipation, No hematemesis G/U: No dysuria, No frequency, No hematuria, No nacturia Ice Cutter: No vaginal discharge, No abnormal vaginal bleed, No contraction Musculoskeletal: No bone or joint pain, No back pain, No muscle pain Endocrine: No polyuria, No polydipsia Psychiatric: Prior psych history, Depression, No anxiety, No suicidal ideation, No homicidal ideation, Auditory hallucination, No visual hallucination Hematopoietic: No bruising, No lymphadenopathy Allergic/Immuno: No urticaria, No angioedema Neurological: No syncope, No focal symptoms, No weakness, No paresthesia, No headache, No seizure, No dizziness, No confusion, No vertigo ED Past Medical History - Past Medical History Obtainable: Yes Past Medical History: Asthma/COPD, Dyslipidemia, Thyroid disorder Family History: Diabetes Melitus, HTN Social History: Non Smoker, No Alcohol, No Drug Use, Single, Care Facility Surgical History: None Psychiatricy History: Depression, Schizophrenia, Bipolar Medication: Reviewed Family Medical History - Family Member Mother History Unknown: Yes Ethnicity: Unknown Living Status: Unknown Hx Family Cancer: (unknown) Hx Family Coronary Artery Disease: (unknown) Hx Family Congestive Heart Failure: (unknown) Hx Family Hypertension: (unknown) Hx Family Stroke: (unknown) Hx Family Diabetes: (unknown) Hx Family Seizures: (unknown) Hx Family Dementia: (unknown) Hx Family AIDS: (unknown) Hx Family COPD: (unknown) Hx Family Hepatitis: (unknown) Hx Family Psychiatric Problems: (unknown) Hx Family Tuberculosis: (unknown) ED Physical Exam - Physical Examination General/Constitutional: Awake, Well-developed, well-nourished, Alert, No distress, GCS 15, Non-toxic appearing, Ambulatory Head: Atraumatic Eyes: Lids, conjuctiva normal, PERRL, EOMI Skin: Nl inspection, No rash, No skin lesions, No ecchymosis, No lymphadenopathy Other Skin comments:: poor turgor with dry MM ENMT: External ears, nose nl, TM canals nl, Nasal exam nl, Lips, teeth, gums nl , Oropharynx nl, Tonsils nl Neck: Nontender, Full ROM w/o pain, No JVD, No nuchal rigidity, No bruit, No mass, No stridor Respiratory: Nl effort/Exclusion, Clear to Auscultation, No Wheeze/Rhonchi/Rales Cardio Vascular: RRR, No murmur, gallop, rubs, NL S1 S2, Carotid/Femoral/Distal pulses equal bilaterally GI: No tenderness/rebounding/guarding, No organomegaly, No hernia, Normal BS's, Nondistended, No mass/bruits, No McBurney tenderness : No CVA tenderness Extremities: No tenderness or effusion, Full ROM, normal strength in all extremities, No edema, Normal digits & nails Neuro/Psych: Alert/oriented, DTR's symmetric, Normal sensory exam, Normal motor strength, Judgement/insight normal, Mood normal, Normal gait, No focal deficits Misc: Normal back, No paraspinal tenderness ED Labs/Radiology/EKG Results - Lab Results Comments:: Glucose: 160 - Radiology Results Comments:: CXR: COPD; NAD - EKG Interpretations EKG Time:: 13:00 Rate & Rhythm: 79; NSR Comments:: non-specific st-t changes ED Septic Shock - . Is Septic Shock (SBP<90, OR Lactate>4 mmol\L) present?: No
[2017-10-09] MEDS ORDERED: Sodium Chloride 0.9% 1,000 ML IV ONE (12:53)
[2017-10-09 13:27] LABS: % BASOPHILS 0.3 % (0.0-2.0); % EOSINOPHILS 1.5 % (0.0-5.0); % LYMPHOCYTES 28.5 % (20.0-50.0); % MONOCYTES 11.2 % (2.0-10.0); % NEUTROPHILS 58.5 % (40.0-80.0); EOSINOPHILE ABSOLUTE 0.1 Th/cmm (0.1-0.4); HEMOGLOBIN 14.3 gm/dL (12-16); LYMPHOCYTE ABSOLUTE 1.9 Th/cmm (1.5-3.0); MEAN CELL VOLUME 90.2 fl (81-100); MEAN CORPUSCULAR HGB CONC 33.3 pg (28.0-36.0); MEAN PLATELET VOLUME 7.4 fl; MONOCYTE ABSOLUTE 0.8 Th/cmm (0.3-1.0); PLATELET COUNT 334 Th/cmm (150-400); RED BLOOD COUNT 4.77 Mil/cmm (3.80-5.20); RED CELL DISTRIBUTION WIDTH 12.7 % (11.5-20.0)
[2017-10-09 13:28] LABS: WHITE BLOOD COUNT 6.8 Th/cmm (4.8-10.8)
[2017-10-09 13:43] LABS: INR 0.9 (0.5-1.4); PROTHROMBIN TIME (TEST) 9.3 SECONDS (9.5-11.5)
[2017-10-09 13:48] LABS: ALB/GLOB RATIO 1.3 (1.0-1.8); ALBUMIN 4.1 gm/dL (3.7-5.3); ALKALINE PHOSPHATASE 86 U/L (34-104); AMYLASE SERUM 28 U/L (29-103); ANION GAP 10.8 (7.0-16.0); BILIRUBIN,TOTAL 0.9 mg/dL (0.3-1.0); BUN - UREA NITROGEN 22 mg/dL (7-25); CALCIUM SERUM 9.1 mg/dL (8.6-10.3); CARBON DIOXIDE 27.7 mEq/L (21.0-31.0); CHLORIDE 103 mEq/L (98-107); CREATININE - SERUM 0.7 mg/dL (0.6-1.2); CREATININE KINASE 48 U/L (30-223); GFR AFRICAN-AMERICAN > 60.0 ml/min (>90); GFR NON AFRICAN-AMERICAN > 60.0 ml/min; GLUCOSE 160 mg/dL (70-105); LIPASE 30 U/L (11-82); POTASSIUM SERUM 3.5 mEq/L (3.5-5.1); SGOT 19 U/L (13-39); SGPT/ALT 15 U/L (7-52); SODIUM SERUM 138 mEq/L (136-145); TOTAL PROTEIN,SERUM 7.2 gm/dL (6.0-8.3)
[2017-10-09 13:49] LABS: TROP I 0.01 ng/mL (0.01-0.05)
--- NOTE | 2017-10-09 13:55 | Diagnostic Imaging Report ---
CHEST X-RAY: AP view INDICATION: pain COMPARISON: 11/03/2016 FINDINGS: Chronic lung changes are noted. There is no focal consolidation or pleural effusions The heart is normal in size. Mildly tortuous aorta is noted. Degenerative changes of the spine are noted. IMPRESSION: Chronic lung changes. No focal consolidation identified Mildly tortuous aorta with atherosclerotic vascular disease..
[2017-10-09] MEDS ORDERED: guaiFENesin 200 MG/10 ML UDC PO PRN (20:19)
[2017-10-09] MEDS ORDERED: Maalox 30 mL Cup PO PRN (20:19)
[2017-10-09] MEDS ORDERED: Ipratropium Neb 0.5 mg/2.5 mL UD IH PRN (20:28)
[2017-10-09] MEDS ORDERED: Albuterol Nebulizer 2.5mg/3mL HHN PRN (20:28)
[2017-10-09] MEDS: D5-0.9%NS 1,000 ML IV SCH (21:49)
[2017-10-09 23:28] VITALS: BP 115/82
[2017-10-10 04:14] LABS: URINE MICROSCOPIC INDICATED? YES
[2017-10-10 04:32] LABS: URINE BILIRUBIN NEGATIVE (NEGATIVE); URINE BLOOD NEGATIVE (NEGATIVE); URINE KETONE NEGATIVE (NEGATIVE); URINE LEUKOCYTE ESTERASE NEGATIVE (NEGATIVE); URINE NITRATE NEGATIVE (NEGATIVE); URINE PROTEIN NEGATIVE (NEGATIVE); URINE UROBILINOGEN 0.2 E.U./dL (0.2 - 1.0)
[2017-10-10 04:33] LABS: URINE CLARITY CLEAR (CLEAR); URINE COLOR YELLOW
[2017-10-10 04:34] LABS: URINE GLUCOSE (UA) NEGATIVE (NEGATIVE)
[2017-10-10 04:35] LABS: URINE BACTERIA FEW /hpf (NONE SEEN); URINE EPITHELIAL CELLS FEW /lpf (FEW); URINE RBC 0-2 /hpf (0-5); URINE SOURCE CLEAN CATCH; URINE WBC 0-2 /hpf (0-5)
[2017-10-10] MEDS: Levothyroxine 0.088 Mg Tab PO SCH (06:32)
[2017-10-10] MEDS ORDERED: Ipratropium Neb 0.5 mg/2.5 mL UD IH SCH (07:00)
[2017-10-10] MEDS ORDERED: Albuterol Nebulizer 2.5mg/3mL HHN SCH (07:00)
[2017-10-10] MEDS: Atorvastatin Calcium 10 MG TAB PO SCH (08:57)
[2017-10-10] MEDS: Benztropine 1 MG TAB PO SCH ×2 (08:57→17:58)
[2017-10-10] MEDS: Multivitamin Tab PO SCH (08:58)
[2017-10-10] MEDS: D5-0.9%NS 1,000 ML IV SCH (09:00)
--- NOTE | 2017-10-10 13:01 | Internal Medicine Prog Note ---
Internal Medicine Subjective - Subjective Service Date: 10/10/17 ([facility] dictated [id number]) Internal Medicine Objective - Results Result Diagrams: 10/09/17 13:00 10/09/17 13:00 Recent Labs: Laboratory Last Values WBC 6.8 Th/cmm (4.8-10.8) D 10/09/17 13:00 RBC 4.77 Mil/cmm (3.80-5.20) 10/09/17 13:00 Hgb 14.3 gm/dL (12-16) 10/09/17 13:00 Hct 43.0 % (41.0-60) D 10/09/17 13:00 MCV 90.2 fl (81-100) 10/09/17 13:00 MCH 30.0 pg (27.0-31.0) 10/09/17 13:00 MCHC Differential 33.3 pg (28.0-36.0) 10/09/17 13:00 RDW 12.7 % (11.5-20.0) 10/09/17 13:00 Plt Count 334 Th/cmm (150-400) 10/09/17 13:00 MPV 7.4 fl 10/09/17 13:00 Neutrophils % 58.5 % (40.0-80.0) 10/09/17 13:00 Lymphocytes % 28.5 % (20.0-50.0) 10/09/17 13:00 Monocytes % 11.2 % (2.0-10.0) H 10/09/17 13:00 Eosinophils % 1.5 % (0.0-5.0) 10/09/17 13:00 Basophils % 0.3 % (0.0-2.0) 10/09/17 13:00 PT 9.3 SECONDS (9.5-11.5) L 10/09/17 13:00 INR 0.90 (0.5-1.4) 10/09/17 13:00 PTT (Actin FS) 24.4 SECONDS (26.0-38.0) L 10/09/17 13:00 Sodium 138 mEq/L (136-145) 10/09/17 13:00 Potassium 3.5 mEq/L (3.5-5.1) 10/09/17 13:00 Chloride 103 mEq/L (98-107) 10/09/17 13:00 Carbon Dioxide 27.7 mEq/L (21.0-31.0) 10/09/17 13:00 Anion Gap 10.8 (7.0-16.0) 10/09/17 13:00 BUN 22 mg/dL (7-25) 10/09/17 13:00 Creatinine 0.7 mg/dL (0.6-1.2) 10/09/17 13:00 Est GFR ( Amer) > 60.0 ml/min (>90) 10/09/17 13:00 Est GFR (Non-Af Amer) > 60.0 ml/min 10/09/17 13:00 BUN/Creatinine Ratio 31.4 10/09/17 13:00 Glucose 160 mg/dL (70-105) H 10/09/17 13:00 Whole Bld Lactic Acid 1.63 mmol/L (0.60-1.99) 10/09/17 13:00 Calcium 9.1 mg/dL (8.6-10.3) 10/09/17 13:00 Total Bilirubin 0.9 mg/dL (0.3-1.0) 10/09/17 13:00 AST 19 U/L (13-39) 10/09/17 13:00 ALT 15 U/L (7-52) 10/09/17 13:00 Alkaline Phosphatase 86 U/L (34-104) 10/09/17 13:00 Ammonia 53 umol/L (16-53) 10/10/17 06:28 Creatine Kinase 48 U/L (30-223) 10/09/17 13:00 Troponin I 0.01 ng/mL (0.01-0.05) 10/09/17 13:00 Total Protein 7.2 gm/dL (6.0-8.3) 10/09/17 13:00 Albumin 4.1 gm/dL (3.7-5.3) 10/09/17 13:00 Globulin 3.1 gm/dL 10/09/17 13:00 Albumin/Globulin Ratio 1.3 (1.0-1.8) 10/09/17 13:00 Amylase 28 U/L (29-103) L 10/09/17 13:00 Lipase 30 U/L (11-82) 10/09/17 13:00 TSH 3.61 uIU/ml (0.34-5.60) 10/10/17 06:28 Urine Source CLEAN CATCH 10/10/17 03:20 Urine Color YELLOW 10/10/17 03:20 Urine Clarity CLEAR (CLEAR) 10/10/17 03:20 Urine pH 6.0 (4.6 - 8.0) 10/10/17 03:20 Ur Specific [place] <= 1.005 (1.005-1.030) 10/10/17 03:20 Urine Protein NEGATIVE mg/dL (NEGATIVE) 10/10/17 03:20 Urine Glucose (UA) NEGATIVE mg/dL (NEGATIVE) 10/10/17 03:20 Urine Ketones NEGATIVE mg/dL (NEGATIVE) 10/10/17 03:20 Urine Blood NEGATIVE (NEGATIVE) 10/10/17 03:20 Urine Nitrate NEGATIVE (NEGATIVE) 10/10/17 03:20 Urine Bilirubin NEGATIVE (NEGATIVE) 10/10/17 03:20 Urine Urobilinogen 0.2 E.U./dL (0.2 - 1.0) 10/10/17 03:20 Ur Leukocyte Esterase NEGATIVE (NEGATIVE) 10/10/17 03:20 Urine RBC 0-2 /hpf (0-5) 10/10/17 03:20 Urine WBC 0-2 /hpf (0-5) 10/10/17 03:20 Ur Epithelial Cells FEW /lpf (FEW) 10/10/17 03:20 Urine Bacteria FEW /hpf (NONE SEEN) 10/10/17 03:20 - Physical Exam Vitals and I&O: Vital Signs Temp 97.4 F 10/10/17 01:00 Pulse 75 10/10/17 08:06 Resp 18 10/10/17 08:06 BP 136/76 10/10/17 01:00 Pulse Ox 97 10/10/17 08:06 Intake & Output 10/09/17 10/10/17 10/10/17 18:59 06:59 18:59 Intake Total 200 894.667 Balance 200 894.667 Weight (lbs) 114 lb 2 oz Intake: Intake, IV Amount 894.667 D5-0.9%Ns 1,000 ml @ 80 894.667 mls/hr IV .[id number] Rx #:[id number] Oral 200 Other: # Voids 4 # Bowel Movements 0 Active Medications: Current Medications Acetaminophen (Tylenol) 650 mg PO Q4H PRN PRN Reason: Pain Or Fever above 101 Stop: 12/08/17 20:18 Al Hydrox/Mg Hydrox/Simethicone (Maalox) 30 ml PO Q6H PRN PRN Reason: Dyspepsia Stop: 12/08/17 20:18 Albuterol Sulfate (Albuterol 2.5mg/3ml Neb Ud) 2.5 mg HHN Q2HRT PRN PRN Reason: Shortness of Breath or Wheeze Stop: 12/08/17 20:27 Atorvastatin Calcium (Lipitor) 10 mg PO DAILY [facility] PRN Reason: Protocol Stop: 12/09/17 08:59 Last Admin: 10/10/17 08:57 Dose: 10 mg Benztropine Mesylate (Cogentin) 1 mg PO BID [facility] Stop: 12/09/17 08:59 Last Admin: 10/10/17 08:57 Dose: 1 mg Divalproex Sodium (Depakote Dr) 500 mg PO BID GUS PRN Reason: Protocol Stop: 12/09/17 08:59 Last Admin: 10/10/17 08:57 Dose: 500 mg Fenofibrate (Tricor) 134 mg PO HS [facility] Stop: 12/08/17 20:59 Guaifenesin (Robitussin) 200 mg PO Q4HR PRN PRN Reason: Cough or Congestion Stop: 12/08/17 20:18 Haloperidol Decanoate (Haldol Dec) 50 mg IM QMONTH [facility] Stop: 12/08/17 20:29 Heparin Sodium (Porcine) (Heparin) 5,000 units SUBQ Q12HR [facility] Stop: 12/08/17 20:59 Last Admin: 10/10/17 08:58 Dose: 5,000 units Dextrose/Sodium Chloride (D5-0.9%Ns) 1,000 mls @ 80 mls/hr IV .[id number] [facility] Stop: 12/08/17 20:29 Last Admin: 10/10/17 09:00 Dose: 80 mls/hr Ipratropium [place] (Atrovent Neb 0.5mg/2.5ml) 0.5 mg IH Q2HRT PRN PRN Reason: Shortness of Breath or Wheeze Stop: 04/07/18 20:27 Latanoprost (Xalatan 0.005% Ophth Soln) 1 drop EACH EYE HS GUS Stop: 12/08/17 20:59 Levothyroxine Sodium (Synthroid) 0.088 mg PO QDAC GUS Stop: 12/09/17 07:29 Last Admin: 10/10/17 06:32 Dose: 0.088 mg Megestrol Acetate (Megace) 400 mg PO BID GUS PRN Reason: Protocol Stop: 12/09/17 08:59 Last Admin: 10/10/17 09:00 Dose: 400 mg Multivitamins/Vitamin C (Theragran) 1 tab PO DAILY GUS Stop: 12/09/17 08:59 Last Admin: 10/10/17 08:58 Dose: 1 tab Ondansetron HCl (Zofran) 4 mg IV Q8H PRN PRN Reason: Nausea / Vomiting Stop: 12/08/17 20:18 Quetiapine Fumarate (Seroquel) 150 mg PO HS GUS PRN Reason: Protocol Stop: 12/08/17 20:59 Last Admin: 10/09/17 21:46 Dose: 150 mg Quetiapine Fumarate (Seroquel) 50 mg PO BID GUS PRN Reason: Protocol Stop: 12/09/17 08:59 Last Admin: 10/10/17 08:57 Dose: 50 mg - Procedures Procedures: Procedures Procedure Code Date EMERGENCY DEPT VISIT 31258 11/13/11 EMERGENCY DEPT VISIT 22508 10/11/11
--- NOTE | 2017-10-10 16:10 | History & Physical ---
ADMIT DATE: 10/10/2017 CHIEF COMPLAINT: Failure to thrive, poor oral intake. HISTORY OF PRESENT ILLNESS: This is a 66-year-old female who is well known to me from [facility]. The patient was sent here to [facility] due to poor oral intake, refusing to eat or drink and take medications. For this reason, the patient is now admitted to the med/surg unit for further evaluation. PAST MEDICAL HISTORY: Asthma, COPD, dyslipidemia, hypothyroid, depression, schizophrenia, bipolar. FAMILY HISTORY: Noncontributory. PAST SURGICAL HISTORY: None. SOCIAL HISTORY: The patient is a longterm resident, requiring 24-hour nursing care. MEDICATIONS: Please see medication sheet. REVIEW OF SYSTEMS: Unable to obtain due to patient's mental status. The patient is confused. PHYSICAL EXAMINATION: GENERAL: The patient is awake, alert, in no apparent distress. VITAL SIGNS: Temperature 97.4, heart rate 73, blood pressure 136/76, respiration 18, O2 98%. HEENT: Head normocephalic, atraumatic. NECK: Supple. No mass. LUNGS: Clear bilaterally. HEART: Regular rate and rhythm. ABDOMEN: Soft, nontender. LABORATORY DATA: WBC 6.8, H and H 14.3 and 43.0, platelet of 334. Sodium 138, potassium 3.5, chloride 103, BUN 22, creatinine 0.7. The patient had a urinalysis done, negative for any UTI. The patient also had a chest x-ray done and the impression is chronic lung changes, no focal consolidation identified. Mildly tortuous aorta with atherosclerotic vascular disease. ASSESSMENT: Generalized weakness, failure to thrive, poor oral intake, asthma, COPD, schizophrenia, dyslipidemia, hypothyroid. PLAN: The patient to be admitted to the med/surg unit. Keep patient on IV fluids for hydration. Monitor the patient's calorie count. We will check patient's hemoglobin A1c level. We get psychiatry on the case, one-to-one sitter for safety. We will continue to monitor this patient. JOB# [id number]
[2017-10-10] MEDS ORDERED: VTE Chemical Prophylaxis Screen/Admission MC PRN (17:08)
[2017-10-10] MEDS: Fenofibrate, Micronized 134 mg Cap PO SCH (21:20)
[2017-10-10 21:49] LABS: A1C % 5.6 % (4.0-6.0)
--- NOTE | 2017-10-11 01:12 | Consultation ---
DATE OF CONSULTATION: 10/10/2017 CHIEF COMPLAINT: Psychotic illness. HISTORY OF PRESENT ILLNESS: The patient is a 66-year-old female with chronic history of mental illness, known to myself from prior treatment. She was sent from a intermediate facility for failure to thrive, apparently has been losing some weight. The patient has been disorganized, occasionally becomes restless on medical floor. She is being monitored by one-to-one staff. The patient is taking her medications most of the time, but occasionally she refuses. PAST PSYCHIATRIC HISTORY: Multiple hospitalizations, chronic history of mental illness. PAST MEDICAL HISTORY: As per H and P. PSYCHOSOCIAL HISTORY: The patient resides in a intermediate facility, requires complete care. MENTAL STATUS EXAMINATION: The patient is slightly disheveled, superficial smile, was able to recognize me. She is oriented to person, knew she was in the hospital, and did not know the time. The patient is forgetful, somewhat confused, and slightly paranoid. ASSESSMENT: Schizoaffective disorder and dementia, Alzheimer's type. PLAN: At this time, would recommend continuation of medical supportive measures. Treat underlying medical problems. If the patient clears up from and if her poor p.o. intake is felt to be psychiatric, the patient may benefit from psychiatric hospitalization. The patient is currently receiving Haldol Decanoate to help improve compliance issues and next dose due to be verified yet from intermediate facility. Also, the patient is receiving Seroquel 150 mg at nighttime and 50 mg twice a day, probably we will decrease the Seroquel during daytime to minimize sedation for the time being and we will monitor closely. Thank you for the consultation. JOB# [id number]
[2017-10-11 04:57] LABS: % BASOPHILS 1.9 % (0.0-2.0); % EOSINOPHILS 1.1 % (0.0-5.0); % LYMPHOCYTES 23.3 % (20.0-50.0); % MONOCYTES 7.2 % (2.0-10.0); % NEUTROPHILS 66.5 % (40.0-80.0); BASOPHILE ABSOLUTE 0.1 Th/cumm (0-0.2); EOSINOPHILE ABSOLUTE 0.1 Th/cmm (0.1-0.4); HEMOGLOBIN 12.2 gm/dL (12-16); LYMPHOCYTE ABSOLUTE 1.5 Th/cmm (1.5-3.0); MEAN CELL VOLUME 89.8 fl (81-100); MEAN CORPUSCULAR HEMOGLOBIN 29.7 pg (27.0-31.0); MEAN CORPUSCULAR HGB CONC 33.1 pg (28.0-36.0); MEAN PLATELET VOLUME 6.7 fl; MONOCYTE ABSOLUTE 0.5 Th/cmm (0.3-1.0); NEUTROPHILE ABSOLUTE 4.3 Th/cmm (1.8-8.0); PLATELET COUNT 312 Th/cmm (150-400); RED CELL DISTRIBUTION WIDTH 12.8 % (11.5-20.0); WHITE BLOOD COUNT 6.5 Th/cmm (4.8-10.8)
[2017-10-11 04:58] LABS: HEMATOCRIT 36.8 % (41.0-60)
[2017-10-11] MEDS: D5-0.9%NS 1,000 ML IV SCH ×2 (05:14→17:34)
[2017-10-11 05:18] LABS: ANION GAP 9.2 (7.0-16.0); BUN - UREA NITROGEN 17 mg/dL (7-25); CALCIUM SERUM 8.6 mg/dL (8.6-10.3); CARBON DIOXIDE 20.8 mEq/L (21.0-31.0); CHLORIDE 113 mEq/L (98-107); CREATININE - SERUM 0.5 mg/dL (0.6-1.2); GFR AFRICAN-AMERICAN > 60.0 ml/min (>90); GFR NON AFRICAN-AMERICAN > 60.0 ml/min; GLUCOSE 112 mg/dL (70-105); SODIUM SERUM 139 mEq/L (136-145)
[2017-10-11] MEDS: Levothyroxine 0.088 Mg Tab PO SCH (06:36)
[2017-10-11] MEDS: Multivitamin Tab PO SCH (09:45)
[2017-10-11] MEDS: Atorvastatin Calcium 10 MG TAB PO SCH (10:06)
[2017-10-11] MEDS: Benztropine 1 MG TAB PO SCH ×2 (10:06→17:23)
--- NOTE | 2017-10-11 13:36 | Internal Medicine Prog Note ---
Internal Medicine Subjective - Subjective Service Date: 10/11/17 ([id number] dc summary ) Internal Medicine Objective - Results Result Diagrams: 10/11/17 04:47 10/11/17 04:47 Recent Labs: Laboratory Last Values WBC 6.5 Th/cmm (4.8-10.8) 10/11/17 04:47 RBC 4.10 Mil/cmm (3.80-5.20) 10/11/17 04:47 Hgb 12.2 gm/dL (12-16) 10/11/17 04:47 Hct 36.8 % (41.0-60) L D 10/11/17 04:47 MCV 89.8 fl (81-100) 10/11/17 04:47 MCH 29.7 pg (27.0-31.0) 10/11/17 04:47 MCHC Differential 33.1 pg (28.0-36.0) 10/11/17 04:47 RDW 12.8 % (11.5-20.0) 10/11/17 04:47 Plt Count 312 Th/cmm (150-400) 10/11/17 04:47 MPV 6.7 fl 10/11/17 04:47 Neutrophils % 66.5 % (40.0-80.0) 10/11/17 04:47 Lymphocytes % 23.3 % (20.0-50.0) 10/11/17 04:47 Monocytes % 7.2 % (2.0-10.0) 10/11/17 04:47 Eosinophils % 1.1 % (0.0-5.0) 10/11/17 04:47 Basophils % 1.9 % (0.0-2.0) 10/11/17 04:47 PT 9.3 SECONDS (9.5-11.5) L 10/09/17 13:00 INR 0.90 (0.5-1.4) 10/09/17 13:00 PTT (Actin FS) 24.4 SECONDS (26.0-38.0) L 10/09/17 13:00 Sodium 139 mEq/L (136-145) 10/11/17 04:47 Potassium 4.0 mEq/L (3.5-5.1) 10/11/17 04:47 Chloride 113 mEq/L (98-107) H 10/11/17 04:47 Carbon Dioxide 20.8 mEq/L (21.0-31.0) L 10/11/17 04:47 Anion Gap 9.2 (7.0-16.0) 10/11/17 04:47 BUN 17 mg/dL (7-25) 10/11/17 04:47 Creatinine 0.5 mg/dL (0.6-1.2) L 02 04:47 Est GFR ( Amer) > 60.0 ml/min (>90) 10/11/17 04:47 Est GFR (Non-Af Amer) > 60.0 ml/min 10/11/17 04:47 BUN/Creatinine Ratio 34.0 10/11/17 04:47 Glucose 112 mg/dL (70-105) H 10/11/17 04:47 Hemoglobin A1c % 5.6 % (4.0-6.0) 10/10/17 06:28 Whole Bld Lactic Acid 1.63 mmol/L (0.60-1.99) 10/09/17 13:00 Calcium 8.6 mg/dL (8.6-10.3) 10/11/17 04:47 Total Bilirubin 0.9 mg/dL (0.3-1.0) 10/09/17 13:00 AST 19 U/L (13-39) 10/09/17 13:00 ALT 15 U/L (7-52) 10/09/17 13:00 Alkaline Phosphatase 86 U/L (34-104) 10/09/17 13:00 Ammonia 52 umol/L (16-53) 10/11/17 04:47 Creatine Kinase 48 U/L (30-223) 10/09/17 13:00 Troponin I 0.01 ng/mL (0.01-0.05) 10/09/17 13:00 Total Protein 7.2 gm/dL (6.0-8.3) 10/09/17 13:00 Albumin 4.1 gm/dL (3.7-5.3) 10/09/17 13:00 Globulin 3.1 gm/dL 10/09/17 13:00 Albumin/Globulin Ratio 1.3 (1.0-1.8) 10/09/17 13:00 Amylase 28 U/L (29-103) L 10/09/17 13:00 Lipase 30 U/L (11-82) 10/09/17 13:00 TSH 3.61 uIU/ml (0.34-5.60) 10/10/17 06:28 Urine Source CLEAN CATCH 10/10/17 03:20 Urine Color YELLOW 10/10/17 03:20 Urine Clarity CLEAR (CLEAR) 10/10/17 03:20 Urine pH 6.0 (4.6 - 8.0) 10/10/17 03:20 Ur Specific [place] <= 1.005 (1.005-1.030) 10/10/17 03:20 Urine Protein NEGATIVE mg/dL (NEGATIVE) 10/10/17 03:20 Urine Glucose (UA) NEGATIVE mg/dL (NEGATIVE) 10/10/17 03:20 Urine Ketones NEGATIVE mg/dL (NEGATIVE) 10/10/17 03:20 Urine Blood NEGATIVE (NEGATIVE) 10/10/17 03:20 Urine Nitrate NEGATIVE (NEGATIVE) 10/10/17 03:20 Urine Bilirubin NEGATIVE (NEGATIVE) 10/10/17 03:20 Urine Urobilinogen 0.2 E.U./dL (0.2 - 1.0) 10/10/17 03:20 Ur Leukocyte Esterase NEGATIVE (NEGATIVE) 10/10/17 03:20 Urine RBC 0-2 /hpf (0-5) 10/10/17 03:20 Urine WBC 0-2 /hpf (0-5) 10/10/17 03:20 Ur Epithelial Cells FEW /lpf (FEW) 10/10/17 03:20 Urine Bacteria FEW /hpf (NONE SEEN) 10/10/17 03:20 - Physical Exam Vitals and I&O: Vital Signs Temp 98.2 F 10/11/17 12:00 Pulse 64 10/11/17 12:00 Resp 18 10/11/17 12:00 BP 106/65 10/11/17 12:00 Pulse Ox 98 10/11/17 12:00 Intake & Output 10/10/17 10/11/17 10/11/17 18:59 06:59 18:59 Intake Total 940.442 3289 Balance 816.191 4047 Weight (lbs) 117 lb 1.6 oz Intake: Intake, IV Amount 151.723 3612 D5-0.9%Ns 1,000 ml @ 80 756.356 1669 mls/hr IV .[id number] [facility] Rx #:[id number] Oral 150 Other: # Voids 2 # Bowel Movements 0 Active Medications: Current Medications Acetaminophen (Tylenol) 650 mg PO Q4H PRN PRN Reason: Pain Or Fever above 101 Stop: 12/08/17 20:18 Al Hydrox/Mg Hydrox/Simethicone (Maalox) 30 ml PO Q6H PRN PRN Reason: Dyspepsia Stop: 12/08/17 20:18 Albuterol Sulfate (Albuterol 2.5mg/3ml Neb Ud) 2.5 mg HHN Q2HRT PRN PRN Reason: Shortness of Breath or Wheeze Stop: 12/08/17 20:27 Atorvastatin Calcium (Lipitor) 10 mg PO DAILY [facility] PRN Reason: Protocol Stop: 12/09/17 08:59 Last Admin: 10/11/17 10:06 Dose: Not Given Benztropine Mesylate (Cogentin) 1 mg PO BID [facility] Stop: 12/09/17 08:59 Last Admin: 10/11/17 10:06 Dose: Not Given Divalproex Sodium (Depakote Dr) 500 mg PO BID [facility] PRN Reason: Protocol Stop: 12/09/17 08:59 Last Admin: 10/11/17 10:06 Dose: Not Given Fenofibrate (Tricor) 134 mg PO HS [facility] Stop: 12/08/17 20:59 Last Admin: 10/10/17 21:20 Dose: Not Given Guaifenesin (Robitussin) 200 mg PO Q4HR PRN PRN Reason: Cough or Congestion Stop: 12/08/17 20:18 Haloperidol Decanoate (Haldol Dec) 50 mg IM QMONTH [facility] Stop: 12/10/17 07:30 Last Admin: 10/11/17 10:05 Dose: Not Given Heparin Sodium (Porcine) (Heparin) 5,000 units SUBQ Q12HR [facility] Stop: 12/08/17 20:59 Last Admin: 10/11/17 10:06 Dose: Not Given Dextrose/Sodium Chloride (D5-0.9%Ns) 1,000 mls @ 80 mls/hr IV .[id number] [facility] Stop: 12/08/17 20:29 Last Infusion: 10/11/17 06:29 Dose: 80 mls/hr Ipratropium [place] (Atrovent Neb 0.5mg/2.5ml) 0.5 mg IH Q2HRT PRN PRN Reason: Shortness of Breath or Wheeze Stop: 12/08/17 20:27 Latanoprost (Xalatan 0.005% Ophth Soln) 1 drop EACH EYE HS [facility] Stop: 12/08/17 20:59 Last Admin: 10/10/17 21:20 Dose: Not Given Levothyroxine Sodium (Synthroid) 0.088 mg PO QDAC [facility] Stop: 12/09/17 07:29 Last Admin: 10/11/17 06:36 Dose: Not Given Megestrol Acetate (Megace) 400 mg PO BID [facility] PRN Reason: Protocol Stop: 12/09/17 08:59 Last Admin: 10/11/17 09:44 Dose: 400 mg Miscellaneous (Vte Chemical Prophylaxis Screen/ Admission) 1 ea [facility] PRN PRN PRN Reason: PROTOCOL Stop: 12/09/17 17:07 Multivitamins/Vitamin C (Theragran) 1 tab PO DAILY [facility] Stop: 12/09/17 08:59 Last Admin: 10/11/17 09:45 Dose: 1 tab Ondansetron HCl (Zofran) 4 mg IV Q8H PRN PRN Reason: Nausea / Vomiting Stop: 12/08/17 20:18 Quetiapine Fumarate (Seroquel) 150 mg PO HS [facility] PRN Reason: Protocol Stop: 12/08/17 20:59 Last Admin: 10/10/17 21:20 Dose: Not Given Quetiapine Fumarate (Seroquel) 25 mg PO BID [facility] PRN Reason: Protocol Stop: 12/09/17 13:22 Last Admin: 10/11/17 10:05 Dose: Not Given - Procedures Procedures: Procedures Procedure Code Date EMERGENCY DEPT VISIT 66220 11/13/11 EMERGENCY DEPT VISIT 93426 10/11/11 Nutritional Asmnt/Malnutr-PDOC - Dietary Evaluation Malnutrition Findings (Please click <Entered> for more info): Nutritional Asmnt/Malnutrition Start: 10/10/17 17: 54 Text: Status: Complete Freq: Document 10/10/17 17:54 SUEG (Rec: 10/10/17 18:08 [id number] [email or web address]) Nutritional Asmnt/Malnutrition Patient General Information Nutritional Screening High Risk Diagnosis FTT, generalized weakness Pertinent Medical Hx/Surgical Hx Asthma, COPD, dyslipidemia, thyroidism, depression, schizophreania, bipolar Subjective Information Pt seen lying in bed at time of visit, awake and alert, somewhat confused. Pt reported good appetite, no difficulty of chewing, she was here because of constipation. Per pt her last BM was a week ago. Spoke with sitter, sitter stated pt consumed 100% of breakfast and lunch. Current Diet Order/ Nutrition Support regular Pertinent Medications d5-0.9%nx, synthroid, theragran, seroquel Pertinent Labs 2/6 Glucose 160 Nutritional Hx/Data Height 5 ft 3 in Height (Calculated Centimeters) 160.0 Current Weight (lbs) 114 lb Weight (Calculated Kilograms) 51.7 Weight (Calculated Grams) 62419.5 [place] Body Weight 115 % [place] Body Weight 100 Body Mass Index (BMI) 20.2 Weight Status Approriate GI Symptoms GI Symptoms None Last BM 0 Difficult in: None Skin Integrity/Comment: redness to buttocks Current %PO Good (75-100%) Estimated Nutritional Goals BEE in Kcals: Using Current wt Calories/Kcals/Kg 25-30 Kcals Calculated 6006-5858 Protein: Using Current wt Protein g/k Protein Calculated 1300-1560ml (1ml/kcal) Nutritional Problem No current Nutrition Prob Problem N/A Malnutrition Alert Protein-Calorie Malnutrition N/A Is there a minimum of two criteria No selected? Query Text:Check all the applicable criteria. A minimum of two criteria are recommended for diagnosis of either severe or non-severe malnutrition. Intervention/Recommendation Comments 1. Continue with current diet as ordered. Encouraged food intake. 2. Monitor PO intake, BM, wt, labs and skin integrity 3. F/U as moderate risk in 3-5 dyas, 10/13-10/15 Expected Outcomes/Goals Expected Outcomes/Goals 1. PO intake to meet at least 75% of nutritional needs. 2. Wt stability, skin to remain intact, labs to approach WNL.
[2017-10-11] MEDS: Fenofibrate, Micronized 134 mg Cap PO SCH (21:17)
--- NOTE | 2017-10-12 00:27 | Discharge Summary ---
DATE OF DISCHARGE: 10/10/2017 DISCHARGE DIAGNOSES: Generalized weakness, failure to thrive, poor oral intake, asthma, chronic obstructive pulmonary disease, schizophrenia, dyslipidemia, and hypothyroid. HISTORY OF PRESENT ILLNESS: A 66-year-old female well known to me from [facility]. The patient was sent to [facility] due to poor oral intake, refusing to eat or drink and take medications. PHYSICAL EXAMINATION: GENERAL: The patient is well developed, well nourished, no acute distress. VITAL SIGNS: Stable. HEENT: Head normocephalic and atraumatic. NECK: Supple. No mass. LUNGS: Clear bilaterally. ABDOMEN: Soft and nontender. HOSPITAL COURSE: During the hospital stay, the patient was admitted to the med-surg unit. The patient had a psychiatrist on the case. The patient had one-to-one sitter. The patient has been tolerating oral diet. For this reason, the patient is stable for discharge. CONDITION UPON DISCHARGE: Fair. [facility]. JOB# [id number]
[2017-10-12] MEDS: D5-0.9%NS 1,000 ML IV SCH (03:40)
[2017-10-12] MEDS: Levothyroxine 0.088 Mg Tab PO SCH (06:32)
[2017-10-12 07:11] LABS: FOLIC ACID >20.0 ng/mL (>3.0)
[2017-10-12] MEDS: Benztropine 1 MG TAB PO SCH (09:01)
[2017-10-12] MEDS: Multivitamin Tab PO SCH (09:04)
[2017-10-12] MEDS: Atorvastatin Calcium 10 MG TAB PO SCH (09:04)
[2017-10-12 13:16] LABS: FOLIC ACID 14.4 ng/mL (>3.0)
== END 2017-10-12 10:35 | DRG 641 ==
LOC: ER 12:40 → MSI 19:00
PROVIDERS: ADMIT Internal Medicine; ATTEND Internal Medicine
DX: E86.0 Dehydration (principal); J44.9 Chronic obstructive pulmonary disease, unspecified; F25.9 Schizoaffective disorder, unspecified; G30.9 Alzheimer's disease, unspecified; F02.80 Dementia in other diseases classified elsewhere, unspecified severity, without behavioral disturbance, psychotic disturbance, mood disturbance, and anxiety; R62.7 Adult failure to thrive; R73.9 Hyperglycemia, unspecified; E78.5 Hyperlipidemia, unspecified; E03.9 Hypothyroidism, unspecified; Z83.3 Family history of diabetes mellitus; Z82.49 Family history of ischemic heart disease and other diseases of the circulatory system
CPT/HCPCS: 36415-UA; 71045-TC; 80048-TC; 80053-TC; 81001-TC; 82140-TC; 82150-TC; 82550-TC; 82607-90; 82746-90; 83036-90; 83605; 83690-TC; 84443-TC; 84484-TC; 85025-TC; 85610-TC; 85730-TC; 93005; 94760; J1631; J1644; J7030; J7042; Z7610

== ENCOUNTER 2017-10-12 10:56 | Inpatient (IN) | payer MEDICARE, MEDICAID ==
[2017-10-12] MEDS ORDERED: Haloperidol Lactate 5 mg/mL 1mL Vial ONE (11:39)
[2017-10-12] MEDS ORDERED: Haloperidol Lactate 5 mg/mL 1mL Vial IM ONE (11:51)
[2017-10-12] MEDS ORDERED: Maalox 30 mL Cup PO PRN (13:17)
[2017-10-12] MEDS ORDERED: guaiFENesin 200 MG/10 ML UDC PO PRN (13:17)
[2017-10-12] MEDS ORDERED: Ipratropium Neb 0.5 mg/2.5 mL UD HHN PRN (13:17)
[2017-10-12] MEDS ORDERED: Albuterol Nebulizer 2.5mg/3mL HHN PRN (13:17)
--- NOTE | 2017-10-12 15:59 | Internal Medicine Prog Note ---
Internal Medicine Subjective - Subjective Service Date: 10/12/17 Patient seen and examined:: with staff Patient is:: awake, verbal Per staff patient has:: no adverse event Internal Medicine Objective - Physical Exam Vitals and I&O: Intake & Output 10/11/17 10/12/17 10/12/17 18:59 06:59 18:59 Weight (lbs) 117 lb Active Medications: Current Medications Acetaminophen (Tylenol) 650 mg PO Q4H PRN PRN Reason: Pain Or Fever above 101 Stop: 12/11/17 13:16 Al Hydrox/Mg Hydrox/Simethicone (Maalox) 30 ml PO Q6H PRN PRN Reason: Dyspepsia Stop: 12/11/17 13:16 Albuterol Sulfate (Albuterol 2.5mg/3ml Neb Ud) 2.5 mg HHN Q2HRT PRN PRN Reason: Shortness of Breath or Wheeze Stop: 12/11/17 13:16 Atorvastatin Calcium (Lipitor) 10 mg PO DAILY [facility] PRN Reason: Protocol Stop: 12/12/17 08:59 Benztropine Mesylate (Cogentin) mg PO BID [facility] Stop: 12/11/17 16:59 Divalproex Sodium (Depakote Dr) 500 mg PO BID [facility] PRN Reason: Protocol Stop: 12/11/17 16:59 Guaifenesin (Robitussin) 200 mg PO Q4HR PRN PRN Reason: Cough or Congestion Stop: 12/11/17 13:16 Ipratropium [place] (Atrovent Neb 0.5mg/2.5ml) 0.5 mg HHN Q2HRT PRN PRN Reason: Shortness of Breath or Wheeze Stop: 12/11/17 13:16 Levothyroxine Sodium (Synthroid) mg PO QDAC [facility] Stop: 12/12/17 07:29 Miscellaneous (Fenofibrate Nanocrystallized [Tricor]) 145 mg PO HS [facility] Stop: 12/11/17 20:59 Miscellaneous (Haloperidol Decanoate [Haldol Decanoate 50]) 50 mg IM QMONTH [facility] Stop: 12/11/17 13:29 Miscellaneous (Mirtazapine [Remeron]) 30 mg PO HS [facility] Stop: 12/11/17 20:59 Miscellaneous (Travoprost [Travatan Z]) 1 drop EACH EYE HS [facility] Stop: 12/11/17 20:59 Multivitamins/Vitamin C (Theragran) 1 tab PO DAILY [facility] Stop: 12/12/17 08:59 Quetiapine Fumarate (Seroquel) 150 mg PO HS [facility] PRN Reason: Protocol Stop: 12/11/17 20:59 Quetiapine Fumarate (Seroquel) 50 mg PO BID [facility] PRN Reason: Protocol Stop: 12/11/17 16:59 General: alert HEENT: NC/AT, PERRLA Neck: Supple Lungs: CTAB Cardiovascular: RRR, Normal S1, Normal S2 Abdomen: soft, non-distended, positive bowel sound Neurological: no change - Procedures Procedures: Procedures Procedure Code Date EMERGENCY DEPT VISIT 97747 11/13/11 EMERGENCY DEPT VISIT 17233 10/11/11 Internal Medicine Assmt/Plan - Assessment Assessment: asthma copd schizophrenia hypothyroid dyslipidemia - Plan Plan: monitor oral intake continue current plan of care
[2017-10-12 17:30] VITALS: BP 99/53
[2017-10-12] MEDS: Benztropine 1 MG TAB PO SCH (18:24)
[2017-10-12] MEDS: Fenofibrate, Micronized 134 mg Cap PO SCH ×2 (21:00)
[2017-10-13] MEDS: Levothyroxine 0.088 Mg Tab PO SCH (06:58)
[2017-10-13] MEDS: Benztropine 1 MG TAB PO SCH ×2 (08:32→16:06)
[2017-10-13] MEDS: Atorvastatin Calcium 10 MG TAB PO SCH (08:32)
[2017-10-13] MEDS: Multivitamin Tab PO SCH (08:32)
--- NOTE | 2017-10-13 13:00 | Internal Medicine Prog Note ---
Internal Medicine Subjective - Subjective Patient seen and examined:: with staff, chart reviewed Patient is:: awake, verbal, interactive, ambulating, denies any new complaints, agitated, confused Per staff patient has:: no adverse event, no episodes of fall, eating well Internal Medicine Objective - Physical Exam Vitals and I&O: Vital Signs Temp 98.8 F 10/13/17 06:22 Pulse 56 10/13/17 08:00 Resp 18 10/13/17 08:00 BP 131/81 10/13/17 06:22 Pulse Ox 98 10/13/17 08:00 Intake & Output 10/12/17 10/13/17 10/13/17 18:59 06:59 18:59 Weight (lbs) 53.07 kg Other: Stool Characteristics Soft Active Medications: Current Medications Acetaminophen (Tylenol) 650 mg PO Q4H PRN PRN Reason: Pain Or Fever above 101 Stop: 12/11/17 13:16 Al Hydrox/Mg Hydrox/Simethicone (Maalox) 30 ml PO Q6H PRN PRN Reason: Dyspepsia Stop: 12/11/17 13:16 Albuterol Sulfate (Albuterol 2.5mg/3ml Neb Ud) 2.5 mg HHN Q2HRT PRN PRN Reason: Shortness of Breath or Wheeze Stop: 12/11/17 13:16 Atorvastatin Calcium (Lipitor) 10 mg PO DAILY [facility] PRN Reason: Protocol Stop: 12/12/17 08:59 Last Admin: 10/13/17 08:32 Dose: 10 mg Benztropine Mesylate (Cogentin) 1 mg PO BID [facility] Stop: 12/11/17 16:59 Last Admin: 10/13/17 08:32 Dose: 1 mg Divalproex Sodium (Depakote Dr) 500 mg PO BID [facility] PRN Reason: Protocol Stop: 12/11/17 16:59 Last Admin: 10/13/17 08:33 Dose: 500 mg Fenofibrate (Tricor) 134 mg PO HS [facility] Stop: 12/11/17 20:59 Last Admin: 10/12/17 21:00 Dose: Not Given Guaifenesin (Robitussin) 200 mg PO Q4HR PRN PRN Reason: Cough or Congestion Stop: 12/11/17 13:16 Haloperidol Decanoate (Haldol Dec) 50 mg IM QMONTH [facility] Stop: 12/11/17 13:29 Ipratropium [place] (Atrovent Neb 0.5mg/2.5ml) 0.5 mg HHN Q2HRT PRN PRN Reason: Shortness of Breath or Wheeze Stop: 12/11/17 13:16 Latanoprost (Xalatan 0.005% Ophth Soln) 1 drop EACH EYE HS [facility] Stop: 12/11/17 20:59 Last Admin: 10/12/17 21:00 Dose: Not Given Levothyroxine Sodium (Synthroid) 0.088 mg PO QDAC [facility] Stop: 12/12/17 07:29 Last Admin: 10/13/17 06:58 Dose: 0.088 mg Mirtazapine (Remeron) 30 mg PO HS [facility] Stop: 12/11/17 20:59 Multivitamins/Vitamin C (Theragran) 1 tab PO DAILY [facility] Stop: 12/12/17 08:59 Last Admin: 10/13/17 08:32 Dose: 1 tab Quetiapine Fumarate (Seroquel) 150 mg PO HS [facility] PRN Reason: Protocol Stop: 12/11/17 20:59 Quetiapine Fumarate (Seroquel) 50 mg PO BID [facility] PRN Reason: Protocol Stop: 12/11/17 16:59 Last Admin: 10/13/17 08:33 Dose: 50 mg Zolpidem Tartrate (Ambien) 5 mg PO HS PRN PRN Reason: Insomnia Stop: 12/12/17 00:15 General: demented HEENT: NC/AT, PERRLA Neck: Supple Lungs: CTAB Cardiovascular: RRR, Normal S1, Normal S2 Abdomen: soft, non-distended, positive bowel sound Neurological: no change, disorganized - Procedures Procedures: Procedures Procedure Code Date EMERGENCY DEPT VISIT 64661 11/13/11 EMERGENCY DEPT VISIT 53373 10/11/11 Internal Medicine Assmt/Plan - Assessment Assessment: - Assessment Assessment: asthma copd schizophrenia hypothyroid dyslipidemia - Plan Plan: monitor oral intake continue current plan of care - Plan Plan: fall precaution
--- NOTE | 2017-10-13 15:35 | Psychosocial Evaluation ---
DATE OF SERVICE: 10/13/2017 IDENTIFYING DATA: The patient is a 66-year-old woman, resident of a [facility]. Information obtained by directly interviewing the patient as well as reviewing the admission papers and they are reliable. JUSTIFICATION FOR HOSPITALIZATION: The patient is admitted here for acute psychosis and agitation. CHIEF COMPLAINT: "I don't know, I should not be here." HISTORY OF PRESENT ILLNESS: This is one of multiple psychiatric hospitalizations for this patient who has been diagnosed to have schizoaffective disorder and has been testing the limits and has been noncompliant with the medication. The patient has been on 500 mg twice a day, the Depakote and also receiving the Seroquel 150 mg at bedtime and then 50 mg twice a day. Even with all the medication the patient has been having difficult time to cope with the stress and hence the patient has been brought over here for stabilization. During the evaluation, the patient is stating that she should not be on any medications and patient is going on and on. The patient is not making much sense. PAST PSYCHIATRIC HISTORY: The patient had been hospitalized on multiple occasions. The last hospitalization was in 05/2017. MEDICAL HISTORY: Physical examination is requested by Dr. Turcios. SUBSTANCE ABUSE HISTORY: None. PHYSICAL OR SEXUAL ABUSE HISTORY: None. LEGAL PROBLEMS: None at this time. STRENGTH AND ASSETS: The patient is motivated. MENTAL STATUS EXAMINATION: The patient is a 66-year-old woman, thin built, superficially cooperative. Eye contact is poor. Mood is irritable. Affect is constricted. Insight and judgment at this time are noted to be still impaired. Impulse control seems poor. The patient is responding to internal stimuli and patient is pacing most of the time on the unit. The patient is not able to contract for safety at this time. The patient is getting easily agitated. The patient is alert and aware that she is in the hospital. Attention span and concentration noted to be poor. DIAGNOSTIC IMPRESSION: AXIS I: Schizoaffective disorder. AXIS II: None. AXIS III: As per Dr. Turcios. IMMEDIATE TREATMENT PLAN: The patient is going to be continued on the Depakote and the Seroquel and followed up with the supportive therapy. JOB# [id number]
[2017-10-13] MEDS: Fenofibrate, Micronized 134 mg Cap PO SCH (21:53)
[2017-10-14] MEDS: Levothyroxine 0.088 Mg Tab PO SCH (06:49)
[2017-10-14] MEDS: Atorvastatin Calcium 10 MG TAB PO SCH (09:08)
[2017-10-14] MEDS: Multivitamin Tab PO SCH (09:08)
[2017-10-14] MEDS: Benztropine 1 MG TAB PO SCH ×2 (09:08→17:52)
--- NOTE | 2017-10-14 12:41 | Internal Medicine Prog Note ---
Internal Medicine Subjective - Subjective Patient seen and examined:: with staff, chart reviewed Patient is:: awake, verbal, interactive, ambulating, denies any new complaints, agitated, confused Per staff patient has:: no adverse event, no episodes of fall, eating well Internal Medicine Objective - Results Recent Labs: Laboratory Last Values Valproic Acid 85.6 ug/mL (50.0-100.0) 10/14/17 09:59 - Physical Exam Vitals and I&O: Vital Signs Temp 97.8 F 10/14/17 05:30 Pulse 81 10/14/17 08:04 Resp 18 10/14/17 08:04 BP 143/91 10/14/17 05:30 Pulse Ox 98 10/14/17 08:04 Intake & Output 10/13/17 10/14/17 10/14/17 18:59 06:59 18:59 Intake Total 1500 120 Balance 1500 120 Intake: Oral 1500 120 Other: # Voids 3 3 # Bowel Movements 0 Stool Characteristics Soft Active Medications: Current Medications Acetaminophen (Tylenol) 650 mg PO Q4H PRN PRN Reason: Pain Or Fever above 101 Stop: 12/11/17 13:16 Al Hydrox/Mg Hydrox/Simethicone (Maalox) 30 ml PO Q6H PRN PRN Reason: Dyspepsia Stop: 12/11/17 13:16 Albuterol Sulfate (Albuterol 2.5mg/3ml Neb Ud) 2.5 mg HHN Q2HRT PRN PRN Reason: Shortness of Breath or Wheeze Stop: 12/11/17 13:16 Atorvastatin Calcium (Lipitor) 10 mg PO DAILY [facility] PRN Reason: Protocol Stop: 12/12/17 08:59 Last Admin: 10/14/17 09:08 Dose: 10 mg Benztropine Mesylate (Cogentin) 1 mg PO BID [facility] Stop: 12/11/17 16:59 Last Admin: 10/14/17 09:08 Dose: 1 mg Divalproex Sodium (Depakote Dr) 500 mg PO BID [facility] PRN Reason: Protocol Stop: 12/11/17 16:59 Last Admin: 10/14/17 09:08 Dose: 500 mg Fenofibrate (Tricor) 134 mg PO HS [facility] Stop: 12/11/17 20:59 Last Admin: 10/13/17 21:53 Dose: Not Given Guaifenesin (Robitussin) 200 mg PO Q4HR PRN PRN Reason: Cough or Congestion Stop: 12/11/17 13:16 Haloperidol Decanoate (Haldol Dec) 50 mg IM QMONTH [facility] Stop: 12/11/17 13:29 Ipratropium [place] (Atrovent Neb 0.5mg/2.5ml) 0.5 mg HHN Q2HRT PRN PRN Reason: Shortness of Breath or Wheeze Stop: 12/11/17 13:16 Latanoprost (Xalatan 0.005% Ophth Soln) 1 drop EACH EYE HS [facility] Stop: 12/11/17 20:59 Last Admin: 10/13/17 21:53 Dose: Not Given Levothyroxine Sodium (Synthroid) 0.088 mg PO QDAC [facility] Stop: 12/12/17 07:29 Last Admin: 10/14/17 06:49 Dose: Not Given Mirtazapine (Remeron) 30 mg PO HS [facility] Stop: 12/11/17 20:59 Last Admin: 10/13/17 21:52 Dose: Not Given Multivitamins/Vitamin C (Theragran) 1 tab PO DAILY [facility] Stop: 12/12/17 08:59 Last Admin: 10/14/17 09:08 Dose: 1 tab Quetiapine Fumarate (Seroquel) 150 mg PO HS [facility] PRN Reason: Protocol Stop: 12/11/17 20:59 Last Admin: 10/13/17 21:52 Dose: Not Given Quetiapine Fumarate (Seroquel) 50 mg PO BID [facility] PRN Reason: Protocol Stop: 12/11/17 16:59 Last Admin: 10/14/17 09:08 Dose: 50 mg Zolpidem Tartrate (Ambien) 5 mg PO HS PRN PRN Reason: Insomnia Stop: 12/12/17 00:15 General: demented HEENT: NC/AT, PERRLA Neck: Supple Lungs: CTAB Cardiovascular: RRR, Normal S1, Normal S2 Abdomen: soft, non-distended, positive bowel sound Neurological: no change, disorganized - Procedures Procedures: Procedures Procedure Code Date EMERGENCY DEPT VISIT 41195 11/13/11 EMERGENCY DEPT VISIT 87220 10/11/11 Internal Medicine Assmt/Plan - Assessment Assessment: - Assessment Assessment: asthma copd schizophrenia hypothyroid dyslipidemia - Plan Plan: monitor oral intake continue current plan of care - Plan Plan: fall precaution
--- NOTE | 2017-10-14 13:51 | Progress Notes ---
DATE: 10/14/2017 SUBJECTIVE: Staff was spoken to. The patient is interviewed. Mood is irritable. Affect is constricted. Continues to be psychotic and impulsive. The patient has been having difficult time to cope with the stress. No side effects to the medications are noted. The patient is talking to self and is not making much sense. The patient's blood work has been reviewed and is noted to be triglycerides 299. Amylase noted to be 28, glucose noted to be 112. The patient's valproic acid level, however, is not done and it is going to be requested. The patient is still not able to contract for safety at this time and continues to be grossly psychotic and hence she is not ready to be discharged to a lower level of care and the patient is going to be closely monitored. I encouraged to verbalize the concerns rather than to act out. JOB# [id number]
[2017-10-14] MEDS: Fenofibrate, Micronized 134 mg Cap PO SCH (21:21)
[2017-10-15] MEDS: Levothyroxine 0.088 Mg Tab PO SCH (06:45)
[2017-10-15] MEDS: Benztropine 1 MG TAB PO SCH ×2 (08:28→16:57)
[2017-10-15] MEDS: Atorvastatin Calcium 10 MG TAB PO SCH (08:28)
[2017-10-15] MEDS: Multivitamin Tab PO SCH (08:29)
--- NOTE | 2017-10-15 09:20 | Internal Medicine Prog Note ---
Internal Medicine Subjective - Subjective Service Date: 10/15/17 Patient is:: awake, verbal, interactive, ambulating, denies any new complaints, agitated, confused Per staff patient has:: no adverse event, no episodes of fall, eating well Internal Medicine Objective - Results Recent Labs: Laboratory Last Values Valproic Acid 85.6 ug/mL (50.0-100.0) 10/14/17 09:59 - Physical Exam Vitals and I&O: Vital Signs Temp 98.4 F 10/15/17 05:05 Pulse 78 10/15/17 05:05 Resp 18 10/15/17 05:05 BP 122/72 10/15/17 05:05 Pulse Ox 97 10/15/17 05:05 Intake & Output 10/14/17 10/15/17 10/15/17 18:59 06:59 18:59 Intake Total 480 Balance 480 Intake: Oral 480 Other: # Voids 0 Active Medications: Current Medications Acetaminophen (Tylenol) 650 mg PO Q4H PRN PRN Reason: Pain Or Fever above 101 Stop: 12/11/17 13:16 Al Hydrox/Mg Hydrox/Simethicone (Maalox) 30 ml PO Q6H PRN PRN Reason: Dyspepsia Stop: 12/11/17 13:16 Albuterol Sulfate (Albuterol 2.5mg/3ml Neb Ud) 2.5 mg HHN Q2HRT PRN PRN Reason: Shortness of Breath or Wheeze Stop: 12/11/17 13:16 Atorvastatin Calcium (Lipitor) 10 mg PO DAILY [facility] PRN Reason: Protocol Stop: 12/12/17 08:59 Last Admin: 10/15/17 08:28 Dose: 10 mg Benztropine Mesylate (Cogentin) 1 mg PO BID [facility] Stop: 12/11/17 16:59 Last Admin: 10/15/17 08:28 Dose: 1 mg Divalproex Sodium (Depakote Dr) 500 mg PO BID [facility] PRN Reason: Protocol Stop: 12/11/17 16:59 Last Admin: 10/15/17 08:29 Dose: 500 mg Fenofibrate (Tricor) 134 mg PO HS [facility] Stop: 12/11/17 20:59 Last Admin: 10/14/17 21:21 Dose: Not Given Guaifenesin (Robitussin) 200 mg PO Q4HR PRN PRN Reason: Cough or Congestion Stop: 12/11/17 13:16 Haloperidol Decanoate (Haldol Dec) 50 mg IM QMONTH [facility] Stop: 12/11/17 13:29 Ipratropium [place] (Atrovent Neb 0.5mg/2.5ml) 0.5 mg HHN Q2HRT PRN PRN Reason: Shortness of Breath or Wheeze Stop: 12/11/17 13:16 Latanoprost (Xalatan 0.005% Ophth Soln) 1 drop EACH EYE HS [facility] Stop: 12/11/17 20:59 Last Admin: 10/14/17 21:21 Dose: Not Given Levothyroxine Sodium (Synthroid) 0.088 mg PO QDAC [facility] Stop: 12/12/17 07:29 Last Admin: 10/15/17 06:45 Dose: Not Given Mirtazapine (Remeron) 30 mg PO HS [facility] Stop: 12/11/17 20:59 Last Admin: 10/14/17 21:20 Dose: Not Given Multivitamins/Vitamin C (Theragran) 1 tab PO DAILY [facility] Stop: 12/12/17 08:59 Last Admin: 10/15/17 08:29 Dose: 1 tab Quetiapine Fumarate (Seroquel) 150 mg PO HS [facility] PRN Reason: Protocol Stop: 12/11/17 20:59 Last Admin: 10/14/17 21:21 Dose: Not Given Quetiapine Fumarate (Seroquel) 50 mg PO BID [facility] PRN Reason: Protocol Stop: 12/11/17 16:59 Last Admin: 10/15/17 08:29 Dose: 50 mg Zolpidem Tartrate (Ambien) 5 mg PO HS PRN PRN Reason: Insomnia Stop: 12/12/17 00:15 General: demented HEENT: NC/AT, PERRLA Neck: Supple Lungs: CTAB Cardiovascular: RRR, Normal S1, Normal S2 Abdomen: soft, non-distended, positive bowel sound Neurological: no change, disorganized - Procedures Procedures: Procedures Procedure Code Date EMERGENCY DEPT VISIT 90823 11/13/11 EMERGENCY DEPT VISIT 42157 10/11/11 Internal Medicine Assmt/Plan - Assessment Assessment: asthma copd schizophrenia hypothyroid dyslipidemia - Plan Plan: monitor oral intake continue current plan of care
--- NOTE | 2017-10-15 21:01 | Progress Notes ---
DATE: 10/15/2017 SUBJECTIVE: Staff was spoken to. The patient is interviewed. Mood is noted to be less irritable. The patient is currently on Seroquel 150 mg twice a day and 50 mg at bedtime and is also receiving the Depakote 500 mg plus and has been able to tolerate the medications. No side effects to the medications are noted. Insight and judgment is noted to be still impaired. Continues to be paranoid and responding to internal stimuli. ASSESSMENT: The patient is still psychotic. PLAN: To continue the patient on the current medications and followup. JOB# [id number]
[2017-10-15] MEDS: Fenofibrate, Micronized 134 mg Cap PO SCH (21:24)
[2017-10-16] MEDS: Levothyroxine 0.088 Mg Tab PO SCH (06:39)
[2017-10-16] MEDS: Atorvastatin Calcium 10 MG TAB PO SCH (09:10)
[2017-10-16] MEDS: Benztropine 1 MG TAB PO SCH ×2 (09:11→16:40)
[2017-10-16] MEDS: Multivitamin Tab PO SCH (09:11)
--- NOTE | 2017-10-16 12:15 | Internal Medicine Prog Note ---
Internal Medicine Subjective - Subjective Service Date: 10/16/17 Patient is:: awake, verbal, interactive, ambulating, denies any new complaints, agitated, confused Per staff patient has:: no adverse event, no episodes of fall, eating well Internal Medicine Objective - Results Recent Labs: Laboratory Last Values Valproic Acid 85.6 ug/mL (50.0-100.0) 10/14/17 09:59 - Physical Exam Vitals and I&O: Vital Signs Temp 97.8 F 10/16/17 06:29 Pulse 80 10/16/17 06:29 Resp 18 10/16/17 06:29 BP 119/77 10/16/17 06:29 Pulse Ox 96 10/16/17 06:29 Intake & Output 10/15/17 10/16/17 10/16/17 18:59 06:59 18:59 Intake Total 240 Balance 240 Intake: Oral 240 Other: # Voids 100 Active Medications: Current Medications Acetaminophen (Tylenol) 650 mg PO Q4H PRN PRN Reason: Pain Or Fever above 101 Stop: 12/11/17 13:16 Al Hydrox/Mg Hydrox/Simethicone (Maalox) 30 ml PO Q6H PRN PRN Reason: Dyspepsia Stop: 12/11/17 13:16 Albuterol Sulfate (Albuterol 2.5mg/3ml Neb Ud) 2.5 mg HHN Q2HRT PRN PRN Reason: Shortness of Breath or Wheeze Stop: 12/11/17 13:16 Atorvastatin Calcium (Lipitor) 10 mg PO DAILY [facility] PRN Reason: Protocol Stop: 12/12/17 08:59 Last Admin: 10/16/17 09:10 Dose: 10 mg Benztropine Mesylate (Cogentin) 1 mg PO BID [facility] Stop: 12/11/17 16:59 Last Admin: 10/16/17 09:11 Dose: 1 mg Divalproex Sodium (Depakote Dr) 500 mg PO BID [facility] PRN Reason: Protocol Stop: 12/11/17 16:59 Last Admin: 10/16/17 09:10 Dose: 500 mg Fenofibrate (Tricor) 134 mg PO HS [facility] Stop: 12/11/17 20:59 Last Admin: 10/15/17 21:24 Dose: 134 mg Guaifenesin (Robitussin) 200 mg PO Q4HR PRN PRN Reason: Cough or Congestion Stop: 12/11/17 13:16 Haloperidol Decanoate (Haldol Dec) 50 mg IM QMONTH [facility] Stop: 12/11/17 13:29 Ipratropium [place] (Atrovent Neb 0.5mg/2.5ml) 0.5 mg HHN Q2HRT PRN PRN Reason: Shortness of Breath or Wheeze Stop: 12/11/17 13:16 Latanoprost (Xalatan 0.005% Ophth Soln) 1 drop EACH EYE HS [facility] Stop: 12/11/17 20:59 Last Admin: 10/15/17 21:39 Dose: Not Given Levothyroxine Sodium (Synthroid) 0.088 mg PO QDAC [facility] Stop: 12/12/17 07:29 Last Admin: 10/16/17 06:39 Dose: 0.088 mg Mirtazapine (Remeron) 30 mg PO HS [facility] Stop: 12/11/17 20:59 Last Admin: 10/15/17 21:24 Dose: 30 mg Multivitamins/Vitamin C (Theragran) 1 tab PO DAILY [facility] Stop: 12/12/17 08:59 Last Admin: 10/16/17 09:11 Dose: 1 tab Quetiapine Fumarate (Seroquel) 150 mg PO HS [facility] PRN Reason: Protocol Stop: 12/11/17 20:59 Last Admin: 10/15/17 21:37 Dose: 150 mg Quetiapine Fumarate (Seroquel) 50 mg PO BID [facility] PRN Reason: Protocol Stop: 12/11/17 16:59 Last Admin: 10/16/17 09:10 Dose: 50 mg Zolpidem Tartrate (Ambien) 5 mg PO HS PRN PRN Reason: Insomnia Stop: 12/12/17 00:15 Last Admin: 10/16/17 01:30 Dose: 5 mg General: demented HEENT: NC/AT, PERRLA Neck: Supple Lungs: CTAB Cardiovascular: RRR, Normal S1, Normal S2 Abdomen: soft, non-distended, positive bowel sound Neurological: no change, disorganized - Procedures Procedures: Procedures Procedure Code Date EMERGENCY DEPT VISIT 18815 11/13/11 EMERGENCY DEPT VISIT 45207 10/11/11 Internal Medicine Assmt/Plan - Assessment Assessment: asthma copd schizophrenia hypothyroid dyslipidemia - Plan Plan: monitor oral intake continue current plan of care
[2017-10-16] MEDS: Fenofibrate, Micronized 134 mg Cap PO SCH (21:42)
--- NOTE | 2017-10-17 01:26 | Consultation ---
DATE OF CONSULTATION: 10/15/2017 REQUESTING PHYSICIAN: Milla Mcclelland M.D. TYPE OF CONSULTATION: Psychology. HISTORY OF PRESENT ILLNESS: The following is by review of the medical record as well as by patient self report. According to record review, the patient is a 66-year-old female. The patient is a resident of [facility]. According to the staff at the patient's facility, the patient has been noncompliant with medication and has been difficult to behaviorally redirect. Therefore, the patient is being admitted for acute psychosis and agitation. The patient has a history of schizoaffective disorder. This law writer has seen this patient during a previous hospitalization. The patient is stating at this time that she does not need to be on any medication and is rambling with pressured speech. The patient did deny any suicidal ideation, plan, or intention. PAST MEDICAL HISTORY: Please see history and physical by Dr. Turcios. PAST PSYCHIATRIC HISTORY: The patient has had multiple previous hospitalizations. The patient has a history of schizoaffective disorder. CURRENT MEDICATIONS: Please see medication reconciliation sheet. ALLERGIES: No known drug allergies. SUBSTANCE ABUSE HISTORY: None, unremarkable. PSYCHOSOCIAL HISTORY: The patient is a resident at [facility]. The patient did not answer questions about occupational history or educational history or buddhism affiliation. The patient did not answer questions about family relationships. The patient became selectively mute at certain points during the clinical interview and stopped answering questions. MENTAL STATUS EXAMINATION: The patient appears to be her stated age. The patient's attitude is superficially cooperative. Eye contact is poor. Mood is irritable. Affect is constricted. The patient has been pacing on the unit and continued to walk away from this law writer during the clinical interview. The patient was followed to her room and the clinical interview continued; however, the patient was selectively mute at times, and at other times, speech was pressured, rambling, with loose associations. Impulse control is poor. The patient appears to be responding to internal stimuli. The patient did not answer questions about experiencing auditory or visual hallucinations. The patient denied any suicidal ideation, plan, or intention. Sensorium is alert and oriented to place and person, but not date or time. The patient did not perform memory evaluation. Immediate memory seems grossly intact. Short term and parts counterman memory appeared to be impaired and need further evaluation. Concentration is compromised. The patient was able to sustain focus and attention. The patient did not answer any questions about proverbs. Insight is poor. Judgment is compromised. DIAGNOSTIC IMPRESSION: AXIS I: Schizoaffective disorder by history. AXIS II: Deferred. AXIS III: Please see H and P by Dr. Turcios. TREATMENT PLAN: The patient has been evaluated by Dr. Mcclelland for psychiatric assessment and for the management of the patient's psychotropic medications. She is continued on Depakote and Seroquel. We will provide supportive therapy. We will provide reality testing, reality orientation, reality differentiation, and reality integration. We will provide motivational enhancement as well as positive reinforcement for the patient to become compliant and stay compliant with all aspects of her care and treatment, specifically the patient becoming compliant with her medications and is able to demonstrate emotional and mood stability prior to discharge. Thank you, Dr. Mcclelland for this consult and the opportunity to participate in this patient's care. [facility]# [id number]
--- NOTE | 2017-10-17 01:58 | Progress Notes ---
DATE: 10/16/2017 SUBJECTIVE: Staff was spoken to. The patient is interviewed. The patient is screaming and yelling and walking and pacing on the unit. The patient needs to be redirected. Coping skills are noted to be very poor. The patient has no impulse control and getting used to be. The patient has been getting very intrusive. The patient needs to be redirected at this time. ASSESSMENT: The patient is still having mood swings and paranoid. PLAN: Plan to continue the patient with the current medications. I encouraged the patient to verbalize the concerns rather than to act out. JOB# [id number]
[2017-10-17] MEDS: Levothyroxine 0.088 Mg Tab PO SCH (06:44)
[2017-10-17] MEDS: Atorvastatin Calcium 10 MG TAB PO SCH (09:24)
[2017-10-17] MEDS: Benztropine 1 MG TAB PO SCH (09:25)
[2017-10-17] MEDS: Multivitamin Tab PO SCH (09:25)
--- NOTE | 2017-10-17 13:06 | Internal Medicine Prog Note ---
Internal Medicine Subjective - Subjective Service Date: 10/17/17 Patient is:: awake, verbal, interactive, ambulating, denies any new complaints, agitated, confused Per staff patient has:: no adverse event, no episodes of fall, eating well Internal Medicine Objective - Results Recent Labs: Laboratory Last Values Valproic Acid 85.6 ug/mL (50.0-100.0) 10/14/17 09:59 - Physical Exam Vitals and I&O: Vital Signs Temp 98.0 F 10/17/17 07:07 Pulse 83 10/17/17 08:18 Resp 18 10/17/17 08:18 BP 115/75 10/17/17 07:07 Pulse Ox 98 10/17/17 08:18 Intake & Output 10/16/17 10/17/17 10/17/17 18:59 06:59 18:59 Intake Total 250 Balance 250 Intake: Oral 250 Other: # Voids 3 # Bowel Movements 0 Active Medications: Current Medications Acetaminophen (Tylenol) 650 mg PO Q4H PRN PRN Reason: Pain Or Fever above 101 Stop: 12/11/17 13:16 Al Hydrox/Mg Hydrox/Simethicone (Maalox) 30 ml PO Q6H PRN PRN Reason: Dyspepsia Stop: 12/11/17 13:16 Albuterol Sulfate (Albuterol 2.5mg/3ml Neb Ud) 2.5 mg HHN Q2HRT PRN PRN Reason: Shortness of Breath or Wheeze Stop: 12/11/17 13:16 Atorvastatin Calcium (Lipitor) 10 mg PO DAILY [facility] PRN Reason: Protocol Stop: 12/12/17 08:59 Last Admin: 10/17/17 09:24 Dose: 10 mg Benztropine Mesylate (Cogentin) 1 mg PO BID [facility] Stop: 12/11/17 16:59 Last Admin: 10/17/17 09:25 Dose: 1 mg Divalproex Sodium (Depakote Dr) 500 mg PO BID [facility] PRN Reason: Protocol Stop: 12/11/17 16:59 Last Admin: 10/17/17 09:25 Dose: 500 mg Fenofibrate (Tricor) 134 mg PO HS [facility] Stop: 12/11/17 20:59 Last Admin: 10/16/17 21:42 Dose: Not Given Guaifenesin (Robitussin) 200 mg PO Q4HR PRN PRN Reason: Cough or Congestion Stop: 12/11/17 13:16 Haloperidol Decanoate (Haldol Dec) 50 mg IM QMONTH [facility] Stop: 12/11/17 13:29 Ipratropium [place] (Atrovent Neb 0.5mg/2.5ml) 0.5 mg HHN Q2HRT PRN PRN Reason: Shortness of Breath or Wheeze Stop: 12/11/17 13:16 Latanoprost (Xalatan 0.005% Ophth Soln) 1 drop EACH EYE HS [facility] Stop: 12/11/17 20:59 Last Admin: 10/16/17 21:42 Dose: Not Given Levothyroxine Sodium (Synthroid) 0.088 mg PO QDAC [facility] Stop: 12/12/17 07:29 Last Admin: 10/17/17 06:44 Dose: 0.088 mg Mirtazapine (Remeron) 30 mg PO HS [facility] Stop: 12/11/17 20:59 Last Admin: 10/16/17 21:42 Dose: Not Given Multivitamins/Vitamin C (Theragran) 1 tab PO DAILY [facility] Stop: 12/12/17 08:59 Last Admin: 10/17/17 09:25 Dose: 1 tab Quetiapine Fumarate (Seroquel) 50 mg PO BID [facility] PRN Reason: Protocol Stop: 12/11/17 16:59 Last Admin: 10/17/17 09:24 Dose: 50 mg Quetiapine Fumarate (Seroquel) 200 mg PO HS [facility] PRN Reason: Protocol Stop: 12/16/17 09:34 Zolpidem Tartrate (Ambien) 5 mg PO HS PRN PRN Reason: Insomnia Stop: 12/12/17 00:15 Last Admin: 10/16/17 01:30 Dose: 5 mg General: demented HEENT: NC/AT, PERRLA Neck: Supple Lungs: CTAB Cardiovascular: RRR, Normal S1, Normal S2 Abdomen: soft, non-distended, positive bowel sound Neurological: no change, disorganized - Procedures Procedures: Procedures Procedure Code Date EMERGENCY DEPT VISIT 55241 11/13/11 EMERGENCY DEPT VISIT 30036 10/11/11 Internal Medicine Assmt/Plan - Assessment Assessment: asthma copd schizophrenia hypothyroid dyslipidemia - Plan Plan: monitor oral intake continue current plan of care
--- NOTE | 2017-10-17 19:17 | Progress Notes ---
DATE: 10/17/2017 SUBJECTIVE: Staff was spoken to. The patient is interviewed. Mood is noted to be anxious. Affect is appropriate. The patient has paranoia, but denies any command hallucinations. Insight and judgment at this time noted to be improving. Impulse control seemed to be fair. Coping skills are noted to be fair. No side effects to the medications are noted. The patient has been on 500 mg twice a day of the Depakote and the patient is also getting the Seroquel 200 mg at bedtime and 50 mg twice a day and has been able to tolerate the medications. No side effects to the medications are noted. The patient has been able to comply with the treatment so far. PLAN: The patient since not presenting with any threat to harm self or others, it is decided to discharge the patient today for followup on an outpatient basis at [facility] by Dr. Archer. JOB# [id number]
--- NOTE | 2017-11-10 13:46 | Discharge Summary ---
DATE OF DISCHARGE: 10/17/2017 IDENTIFYING DATA: The patient is a 66-year-old woman, resident of [facility]. Information obtained by directly interviewing the patient as well as reviewing the admission papers and they are reliable. JUSTIFIATION OF HOSPITALIZATION: The patient has been admitted for her acute psychosis and agitation. CHIEF COMPLAINT: "I don't know, I should not be here." DIAGNOSES AT THE TIME OF ADMISSION: 1. Schizoaffective disorder. 2. None. MEDICAL DIAGNOSIS: As per Dr. Turcios. HISTORY OF PRESENT ILLNESS: Please refer the 10/13/2017 dictation done by me. Physical examination was done by Dr. Tricia Grimes and is noted to be significant for asthma, COPD, dyslipidemia and hypothyroidism. HOSPITAL COURSE AND RESPONSE TO TREATMENT: The patient has had blood work done and has been reviewed by Dr. Turcios's crew. The patient has been given the albuterol nebulizer and patient also has been placed on the valproic acid, which was given 5 mg twice a day and patient has been given the Haldol Decanoate 50 mg once a month and the patient has been encouraged to participate in groups and verbalize the concerns while in the hospital. The patient has been placed on Seroquel, which was given 200 mg at bedtime and 50 mg twice a day. With these medications, the patient started fairly well and no major side effects to the medications are noted. The patient was finally discharged on 10/17/2017 with recommendations that she is going to be seeking treatment on an outpatient basis by Dr. Archer at [facility]. MENTAL STATUS EXAMINATION: At the time of discharge, the patient's mood, to be anxious. Affect is appropriate. Not suicidal or homicidal. Insight and judgment are fair. Impulse control is also noted to be fair. Coping skills are noted to be improving. No side effects to the medications are noted at the time of discharge. CONDITION: At the time of discharge noted to be stable. DIAGNOSES AT THE TIME OF DISCHARGE AXIS I: Schizoaffective disorder. AXIS II: None. AXIS III: Significant for asthma, COPD, hypothyroidism. AFTERCARE PLAN: The patient is discharged to be followed up on an outpatient basis by Dr. Archer. JOB# [id number]
== END 2017-10-17 14:20 | disposition home or self-care (01) | DRG 885 ==
LOC: GERO 10:56
DX: F25.9 Schizoaffective disorder, unspecified (principal); J44.9 Chronic obstructive pulmonary disease, unspecified; E03.9 Hypothyroidism, unspecified; E78.5 Hyperlipidemia, unspecified; Z79.899 Other long term (current) drug therapy
CPT/HCPCS: 36415-UA; 80164-TC; 90899; 94760; J1200; J1630; J2060; Z7610

== ENCOUNTER 2017-10-25 10:38 | Inpatient (IN) | payer MEDICARE, MEDICAID ==
[2017-10-25] MEDS ORDERED: Sodium Chloride 0.9% 1,000 ML IV ONE (11:15)
[2017-10-25 11:33] LABS: % BASOPHILS 4.3 % (0.0-2.0); % EOSINOPHILS 0.4 % (0.0-5.0); % LYMPHOCYTES 18.3 % (20.0-50.0); % MONOCYTES 6.9 % (2.0-10.0); % NEUTROPHILS 70.1 % (40.0-80.0); BASOPHILE ABSOLUTE 0.5 Th/cumm (0-0.2); HEMOGLOBIN 14.5 gm/dL (12-16); MEAN CELL VOLUME 90.2 fl (81-100); MEAN CORPUSCULAR HEMOGLOBIN 30.4 pg (27.0-31.0); MEAN CORPUSCULAR HGB CONC 33.7 pg (28.0-36.0); MEAN PLATELET VOLUME 7.7 fl; MONOCYTE ABSOLUTE 0.8 Th/cmm (0.3-1.0); NEUTROPHILE ABSOLUTE 7.9 Th/cmm (1.8-8.0); PLATELET COUNT 363 Th/cmm (150-400); RED BLOOD COUNT 4.77 Mil/cmm (3.80-5.20)
[2017-10-25 11:35] LABS: HEMATOCRIT 43.1 % (41.0-60); WHITE BLOOD COUNT 11.2 Th/cmm (4.8-10.8)
[2017-10-25 11:43] LABS: INR 1.02 (0.5-1.4); PROTHROMBIN TIME (TEST) 10.6 SECONDS (9.5-11.5)
--- NOTE | 2017-10-25 11:51 | ED Physician Chart ---
ED Chief Complaint/HPI - Patient Information Date Seen:: 10/25/17 Time Seen:: 11:10 Chief Complaint:: Poor Oral Intake History of Present Illness:: onset x 3 days of poor oral intake and failure to thrive; no report of trauma, H /As, neck pain, C/P, SOB, Abd. Pain, A/N/V/D/C, fever, chills, or urinary s/s Allergies:: Allergies Allergy/AdvReac Type Severity Reaction Status Date / Time No Known Allergies Allergy Verified 10/25/17 11:22 Vitals:: Vital Signs - 8 hr 10/25/17 10/25/17 11:13 11:16 Temp 97.7 F 98.7 F HR 88 78 RR 16 16 BP 128/71 129/83 O2 Sat % 96 98 Historian:: Patient, EMS Review:: Nurse's Note Reviewed, Old Chart Reviewed, EMS run form Reviewed ED Review of Systems - Review of Systems General/Constitutional: No fever, No chills, No weight loss, No weakness, No diaphoresis, No edema, No loss of appetite Skin: No skin lesions, No rash, No bruising Head: No headache, No light-headedness Eyes: No loss of vision, No pain, No diplopia ENT: No earache, No nasal drainage, No sore throat, No tinnitus Neck: No neck pain, No swelling, No thyromegaly, No stiffness, No mass noted Cardio Vascular: No chest pain, No palpitations, No PND, No orthopnea, No edema Pulmonary: SOB, Cough, No sputum, Wheezing GI: No nausea, No vomiting, No diarrhea, No pain, No melena, No hematochezia, No constipation, No hematemesis G/U: No dysuria, No frequency, No hematuria, No nacturia Senior Account Executive: No vaginal discharge, No abnormal vaginal bleed, No contraction Musculoskeletal: No bone or joint pain, No back pain, No muscle pain Endocrine: No polyuria, No polydipsia Psychiatric: Prior psych history, Depression, Anxiety, No suicidal ideation, No homicidal ideation, Auditory hallucination, No visual hallucination Hematopoietic: No bruising, No lymphadenopathy Allergic/Immuno: No urticaria, No angioedema Neurological: No syncope, No focal symptoms, No weakness, No paresthesia, No headache, No seizure, No dizziness, Confusion, No vertigo ED Past Medical History - Past Medical History Obtainable: Yes Past Medical History: HTN, Dyslipidemia, PUD/GERD, Thyroid disorder, Arthritis, Dementia Family History: Diabetes Melitus, HTN Social History: Non Smoker, No Alcohol, No Drug Use, Single, Care Facility Surgical History: None Psychiatricy History: Depression, Schizophrenia, Bipolar, Dementia Medication: Reviewed Family Medical History - Family Member Mother History Unknown: Yes Ethnicity: Non- Living Status: Unknown Hx Family Cancer: No Hx Family Coronary Artery Disease: No Hx Family Congestive Heart Failure: No Hx Family Hypertension: No Hx Family Stroke: No Hx Family Diabetes: No Hx Family Seizures: No Hx Family Dementia: No Hx Family AIDS: No Hx Family HIV: No Hx Family COPD: No Hx Family Hepatitis: No Hx Family Psychiatric Problems: Yes Hx Family Tuberculosis: No ED Physical Exam - Physical Examination General/Constitutional: Awake, Well-developed, well-nourished, Alert, No distress, GCS 15, Non-toxic appearing, Ambulatory Head: Atraumatic Eyes: Lids, conjuctiva normal, PERRL, EOMI Skin: Nl inspection, No rash, No skin lesions, No ecchymosis, Well hydrated, No lymphadenopathy Other Skin comments:: Poor turgor with dry MM ENMT: External ears, nose nl, TM canals nl, Nasal exam nl, Lips, teeth, gums nl , Oropharynx nl, Tonsils nl Neck: Nontender, Full ROM w/o pain, No JVD, No nuchal rigidity, No bruit, No mass, No stridor Respiratory: Nl effort/Exclusion, Clear to Auscultation, No Wheeze/Rhonchi/Rales Cardio Vascular: RRR, No murmur, gallop, rubs, NL S1 S2, Carotid/Femoral/Distal pulses equal bilaterally GI: No tenderness/rebounding/guarding, No organomegaly, No hernia, Normal BS's, Nondistended, No mass/bruits, No McBurney tenderness : No CVA tenderness Extremities: No tenderness or effusion, Full ROM, normal strength in all extremities, No edema, Normal digits & nails Neuro/Psych: DTR's symmetric, Normal sensory exam, Normal motor strength, Judgement/insight normal, Mood normal, Normal gait, No focal deficits Other Neuro/Psych comments:: Disoriented and Confused Misc: Normal back, No paraspinal tenderness ED Labs/Radiology/EKG Results - Lab Results Results: Laboratory Tests 10/25/17 10/25/17 10:55 10:55 WBC 11.2 H D RBC 4.77 Hgb 14.5 Hct 43.1 D MCV 90.2 MCH 30.4 MCHC Differential 33.7 RDW 13.0 Plt Count 363 MPV 7.7 Neutrophils % 70.1 Lymphocytes % 18.3 L Monocytes % 6.9 Eosinophils % 0.4 Basophils % 4.3 H PT 10.6 INR 1.02 PTT (Actin FS) 25.6 L Comments:: WBC: 11.2; BUN: 29 - EKG Interpretations EKG Time:: 11:20 Rate & Rhythm: 88; NSR Comments:: non-specific st-t changes ED Septic Shock - . Is Septic Shock (SBP<90, OR Lactate>4 mmol\L) present?: No - <6hrs of presentation: Vital Signs: Vital Signs - 8 hr 10/25/17 10/25/17 11:13 11:16 Temp 97.7 F 98.7 F HR 88 78 RR 16 16 BP 128/71 129/83 O2 Sat % 96 98 ED Reassessment (Disposition) - Reassessment Reassessment Condition:: Improved - Diagnosis Diagnosis:: Leukocytosis; Failure to Thrive; Poor Oral Intake; Dehydration - Aftercare/Follow up Instructions Aftercare/Follow-Up Instructions:: Counseled pt regarding lab results/diagnosis & need follow up, Counseled pt & family regarding lab results/diagnosis & need follow up - Patient Disposition Discharge/Transfer:: Acute Care w/in this hosp Accepting Physician:: Dr. Turcios Time Called:: 1300 Time Responded:: 13:00 Admitted to:: Med/Surg Spoke to:: Dr. Turcios Admitting Medical Physician:: Dr. Turcios Condition at Disposition:: Stable, Improved
[2017-10-25 12:06] LABS: ALB/GLOB RATIO 0.9 (1.0-1.8); ALBUMIN 3.9 gm/dL (3.7-5.3); ALKALINE PHOSPHATASE 78 U/L (34-104); ANION GAP 16.3 (7.0-16.0); BILIRUBIN,TOTAL 1.7 mg/dL (0.3-1.0); BUN - UREA NITROGEN 29 mg/dL (7-25); CALCIUM SERUM 9.6 mg/dL (8.6-10.3); CARBON DIOXIDE 18.5 mEq/L (21.0-31.0); CHLORIDE 105 mEq/L (98-107); CREATININE - SERUM 0.8 mg/dL (0.6-1.2); CREATININE KINASE 54 U/L (30-223); GFR AFRICAN-AMERICAN > 60.0 ml/min (>90); GFR NON AFRICAN-AMERICAN > 60.0 ml/min; GLUCOSE 83 mg/dL (70-105); POTASSIUM SERUM 3.8 mEq/L (3.5-5.1); SGOT 18 U/L (13-39); SGPT/ALT 13 U/L (7-52); SODIUM SERUM 136 mEq/L (136-145); TOTAL PROTEIN,SERUM 8.1 gm/dL (6.0-8.3)
[2017-10-25 12:11] LABS: LIPASE 26 U/L (11-82)
[2017-10-25 12:15] LABS: AMYLASE SERUM 49 U/L (29-103)
[2017-10-25] MEDS ORDERED: GUAIFENESIN 200 MG PO PRN (15:10)
[2017-10-25] MEDS ORDERED: Albuterol Nebulizer 2.5mg/3mL HHN PRN (15:10)
[2017-10-25] MEDS ORDERED: Maalox 30 mL Cup PO PRN ×2 (15:10→15:12)
[2017-10-25] MEDS ORDERED: guaiFENesin 200 MG/10 ML UDC PO PRN (15:12)
--- NOTE | 2017-10-25 15:17 | Internal Medicine Prog Note ---
Internal Medicine Subjective - Subjective Service Date: 10/25/17 ([facility] dictated [id number]) Internal Medicine Objective - Results Result Diagrams: 10/25/17 10:55 10/25/17 10:55 Recent Labs: Laboratory Last Values WBC 11.2 Th/cmm (4.8-10.8) H D 10/25/17 10:55 RBC 4.77 Mil/cmm (3.80-5.20) 10/25/17 10:55 Hgb 14.5 gm/dL (12-16) 10/25/17 10:55 Hct 43.1 % (41.0-60) D 10/25/17 10:55 MCV 90.2 fl (81-100) 10/25/17 10:55 MCH 30.4 pg (27.0-31.0) 10/25/17 10:55 MCHC Differential 33.7 pg (28.0-36.0) 10/25/17 10:55 RDW 13.0 % (11.5-20.0) 10/25/17 10:55 Plt Count 363 Th/cmm (150-400) 10/25/17 10:55 MPV 7.7 fl 10/25/17 10:55 Neutrophils % 70.1 % (40.0-80.0) 10/25/17 10:55 Lymphocytes % 18.3 % (20.0-50.0) L 10/25/17 10:55 Monocytes % 6.9 % (2.0-10.0) 10/25/17 10:55 Eosinophils % 0.4 % (0.0-5.0) 10/25/17 10:55 Basophils % 4.3 % (0.0-2.0) H 10/25/17 10:55 PT 10.6 SECONDS (9.5-11.5) 10/25/17 10:55 INR 1.02 (0.5-1.4) 10/25/17 10:55 PTT (Actin FS) 25.6 SECONDS (26.0-38.0) L 10/25/17 10:55 Sodium 136 mEq/L (136-145) 10/25/17 10:55 Potassium 3.8 mEq/L (3.5-5.1) 10/25/17 10:55 Chloride 105 mEq/L (98-107) 10/25/17 10:55 Carbon Dioxide 18.5 mEq/L (21.0-31.0) L 10/25/17 10:55 Anion Gap 16.3 (7.0-16.0) H 10/25/17 10:55 BUN 29 mg/dL (7-25) H 10/25/17 10:55 Creatinine 0.8 mg/dL (0.6-1.2) 10/25/17 10:55 Est GFR ( Amer) > 60.0 ml/min (>90) 10/25/17 10:55 Est GFR (Non-Af Amer) > 60.0 ml/min 10/25/17 10:55 BUN/Creatinine Ratio 36.3 10/25/17 10:55 Glucose 83 mg/dL (70-105) 10/25/17 10:55 Whole Bld Lactic Acid 1.10 mmol/L (0.60-1.99) 10/25/17 11:35 Calcium 9.6 mg/dL (8.6-10.3) 10/25/17 10:55 Total Bilirubin 1.7 mg/dL (0.3-1.0) H 10/25/17 10:55 AST 18 U/L (13-39) 10/25/17 10:55 ALT 13 U/L (7-52) 10/25/17 10:55 Alkaline Phosphatase 78 U/L (34-104) 10/25/17 10:55 Creatine Kinase 54 U/L (30-223) 10/25/17 10:55 Troponin I < 0.01 ng/mL (0.01-0.05) L 10/25/17 10:55 Total Protein 8.1 gm/dL (6.0-8.3) 10/25/17 10:55 Albumin 3.9 gm/dL (3.7-5.3) 10/25/17 10:55 Globulin 4.2 gm/dL 10/25/17 10:55 Albumin/Globulin Ratio 0.9 (1.0-1.8) L 10/25/17 10:55 Amylase 49 U/L (29-103) 10/25/17 10:55 Lipase 26 U/L (11-82) 10/25/17 10:55 - Physical Exam Vitals and I&O: Vital Signs Temp 98.6 F 10/25/17 14:45 Pulse 108 10/25/17 14:45 Resp 18 10/25/17 14:45 BP 145/83 10/25/17 14:45 Pulse Ox 97 10/25/17 14:45 Active Medications: Current Medications Acetaminophen (Tylenol) 650 mg PO Q4HR PRN PRN Reason: Pain Or Fever above 101 Stop: 12/24/17 15:11 Al Hydrox/Mg Hydrox/Simethicone (Maalox) 30 ml PO Q6HR PRN PRN Reason: Dyspepsia Stop: 12/24/17 15:11 Albuterol Sulfate (Albuterol 2.5mg/3ml Neb Ud) 2.5 mg HHN Q2HR PRN PRN Reason: Wheezing Stop: 12/24/17 15:09 Atorvastatin Calcium (Lipitor) 10 mg PO DAILY GUS PRN Reason: Protocol Stop: 12/25/17 08:59 Benztropine Mesylate (Cogentin) 1 mg PO BID GUS Stop: 12/24/17 16:59 Divalproex Sodium (Depakote Dr) 500 mg PO BID GUS PRN Reason: Protocol Stop: 12/24/17 16:59 Guaifenesin (Robitussin) 100 mg PO Q4H PRN PRN Reason: Cough or Congestion Stop: 12/24/17 15:11 Sodium Chloride (Nacl 0.9%) 1,000 mls @ 100 mls/hr IV .Q10H ONE Stop: 10/25/17 21:14 Last Admin: 10/25/17 11:48 Dose: 100 mls/hr Dextrose/Sodium Chloride (D5-0.9%Ns) 1,000 mls @ 50 mls/hr IV .Q20H GUS Stop: 12/24/17 15:14 Lorazepam (Ativan) 1 mg IV Q4HR PRN; Protocol PRN Reason: agitation Stop: 12/24/17 15:11 Ondansetron HCl (Zofran) 4 mg IV Q8H PRN PRN Reason: Nausea / Vomiting Stop: 12/24/17 15:11 Zolpidem Tartrate (Ambien) 10 mg PO HS PRN PRN Reason: Insomnia Stop: 12/24/17 15:11 - Procedures Procedures: Procedures Procedure Code Date EMERGENCY DEPT VISIT 63881 11/13/11 EMERGENCY DEPT VISIT 82869 10/11/11
[2017-10-25] MEDS: D5-0.9%NS 1,000 ML IV SCH (16:46)
[2017-10-25] MEDS: Levofloxacin 500mg/100mL 500 MG/100 ML BAG IV SCH (16:47)
[2017-10-25] MEDS: Benztropine 1 MG TAB PO SCH (16:54)
--- NOTE | 2017-10-25 21:30 | History & Physical ---
ADMIT DATE: 10/25/2017 CHIEF COMPLAINT: Poor oral intake. HISTORY OF PRESENT ILLNESS: This is a 66-year-old female who is well known to me from [facility]. The patient has had a 3-day history of poor oral intake and refusing to eat. The patient did not have any nausea, vomiting, abdominal pain at the senior care for further management. The patient is now admitted to the med/surg unit. PAST MEDICAL HISTORY: Hypertension, dyslipidemia, PUD, GERD, hypothyroid, arthritis and dementia. PAST SURGICAL HISTORY: None. ALLERGIES: No known drug allergies. SOCIAL HISTORY: The patient is a senior care resident, requiring 24-hour nursing care. FAMILY HISTORY: Noncontributory. REVIEW OF SYSTEMS: Unable to obtain secondary to patient's mental status. The patient is confused. PHYSICAL EXAMINATION: GENERAL: The patient is awake, alert with some confusion, in no apparent distress. VITAL SIGNS: Temperature 98.6, heart rate 108, blood pressure 145/83, respirations 18 and O2 97%. HEENT: Head; normocephalic, atraumatic. NECK: Supple. No mass. LUNGS: Clear bilaterally. CARDIOVASCULAR: Regular rate and rhythm. ABDOMEN: Soft and nontender. LABORATORY DATA: WBC 11.3, H and H 14.5 and 43.1 and platelet of 363. Sodium 136, potassium 3.8, BUN 29 and creatinine 0.8. Troponin less than 0.01. IMPRESSION: Failure to thrive, leukocytosis, acute dehydration, mild protein calorie malnutrition, hypertension, dyslipidemia, gastroesophageal reflux disease, hypothyroid, arthritis and dementia. PLAN: The patient to be admitted to the med/surg unit. We will get a calorie count. We will put patient on Megace. We will get Psychiatry on board. We will monitor the patient's electrolyte levels. Keep patient on IV fluids for hydration. We will continue to follow this patient. JOB# [id number]
[2017-10-26 07:02] LABS: % BASOPHILS 0.8 % (0.0-2.0); % EOSINOPHILS 1.2 % (0.0-5.0); % LYMPHOCYTES 30.2 % (20.0-50.0); % MONOCYTES 11.7 % (2.0-10.0); % NEUTROPHILS 56.1 % (40.0-80.0); BASOPHILE ABSOLUTE 0.1 Th/cumm (0-0.2); EOSINOPHILE ABSOLUTE 0.1 Th/cmm (0.1-0.4); LYMPHOCYTE ABSOLUTE 2.4 Th/cmm (1.5-3.0); MEAN CELL VOLUME 90.1 fl (81-100); MEAN CORPUSCULAR HEMOGLOBIN 30.3 pg (27.0-31.0); MEAN CORPUSCULAR HGB CONC 33.6 pg (28.0-36.0); MEAN PLATELET VOLUME 7.1 fl; MONOCYTE ABSOLUTE 0.9 Th/cmm (0.3-1.0); NEUTROPHILE ABSOLUTE 4.6 Th/cmm (1.8-8.0); PLATELET COUNT 337 Th/cmm (150-400); RED BLOOD COUNT 3.97 Mil/cmm (3.80-5.20); RED CELL DISTRIBUTION WIDTH 13.3 % (11.5-20.0)
[2017-10-26 07:06] LABS: HEMATOCRIT 35.8 % (41.0-60); WHITE BLOOD COUNT 8.1 Th/cmm (4.8-10.8)
[2017-10-26 07:17] LABS: ANION GAP 7.3 (7.0-16.0); BUN - UREA NITROGEN 20 mg/dL (7-25); CALCIUM SERUM 8.5 mg/dL (8.6-10.3); CARBON DIOXIDE 23.2 mEq/L (21.0-31.0); CHLORIDE 114 mEq/L (98-107); CREATININE - SERUM 0.7 mg/dL (0.6-1.2); GFR AFRICAN-AMERICAN > 60.0 ml/min (>90); GFR NON AFRICAN-AMERICAN > 60.0 ml/min; GLUCOSE 99 mg/dL (70-105); POTASSIUM SERUM 3.5 mEq/L (3.5-5.1); SODIUM SERUM 141 mEq/L (136-145)
--- NOTE | 2017-10-26 08:08 | Diagnostic Imaging Report ---
CHEST X-RAY: AP view INDICATION: Cough COMPARISON: 10/09/2017 FINDINGS: Chronic changes are seen with no focal consolidation or effusions. Heart size is normal. Atherosclerosis is noted. Degenerative changes of the spine are noted. IMPRESSION: Chronic lung changes with no focal consolidation identified Atherosclerotic vascular disease.
[2017-10-26] MEDS: Atorvastatin Calcium 10 MG TAB PO SCH (09:21)
[2017-10-26] MEDS: Benztropine 1 MG TAB PO SCH ×2 (09:21→16:38)
--- NOTE | 2017-10-26 12:49 | Internal Medicine Prog Note ---
Internal Medicine Subjective - Subjective Service Date: 10/26/17 Patient seen and examined:: with staff Patient is:: awake, verbal, confused Per staff patient has:: poor oral intake, tolerating meds Internal Medicine Objective - Results Result Diagrams: 10/26/17 06:26 10/26/17 06:26 Recent Labs: Laboratory Last Values WBC 8.1 Th/cmm (4.8-10.8) D 10/26/17 06:26 RBC 3.97 Mil/cmm (3.80-5.20) 10/26/17 06:26 Hgb 12.0 gm/dL (12-16) 10/26/17 06:26 Hct 35.8 % (41.0-60) L D 10/26/17 06:26 MCV 90.1 fl (81-100) 10/26/17 06:26 MCH 30.3 pg (27.0-31.0) 10/26/17 06: MCHC Differential 33.6 pg (28.0-36.0) 10/26/17 06:26 RDW 13.3 % (11.5-20.0) 10/26/17 06:26 Plt Count 337 Th/cmm (150-400) 10/26/17 06:26 MPV 7.1 fl 10/26/17 06:26 Neutrophils % 56.1 % (40.0-80.0) 10/26/17 06:26 Lymphocytes % 30.2 % (20.0-50.0) 10/26/17 06:26 Monocytes % 11.7 % (2.0-10.0) H 10/26/17 06:26 Eosinophils % 1.2 % (0.0-5.0) 10/26/17 06:26 Basophils % 0.8 % (0.0-2.0) 10/26/17 06:26 PT 10.6 SECONDS (9.5-11.5) 10/25/17 10:55 INR 1.02 (0.5-1.4) 10/25/17 10:55 PTT (Actin FS) 25.6 SECONDS (26.0-38.0) L 10/25/17 10:55 Sodium 141 mEq/L (136-145) 10/26/17 06:26 Potassium 3.5 mEq/L (3.5-5.1) 10/26/17 06:26 Chloride 114 mEq/L (98-107) H 10/26/17 06:26 Carbon Dioxide 23.2 mEq/L (21.0-31.0) 10/26/17 06:26 Anion Gap 7.3 (7.0-16.0) 10/26/17 06:26 BUN 20 mg/dL (7-25) 10/26/17 06:26 Creatinine 0.7 mg/dL (0.6-1.2) 10/26/17 06:26 Est GFR ( Amer) > 60.0 ml/min (>90) 10/26/17 06:26 Est GFR (Non-Af Amer) > 60.0 ml/min 10/26/17 06:26 BUN/Creatinine Ratio 28.6 10/26/17 06:26 Glucose 99 mg/dL (70-105) 10/26/17 06:26 Whole Bld Lactic Acid 1.10 mmol/L (0.60-1.99) 10/25/17 11:35 Calcium 8.5 mg/dL (8.6-10.3) L 10/26/17 06:26 Total Bilirubin 1.7 mg/dL (0.3-1.0) H 10/25/17 10:55 AST 18 U/L (13-39) 10/25/17 10:55 ALT 13 U/L (7-52) 10/25/17 10:55 Alkaline Phosphatase 78 U/L (34-104) 10/25/17 10:55 Creatine Kinase 54 U/L (30-223) 10/25/17 10:55 Troponin I < 0.01 ng/mL (0.01-0.05) L 10/25/17 10:55 Total Protein 8.1 gm/dL (6.0-8.3) 10/25/17 10:55 Albumin 3.9 gm/dL (3.7-5.3) 10/25/17 10:55 Globulin 4.2 gm/dL 10/25/17 10:55 Albumin/Globulin Ratio 0.9 (1.0-1.8) L 10/25/17 10:55 Amylase 49 U/L (29-103) 10/25/17 10:55 Lipase 26 U/L (11-82) 10/25/17 10:55 - Physical Exam Vitals and I&O: Vital Signs Temp 96.8 F 10/26/17 12:17 Pulse 65 10/26/17 12:17 Resp 17 10/26/17 12:17 BP 123/64 10/26/17 12:17 Pulse Ox 99 10/26/17 12:17 Intake & Output 10/25/17 10/26/17 10/26/17 18:59 06:59 18:59 Intake Total 100 Balance 100 Weight (lbs) 121 lb 128 lb Intake: Oral 100 Other: # Voids 3 Active Medications: Current Medications Acetaminophen (Tylenol) 650 mg PO Q4HR PRN PRN Reason: Pain Or Fever above 101 Stop: 12/24/17 15:11 Al Hydrox/Mg Hydrox/Simethicone (Maalox) 30 ml PO Q6HR PRN PRN Reason: Dyspepsia Stop: 12/24/17 15:11 Albuterol Sulfate (Albuterol 2.5mg/3ml Neb Ud) 2.5 mg HHN Q2HR PRN PRN Reason: Wheezing Stop: 12/24/17 15:09 Atorvastatin Calcium (Lipitor) 10 mg PO DAILY GUS PRN Reason: Protocol Stop: 12/25/17 08:59 Last Admin: 10/26/17 09:21 Dose: 10 mg Benztropine Mesylate (Cogentin) 1 mg PO BID [facility] Stop: 12/24/17 16:59 Last Admin: 10/26/17 09:21 Dose: 1 mg Divalproex Sodium (Depakote Dr) 500 mg PO BID GUS PRN Reason: Protocol Stop: 12/24/17 16:59 Last Admin: 10/26/17 09:21 Dose: 500 mg Guaifenesin (Robitussin) 100 mg PO Q4H PRN PRN Reason: Cough or Congestion Stop: 12/24/17 15:11 Dextrose/Sodium Chloride (D5-0.9%Ns) 1,000 mls @ 50 mls/hr IV .Q20H [facility] Stop: 12/24/17 15:14 Last Admin: 10/25/17 16:46 Dose: 50 mls/hr Levofloxacin (Levaquin Pb) 500 mg in 100 mls @ 100 mls/hr IV Q24HR [facility] Stop: 12/24/17 15:29 Last Admin: 10/25/17 16:47 Dose: 100 mls/hr Lorazepam (Ativan) 1 mg IV Q4HR PRN; Protocol PRN Reason: agitation Stop: 12/24/17 15:11 Last Admin: 10/26/17 02:55 Dose: 1 mg Megestrol Acetate (Megace) 400 mg PO DAILY GUS PRN Reason: Protocol Stop: 12/25/17 08:59 Last Admin: 10/26/17 09:21 Dose: 400 mg Ondansetron HCl (Zofran) 4 mg IV Q8H PRN PRN Reason: Nausea / Vomiting Stop: 12/24/17 15:11 Zolpidem Tartrate (Ambien) 10 mg PO HS PRN PRN Reason: Insomnia Stop: 12/24/17 15:11 Last Admin: 10/25/17 20:53 Dose: 10 mg General: alert HEENT: NC/AT, PERRLA Neck: Supple Lungs: CTAB Cardiovascular: RRR, Normal S1, Normal S2 Abdomen: soft, non-tender, non-distended, positive bowel sound Extremities: excoriation Neurological: alert, unable to follow command - Procedures Procedures: Procedures Procedure Code Date EMERGENCY DEPT VISIT 48049 11/13/11 EMERGENCY DEPT VISIT 93575 10/11/11 Internal Medicine Assmt/Plan - Assessment Assessment: failure to thrive leukocytosis acute dehydration htn dyslipidemia gerd hypothyroid arthritis dementia - Plan Plan: monitor i+o monitor electrolytes cbc/bmp in am continue current plan of care
[2017-10-26] MEDS ORDERED: Probiotic Screen MC PRN (15:26)
[2017-10-26] MEDS: Levofloxacin 500mg/100mL 500 MG/100 ML BAG IV SCH (16:38)
[2017-10-26] MEDS: D5-0.9%NS 1,000 ML IV SCH (18:33)
[2017-10-26 20:15] LABS: URINE MICROSCOPIC INDICATED? YES; URINE SOURCE CLEAN C
[2017-10-26 20:21] LABS: URINE BILIRUBIN NEGATIVE (NEGATIVE); URINE BLOOD NEGATIVE (NEGATIVE); URINE GLUCOSE (UA) NEGATIVE (NEGATIVE); URINE KETONE NEGATIVE (NEGATIVE); URINE LEUKOCYTE ESTERASE NEGATIVE (NEGATIVE); URINE NITRATE NEGATIVE (NEGATIVE); URINE PH 6.5 (4.6 - 8.0); URINE PROTEIN NEGATIVE (NEGATIVE); URINE UROBILINOGEN 0.2 E.U./dL (0.2 - 1.0)
[2017-10-26 20:24] LABS: URINE CLARITY CLEAR (CLEAR); URINE COLOR YELLOW
[2017-10-26 20:25] LABS: URINE BACTERIA NONE SEEN /hpf (NONE SEEN); URINE EPITHELIAL CELLS NONE SEEN /lpf (FEW); URINE RBC NONE SEEN /hpf (0-5); URINE WBC NONE SEEN /hpf (0-5)
--- NOTE | 2017-10-26 20:41 | Consultation ---
DATE OF CONSULTATION: 10/26/2017 PSYCHIATRIC CONSULTATION The patient was seen, chart reviewed, discussed with staff. Also discussed with Dr. Turcios. HISTORY OF PRESENT ILLNESS: The patient is a 66-year-old female with chronic history of mental illness, currently on medical floor, admitted for increased confusion and some agitation failure to thrive, and leukocytosis. The patient has been passively cooperative at times, other times she becomes angry and irritable. The patient denied feeling depressed at this time. PAST PSYCHIATRIC HISTORY: Multiple hospitalizations, chronic history of mental illness. PAST MEDICAL HISTORY: As per Dr. Turcios. PSYCHOSOCIAL HISTORY: The patient resides at [facility] and she requires complete care. MENTAL STATUS EXAMINATION: Speech is minimal, short sentences. Affect constricted, irritable. The patient is oriented to person, knew she was in the hospital, knew her age. The patient appears to be hallucinating. ASSESSMENT: 1. Schizophrenia, paranoid type. 2. History of possible dementia. PLAN: At this time, we would recommend continuation of medical supportive measures. Use Zyprexa 2.5 mg p.o. at bedtime, increase dose gradually. The patient is to be on Haldol Decanoate, we will try to verify the last dose she received Thank you for the consultation. [facility]# [id number]
[2017-10-27 06:22] LABS: % BASOPHILS 0.1 % (0.0-2.0); % EOSINOPHILS 1.6 % (0.0-5.0); % LYMPHOCYTES 31.4 % (20.0-50.0); % MONOCYTES 9.5 % (2.0-10.0); % NEUTROPHILS 57.4 % (40.0-80.0); EOSINOPHILE ABSOLUTE 0.1 Th/cmm (0.1-0.4); HEMATOCRIT 36.2 % (41.0-60); HEMOGLOBIN 12.1 gm/dL (12-16); LYMPHOCYTE ABSOLUTE 2.7 Th/cmm (1.5-3.0); MEAN CELL VOLUME 90.5 fl (81-100); MEAN CORPUSCULAR HEMOGLOBIN 30.3 pg (27.0-31.0); MEAN CORPUSCULAR HGB CONC 33.5 pg (28.0-36.0); MEAN PLATELET VOLUME 7.2 fl; MONOCYTE ABSOLUTE 0.8 Th/cmm (0.3-1.0); PLATELET COUNT 347 Th/cmm (150-400); RED CELL DISTRIBUTION WIDTH 13.1 % (11.5-20.0); WHITE BLOOD COUNT 8.6 Th/cmm (4.8-10.8)
[2017-10-27 06:31] LABS: ANION GAP 7.4 (7.0-16.0); BUN - UREA NITROGEN 13 mg/dL (7-25); CALCIUM SERUM 8.8 mg/dL (8.6-10.3); CARBON DIOXIDE 22.3 mEq/L (21.0-31.0); CHLORIDE 115 mEq/L (98-107); CREATININE - SERUM 0.7 mg/dL (0.6-1.2); GFR AFRICAN-AMERICAN > 60.0 ml/min (>90); GFR NON AFRICAN-AMERICAN > 60.0 ml/min; GLUCOSE 108 mg/dL (70-105); POTASSIUM SERUM 3.7 mEq/L (3.5-5.1); SODIUM SERUM 141 mEq/L (136-145)
[2017-10-27] MEDS ORDERED: Lactobacillus Rhamnosus GG 15 Billion CFU CAP.SPRINK PO SCH (09:00)
[2017-10-27] MEDS: Benztropine 1 MG TAB PO SCH ×2 (09:25→16:22)
[2017-10-27] MEDS: Atorvastatin Calcium 10 MG TAB PO SCH (09:26)
--- NOTE | 2017-10-27 11:35 | Internal Medicine Prog Note ---
Internal Medicine Subjective - Subjective Patient is:: awake, verbal, interactive, confused Patient Complaints of:: unable to sleep Per staff patient has:: poor oral intake, agitated, combative, noncompliant, confused, tolerating meds, refusing care Internal Medicine Objective - Results Result Diagrams: 10/27/17 05:37 10/27/17 05:37 Recent Labs: Laboratory Last Values WBC 8.6 Th/cmm (4.8-10.8) 10/27/17 05:37 RBC 4.00 Mil/cmm (3.80-5.20) 10/27/17 05:37 Hgb 12.1 gm/dL (12-16) 10/27/17 05:37 Hct 36.2 % (41.0-60) L 10/27/17 05:37 MCV 90.5 fl (81-100) 10/27/17 05:37 MCH 30.3 pg (27.0-31.0) 10/27/17 05:37 MCHC Differential 33.5 pg (28.0-36.0) 10/27/17 05:37 RDW 13.1 % (11.5-20.0) 10/27/17 05:37 Plt Count 347 Th/cmm (150-400) 10/27/17 05:37 MPV 7.2 fl 10/27/17 05:37 Neutrophils % 57.4 % (40.0-80.0) 10/27/17 05:37 Lymphocytes % 31.4 % (20.0-50.0) 10/27/17 05:37 Monocytes % 9.5 % (2.0-10.0) 10/27/17 05:37 Eosinophils % 1.6 % (0.0-5.0) 10/27/17 05:37 Basophils % 0.1 % (0.0-2.0) 10/27/17 05:37 PT 10.6 SECONDS (9.5-11.5) 10/25/17 10:55 INR 1.02 (0.5-1.4) 10/25/17 10:55 PTT (Actin FS) 25.6 SECONDS (26.0-38.0) L 10/25/17 10:55 Sodium 141 mEq/L (136-145) 10/27/17 05:37 Potassium 3.7 mEq/L (3.5-5.1) 10/27/17 05:37 Chloride 115 mEq/L (98-107) H 10/27/17 05:37 Carbon Dioxide 22.3 mEq/L (21.0-31.0) 10/27/17 05:37 Anion Gap 7.4 (7.0-16.0) 10/27/17 05:37 BUN 13 mg/dL (7-25) 10/27/17 05:37 Creatinine 0.7 mg/dL (0.6-1.2) 10/27/17 05:37 Est GFR ( Amer) > 60.0 ml/min (>90) 10/27/17 05:37 Est GFR (Non-Af Amer) > 60.0 ml/min 10/27/17 05:37 BUN/Creatinine Ratio 18.6 10/27/17 05:37 Glucose 108 mg/dL (70-105) H 10/27/17 05:37 Whole Bld Lactic Acid 1.10 mmol/L (0.60-1.99) 10/25/17 11:35 Calcium 8.8 mg/dL (8.6-10.3) 10/27/17 05:37 Total Bilirubin 1.7 mg/dL (0.3-1.0) H 10/25/17 10:55 AST 18 U/L (13-39) 10/25/17 10:55 ALT 13 U/L (7-52) 10/25/17 10:55 Alkaline Phosphatase 78 U/L (34-104) 10/25/17 10:55 Creatine Kinase 54 U/L (30-223) 10/25/17 10:55 Troponin I < 0.01 ng/mL (0.01-0.05) L 10/25/17 10:55 Total Protein 8.1 gm/dL (6.0-8.3) 10/25/17 10:55 Albumin 3.9 gm/dL (3.7-5.3) 10/25/17 10:55 Globulin 4.2 gm/dL 10/25/17 10:55 Albumin/Globulin Ratio 0.9 (1.0-1.8) L 10/25/17 10:55 Amylase 49 U/L (29-103) 10/25/17 10:55 Lipase 26 U/L (11-82) 10/25/17 10:55 Urine Source CLEAN C 10/26/17 16:45 Urine Color YELLOW 10/26/17 16:45 Urine Clarity CLEAR (CLEAR) 10/26/17 16:45 Urine pH 6.5 (4.6 - 8.0) 10/26/17 16:45 Ur Specific [place] 1.010 (1.005-1.030) 10/26/17 16:45 Urine Protein NEGATIVE mg/dL (NEGATIVE) 10/26/17 16:45 Urine Glucose (UA) NEGATIVE mg/dL (NEGATIVE) 10/26/17 16:45 Urine Ketones NEGATIVE mg/dL (NEGATIVE) 10/26/17 16:45 Urine Blood NEGATIVE (NEGATIVE) 10/26/17 16:45 Urine Nitrate NEGATIVE (NEGATIVE) 10/26/17 16:45 Urine Bilirubin NEGATIVE (NEGATIVE) 10/26/17 16:45 Urine Urobilinogen 0.2 E.U./dL (0.2 - 1.0) 10/26/17 16:45 Ur Leukocyte Esterase NEGATIVE (NEGATIVE) 10/26/17 16:45 Urine RBC NONE SEEN /hpf (0-5) 10/26/17 16:45 Urine WBC NONE SEEN /hpf (0-5) 10/26/17 16:45 Ur Epithelial Cells NONE SEEN /lpf (FEW) 10/26/17 16:45 Urine Bacteria NONE SEEN /hpf (NONE SEEN) 10/26/17 16:45 - Physical Exam Vitals and I&O: Vital Signs Temp 96.4 F 10/27/17 08:00 Pulse 69 10/27/17 08:00 Resp 17 10/27/17 08:00 BP 125/65 10/27/17 08:00 Pulse Ox 100 10/27/17 08:00 Intake & Output 10/26/17 10/27/17 10/27/17 18:59 06:59 18:59 Intake Total 1000 290 Balance 1000 290 Weight (lbs) 59.829 kg Intake: Intake, IV Amount 1000 D5-0.9%Ns 1,000 ml @ 50 1000 mls/hr IV .Q20H [facility]US Rx#: [id number] Oral 290 Other: # Voids 3 # Bowel Movements 0 Active Medications: Current Medications Acetaminophen (Tylenol) 650 mg PO Q4HR PRN PRN Reason: Pain Or Fever above 101 Stop: 12/24/17 15:11 Al Hydrox/Mg Hydrox/Simethicone (Maalox) 30 ml PO Q6HR PRN PRN Reason: Dyspepsia Stop: 12/24/17 15:11 Albuterol Sulfate (Albuterol 2.5mg/3ml Neb Ud) 2.5 mg HHN Q2HR PRN PRN Reason: Wheezing Stop: 12/24/17 15:09 Atorvastatin Calcium (Lipitor) 10 mg PO DAILY GUS PRN Reason: Protocol Stop: 12/25/17 08:59 Last Admin: 10/27/17 09:26 Dose: 10 mg Benztropine Mesylate (Cogentin) 1 mg PO BID [facility] Stop: 12/24/17 16:59 Last Admin: 10/27/17 09:25 Dose: 1 mg Divalproex Sodium (Depakote Dr) 500 mg PO BID [facility] PRN Reason: Protocol Stop: 12/24/17 16:59 Last Admin: 10/27/17 09:25 Dose: 500 mg Guaifenesin (Robitussin) 100 mg PO Q4H PRN PRN Reason: Cough or Congestion Stop: 12/24/17 15:11 Dextrose/Sodium Chloride (D5-0.9%Ns) 1,000 mls @ 50 mls/hr IV .Q20H [facility] Stop: 12/24/17 15:14 Last Admin: 10/26/17 18:33 Dose: 50 mls/hr Levofloxacin (Levaquin Pb) 500 mg in 100 mls @ 100 mls/hr IV Q24HR [facility] Stop: 12/24/17 15:29 Last Admin: 10/26/17 16:38 Dose: 100 mls/hr Lactobacillus Rhamnosus (Culturelle 15b) 1 each PO DAILY [facility] Stop: 12/26/17 08:59 Last Admin: 10/27/17 09:26 Dose: 1 each Lorazepam (Ativan) 1 mg IV Q4HR PRN; Protocol PRN Reason: agitation Stop: 12/24/17 15:11 Last Admin: 10/26/17 02:55 Dose: 1 mg Megestrol Acetate (Megace) 400 mg PO DAILY GUS PRN Reason: Protocol Stop: 12/25/17 08:59 Last Admin: 10/27/17 09:25 Dose: 400 mg Miscellaneous (Probiotic Screen) 1 ea MC PRN PRN PRN Reason: PROTOCOL Stop: 12/25/17 15:25 Olanzapine (Zyprexa) 2.5 mg PO HS GUS PRN Reason: Protocol Stop: 12/25/17 20:59 Ondansetron HCl (Zofran) 4 mg IV Q8H PRN PRN Reason: Nausea / Vomiting Stop: 12/24/17 15:11 Zolpidem Tartrate (Ambien) 10 mg PO HS PRN PRN Reason: Insomnia Stop: 12/24/17 15:11 Last Admin: 10/25/17 20:53 Dose: 10 mg General: demented, disheveled, appears older HEENT: NC/AT, PERRLA Neck: Supple Lungs: CTAB Cardiovascular: RRR, Normal S1, Normal S2 Abdomen: soft, non-tender, non-distended, positive bowel sound Extremities: excoriation Neurological: no change, disorganized, unable to follow command - Procedures Procedures: Procedures Procedure Code Date EMERGENCY DEPT VISIT 16039 11/13/11 EMERGENCY DEPT VISIT 67806 10/11/11 Internal Medicine Assmt/Plan - Assessment Assessment: - Assessment Assessment: failure to thrive leukocytosis acute dehydration htn dyslipidemia gerd hypothyroid arthritis dementia - Plan Plan: monitor i+o monitor electrolytes cbc/bmp in am continue current plan of care - Plan Plan: possible transfer to [facility]
[2017-10-27] MEDS: Levofloxacin 500mg/100mL 500 MG/100 ML BAG IV SCH (14:33)
[2017-10-27] MEDS: D5-0.9%NS 1,000 ML IV SCH (14:39)
--- NOTE | 2017-10-27 15:22 | Progress Notes ---
DATE: 10/27/2017 SUBJECTIVE: The patient was seen today, still grandiose, confused, irritable, talked about having millions of dollars and want to give it to the police. The patient was taking her medications, does not appear to have any side effects. ASSESSMENT: The patient is still in psychotic phase. PLAN: Continue medication management. Continue supportive measures. Continue to monitor closely. Increase Zyprexa to 5 mg p.o. at bedtime. JOB# [id number]
--- NOTE | 2017-12-21 02:43 | Discharge Summary ---
DATE OF DISCHARGE: 10/27/2017 DISCHARGE DIAGNOSES: Failure to thrive, leukocytosis, acute dehydration, mild protein calorie malnutrition, hypertension, dyslipidemia, gastroesophageal reflux disease, hypothyroid, arthritis and dementia. HISTORY OF PRESENT ILLNESS: A 66-year-old female who is well known to [place], [facility] patient, who has a 3-day history of poor oral intake and refusing to eat. The patient did not have any nausea, vomiting or any abdominal pain. For further management, the patient was admitted to the med/surg unit. PHYSICAL EXAMINATION: GENERAL: Elderly female, awake, with confusion, no apparent distress. VITAL SIGNS: Stable. HEENT: Head is normocephalic and atraumatic. NECK: Supple. No mass. LUNGS: Clear bilaterally. HEART: Regular rate and rhythm. ABDOMEN: Soft, nontender. HOSPITAL COURSE: During the hospital stay, the patient was admitted to the med-surg unit. The patient was kept on IV fluids for hydration. The patient was on calorie count as well. Psychiatrist was on the case. The patient's WBCs improved; upon admission was 11.2 and upon discharge was 8.6. The patient's appetite has come back and the patient did not have any episodes of any poor oral intake during the hospital stay. We thus decided for this patient to be transferred to the Geropsych unit. CONDITION UPON DISCHARGE: Fair. DISPOSITION: Geropsych unit. JOB# [id number]
== END 2017-10-27 16:25 | DRG 641 ==
LOC: ER 10:38 → MSI 13:20
PROVIDERS: ADMIT Internal Medicine; ATTEND Internal Medicine
DX: E86.0 Dehydration (principal); E44.1 Mild protein-calorie malnutrition; F03.90 Unspecified dementia, unspecified severity, without behavioral disturbance, psychotic disturbance, mood disturbance, and anxiety; F20.0 Paranoid schizophrenia; R62.7 Adult failure to thrive; I10 Essential (primary) hypertension; E78.5 Hyperlipidemia, unspecified; K21.9 Gastro-esophageal reflux disease without esophagitis; E03.9 Hypothyroidism, unspecified; M19.90 Unspecified osteoarthritis, unspecified site; F31.9 Bipolar disorder, unspecified; D72.829 Elevated white blood cell count, unspecified; K27.9 Peptic ulcer, site unspecified, unspecified as acute or chronic, without hemorrhage or perforation; Z83.3 Family history of diabetes mellitus; Z82.49 Family history of ischemic heart disease and other diseases of the circulatory system
CPT/HCPCS: 36415-UA; 71045-TC; 80048-TC; 80053-TC; 81001-TC; 82150-TC; 82550-TC; 83605; 83690-TC; 84484-TC; 85025-TC; 85610-TC; 85730-TC; 93005; 94760; J1956; J2060; J7030; J7042; Z7610

== ENCOUNTER 2017-10-27 16:42 | Inpatient (IN) | payer MEDICARE, MEDICAID ==
[2017-10-27 17:11] VITALS: BP 123/66
[2017-10-27] MEDS ORDERED: Maalox 30 mL Cup PO PRN (17:11)
[2017-10-27] MEDS ORDERED: Magnesium Hydroxide (MOM) 30 mL UDC PO PRN (17:11)
[2017-10-27] MEDS ORDERED: Albuterol Nebulizer 2.5mg/3mL HHN PRN (17:28)
[2017-10-28] MEDS: Atorvastatin Calcium 10 MG TAB PO SCH (08:59)
[2017-10-28] MEDS: Benztropine 1 MG TAB PO SCH ×2 (08:59→16:39)
[2017-10-28] MEDS: Multivitamin Tab PO SCH (09:00)
--- NOTE | 2017-10-28 15:17 | Internal Medicine Prog Note ---
Internal Medicine Subjective - Subjective Patient seen and examined:: with staff, chart reviewed Patient is:: awake, verbal, interactive, in bed, agitated, confused Per staff patient has:: no adverse event, no episodes of fall, poor appetite, agitated, noncompliant, confused, tolerating meds Internal Medicine Objective - Physical Exam Vitals and I&O: Vital Signs Temp 98.3 F 10/27/17 17:18 Pulse 96 10/28/17 07:31 Resp 18 10/28/17 07:31 BP 123/66 10/27/17 17:18 Pulse Ox 100 10/28/17 07:31 Active Medications: Current Medications Acetaminophen (Tylenol) 650 mg PO Q4HR PRN PRN Reason: Mild Pain / Temp above 100 Stop: 12/26/17 17:10 Al Hydrox/Mg Hydrox/Simethicone (Maalox) 30 ml PO Q4HR PRN PRN Reason: GI DISTRESS Stop: 12/26/17 17:10 Albuterol Sulfate (Albuterol 2.5mg/3ml Neb Ud) 2.5 mg HHN Q2HR PRN PRN Reason: Wheezing Stop: 12/26/17 17:27 Atorvastatin Calcium (Lipitor) 10 mg PO DAILY [facility]US PRN Reason: Protocol Stop: 12/27/17 08:59 Last Admin: 10/28/17 08:59 Dose: 10 mg Benztropine Mesylate (Cogentin) 1 mg PO BID [facility] Stop: 12/27/17 08:59 Last Admin: 10/28/17 08:59 Dose: 1 mg Divalproex Sodium (Depakote Dr) 500 mg PO BID [facility] PRN Reason: Protocol Stop: 12/27/17 08:59 Last Admin: 10/28/17 08:59 Dose: 500 mg Lorazepam (Ativan) 0.5 mg PO Q4HR PRN; Protocol PRN Reason: Anxiety Stop: 11/26/17 17:10 Magnesium Hydroxide (Milk Of Magnesia) 30 ml PO HS PRN PRN Reason: Constipation Multivitamins/Vitamin C (Theragran) 1 tab PO DAILY [facility] Stop: 12/27/17 08:59 Last Admin: 10/28/17 09:00 Dose: 1 tab Olanzapine (Zyprexa) 5 mg PO HS [facility]US PRN Reason: Protocol Stop: 04/26/18 20:59 Zolpidem Tartrate (Ambien) 5 mg PO HS PRN PRN Reason: Insomnia Stop: 12/26/17 17:10 General: demented HEENT: NC/AT, PERRLA, EOMI, poor dentition Neck: Supple, No JVD, No LAD Lungs: CTAB Cardiovascular: RRR, Normal S1, Normal S2 Abdomen: soft, non-tender, thin, positive bowel sound Extremities: excoriation Neurological: no change, disorganized - Procedures Procedures: Procedures Procedure Code Date EMERGENCY DEPT VISIT 37426 11/13/11 EMERGENCY DEPT VISIT 73514 10/11/11 Internal Medicine Assmt/Plan - Assessment Assessment: - Assessment Assessment: failure to thrive leukocytosis acute dehydration htn dyslipidemia gerd hypothyroid arthritis dementia - Plan Plan: - Plan Plan: monitor i+o monitor electrolytes cbc/bmp in am continue current plan of care - Plan Plan: huong borja rn
--- NOTE | 2017-10-28 15:19 | Psychosocial Evaluation ---
DATE OF SERVICE: 10/28/2017 CHIEF COMPLAINT: "I am fine." HISTORY OF PRESENT ILLNESS: The patient is a 66-year-old female who was on medical floor confused, paranoid, irritable, having episodes where she is talking to herself, at times refusing care, refusing medications. The patient was transferred to [facility] after she was medically cleared. The patient still argumentative at times. PAST PSYCHIATRIC HISTORY: Chronic history of mental illness. PAST MEDICAL HISTORY: As per H and P. PSYCHOSOCIAL HISTORY: The patient resides at [facility] and requires complete care. MENTAL STATUS EXAMINATION: Speech is rapid at times, are relevant to topic. Thought process is disorganized. The patient is still paranoid, grandiose, talking about having millions and given monitor the police. She is oriented to person being in the hospital, knew her age, and she is not oriented to time. The patient's strengths: The patient is passively accepting treatment and the patient's liabilities, poor coping skills, and lack of insight. ASSESSMENT: Schizoaffective disorder, rule out dementia, Alzheimer's type. MEDICAL: As medical history, stressors is severe. PLAN: We will admit the patient for hospitalization. We will start individual and group therapy, assess psychopharmacological intervention. We will continue Depakote 500 mg p.o. b.i.d., use Zyprexa 5 mg p.o. at bedtime. Monitor closely. ESTIMATED LENGTH OF STAY: 7 days. CRITERIA FOR DISCHARGE: Improved condition. No agitation, less confusion, less irritability, safe disposition, outpatient treatment plan. [facility]# [id number]
[2017-10-28] MEDS ORDERED: Maalox 30 mL Cup PO PRN (15:24)
[2017-10-28] MEDS ORDERED: GUAIFENESIN 200 MG PO PRN (15:24)
[2017-10-29] MEDS: Benztropine 1 MG TAB PO SCH ×2 (09:10→16:22)
[2017-10-29] MEDS: Multivitamin Tab PO SCH (09:10)
[2017-10-29] MEDS: Atorvastatin Calcium 10 MG TAB PO SCH (09:11)
--- NOTE | 2017-10-29 12:45 | Internal Medicine Prog Note ---
Internal Medicine Subjective - Subjective Service Date: 10/29/17 Patient is:: awake, verbal, interactive, in bed, agitated, confused Per staff patient has:: no adverse event, no episodes of fall, poor appetite, agitated, noncompliant, confused, tolerating meds Internal Medicine Objective - Physical Exam Vitals and I&O: Vital Signs Temp 98.3 F 10/29/17 05:49 Pulse 61 10/29/17 12:18 Resp 18 10/29/17 12:18 BP 134/67 10/29/17 05:49 Pulse Ox 99 10/29/17 12:18 Intake & Output 10/28/17 10/29/17 10/29/17 18:59 06:59 18:59 Intake Total 1400 180 Balance 1400 180 Intake: Oral 1400 180 Other: # Voids 4 1 # Bowel Movements 2 0 Active Medications: Current Medications Acetaminophen (Tylenol) 650 mg PO Q4HR PRN PRN Reason: Mild Pain / Temp above 100 Stop: 12/26/17 17:10 Al Hydrox/Mg Hydrox/Simethicone (Maalox) 30 ml PO Q4HR PRN PRN Reason: GI DISTRESS Stop: 12/26/17 17:10 Al Hydrox/Mg Hydrox/Simethicone (Maalox) 30 ml PO Q6HR PRN PRN Reason: Abdominal Cramping Stop: 12/27/17 15:23 Albuterol Sulfate (Albuterol 2.5mg/3ml Neb Ud) 2.5 mg HHN Q2HR PRN PRN Reason: Wheezing Stop: 12/26/17 17:27 Atorvastatin Calcium (Lipitor) 10 mg PO DAILY GUS PRN Reason: Protocol Stop: 12/27/17 08:59 Last Admin: 10/29/17 09:11 Dose: 10 mg Benztropine Mesylate (Cogentin) 1 mg PO BID GUS Stop: 12/27/17 08:59 Last Admin: 10/29/17 09:10 Dose: 1 mg Divalproex Sodium (Depakote Dr) 500 mg PO BID GUS PRN Reason: Protocol Stop: 12/27/17 08:59 Last Admin: 10/29/17 09:10 Dose: 500 mg Lorazepam (Ativan) 0.5 mg PO Q4HR PRN; Protocol PRN Reason: Anxiety Stop: 11/26/17 17:10 Magnesium Hydroxide (Milk Of Magnesia) 30 ml PO HS PRN PRN Reason: Constipation Miscellaneous (Guaifenesin [Guaifenesin]) 200 mg PO Q4HR PRN PRN Reason: Cough Multivitamins/Vitamin C (Theragran) 1 tab PO DAILY GUS Stop: 12/27/17 08:59 Last Admin: 10/29/17 09:10 Dose: 1 tab Olanzapine (Zyprexa) 5 mg PO HS GUS PRN Reason: Protocol Stop: 12/27/17 20:59 Last Admin: 10/28/17 21:39 Dose: 5 mg Zolpidem Tartrate (Ambien) 5 mg PO HS PRN PRN Reason: Insomnia Stop: 12/26/17 17:10 General: demented HEENT: NC/AT, PERRLA, EOMI, poor dentition Neck: Supple, No JVD, No LAD Lungs: CTAB Cardiovascular: RRR, Normal S1, Normal S2 Abdomen: soft, non-tender, thin, positive bowel sound Extremities: excoriation Neurological: no change, disorganized - Procedures Procedures: Procedures Procedure Code Date EMERGENCY DEPT VISIT 04922 11/13/11 EMERGENCY DEPT VISIT 12219 10/11/11 Internal Medicine Assmt/Plan - Assessment Assessment: failure to thrive leukocytosis acute dehydration htn dyslipidemia gerd hypothyroid arthritis dementia - Plan Plan: monitor i+o encourage fluids continue current orders
--- NOTE | 2017-10-29 22:00 | Psychosocial Evaluation ---
DATE OF SERVICE: 10/29/2017 SUBJECTIVE: Staff was spoken to. The patient is interviewed. Mood is noted to be irritable. Affect is constricted. The patient continues to be angry and upset. The patient is pacing most of the time on the unit. The patient has paranoid. The patient has been on olanzapine 5 mg at bedtime and valproic acid 500 mg twice a day and has been able to tolerate. The patient is talking, but is not making much sense. No side effects to the medications are noted at this time. ASSESSMENT: The patient is still psychotic. PLAN: To continue the patient with the supportive therapy, encouraged the patient to verbalize the concerns rather than to act out. [facility]# [id number]
[2017-10-30] MEDS: Benztropine 1 MG TAB PO SCH ×2 (08:29→17:38)
[2017-10-30] MEDS: Multivitamin Tab PO SCH (08:29)
[2017-10-30] MEDS: Atorvastatin Calcium 10 MG TAB PO SCH (08:29)
--- NOTE | 2017-10-30 15:10 | Internal Medicine Prog Note ---
Internal Medicine Subjective - Subjective Service Date: 10/30/17 Patient is:: awake, verbal, interactive, in bed, agitated, confused Per staff patient has:: no adverse event, no episodes of fall, poor appetite, agitated, noncompliant, confused, tolerating meds Internal Medicine Objective - Physical Exam Vitals and I&O: Vital Signs Temp 98.1 F 10/30/17 06:22 Pulse 109 10/30/17 06:59 Resp 20 10/30/17 11:38 BP 115/72 10/30/17 06:22 Pulse Ox 99 10/30/17 06:59 Intake & Output 10/29/17 10/30/17 10/30/17 18:59 06:59 18:59 Intake Total 1300 500 Balance 1300 500 Intake: Oral 1300 500 Other: # Voids 4 3 # Bowel Movements 2 0 Active Medications: Current Medications Acetaminophen (Tylenol) 650 mg PO Q4HR PRN PRN Reason: Mild Pain / Temp above 100 Stop: 12/26/17 17:10 Last Admin: 10/30/17 05:22 Dose: 650 mg Al Hydrox/Mg Hydrox/Simethicone (Maalox) 30 ml PO Q6HR PRN PRN Reason: Abdominal Cramping Stop: 12/27/17 15:23 Albuterol Sulfate (Albuterol 2.5mg/3ml Neb Ud) 2.5 mg HHN Q2HR PRN PRN Reason: Wheezing Stop: 12/26/17 17:27 Atorvastatin Calcium (Lipitor) 10 mg PO DAILY GUS PRN Reason: Protocol Stop: 12/27/17 08:59 Last Admin: 10/30/17 08:29 Dose: 10 mg Benztropine Mesylate (Cogentin) 1 mg PO BID GUS Stop: 12/27/17 08:59 Last Admin: 10/30/17 08:29 Dose: 1 mg Divalproex Sodium (Depakote Dr) 500 mg PO BID GUS PRN Reason: Protocol Stop: 12/27/17 08:59 Last Admin: 10/30/17 08:29 Dose: 500 mg Lorazepam (Ativan) 0.5 mg PO Q4HR PRN; Protocol PRN Reason: Anxiety Stop: 11/26/17 17:10 Magnesium Hydroxide (Milk Of Magnesia) 30 ml PO HS PRN PRN Reason: Constipation Miscellaneous (Guaifenesin [Guaifenesin]) 200 mg PO Q4HR PRN PRN Reason: Cough Multivitamins/Vitamin C (Theragran) 1 tab PO DAILY GUS Stop: 12/27/17 08:59 Last Admin: 10/30/17 08:29 Dose: 1 tab Olanzapine (Zyprexa) 5 mg PO HS GUS PRN Reason: Protocol Stop: 12/27/17 20:59 Last Admin: 10/29/17 21:00 Dose: 5 mg Zolpidem Tartrate (Ambien) 5 mg PO HS PRN PRN Reason: Insomnia Stop: 12/26/17 17:10 Last Admin: 10/29/17 21:00 Dose: 5 mg General: demented HEENT: NC/AT, PERRLA, EOMI, poor dentition Neck: Supple, No JVD, No LAD Lungs: CTAB Cardiovascular: RRR, Normal S1, Normal S2 Abdomen: soft, non-tender, thin, positive bowel sound Extremities: excoriation Neurological: no change, disorganized - Procedures Procedures: Procedures Procedure Code Date EMERGENCY DEPT VISIT 45757 11/13/11 EMERGENCY DEPT VISIT 29448 10/11/11 Internal Medicine Assmt/Plan - Assessment Assessment: failure to thrive leukocytosis acute dehydration htn dyslipidemia gerd hypothyroid arthritis dementia - Plan Plan: monitor i+o encourage fluids continue current orders
[2017-10-30] MEDS ORDERED: guaiFENesin 200 MG/10 ML UDC PO PRN (17:27)
--- NOTE | 2017-10-30 20:25 | Progress Notes ---
DATE: 10/30/2017 SUBJECTIVE: The patient is still restless at times, episodes of anxiety, still talking to herself, but her appetite is fair. Sleep is fair. The patient is more consistent with her medications. ASSESSMENT: The patient in psychotic phase. PLAN: Continue stabilization. Continue medication management. Continue Depakote and Zyprexa. JOB# [id number]
[2017-10-31] MEDS: Benztropine 1 MG TAB PO SCH ×2 (08:28→21:44)
[2017-10-31] MEDS: Multivitamin Tab PO SCH (08:28)
[2017-10-31] MEDS: Atorvastatin Calcium 10 MG TAB PO SCH (08:28)
--- NOTE | 2017-10-31 13:58 | Internal Medicine Prog Note ---
Internal Medicine Subjective - Subjective Service Date: 10/31/17 Patient is:: awake, verbal, interactive, in bed, agitated, confused Per staff patient has:: no adverse event, no episodes of fall, poor appetite, agitated, noncompliant, confused, tolerating meds Internal Medicine Objective - Physical Exam Vitals and I&O: Vital Signs Temp 98.2 F 10/31/17 05:55 Pulse 69 10/31/17 10:49 Resp 18 10/31/17 10:49 BP 131/70 10/31/17 05:55 Pulse Ox 100 10/31/17 10:49 Intake & Output 10/30/17 10/31/17 10/31/17 18:59 06:59 18:59 Intake Total 240 Balance 240 Intake: Oral 240 Other: # Voids 2 # Bowel Movements 1 Active Medications: Current Medications Acetaminophen (Tylenol) 650 mg PO Q4HR PRN PRN Reason: Mild Pain / Temp above 100 Stop: 12/26/17 17:10 Last Admin: 10/30/17 05:22 Dose: 650 mg Al Hydrox/Mg Hydrox/Simethicone (Maalox) 30 ml PO Q6HR PRN PRN Reason: Abdominal Cramping Stop: 12/27/17 15:23 Albuterol Sulfate (Albuterol 2.5mg/3ml Neb Ud) 2.5 mg HHN Q2HR PRN PRN Reason: Wheezing Stop: 12/26/17 17:27 Atorvastatin Calcium (Lipitor) 10 mg PO DAILY GUS PRN Reason: Protocol Stop: 12/27/17 08:59 Last Admin: 10/31/17 08:28 Dose: 10 mg Benztropine Mesylate (Cogentin) 1 mg PO BID GUS Stop: 12/27/17 08:59 Last Admin: 10/31/17 08:28 Dose: 1 mg Divalproex Sodium (Depakote Dr) 500 mg PO BID GUS PRN Reason: Protocol Stop: 12/27/17 08:59 Last Admin: 10/31/17 08:28 Dose: 500 mg Guaifenesin (Robitussin) 200 mg PO Q4HR PRN PRN Reason: Cough Stop: 12/29/17 17:26 Lorazepam (Ativan) 0.5 mg PO Q4HR PRN; Protocol PRN Reason: Anxiety Stop: 11/26/17 17:10 Magnesium Hydroxide (Milk Of Magnesia) 30 ml PO HS PRN PRN Reason: Constipation Multivitamins/Vitamin C (Theragran) 1 tab PO DAILY GUS Stop: 12/27/17 08:59 Last Admin: 10/31/17 08:28 Dose: 1 tab Olanzapine (Zyprexa) 5 mg PO HS GUS PRN Reason: Protocol Stop: 12/27/17 20:59 Last Admin: 10/30/17 20:49 Dose: 5 mg Zolpidem Tartrate (Ambien) 5 mg PO HS PRN PRN Reason: Insomnia Stop: 12/26/17 17:10 Last Admin: 10/29/17 21:00 Dose: 5 mg General: demented HEENT: NC/AT, PERRLA, EOMI, poor dentition Neck: Supple, No JVD, No LAD Lungs: CTAB Cardiovascular: RRR, Normal S1, Normal S2 Abdomen: soft, non-tender, thin, positive bowel sound Extremities: excoriation Neurological: no change, disorganized - Procedures Procedures: Procedures Procedure Code Date EMERGENCY DEPT VISIT 54072 11/13/11 EMERGENCY DEPT VISIT 75480 10/11/11 Internal Medicine Assmt/Plan - Assessment Assessment: failure to thrive leukocytosis acute dehydration htn dyslipidemia gerd hypothyroid arthritis dementia - Plan Plan: monitor i+o encourage fluids continue current orders
--- NOTE | 2017-10-31 20:17 | Progress Notes ---
DATE: 10/31/2017 I met this patient, discussed with staff. Still superficial, wandering around the unit, requiring redirecting by staff, but her anger outburst appears to be decreasing. The patient is eating well and sleeping better. compared to time of admission. The patient is still grandiose, talking about given out money to the police and other people. The patient is still rambling at times talking to herself. ASSESSMENT: The patient still in psychotic phase. PLAN: Continue stabilization. Continue supportive measures. Continue Zyprexa 5 mg p.o. at bedtime, decrease Cogentin to 1 mg p.o. at bedtime. JOB# [id number]
--- NOTE | 2017-10-31 21:51 | Consultation ---
DATE OF CONSULTATION: 10/29/2017 REQUESTING PHYSICIAN: Mireille Archer M.D. TYPE OF CONSULTATION: Psychology. HISTORY OF PRESENT ILLNESS: The following is by review of medical record as well as by the patient's self report. The patient is a 66-year-old female who presents with paranoid ideation. The patient's mood is irritable and seems to be responding to internal stimuli. The patient is talking to herself and not making much sense. According to the staff at the patient's facility, she had been refusing care and refusing medications. The patient did not answer questions about suicidal ideation, plan, or intention during the initial clinical interview. She is pacing on the unit. PAST MEDICAL HISTORY: Please see history and physical. PAST PSYCHIATRIC HISTORY: The patient has a long history of schizoaffective disorder. The patient has had a recent hospitalization here on the Geropsychiatric unit and was returned to this unit for stabilization. MEDICATIONS: Please see medication reconciliation. SUBSTANCE ABUSE HISTORY: None reported. PSYCHOSOCIAL HISTORY: The patient is a patient at [facility] and is under the care of a psychiatrist at her [facility] facility. The patient did not answer questions about occupational or educational history or alevism affiliation. MENTAL STATUS EXAMINATION: Speech is pressured. The patient was able to respond coherently to some of the clinical interviews. However, the patient's thought process is fragmented and disorganized. The patient is verbalizing paranoid ideation as well as grandiose delusional type of thought. The patient did not perform the memory evaluation. Impulse control is inadequate. Concentration is compromised. The patient did not answer or interpret the questions regarding interpretation of proverbs. The patient is alert and oriented to place and person, but not date or time. Insight is poor. Judgment is compromised. DIAGNOSTIC IMPRESSION: AXIS I: Schizoaffective disorder by history. AXIS II: Deferred. AXIS III: Please see history and physical. PLAN: The patient is readmitted for hospitalization and stabilization. The patient is taking her p.o. medications at the time of this interview. We will continue to provide positive reinforcement and motivational enhancement for the patient to stay compliant with her care and treatment plan. We will provide reality testing, reality orientation, reality integration. We will provide coping strategies for chronic long-term severe mental illness. We will provide behavioral management with respect to the patient being able to follow through with staff direction here on the unit as well as at her fpc facility and provide those skills. Thank you, Dr. Archer for this consult and the opportunity to participate with you in this patient's care. JOB# [id number] HARLAN
[2017-11-01] MEDS: Multivitamin Tab PO SCH (09:34)
[2017-11-01] MEDS: Atorvastatin Calcium 10 MG TAB PO SCH (09:34)
--- NOTE | 2017-11-01 13:30 | Internal Medicine Prog Note ---
Internal Medicine Subjective - Subjective Service Date: 11/01/17 Patient is:: awake, verbal, interactive, in bed, agitated, confused Per staff patient has:: no adverse event, no episodes of fall, poor appetite, agitated, noncompliant, confused, tolerating meds Internal Medicine Objective - Physical Exam Vitals and I&O: Vital Signs Temp 97.9 F 11/01/17 08:00 Pulse 80 11/01/17 08:00 Resp 20 11/01/17 08:00 BP 125/71 11/01/17 08:00 Pulse Ox 97 11/01/17 08:00 Intake & Output 10/31/17 11/01/17 11/01/17 18:59 06:59 18:59 Intake Total 250 250 Balance 250 250 Intake: Oral 250 250 Other: # Voids 1 2 # Bowel Movements 0 Active Medications: Current Medications Acetaminophen (Tylenol) 650 mg PO Q4HR PRN PRN Reason: Mild Pain / Temp above 100 Stop: 12/26/17 17:10 Last Admin: 10/30/17 05:22 Dose: 650 mg Al Hydrox/Mg Hydrox/Simethicone (Maalox) 30 ml PO Q6HR PRN PRN Reason: Abdominal Cramping Stop: 12/27/17 15:23 Albuterol Sulfate (Albuterol 2.5mg/3ml Neb Ud) 2.5 mg HHN Q2HR PRN PRN Reason: Wheezing Stop: 12/26/17 17:27 Atorvastatin Calcium (Lipitor) 10 mg PO DAILY GUS PRN Reason: Protocol Stop: 12/27/17 08:59 Last Admin: 11/01/17 09:34 Dose: 10 mg Benztropine Mesylate (Cogentin) 1 mg PO HS GUS Stop: 12/30/17 20:59 Last Admin: 10/31/17 21:44 Dose: 1 mg Divalproex Sodium (Depakote Dr) 500 mg PO BID GUS PRN Reason: Protocol Stop: 12/27/17 08:59 Last Admin: 11/01/17 09:34 Dose: 500 mg Guaifenesin (Robitussin) 200 mg PO Q4HR PRN PRN Reason: Cough Stop: 12/29/17 17:26 Lorazepam (Ativan) 0.5 mg PO Q4HR PRN; Protocol PRN Reason: Anxiety Stop: 11/26/17 17:10 Last Admin: 11/01/17 09:34 Dose: 0.5 mg Magnesium Hydroxide (Milk Of Magnesia) 30 ml PO HS PRN PRN Reason: Constipation Multivitamins/Vitamin C (Theragran) 1 tab PO DAILY GUS Stop: 12/27/17 08:59 Last Admin: 11/01/17 09:34 Dose: 1 tab Olanzapine (Zyprexa) 5 mg PO HS GUS PRN Reason: Protocol Stop: 12/27/17 20:59 Last Admin: 10/31/17 21:44 Dose: 5 mg Zolpidem Tartrate (Ambien) 5 mg PO HS PRN PRN Reason: Insomnia Stop: 12/26/17 17:10 Last Admin: 10/31/17 21:44 Dose: 5 mg General: demented HEENT: NC/AT, PERRLA, EOMI, poor dentition Neck: Supple, No JVD, No LAD Lungs: CTAB Cardiovascular: RRR, Normal S1, Normal S2 Abdomen: soft, non-tender, thin, positive bowel sound Extremities: excoriation Neurological: no change, disorganized - Procedures Procedures: Procedures Procedure Code Date EMERGENCY DEPT VISIT 32228 11/13/11 EMERGENCY DEPT VISIT 91920 10/11/11 Internal Medicine Assmt/Plan - Assessment Assessment: failure to thrive leukocytosis acute dehydration htn dyslipidemia gerd hypothyroid arthritis dementia - Plan Plan: monitor i+o encourage fluids continue current orders
[2017-11-01] MEDS: Benztropine 1 MG TAB PO SCH (21:40)
--- NOTE | 2017-11-01 23:57 | Progress Notes ---
DATE: 11/01/2017 SUBJECTIVE: The patient was seen today, still somewhat irritable, at times intrusive, but she is less agitated. She is sleeping better and her appetite is fair. The patient is taking her medications. ASSESSMENT: The patient still with psychotic features, but slowly showing improvement. PLAN: Continue supportive measures, monitor closely. Consider discharge over the next 1-2 days. The patient is getting close to baseline. [facility]# [id number]
[2017-11-02] MEDS: Multivitamin Tab PO SCH (09:29)
[2017-11-02] MEDS: Atorvastatin Calcium 10 MG TAB PO SCH (09:29)
--- NOTE | 2017-11-02 14:12 | Internal Medicine Prog Note ---
Internal Medicine Subjective - Subjective Service Date: 11/02/17 Patient is:: awake, verbal, interactive, in bed, agitated, confused Per staff patient has:: no adverse event, no episodes of fall, poor appetite, agitated, noncompliant, confused, tolerating meds Internal Medicine Objective - Physical Exam Vitals and I&O: Vital Signs Temp 98.9 F 11/02/17 05:51 Pulse 66 11/02/17 08:05 Resp 18 11/02/17 08:05 BP 127/57 11/02/17 05:51 Pulse Ox 97 11/02/17 08:05 Intake & Output 11/01/17 11/02/17 11/02/17 18:59 06:59 18:59 Intake Total 250 640 Balance 250 640 Intake: Oral 250 640 Other: # Voids 2 2 # Bowel Movements 0 Active Medications: Current Medications Acetaminophen (Tylenol) 650 mg PO Q4HR PRN PRN Reason: Mild Pain / Temp above 100 Stop: 12/26/17 17:10 Last Admin: 10/30/17 05:22 Dose: 650 mg Al Hydrox/Mg Hydrox/Simethicone (Maalox) 30 ml PO Q6HR PRN PRN Reason: Abdominal Cramping Stop: 12/27/17 15:23 Albuterol Sulfate (Albuterol 2.5mg/3ml Neb Ud) 2.5 mg HHN Q2HR PRN PRN Reason: Wheezing Stop: 12/26/17 17:27 Atorvastatin Calcium (Lipitor) 10 mg PO DAILY GUS PRN Reason: Protocol Stop: 12/27/17 08:59 Last Admin: 11/02/17 09:29 Dose: 10 mg Benztropine Mesylate (Cogentin) 1 mg PO HS GUS Stop: 12/30/17 20:59 Last Admin: 11/01/17 21:40 Dose: 1 mg Divalproex Sodium (Depakote Dr) 500 mg PO BID GUS PRN Reason: Protocol Stop: 12/27/17 08:59 Last Admin: 11/02/17 09:29 Dose: 500 mg Guaifenesin (Robitussin) 200 mg PO Q4HR PRN PRN Reason: Cough Stop: 12/29/17 17:26 Lorazepam (Ativan) 0.5 mg PO Q4HR PRN; Protocol PRN Reason: Anxiety Stop: 11/26/17 17:10 Last Admin: 11/01/17 09:34 Dose: 0.5 mg Magnesium Hydroxide (Milk Of Magnesia) 30 ml PO HS PRN PRN Reason: Constipation Multivitamins/Vitamin C (Theragran) 1 tab PO DAILY GUS Stop: 12/27/17 08:59 Last Admin: 11/02/17 09:29 Dose: 1 tab Olanzapine (Zyprexa) 5 mg PO HS GUS PRN Reason: Protocol Stop: 12/27/17 20:59 Last Admin: 11/01/17 21:40 Dose: 5 mg Zolpidem Tartrate (Ambien) 5 mg PO HS PRN PRN Reason: Insomnia Stop: 12/26/17 17:10 Last Admin: 10/31/17 21:44 Dose: 5 mg General: demented HEENT: NC/AT, PERRLA, EOMI, poor dentition Neck: Supple, No JVD, No LAD Lungs: CTAB Cardiovascular: RRR, Normal S1, Normal S2 Abdomen: soft, non-tender, thin, positive bowel sound Extremities: excoriation Neurological: no change, disorganized - Procedures Procedures: Procedures Procedure Code Date EMERGENCY DEPT VISIT 08515 11/13/11 EMERGENCY DEPT VISIT 58443 10/11/11 Internal Medicine Assmt/Plan - Assessment Assessment: failure to thrive leukocytosis acute dehydration htn dyslipidemia gerd hypothyroid arthritis dementia - Plan Plan: monitor i+o encourage fluids continue current orders
--- NOTE | 2017-11-02 16:49 | Discharge Summary ---
DATE OF DISCHARGE: 11/02/2017 DATE OF DISCHARGE: 11/02/2017 REASON FOR HOSPITALIZATION: Schizoaffective disorder and dementia, Alzheimer's type. HISTORY OF PRESENT ILLNESS: The patient is a 66-year-old female who was admitted to the hospital with increased paranoia and confusion, failure to thrive, not eating. The patient initially was evaluated on medical floor. The patient was noted to be talking to herself, grandiose, irritable. The patient was hospitalized. HOSPITALIZATION COURSE: Medications were implemented. The patient's condition slowly started to improve. She responded favorably well to Zyprexa 5 mg at nighttime. Agitation decreased. The patient's appetite improved. The patient on November 2017 was discharged back to [facility] facility, not having suicidal or homicidal thoughts, was not aggressive. Fair sleep and appetite. The patient continued to have some memory issues, short term memory problems consistent with mild dementia, also had slight irritability at times, but no thoughts of harming self or others. FINAL DIAGNOSES: Schizoaffective disorder; dementia, Alzheimer's type, mild. PAST MEDICAL HISTORY: COPD, asthma. DISPOSITION: The patient was discharged to [facility]. EXPECTED COURSE OF RECOVERY: Chronic. [facility]# [id number]
== END 2017-11-02 18:40 | DRG 885 ==
LOC: GERO2 16:42
DX: F25.9 Schizoaffective disorder, unspecified (principal); F02.81 Dementia in other diseases classified elsewhere, unspecified severity, with behavioral disturbance; G30.9 Alzheimer's disease, unspecified; J44.9 Chronic obstructive pulmonary disease, unspecified; E86.0 Dehydration; R62.7 Adult failure to thrive; I10 Essential (primary) hypertension; E78.5 Hyperlipidemia, unspecified; K21.9 Gastro-esophageal reflux disease without esophagitis; E03.9 Hypothyroidism, unspecified; M19.90 Unspecified osteoarthritis, unspecified site; D72.829 Elevated white blood cell count, unspecified
CPT/HCPCS: 90899; 94760; J7051; Z7610

== ENCOUNTER 2018-02-13 18:18 | Inpatient (IN) | payer MEDICARE, MEDICAID ==
--- NOTE | 2018-02-13 18:51 | ED Physician Chart ---
ED Chief Complaint/HPI - Patient Information Date Seen:: 02/13/18 Time Seen:: 18:25 Chief Complaint:: Agitation History of Present Illness:: onset x 2 days of agitation and uncooperative behavior; no report of SIs, trauma , H/As, neck pain, C/P, SOB, Abd. pain, A/N/V/D/C, fever, chills, or urinary s/s Allergies:: Allergies Allergy/AdvReac Type Severity Reaction Status Date / Time No Known Allergies Allergy Verified 10/25/17 12:03 Vitals:: Vital Signs - 8 hr 02/13/18 18:26 Temp 98.4 F HR 67 RR 17 BP 136/68 O2 Sat % 97 Historian:: Patient, EMS Review:: Nurse's Note Reviewed, Old Chart Reviewed, EMS run form Reviewed ED Review of Systems - Review of Systems General/Constitutional: No fever, No chills, No weight loss, Weakness, No diaphoresis, No edema, No loss of appetite Skin: No skin lesions, No rash, No bruising Head: No headache, No light-headedness Eyes: No loss of vision, No pain, No diplopia ENT: No earache, No nasal drainage, No sore throat, No tinnitus Neck: No neck pain, No swelling, No thyromegaly, No stiffness, No mass noted Cardio Vascular: No chest pain, No palpitations, No PND, No orthopnea, No edema Pulmonary: No SOB, No cough, No sputum, No wheezing GI: No nausea, No vomiting, No diarrhea, No pain, No melena, No hematochezia, No constipation, No hematemesis G/U: No dysuria, No frequency, No hematuria, No nacturia Residential Service Technician: No vaginal discharge, No abnormal vaginal bleed, No contraction Musculoskeletal: No bone or joint pain, No back pain, No muscle pain Endocrine: No polyuria, No polydipsia Psychiatric: Prior psych history, Depression, Anxiety, No suicidal ideation, No homicidal ideation, No auditory hallucination, No visual hallucination Hematopoietic: No bruising, No lymphadenopathy Allergic/Immuno: No urticaria, No angioedema Neurological: No syncope, No focal symptoms, Weakness, No paresthesia, No headache, No seizure, No dizziness, Confusion, No vertigo ED Past Medical History - Past Medical History Obtainable: Yes Past Medical History: HTN, Dyslipidemia Family History: HTN Social History: Non Smoker, No Alcohol, No Drug Use, Single, Care Facility Surgical History: None Psychiatricy History: Bipolar Medication: Reviewed Family Medical History - Family Member Mother History Unknown: Yes Ethnicity: Non- Living Status: Unknown Hx Family Cancer: No Hx Family Coronary Artery Disease: No Hx Family Congestive Heart Failure: No Hx Family Hypertension: No Hx Family Stroke: No Hx Family Diabetes: No Hx Family Seizures: No Hx Family Dementia: No Hx Family AIDS: No Hx Family HIV: No Hx Family COPD: No Hx Family Hepatitis: No Hx Family Psychiatric Problems: Yes Hx Family Tuberculosis: No ED Physical Exam - Physical Examination General/Constitutional: Awake, Well-developed, well-nourished, Alert, No distress, GCS 15, Non-toxic appearing, Ambulatory Head: Atraumatic Eyes: Lids, conjuctiva normal, PERRL, EOMI Skin: Nl inspection, No rash, No skin lesions, No ecchymosis, Well hydrated, No lymphadenopathy ENMT: External ears, nose nl, TM canals nl, Nasal exam nl, Lips, teeth, gums nl , Oropharynx nl, Tonsils nl Neck: Nontender, Full ROM w/o pain, No JVD, No nuchal rigidity, No bruit, No mass, No stridor Respiratory: Nl effort/Exclusion, Clear to Auscultation, No Wheeze/Rhonchi/Rales Cardio Vascular: RRR, No murmur, gallop, rubs, NL S1 S2, Carotid/Femoral/Distal pulses equal bilaterally GI: No tenderness/rebounding/guarding, No organomegaly, No hernia, Normal BS's, Nondistended, No mass/bruits, No McBurney tenderness : No CVA tenderness Extremities: No tenderness or effusion, Full ROM, normal strength in all extremities, No edema, Normal digits & nails Neuro/Psych: Alert/oriented, DTR's symmetric, Normal sensory exam, Normal motor strength, Judgement/insight normal, Mood normal, Normal gait, No focal deficits Other Neuro/Psych comments:: + Psychomotor Agitation; no SIs; Mood/Affect: Stable Misc: Normal back, No paraspinal tenderness ED Labs/Radiology/EKG Results - Lab Results Comments:: unremarkable - EKG Interpretations EKG Time:: 20:06 Rate & Rhythm: 66; NSR Comments:: non-specific st-t changes ED Septic Shock - . Is Septic Shock (SBP<90, OR Lactate>4 mmol\L) present?: No - <6hrs of presentation: Vital Signs: Vital Signs - 8 hr 02/13/18 18:26 Temp 98.4 F HR 67 RR 17 BP 136/68 O2 Sat % 97 ED Reassessment (Disposition) - Reassessment Reassessment Condition:: Improved - Diagnosis Diagnosis:: Dx: Psychosis; Agitation; Medical Clearance; Bipolar Disorder; - Aftercare/Follow up Instructions Aftercare/Follow-Up Instructions:: Counseled pt regarding lab results/diagnosis & need follow up, Counseled pt & family regarding lab results/diagnosis & need follow up - Patient Disposition Discharge/Transfer:: Acute Care w/in this hosp Admitted to:: [facility] Condition at Disposition:: Stable, Improved ED Discharge Plan - Patient Disposition Admit/Discharge/Transfer: Acute Care w/in this hosp
[2018-02-13 19:13] LABS: % BASOPHILS 1.8 % (0.0-2.0); % EOSINOPHILS 0.9 % (0.0-5.0); % LYMPHOCYTES 23.8 % (20.0-50.0); % MONOCYTES 6.3 % (2.0-10.0); % NEUTROPHILS 67.2 % (40.0-80.0); BASOPHILE ABSOLUTE 0.2 Th/cumm (0-0.2); EOSINOPHILE ABSOLUTE 0.1 Th/cmm (0.1-0.4); HEMATOCRIT 46.1 % (41.0-60); HEMOGLOBIN 15.5 gm/dL (12-16); MEAN CELL VOLUME 90.4 fl (81-100); MEAN CORPUSCULAR HEMOGLOBIN 30.5 pg (27.0-31.0); MEAN CORPUSCULAR HGB CONC 33.7 pg (28.0-36.0); MEAN PLATELET VOLUME 6.8 fl; MONOCYTE ABSOLUTE 0.5 Th/cmm (0.3-1.0); NEUTROPHILE ABSOLUTE 5.7 Th/cmm (1.8-8.0); PLATELET COUNT 344 Th/cmm (150-400); RED CELL DISTRIBUTION WIDTH 12.2 % (11.5-20.0); WHITE BLOOD COUNT 8.5 Th/cmm (4.8-10.8)
[2018-02-13 19:31] LABS: ALB/GLOB RATIO 1.2 (1.0-1.8); ALBUMIN 4.2 gm/dL (3.7-5.3); ALKALINE PHOSPHATASE 98 U/L (34-104); ANION GAP 12.4 (7.0-16.0); BILIRUBIN,TOTAL 1.2 mg/dL (0.3-1.0); BUN - UREA NITROGEN 29 mg/dL (7-25); CALCIUM SERUM 9.7 mg/dL (8.6-10.3); CARBON DIOXIDE 24.5 mEq/L (21.0-31.0); CHLORIDE 105 mEq/L (98-107); CHOLESTEROL 214 mg/dL (<200); CREATININE - SERUM 0.7 mg/dL (0.6-1.2); GFR AFRICAN-AMERICAN > 60.0 ml/min (>90); GFR NON AFRICAN-AMERICAN > 60.0 ml/min; GLUCOSE 102 mg/dL (70-105); HDL -HIGH DENSITY LIPOPROTEIN 43 mg/dL (23-92); POTASSIUM SERUM 3.9 mEq/L (3.5-5.1); SALICYLATES (ASPIRIN) < 25.0 mg/L (30.0-100.0); SGOT 21 U/L (13-39); SGPT/ALT 17 U/L (7-52); SODIUM SERUM 138 mEq/L (136-145); TOTAL PROTEIN,SERUM 7.8 gm/dL (6.0-8.3); TRIGLYCERIDES 104 mg/dL (<150)
[2018-02-13 19:52] LABS: ACETAMINOPHEN < 10.0 ug/mL (10.0-30.0)
[2018-02-13 20:38] VITALS: BP 103/76
[2018-02-13 21:28] LABS: A1C % 5.4 % (4.0-6.0)
[2018-02-13] MEDS ORDERED: Magnesium Hydroxide (MOM) 30 mL UDC PO PRN (21:52)
[2018-02-13] MEDS ORDERED: Maalox 30 mL Cup PO PRN (21:52)
[2018-02-14] MEDS: Levothyroxine 0.088 Mg Tab PO SCH (06:50)
[2018-02-14] MEDS: Atorvastatin Calcium 10 MG TAB PO SCH (08:31)
[2018-02-14] MEDS: Benztropine 1 MG TAB PO SCH ×2 (08:31→17:02)
[2018-02-14] MEDS: Multivitamin Tab PO SCH (08:31)
[2018-02-14] MEDS ORDERED: Non-Formulary Item 1 EA (Haloperidol Decanoate [Haldol Decanoate 50] 1 ML) IM SCH (10:00)
--- NOTE | 2018-02-14 11:33 | Internal Medicine Prog Note ---
Internal Medicine Subjective - Subjective Service Date: 02/14/18 ([facility] [id number]) Internal Medicine Objective - Results Result Diagrams: 02/13/18 19:04 02/13/18 19:04 Recent Labs: Laboratory Last Values WBC 8.5 Th/cmm (4.8-10.8) 02/13/18 19:04 RBC 5.10 Mil/cmm (3.80-5.20) 02/13/18 19:04 Hgb 15.5 gm/dL (12-16) 02/13/18 19:04 Hct 46.1 % (41.0-60) 02/13/18 19:04 MCV 90.4 fl (81-100) 02/13/18 19:04 MCH 30.5 pg (27.0-31.0) 02/13/18 19:04 MCHC Differential 33.7 pg (28.0-36.0) 02/13/18 19:04 RDW 12.2 % (11.5-20.0) 02/13/18 19:04 Plt Count 344 Th/cmm (150-400) 02/13/18 19:04 MPV 6.8 fl 02/13/18 19:04 Neutrophils % 67.2 % (40.0-80.0) 02/13/18 19:04 Lymphocytes % 23.8 % (20.0-50.0) 02/13/18 19:04 Monocytes % 6.3 % (2.0-10.0) 02/13/18 19:04 Eosinophils % 0.9 % (0.0-5.0) 02/13/18 19:04 Basophils % 1.8 % (0.0-2.0) 02/13/18 19:04 Sodium 138 mEq/L (136-145) 02/13/18 19:04 Potassium 3.9 mEq/L (3.5-5.1) 02/13/18 19:04 Chloride 105 mEq/L (98-107) 02/13/18 19:04 Carbon Dioxide 24.5 mEq/L (21.0-31.0) 02/13/18 19:04 Anion Gap 12.4 (7.0-16.0) 02/13/18 19:04 BUN 29 mg/dL (7-25) H 02/13/18 19:04 Creatinine 0.7 mg/dL (0.6-1.2) 02/13/18 19:04 Est GFR ( Amer) > 60.0 ml/min (>90) 02/13/18 19:04 Est GFR (Non-Af Amer) > 60.0 ml/min 02/13/18 19:04 BUN/Creatinine Ratio 41.4 02/13/18 19:04 Glucose 102 mg/dL (70-105) 02/13/18 19:04 Hemoglobin A1c % 5.4 % (4.0-6.0) 02/13/18 19:04 Calcium 9.7 mg/dL (8.6-10.3) 02/13/18 19:04 Total Bilirubin 1.2 mg/dL (0.3-1.0) H 02/13/18 19:04 AST 21 U/L (13-39) 02/13/18 19:04 ALT 17 U/L (7-52) 02/13/18 19:04 Alkaline Phosphatase 98 U/L (34-104) 02/13/18 19:04 Troponin I < 0.01 ng/mL (0.01-0.05) L 02/13/18 19:04 Total Protein 7.8 gm/dL (6.0-8.3) 02/13/18 19:04 Albumin 4.2 gm/dL (3.7-5.3) 02/13/18 19:04 Globulin 3.6 gm/dL 02/13/18 19:04 Albumin/Globulin Ratio 1.2 (1.0-1.8) 02/13/18 19:04 Triglycerides 104 mg/dL (<150) 02/13/18 19:04 Cholesterol 214 mg/dL (<200) H 02/13/18 19:04 LDL Cholesterol Direct 154 mg/dL (75-193) 02/13/18 19:04 HDL Cholesterol 43 mg/dL (23-92) 02/13/18 19:04 TSH 1.06 uIU/ml (0.34-5.60) 02/13/18 19:04 Salicylates < 25.0 mg/L (30.0-100.0) L 02/13/18 19:04 Acetaminophen < 10.0 ug/mL (10.0-30.0) L 02/13/18 19:04 Ethyl Alcohol < 10 mg/dL (0-10) 02/13/18 19:04 - Physical Exam Vitals and I&O: Vital Signs Temp 97.4 F 02/13/18 20:39 Pulse 74 02/13/18 20:39 Resp 19 02/13/18 20:39 BP 103/76 02/13/18 20:39 Pulse Ox 97 02/13/18 20:20 Intake & Output 02/13/18 02/14/18 02/14/18 18:59 06:59 18:59 Weight (lbs) 135 lb Other: Weight Source Estimated Active Medications: Current Medications Al Hydrox/Mg Hydrox/Simethicone (Maalox) 30 ml PO Q6HR PRN PRN Reason: GI DISTRESS Stop: 04/14/18 21:51 Atorvastatin Calcium (Lipitor) 10 mg PO DAILY [facility]; Protocol Stop: 04/15/18 08:59 Last Admin: 02/14/18 08:31 Dose: 10 mg Benztropine Mesylate (Cogentin) 1 mg PO BID [facility] Stop: 04/15/18 08:59 Last Admin: 02/14/18 08:31 Dose: 1 mg Divalproex Sodium (Depakote Dr) 500 mg PO BID [facility]; Protocol Stop: 04/15/18 08:59 Last Admin: 02/14/18 08:31 Dose: 500 mg Fenofibrate (Tricor) 134 mg PO HS [facility] Stop: 04/15/18 20:59 Latanoprost (Xalatan 0.005% Ophth Soln) 1 drop EACH EYE HS [facility] Stop: 04/15/18 20:59 Levothyroxine Sodium (Synthroid) 0.088 mg PO QDAC [facility] Stop: 04/15/18 07:29 Last Admin: 02/14/18 06:50 Dose: 0.088 mg Lorazepam (Ativan) 0.5 mg PO Q4H PRN; Protocol PRN Reason: Agitation Stop: 04/14/18 21:49 Magnesium Hydroxide (Milk Of Magnesia) 30 ml PO HS PRN PRN Reason: Constipation Stop: 04/14/18 21:51 Miscellaneous (Haloperidol Decanoate [Haldol Decanoate 50]) 1 ml IM [id number] [facility] Stop: 04/15/18 09:59 Miscellaneous (Mirtazapine [Remeron]) 30 mg PO HS [facility]; Protocol Stop: 04/15/18 20:59 Multivitamins/Vitamin C (Theragran) 1 tab PO DAILY [facility] Stop: 04/15/18 08:59 Last Admin: 02/14/18 08:31 Dose: 1 tab Quetiapine Fumarate (Seroquel) 50 mg PO BID [facility]; Protocol Stop: 04/15/18 08:59 Last Admin: 02/14/18 08:31 Dose: 50 mg Zolpidem Tartrate (Ambien) 5 mg PO HS PRN PRN Reason: Insomnia Stop: 04/14/18 20:38 Last Admin: 02/13/18 23:41 Dose: 5 mg - Procedures Procedures: Procedures Procedure Code Date EMERGENCY DEPT VISIT 28858 11/13/11 EMERGENCY DEPT VISIT 48989 10/11/11
--- NOTE | 2018-02-14 14:50 | History & Physical ---
ADMIT DATE: 02/14/2018 DICTATED FOR: Dr. Bhanu Turcios CHIEF COMPLAINT: Agitation. HISTORY OF PRESENT ILLNESS: This is a 67-year-old female who is a resident of [facility] who was admitted here to the Geropsych Unit due to agitation towards nursing staff as well as poor oral intake and refusing to eat. PAST MEDICAL HISTORY: Hypertension, dyslipidemia, PUD, GERD, hypothyroid, arthritis, and dementia. PAST SURGICAL HISTORY: None. ALLERGIES: No drug allergies. SOCIAL HISTORY: The patient is a senior living resident requiring 24-hour nursing care. FAMILY HISTORY: Noncontributory. REVIEW OF SYSTEMS: GENERAL: Denies any fevers and chills. CARDIOVASCULAR: Denies chest pain. RESPIRATORY: Denies shortness of breath. GASTROINTESTINAL: Denies nausea, vomiting, and abdominal pain. GENITOURINARY: Denies increased frequency or dysuria. NEUROLOGIC: No headaches, seizures or syncope. All other systems are reviewed and are negative. PHYSICAL EXAMINATION: GENERAL: The patient is well developed, well nourished, no acute distress. VITAL SIGNS: Temperature 97.4, heart rate 74, blood pressure 103/76, respirations 19. HEENT: Normocephalic, atraumatic. NECK: Supple. No mass. LUNGS: Clear bilaterally. HEART: Regular rate and rhythm. ABDOMEN: Soft, nontender. LABORATORY DATA: WBC 8.5, H and H 15.5 and 46.1, platelets of 344. Sodium 138, potassium 3.9, chloride 105, BUN 29, creatinine 0.7, albumin 4.2. ASSESSMENT: Hypertension, dyslipidemia, GERD, hypothyroidism, arthritis, dementia and agitation. PLAN: We will monitor the patient's calorie intake. Continue current medications from the senior living. We will continue to follow this patient. JOB# [id number]
[2018-02-14] MEDS: MIRTAZAPINE 30 MG PO SCH (19:48)
[2018-02-14] MEDS: Fenofibrate, Micronized 134 mg Cap PO SCH (21:46)
--- NOTE | 2018-02-15 00:25 | Psychosocial Evaluation ---
DATE OF SERVICE: 02/13/2018 IDENTIFYING DATA: The patient is a 67-year-old woman, resident of [facility]. Information is obtained by directly interviewing the patient as well as reviewing the admission papers and they are reliable. JUSTIFICATION FOR HOSPITALIZATION: The patient is admitted here on a voluntary basis in view of her acute psychosis. CHIEF COMPLAINT: "I do not understand why they have to bring me in here." HISTORY OF PRESENT ILLNESS: This is one of multiple psychiatric hospitalizations for this patient who has been diagnosed to have schizoaffective disorder and has been followed up by Dr. Archer at [facility]. On the day of the hospitalization, the patient has been out of control, screaming and yelling at the staff members. The patient could not be contained at a lower level of care and hence brought over here for stabilization. PAST PSYCHIATRIC HISTORY: Hospitalized on multiple occasions. MEDICAL HISTORY: Physical examination is requested to be done by Dr. Turcios. SUBSTANCE ABUSE HISTORY: None. PHYSICAL AND SEXUAL ABUSE HISTORY: None. LEGAL PROBLEMS: None at this time. STRENGTH AND ASSETS: The patient is motivated. MENTAL STATUS EXAMINATION: The patient is a 67-year-old, looking her stated age, thin built, superficially cooperative. Eye contact is poor. Mood is noted to be irritable. Affect is constricted. The patient is screaming and yelling. The patient is going on a tangent. Coping skills at this time are noted to be very poor. The patient could not be redirectable. The patient is alert and oriented x 3. DIAGNOSTIC IMPRESSION: AXIS I: Schizoaffective disorder. AXIS II: None. AXIS III: As per Dr. Turcios. IMMEDIATE TREATMENT PLAN: The patient is going to be observed on the inpatient unit, provided with supportive psychotherapy. The patient is going to be continued with Seroquel and Depakote. ESTIMATED LENGTH OF STAY: 3-5 days. DISCHARGE CRITERIA: When she is no longer a threat to self or others and be able to cope up with the stress. JOB# [id number]
[2018-02-15] MEDS: Levothyroxine 0.088 Mg Tab PO SCH (06:49)
[2018-02-15] MEDS: Benztropine 1 MG TAB PO SCH ×2 (09:25→16:52)
[2018-02-15] MEDS: Multivitamin Tab PO SCH (09:25)
[2018-02-15] MEDS: Atorvastatin Calcium 10 MG TAB PO SCH (09:25)
--- NOTE | 2018-02-15 11:16 | Internal Medicine Prog Note ---
Internal Medicine Subjective - Subjective Service Date: 02/15/18 Patient seen and examined:: with staff Patient is:: awake, verbal Per staff patient has:: tolerating meds Internal Medicine Objective - Results Result Diagrams: 02/13/18 19:04 02/13/18 19:04 Recent Labs: Laboratory Last Values WBC 8.5 Th/cmm (4.8-10.8) 02/13/18 19:04 RBC 5.10 Mil/cmm (3.80-5.20) 02/13/18 19:04 Hgb 15.5 gm/dL (12-16) 02/13/18 19:04 Hct 46.1 % (41.0-60) 02/13/18 19:04 MCV 90.4 fl (81-100) 02/13/18 19:04 MCH 30.5 pg (27.0-31.0) 02/13/18 19:04 MCHC Differential 33.7 pg (28.0-36.0) 02/13/18 19:04 RDW 12.2 % (11.5-20.0) 02/13/18 19:04 Plt Count 344 Th/cmm (150-400) 02/13/18 19:04 MPV 6.8 fl 02/13/18 19:04 Neutrophils % 67.2 % (40.0-80.0) 02/13/18 19:04 Lymphocytes % 23.8 % (20.0-50.0) 02/13/18 19:04 Monocytes % 6.3 % (2.0-10.0) 02/13/18 19:04 Eosinophils % 0.9 % (0.0-5.0) 02/13/18 19:04 Basophils % 1.8 % (0.0-2.0) 02/13/18 19:04 Sodium 138 mEq/L (136-145) 02/13/18 19:04 Potassium 3.9 mEq/L (3.5-5.1) 02/13/18 19:04 Chloride 105 mEq/L (98-107) 02/13/18 19:04 Carbon Dioxide 24.5 mEq/L (21.0-31.0) 02/13/18 19:04 Anion Gap 12.4 (7.0-16.0) 02/13/18 19:04 BUN 29 mg/dL (7-25) H 02/13/18 19:04 Creatinine 0.7 mg/dL (0.6-1.2) 02/13/18 19:04 Est GFR ( Amer) > 60.0 ml/min (>90) 02/13/18 19:04 Est GFR (Non-Af Amer) > 60.0 ml/min 02/13/18 19:04 BUN/Creatinine Ratio 41.4 02/13/18 19:04 Glucose 102 mg/dL (70-105) 02/13/18 19:04 Hemoglobin A1c % 5.4 % (4.0-6.0) 02/13/18 19:04 Calcium 9.7 mg/dL (8.6-10.3) 02/13/18 19:04 Total Bilirubin 1.2 mg/dL (0.3-1.0) H 02/13/18 19:04 AST 21 U/L (13-39) 02/13/18 19:04 ALT 17 U/L (7-52) 02/13/18 19:04 Alkaline Phosphatase 98 U/L (34-104) 02/13/18 19:04 Troponin I < 0.01 ng/mL (0.01-0.05) L 02/13/18 19:04 Total Protein 7.8 gm/dL (6.0-8.3) 02/13/18 19:04 Albumin 4.2 gm/dL (3.7-5.3) 02/13/18 19:04 Globulin 3.6 gm/dL 02/13/18 19:04 Albumin/Globulin Ratio 1.2 (1.0-1.8) 02/13/18 19:04 Triglycerides 104 mg/dL (<150) 02/13/18 19:04 Cholesterol 214 mg/dL (<200) H 02/13/18 19:04 LDL Cholesterol Direct 154 mg/dL (75-193) 02/13/18 19:04 HDL Cholesterol 43 mg/dL (23-92) 02/13/18 19:04 TSH 1.06 uIU/ml (0.34-5.60) 02/13/18 19:04 Salicylates < 25.0 mg/L (30.0-100.0) L 02/13/18 19:04 Acetaminophen < 10.0 ug/mL (10.0-30.0) L 02/13/18 19:04 Ethyl Alcohol < 10 mg/dL (0-10) 02/13/18 19:04 RPR NONREACTIVE (NONREACTIVE) 02/13/18 19:04 - Physical Exam Vitals and I&O: Vital Signs Temp 97.6 F 02/14/18 14:00 Pulse 86 02/14/18 14:00 Resp 18 02/14/18 14:00 BP 102/60 02/14/18 14:00 Pulse Ox 98 02/14/18 14:00 Intake & Output 02/14/18 02/15/18 02/15/18 18:59 06:59 18:59 Intake Total 1200 Balance 1200 Intake: Oral 1200 Other: # Voids 3 # Bowel Movements 0 Active Medications: Current Medications Al Hydrox/Mg Hydrox/Simethicone (Maalox) 30 ml PO Q6HR PRN PRN Reason: GI DISTRESS Stop: 04/14/18 21:51 Atorvastatin Calcium (Lipitor) 10 mg PO DAILY [facility]; Protocol Stop: 04/15/18 08:59 Last Admin: 02/15/18 09:25 Dose: 10 mg Benztropine Mesylate (Cogentin) 1 mg PO BID [facility] Stop: 04/15/18 08:59 Last Admin: 02/15/18 09:25 Dose: 1 mg Divalproex Sodium (Depakote Dr) 500 mg PO BID [facility]; Protocol Stop: 04/15/18 08:59 Last Admin: 02/15/18 09:25 Dose: 500 mg Fenofibrate (Tricor) 134 mg PO HS [facility] Stop: 04/15/18 20:59 Last Admin: 02/14/18 21:46 Dose: 134 mg Latanoprost (Xalatan 0.005% Ophth Soln) 1 drop EACH EYE HS [facility] Stop: 04/15/18 20:59 Last Admin: 02/14/18 19:47 Dose: Not Given Levothyroxine Sodium (Synthroid) 0.088 mg PO QDAC [facility] Stop: 04/15/18 07:29 Last Admin: 02/15/18 06:49 Dose: Not Given Lorazepam (Ativan) 0.5 mg PO Q4H PRN; Protocol PRN Reason: Agitation Stop: 04/14/18 21:49 Magnesium Hydroxide (Milk Of Magnesia) 30 ml PO HS PRN PRN Reason: Constipation Stop: 04/14/18 21:51 Miscellaneous (Mirtazapine [Remeron]) 30 mg PO HS [facility]; Protocol Stop: 04/15/18 20:59 Last Admin: 02/14/18 19:48 Dose: Not Given Multivitamins/Vitamin C (Theragran) 1 tab PO DAILY [facility] Stop: 04/15/18 08:59 Last Admin: 02/15/18 09:25 Dose: 1 tab Quetiapine Fumarate (Seroquel) 50 mg PO BID [facility]; Protocol Stop: 04/15/18 08:59 Last Admin: 02/15/18 09:25 Dose: 50 mg Quetiapine Fumarate (Seroquel) 50 mg PO HS [facility]; Protocol Stop: 04/15/18 20:59 Last Admin: 02/14/18 21:46 Dose: 50 mg Zolpidem Tartrate (Ambien) 5 mg PO HS PRN PRN Reason: Insomnia Stop: 04/14/18 20:38 Last Admin: 02/14/18 21:46 Dose: 5 mg General: alert, demented HEENT: NC/AT, PERRLA Neck: Supple Lungs: CTAB Cardiovascular: RRR, Normal S1, Normal S2, without murmur Neurological: alert - Procedures Procedures: Procedures Procedure Code Date EMERGENCY DEPT VISIT 21884 11/13/11 EMERGENCY DEPT VISIT 36184 10/11/11 Internal Medicine Assmt/Plan - Assessment Assessment: htn dyslipidemia gerd hypothyroidism arthritis dementia agitation - Plan Plan: fall precautions monitor i+o monitor bp continue current plan of care
[2018-02-15] MEDS: Fenofibrate, Micronized 134 mg Cap PO SCH (20:52)
[2018-02-15] MEDS: MIRTAZAPINE 30 MG PO SCH (20:58)
--- NOTE | 2018-02-16 01:36 | Progress Notes ---
DATE: 02/15/2018 SUBJECTIVE: Staff was spoken to. The patient is interviewed. Mood is noted to be irritable. Affect is constricted. The patient has been testing the limits and refusing to comply with the Seroquel. The patient's insight and judgment are noted to be very much impaired. Impulse control is very poor. The patient is pacing most of the time, laughing and giggling. The patient has no insight into her illness. ASSESSMENT: The patient is still grossly psychotic and impulsive. PLAN: To continue the patient with the supportive therapy, encouraged the patient to verbalize the concerns. If the patient continues to be reluctant to take the medication possibly the Seroquel is going to be discontinued. The patient is going to be switched over to Haldol and Haldol Decanoate is going to be given. JOB# [id number]
--- NOTE | 2018-02-16 05:32 | Consultation ---
DATE OF CONSULTATION: 02/15/2018 REFERRING PHYSICIAN: Milla Mcclelland MD TYPE OF CONSULTATION: Psychology. HISTORY OF PRESENT ILLNESS: The patient is a 67-year-old female. The patient is a resident of [facility]. The following is by review of the medical record and by the patient's self-report. The patient is being admitted on a voluntary basis due to acute psychosis. The staff at the patient's facility report that she has been screaming and yelling at staff members and generally out of control and unredirectable. Upon interview, the patient stated that she does not understand why she is being brought to the hospital. The patient is known to this underwriter mortgage loan from a previous hospitalization. The patient denies any suicidal ideation, plan or intention. PAST MEDICAL HISTORY: Please see history and physical by Dr. Turcios. PAST PSYCHIATRIC HISTORY: The patient has multiple previous psychiatric hospitalizations. The patient is under the care of Dr. Archer at the patient's group home. The patient has a history of schizoaffective disorder. SUBSTANCE ABUSE HISTORY: The patient denies any history. PSYCHOSOCIAL HISTORY: The patient did not answer questions about occupational or educational history or church affiliation. The patient did not answer questions about history or physical or sexual abuse. The patient denied any current legal problems. The patient is a resident of [facility] and wishes to return there upon discharge. MENTAL STATUS EXAMINATION: The patient appears to be her stated age. The patient's attitude is superficially cooperative. Eye contact is poor. Speech is pressured and rambling. Mood is irritable. Affect is constricted. During the clinical interview, the patient began to yell and become loud as well as difficult to redirect. Thought process shows to be markedly tangential. The patient denied any suicidal ideation, plan or intention. The patient denies any delusions or auditory or visual hallucinations. The patient's impulse control is inadequate. Concentration is poor. The patient did not participate in the memory assessment. Sensorium is alert and oriented to self and place only. The patient did not participate in the interpretation of proverbs. Insight is impaired. Judgment is impaired. DIAGNOSTIC IMPRESSION: AXIS I: History of schizoaffective disorder. AXIS II: Deferred. AXIS III: Please see history and physical by Dr. Turcios. TREATMENT PLAN: The patient has been seen by Dr. Mcclelland for psychiatric evaluation and for the management of the patient's psychotropic medications. We will provide supportive psychotherapy. We will provide cognitive and behavioral redirection. We will provide limit setting and de-escalation. We will continue to provide coping strategies for phase of life issues as well as chronic long-term severe mental illness. We will provide motivational enhancement for the patient to become compliant and stay compliant with all aspects of her care and treatment. The record indicates the patient is continued on Seroquel and Depakote. We will continue to provide supportive psychotherapy throughout the hospital course. We will encourage the patient to be able to demonstrate emotional and self-regulation prior to her discharge. Thank you Dr. Mcclelland for this consult and the opportunity to participate in this patient's care. JOB# [id number] HARLAN
[2018-02-16] MEDS: Levothyroxine 0.088 Mg Tab PO SCH (06:38)
[2018-02-16] MEDS: Benztropine 1 MG TAB PO SCH ×2 (09:38→16:21)
[2018-02-16] MEDS: Multivitamin Tab PO SCH (09:38)
[2018-02-16] MEDS: Atorvastatin Calcium 10 MG TAB PO SCH (09:38)
--- NOTE | 2018-02-16 14:22 | Internal Medicine Prog Note ---
Internal Medicine Subjective - Subjective Service Date: 02/16/18 Patient is:: awake, verbal Per staff patient has:: tolerating meds Internal Medicine Objective - Results Result Diagrams: 02/13/18 19:04 02/13/18 19:04 Recent Labs: Laboratory Last Values WBC 8.5 Th/cmm (4.8-10.8) 02/13/18 19:04 RBC 5.10 Mil/cmm (3.80-5.20) 02/13/18 19:04 Hgb 15.5 gm/dL (12-16) 02/13/18 19:04 Hct 46.1 % (41.0-60) 02/13/18 19:04 MCV 90.4 fl (81-100) 02/13/18 19:04 MCH 30.5 pg (27.0-31.0) 02/13/18 19:04 MCHC Differential 33.7 pg (28.0-36.0) 02/13/18 19:04 RDW 12.2 % (11.5-20.0) 02/13/18 19:04 Plt Count 344 Th/cmm (150-400) 02/13/18 19:04 MPV 6.8 fl 02/13/18 19:04 Neutrophils % 67.2 % (40.0-80.0) 02/13/18 19:04 Lymphocytes % 23.8 % (20.0-50.0) 02/13/18 19:04 Monocytes % 6.3 % (2.0-10.0) 02/13/18 19:04 Eosinophils % 0.9 % (0.0-5.0) 02/13/18 19:04 Basophils % 1.8 % (0.0-2.0) 02/13/18 19:04 Sodium 138 mEq/L (136-145) 02/13/18 19:04 Potassium 3.9 mEq/L (3.5-5.1) 02/13/18 19:04 Chloride 105 mEq/L (98-107) 02/13/18 19:04 Carbon Dioxide 24.5 mEq/L (21.0-31.0) 02/13/18 19:04 Anion Gap 12.4 (7.0-16.0) 02/13/18 19:04 BUN 29 mg/dL (7-25) H 02/13/18 19:04 Creatinine 0.7 mg/dL (0.6-1.2) 02/13/18 19:04 Est GFR ( Amer) > 60.0 ml/min (>90) 02/13/18 19:04 Est GFR (Non-Af Amer) > 60.0 ml/min 02/13/18 19:04 BUN/Creatinine Ratio 41.4 02/13/18 19:04 Glucose 102 mg/dL (70-105) 02/13/18 19:04 Hemoglobin A1c % 5.4 % (4.0-6.0) 02/13/18 19:04 Calcium 9.7 mg/dL (8.6-10.3) 02/13/18 19:04 Total Bilirubin 1.2 mg/dL (0.3-1.0) H 02/13/18 19:04 AST 21 U/L (13-39) 02/13/18 19:04 ALT 17 U/L (7-52) 02/13/18 19:04 Alkaline Phosphatase 98 U/L (34-104) 02/13/18 19:04 Troponin I < 0.01 ng/mL (0.01-0.05) L 02/13/18 19:04 Total Protein 7.8 gm/dL (6.0-8.3) 02/13/18 19:04 Albumin 4.2 gm/dL (3.7-5.3) 02/13/18 19:04 Globulin 3.6 gm/dL 02/13/18 19:04 Albumin/Globulin Ratio 1.2 (1.0-1.8) 02/13/18 19:04 Triglycerides 104 mg/dL (<150) 02/13/18 19:04 Cholesterol 214 mg/dL (<200) H 02/13/18 19:04 LDL Cholesterol Direct 154 mg/dL (75-193) 02/13/18 19:04 HDL Cholesterol 43 mg/dL (23-92) 02/13/18 19:04 TSH 1.06 uIU/ml (0.34-5.60) 02/13/18 19:04 Salicylates < 25.0 mg/L (30.0-100.0) L 02/13/18 19:04 Acetaminophen < 10.0 ug/mL (10.0-30.0) L 02/13/18 19:04 Ethyl Alcohol < 10 mg/dL (0-10) 02/13/18 19:04 RPR NONREACTIVE (NONREACTIVE) 02/13/18 19:04 - Physical Exam Vitals and I&O: Vital Signs Temp 97.3 F 02/16/18 06:40 Pulse 60 02/16/18 06:40 Resp 18 02/16/18 06:40 BP 124/73 02/16/18 06:40 Pulse Ox 98 02/16/18 06:40 Intake & Output 02/15/18 02/16/18 02/16/18 18:59 06:59 18:59 Intake Total 1300 600 Balance 1300 600 Intake: Oral 1300 600 Other: # Voids 3 2 # Bowel Movements 0 Active Medications: Current Medications Al Hydrox/Mg Hydrox/Simethicone (Maalox) 30 ml PO Q6HR PRN PRN Reason: GI DISTRESS Stop: 04/14/18 21:51 Atorvastatin Calcium (Lipitor) 10 mg PO DAILY [facility]; Protocol Stop: 04/15/18 08:59 Last Admin: 02/16/18 09:38 Dose: 10 mg Benztropine Mesylate (Cogentin) 1 mg PO BID [facility] Stop: 04/15/18 08:59 Last Admin: 02/16/18 09:38 Dose: 1 mg Divalproex Sodium (Depakote Dr) 500 mg PO BID [facility]; Protocol Stop: 04/15/18 08:59 Last Admin: 02/16/18 09:38 Dose: 500 mg Fenofibrate (Tricor) 134 mg PO HS [facility] Stop: 04/15/18 20:59 Last Admin: 02/15/18 20:52 Dose: 134 mg Latanoprost (Xalatan 0.005% Ophth Soln) 1 drop EACH EYE HS [facility] Stop: 04/15/18 20:59 Last Admin: 02/15/18 20:53 Dose: Not Given Levothyroxine Sodium (Synthroid) 0.088 mg PO QDAC [facility] Stop: 04/15/18 07:29 Last Admin: 02/16/18 06:38 Dose: Not Given Lorazepam (Ativan) 0.5 mg PO Q4H PRN; Protocol PRN Reason: Agitation Stop: 04/14/18 21:49 Magnesium Hydroxide (Milk Of Magnesia) 30 ml PO HS PRN PRN Reason: Constipation Stop: 04/14/18 21:51 Miscellaneous (Mirtazapine [Remeron]) 30 mg PO HS [facility]; Protocol Stop: 04/15/18 20:59 Last Admin: 02/15/18 20:58 Dose: Not Given Multivitamins/Vitamin C (Theragran) 1 tab PO DAILY [facility] Stop: 04/15/18 08:59 Last Admin: 02/16/18 09:38 Dose: 1 tab Quetiapine Fumarate (Seroquel) 50 mg PO BID [facility]; Protocol Stop: 04/15/18 08:59 Last Admin: 02/16/18 09:38 Dose: 50 mg Quetiapine Fumarate (Seroquel) 50 mg PO HS [facility]; Protocol Stop: 04/15/18 20:59 Last Admin: 02/15/18 20:51 Dose: 50 mg Zolpidem Tartrate (Ambien) 5 mg PO HS PRN PRN Reason: Insomnia Stop: 04/14/18 20:38 Last Admin: 02/14/18 21:46 Dose: 5 mg General: alert, demented HEENT: NC/AT, PERRLA Neck: Supple Lungs: CTAB Cardiovascular: RRR, Normal S1, Normal S2, without murmur Neurological: alert - Procedures Procedures: Procedures Procedure Code Date EMERGENCY DEPT VISIT 23016 11/13/11 EMERGENCY DEPT VISIT 91575 10/11/11 Internal Medicine Assmt/Plan - Assessment Assessment: htn dyslipidemia gerd hypothyroidism arthritis dementia agitation - Plan Plan: fall precautions monitor i+o monitor bp continue current plan of care
--- NOTE | 2018-02-16 17:40 | Progress Notes ---
DATE: 02/16/2018 PSYCHIATRIC PROGRESS NOTE SUBJECTIVE: Staff was spoken to. The patient is interviewed. Mood is noted to be irritable. Affect is constricted. The patient has been reluctant to comply with the medication until yesterday. This morning, the patient has taken it. The patient is pacing on the unit. Insight and judgment are noted to be still impaired. The patient's coping skills are noted to be very poor. Has paranoid delusions, but denies any command hallucinations. ASSESSMENT: The patient is still grossly psychotic. PLAN: To continue the patient with the Seroquel and I encouraged the patient to verbalize the concerns rather than to act out. JOB# [id number]
[2018-02-16] MEDS: Fenofibrate, Micronized 134 mg Cap PO SCH (20:43)
[2018-02-16] MEDS: MIRTAZAPINE 30 MG PO SCH (20:46)
[2018-02-17] MEDS: Levothyroxine 0.088 Mg Tab PO SCH (06:46)
[2018-02-17] MEDS: Atorvastatin Calcium 10 MG TAB PO SCH (09:05)
[2018-02-17] MEDS: Multivitamin Tab PO SCH (09:06)
[2018-02-17] MEDS: Benztropine 1 MG TAB PO SCH ×2 (09:06→17:43)
--- NOTE | 2018-02-17 12:25 | Progress Notes ---
DATE: 02/17/2018 SUBJECTIVE: Staff was spoken to. The patient is interviewed. Mood is noted to be irritable. Affect is constricted. The patient has been paranoid, pacing most of the ____ at this time are noted to be still impaired. Impulse control seems to be limited. No side effects to the medications are noted. ASSESSMENT: The patient is still paranoid. PLAN: To continue the patient with the supportive therapy. I encouraged the patient to verbalize the concerns rather than to act out. JOB# [id number]
--- NOTE | 2018-02-17 16:31 | Internal Medicine Prog Note ---
Internal Medicine Subjective - Subjective Service Date: 02/17/18 Patient is:: awake, verbal Per staff patient has:: tolerating meds Internal Medicine Objective - Results Result Diagrams: 02/13/18 19:04 02/13/18 19:04 Recent Labs: Laboratory Last Values WBC 8.5 Th/cmm (4.8-10.8) 02/13/18 19:04 RBC 5.10 Mil/cmm (3.80-5.20) 02/13/18 19:04 Hgb 15.5 gm/dL (12-16) 02/13/18 19:04 Hct 46.1 % (41.0-60) 02/13/18 19:04 MCV 90.4 fl (81-100) 02/13/18 19:04 MCH 30.5 pg (27.0-31.0) 02/13/18 19:04 MCHC Differential 33.7 pg (28.0-36.0) 02/13/18 19:04 RDW 12.2 % (11.5-20.0) 02/13/18 19:04 Plt Count 344 Th/cmm (150-400) 02/13/18 19:04 MPV 6.8 fl 02/13/18 19:04 Neutrophils % 67.2 % (40.0-80.0) 02/13/18 19:04 Lymphocytes % 23.8 % (20.0-50.0) 02/13/18 19:04 Monocytes % 6.3 % (2.0-10.0) 02/13/18 19:04 Eosinophils % 0.9 % (0.0-5.0) 02/13/18 19:04 Basophils % 1.8 % (0.0-2.0) 02/13/18 19:04 Sodium 138 mEq/L (136-145) 02/13/18 19:04 Potassium 3.9 mEq/L (3.5-5.1) 02/13/18 19:04 Chloride 105 mEq/L (98-107) 02/13/18 19:04 Carbon Dioxide 24.5 mEq/L (21.0-31.0) 02/13/18 19:04 Anion Gap 12.4 (7.0-16.0) 02/13/18 19:04 BUN 29 mg/dL (7-25) H 02/13/18 19:04 Creatinine 0.7 mg/dL (0.6-1.2) 02/13/18 19:04 Est GFR ( Amer) > 60.0 ml/min (>90) 02/13/18 19:04 Est GFR (Non-Af Amer) > 60.0 ml/min 02/13/18 19:04 BUN/Creatinine Ratio 41.4 02/13/18 19:04 Glucose 102 mg/dL (70-105) 02/13/18 19:04 Hemoglobin A1c % 5.4 % (4.0-6.0) 02/13/18 19:04 Calcium 9.7 mg/dL (8.6-10.3) 02/13/18 19:04 Total Bilirubin 1.2 mg/dL (0.3-1.0) H 02/13/18 19:04 AST 21 U/L (13-39) 02/13/18 19:04 ALT 17 U/L (7-52) 02/13/18 19:04 Alkaline Phosphatase 98 U/L (34-104) 02/13/18 19:04 Troponin I < 0.01 ng/mL (0.01-0.05) L 02/13/18 19:04 Total Protein 7.8 gm/dL (6.0-8.3) 02/13/18 19:04 Albumin 4.2 gm/dL (3.7-5.3) 02/13/18 19:04 Globulin 3.6 gm/dL 02/13/18 19:04 Albumin/Globulin Ratio 1.2 (1.0-1.8) 02/13/18 19:04 Triglycerides 104 mg/dL (<150) 02/13/18 19:04 Cholesterol 214 mg/dL (<200) H 02/13/18 19:04 LDL Cholesterol Direct 154 mg/dL (75-193) 02/13/18 19:04 HDL Cholesterol 43 mg/dL (23-92) 02/13/18 19:04 TSH 1.06 uIU/ml (0.34-5.60) 02/13/18 19:04 Salicylates < 25.0 mg/L (30.0-100.0) L 02/13/18 19:04 Acetaminophen < 10.0 ug/mL (10.0-30.0) L 02/13/18 19:04 Ethyl Alcohol < 10 mg/dL (0-10) 02/13/18 19:04 RPR NONREACTIVE (NONREACTIVE) 02/13/18 19:04 - Physical Exam Vitals and I&O: Vital Signs Temp 97.6 F 02/17/18 14:48 Pulse 88 02/17/18 14:48 Resp 18 02/17/18 14:48 BP 134/76 02/17/18 14:48 Pulse Ox 98 02/17/18 14:48 Intake & Output 02/16/18 02/17/18 02/17/18 18:59 06:59 18:59 Intake Total 1375 960 Balance 1375 960 Intake: Oral 1375 960 Other: # Voids 3 1 # Bowel Movements 2 Active Medications: Current Medications Al Hydrox/Mg Hydrox/Simethicone (Maalox) 30 ml PO Q6HR PRN PRN Reason: GI DISTRESS Stop: 04/14/18 21:51 Atorvastatin Calcium (Lipitor) 10 mg PO DAILY [facility]; Protocol Stop: 04/15/18 08:59 Last Admin: 02/17/18 09:05 Dose: 10 mg Benztropine Mesylate (Cogentin) 1 mg PO BID [facility] Stop: 04/15/18 08:59 Last Admin: 02/17/18 09:06 Dose: 1 mg Divalproex Sodium (Depakote Dr) 500 mg PO BID [facility]; Protocol Stop: 04/15/18 08:59 Last Admin: 02/17/18 09:06 Dose: 500 mg Fenofibrate (Tricor) 134 mg PO HS [facility]US Stop: 04/15/18 20:59 Last Admin: 02/16/18 20:43 Dose: 134 mg Latanoprost (Xalatan 0.005% Ophth Soln) 1 drop EACH EYE HS [facility]US Stop: 04/15/18 20:59 Last Admin: 02/16/18 20:45 Dose: 1 drop Levothyroxine Sodium (Synthroid) 0.088 mg PO QDAC [facility] Stop: 04/15/18 07:29 Last Admin: 02/17/18 06:46 Dose: Not Given Lorazepam (Ativan) 0.5 mg PO Q4H PRN; Protocol PRN Reason: Agitation Stop: 04/14/18 21:49 Last Admin: 02/17/18 03:09 Dose: 0.5 mg Magnesium Hydroxide (Milk Of Magnesia) 30 ml PO HS PRN PRN Reason: Constipation Stop: 04/14/18 21:51 Miscellaneous (Mirtazapine [Remeron]) 30 mg PO HS GUS; Protocol Stop: 04/15/18 20:59 Last Admin: 02/16/18 20:46 Dose: 30 mg Multivitamins/Vitamin C (Theragran) 1 tab PO DAILY [facility] Stop: 04/15/18 08:59 Last Admin: 02/17/18 09:06 Dose: 1 tab Quetiapine Fumarate (Seroquel) 50 mg PO BID [facility]; Protocol Stop: 04/15/18 08:59 Last Admin: 02/17/18 09:06 Dose: 50 mg Quetiapine Fumarate (Seroquel) 50 mg PO HS [facility]US; Protocol Stop: 04/15/18 20:59 Last Admin: 02/16/18 21:15 Dose: 50 mg Zolpidem Tartrate (Ambien) 5 mg PO HS PRN PRN Reason: Insomnia Stop: 04/14/18 20:38 Last Admin: 02/16/18 20:46 Dose: 5 mg General: alert, demented HEENT: NC/AT, PERRLA Neck: Supple Lungs: CTAB Cardiovascular: RRR, Normal S1, Normal S2, without murmur Neurological: alert - Procedures Procedures: Procedures Procedure Code Date EMERGENCY DEPT VISIT 08197 11/13/11 EMERGENCY DEPT VISIT 86416 10/11/11 Internal Medicine Assmt/Plan - Assessment Assessment: htn dyslipidemia gerd hypothyroidism arthritis dementia agitation - Plan Plan: fall precautions monitor i+o monitor bp continue current plan of care
[2018-02-17] MEDS: Fenofibrate, Micronized 134 mg Cap PO SCH (21:19)
[2018-02-17] MEDS: MIRTAZAPINE 30 MG PO SCH (21:29)
[2018-02-18] MEDS: Levothyroxine 0.088 Mg Tab PO SCH (06:41)
[2018-02-18] MEDS: Multivitamin Tab PO SCH (08:54)
[2018-02-18] MEDS: Benztropine 1 MG TAB PO SCH ×2 (08:54→18:17)
[2018-02-18] MEDS: Atorvastatin Calcium 10 MG TAB PO SCH (08:54)
--- NOTE | 2018-02-18 11:57 | Internal Medicine Prog Note ---
Internal Medicine Subjective - Subjective Service Date: 02/18/18 Patient is:: awake, verbal Per staff patient has:: tolerating meds Internal Medicine Objective - Results Result Diagrams: 02/13/18 19:04 02/13/18 19:04 Recent Labs: Laboratory Last Values WBC 8.5 Th/cmm (4.8-10.8) 02/13/18 19:04 RBC 5.10 Mil/cmm (3.80-5.20) 02/13/18 19:04 Hgb 15.5 gm/dL (12-16) 02/13/18 19:04 Hct 46.1 % (41.0-60) 02/13/18 19:04 MCV 90.4 fl (81-100) 02/13/18 19:04 MCH 30.5 pg (27.0-31.0) 02/13/18 19:04 MCHC Differential 33.7 pg (28.0-36.0) 02/13/18 19:04 RDW 12.2 % (11.5-20.0) 02/13/18 19:04 Plt Count 344 Th/cmm (150-400) 02/13/18 19:04 MPV 6.8 fl 02/13/18 19:04 Neutrophils % 67.2 % (40.0-80.0) 02/13/18 19:04 Lymphocytes % 23.8 % (20.0-50.0) 02/13/18 19:04 Monocytes % 6.3 % (2.0-10.0) 02/13/18 19:04 Eosinophils % 0.9 % (0.0-5.0) 02/13/18 19:04 Basophils % 1.8 % (0.0-2.0) 02/13/18 19:04 Sodium 138 mEq/L (136-145) 02/13/18 19:04 Potassium 3.9 mEq/L (3.5-5.1) 02/13/18 19:04 Chloride 105 mEq/L (98-107) 02/13/18 19:04 Carbon Dioxide 24.5 mEq/L (21.0-31.0) 02/13/18 19:04 Anion Gap 12.4 (7.0-16.0) 02/13/18 19:04 BUN 29 mg/dL (7-25) H 02/13/18 19:04 Creatinine 0.7 mg/dL (0.6-1.2) 02/13/18 19:04 Est GFR ( Amer) > 60.0 ml/min (>90) 02/13/18 19:04 Est GFR (Non-Af Amer) > 60.0 ml/min 02/13/18 19:04 BUN/Creatinine Ratio 41.4 02/13/18 19:04 Glucose 102 mg/dL (70-105) 02/13/18 19:04 Hemoglobin A1c % 5.4 % (4.0-6.0) 02/13/18 19:04 Calcium 9.7 mg/dL (8.6-10.3) 02/13/18 19:04 Total Bilirubin 1.2 mg/dL (0.3-1.0) H 02/13/18 19:04 AST 21 U/L (13-39) 02/13/18 19:04 ALT 17 U/L (7-52) 02/13/18 19:04 Alkaline Phosphatase 98 U/L (34-104) 02/13/18 19:04 Troponin I < 0.01 ng/mL (0.01-0.05) L 02/13/18 19:04 Total Protein 7.8 gm/dL (6.0-8.3) 02/13/18 19:04 Albumin 4.2 gm/dL (3.7-5.3) 02/13/18 19:04 Globulin 3.6 gm/dL 02/13/18 19:04 Albumin/Globulin Ratio 1.2 (1.0-1.8) 02/13/18 19:04 Triglycerides 104 mg/dL (<150) 02/13/18 19:04 Cholesterol 214 mg/dL (<200) H 02/13/18 19:04 LDL Cholesterol Direct 154 mg/dL (75-193) 02/13/18 19:04 HDL Cholesterol 43 mg/dL (23-92) 02/13/18 19:04 TSH 1.06 uIU/ml (0.34-5.60) 02/13/18 19:04 Salicylates < 25.0 mg/L (30.0-100.0) L 02/13/18 19:04 Acetaminophen < 10.0 ug/mL (10.0-30.0) L 02/13/18 19:04 Ethyl Alcohol < 10 mg/dL (0-10) 02/13/18 19:04 RPR NONREACTIVE (NONREACTIVE) 02/13/18 19:04 - Physical Exam Vitals and I&O: Vital Signs Temp 98 F 02/18/18 04:34 Pulse 75 02/18/18 04:34 Resp 19 02/18/18 04:34 BP 107/70 02/18/18 04:34 Pulse Ox 97 02/18/18 04:34 Intake & Output 02/17/18 02/18/18 02/18/18 18:59 06:59 18:59 Intake Total 480 Balance 480 Intake: Oral 480 Other: # Voids 2 Active Medications: Current Medications Al Hydrox/Mg Hydrox/Simethicone (Maalox) 30 ml PO Q6HR PRN PRN Reason: GI DISTRESS Stop: 04/14/18 21:51 Atorvastatin Calcium (Lipitor) 10 mg PO DAILY [facility]; Protocol Stop: 04/15/18 08:59 Last Admin: 02/18/18 08:54 Dose: 10 mg Benztropine Mesylate (Cogentin) 1 mg PO BID [facility] Stop: 04/15/18 08:59 Last Admin: 02/18/18 08:54 Dose: 1 mg Divalproex Sodium (Depakote Dr) 500 mg PO BID [facility]; Protocol Stop: 04/15/18 08:59 Last Admin: 02/18/18 08:54 Dose: 500 mg Fenofibrate (Tricor) 134 mg PO HS GUS Stop: 04/15/18 20:59 Last Admin: 02/17/18 21:19 Dose: 134 mg Latanoprost (Xalatan 0.005% Ophth Soln) 1 drop EACH EYE HS GUS Stop: 04/15/18 20:59 Last Admin: 02/17/18 21:27 Dose: Not Given Levothyroxine Sodium (Synthroid) 0.088 mg PO QDAC [facility]US Stop: 04/15/18 07:29 Last Admin: 02/18/18 06:41 Dose: Not Given Lorazepam (Ativan) 0.5 mg PO Q4H PRN; Protocol PRN Reason: Agitation Stop: 04/14/18 21:49 Last Admin: 02/17/18 03:09 Dose: 0.5 mg Magnesium Hydroxide (Milk Of Magnesia) 30 ml PO HS PRN PRN Reason: Constipation Stop: 04/14/18 21:51 Mirtazapine (Remeron) 30 mg PO HS [facility]; Protocol Stop: 04/15/18 20:59 Multivitamins/Vitamin C (Theragran) 1 tab PO DAILY [facility] Stop: 04/15/18 08:59 Last Admin: 02/18/18 08:54 Dose: 1 tab Quetiapine Fumarate (Seroquel) 50 mg PO BID [facility]; Protocol Stop: 04/15/18 08:59 Last Admin: 02/18/18 08:54 Dose: 50 mg Quetiapine Fumarate (Seroquel) 50 mg PO HS [facility]; Protocol Stop: 04/15/18 20:59 Last Admin: 02/17/18 21:19 Dose: 50 mg Zolpidem Tartrate (Ambien) 5 mg PO HS PRN PRN Reason: Insomnia Stop: 04/14/18 20:38 Last Admin: 02/16/18 20:46 Dose: 5 mg General: alert, demented HEENT: NC/AT, PERRLA Neck: Supple Lungs: CTAB Cardiovascular: RRR, Normal S1, Normal S2, without murmur Neurological: alert - Procedures Procedures: Procedures Procedure Code Date EMERGENCY DEPT VISIT 32012 11/13/11 EMERGENCY DEPT VISIT 85081 10/11/11 Internal Medicine Assmt/Plan - Assessment Assessment: htn dyslipidemia gerd hypothyroidism arthritis dementia agitation - Plan Plan: fall precautions monitor i+o monitor bp continue current plan of care
[2018-02-18] MEDS: Fenofibrate, Micronized 134 mg Cap PO SCH (21:07)
--- NOTE | 2018-02-19 01:41 | Progress Notes ---
DATE: 02/18/2018 SUBJECTIVE: Staff was spoken to. The patient is interviewed. Mood is noted to be irritable. Affect is constricted. Insight and judgment are noted to be still impaired. Impulse control is noted to be poor. Coping skills are noted to be poor. The patient has been having difficult time to cope with the stress. The patient is paranoid at this time, but denies any command hallucinations. No side effects to the medications are noted. ASSESSMENT: The patient is still psychotic. PLAN: The patient with Seroquel and follow up. JOB# [id number]
[2018-02-19] MEDS: Levothyroxine 0.088 Mg Tab PO SCH (06:34)
[2018-02-19] MEDS: Atorvastatin Calcium 10 MG TAB PO SCH (08:41)
[2018-02-19] MEDS: Multivitamin Tab PO SCH (08:41)
[2018-02-19] MEDS: Benztropine 1 MG TAB PO SCH (08:41)
--- NOTE | 2018-02-19 11:22 | Internal Medicine Prog Note ---
Internal Medicine Subjective - Subjective Patient seen and examined:: with staff, chart reviewed Patient is:: awake, verbal Per staff patient has:: no adverse event, no episodes of fall, agitated, tolerating meds Internal Medicine Objective - Results Result Diagrams: 02/13/18 19:04 02/13/18 19:04 Recent Labs: Laboratory Last Values WBC 8.5 Th/cmm (4.8-10.8) 02/13/18 19:04 RBC 5.10 Mil/cmm (3.80-5.20) 02/13/18 19:04 Hgb 15.5 gm/dL (12-16) 02/13/18 19:04 Hct 46.1 % (41.0-60) 02/13/18 19:04 MCV 90.4 fl (81-100) 02/13/18 19:04 MCH 30.5 pg (27.0-31.0) 02/13/18 19:04 MCHC Differential 33.7 pg (28.0-36.0) 02/13/18 19:04 RDW 12.2 % (11.5-20.0) 02/13/18 19:04 Plt Count 344 Th/cmm (150-400) 02/13/18 19:04 MPV 6.8 fl 02/13/18 19:04 Neutrophils % 67.2 % (40.0-80.0) 02/13/18 19:04 Lymphocytes % 23.8 % (20.0-50.0) 02/13/18 19:04 Monocytes % 6.3 % (2.0-10.0) 02/13/18 19:04 Eosinophils % 0.9 % (0.0-5.0) 02/13/18 19:04 Basophils % 1.8 % (0.0-2.0) 02/13/18 19:04 Sodium 138 mEq/L (136-145) 02/13/18 19:04 Potassium 3.9 mEq/L (3.5-5.1) 02/13/18 19:04 Chloride 105 mEq/L (98-107) 02/13/18 19:04 Carbon Dioxide 24.5 mEq/L (21.0-31.0) 02/13/18 19:04 Anion Gap 12.4 (7.0-16.0) 02/13/18 19:04 BUN 29 mg/dL (7-25) H 02/13/18 19:04 Creatinine 0.7 mg/dL (0.6-1.2) 02/13/18 19:04 Est GFR ( Amer) > 60.0 ml/min (>90) 02/13/18 19:04 Est GFR (Non-Af Amer) > 60.0 ml/min 02/13/18 19:04 BUN/Creatinine Ratio 41.4 02/13/18 19:04 Glucose 102 mg/dL (70-105) 02/13/18 19:04 Hemoglobin A1c % 5.4 % (4.0-6.0) 02/13/18 19:04 Calcium 9.7 mg/dL (8.6-10.3) 02/13/18 19:04 Total Bilirubin 1.2 mg/dL (0.3-1.0) H 02/13/18 19:04 AST 21 U/L (13-39) 02/13/18 19:04 ALT 17 U/L (7-52) 02/13/18 19:04 Alkaline Phosphatase 98 U/L (34-104) 02/13/18 19:04 Troponin I < 0.01 ng/mL (0.01-0.05) L 02/13/18 19:04 Total Protein 7.8 gm/dL (6.0-8.3) 02/13/18 19:04 Albumin 4.2 gm/dL (3.7-5.3) 02/13/18 19:04 Globulin 3.6 gm/dL 02/13/18 19:04 Albumin/Globulin Ratio 1.2 (1.0-1.8) 02/13/18 19:04 Triglycerides 104 mg/dL (<150) 02/13/18 19:04 Cholesterol 214 mg/dL (<200) H 02/13/18 19:04 LDL Cholesterol Direct 154 mg/dL (75-193) 02/13/18 19:04 HDL Cholesterol 43 mg/dL (23-92) 02/13/18 19:04 TSH 1.06 uIU/ml (0.34-5.60) 02/13/18 19:04 Salicylates < 25.0 mg/L (30.0-100.0) L 02/13/18 19:04 Acetaminophen < 10.0 ug/mL (10.0-30.0) L 02/13/18 19:04 Ethyl Alcohol < 10 mg/dL (0-10) 02/13/18 19:04 RPR NONREACTIVE (NONREACTIVE) 02/13/18 19:04 - Physical Exam Vitals and I&O: Vital Signs Temp 97.6 F 02/19/18 06:56 Pulse 66 02/19/18 06:56 Resp 18 02/19/18 06:56 BP 118/65 02/19/18 06:56 Pulse Ox 97 02/19/18 06:56 Intake & Output 02/18/18 02/19/18 02/19/18 18:59 06:59 18:59 Intake Total 2400 240 Balance 2400 240 Intake: Oral 2400 240 Other: # Voids 3 2 # Bowel Movements 1 Active Medications: Current Medications Al Hydrox/Mg Hydrox/Simethicone (Maalox) 30 ml PO Q6HR PRN PRN Reason: GI DISTRESS Stop: 04/14/18 21:51 Atorvastatin Calcium (Lipitor) 10 mg PO DAILY [facility]; Protocol Stop: 04/15/18 08:59 Last Admin: 02/19/18 08:41 Dose: 10 mg Benztropine Mesylate (Cogentin) 1 mg PO BID [facility] Stop: 04/15/18 08:59 Last Admin: 02/19/18 08:41 Dose: 1 mg Divalproex Sodium (Depakote Dr) 500 mg PO BID [facility]; Protocol Stop: 04/15/18 08:59 Last Admin: 02/19/18 08:41 Dose: 500 mg Fenofibrate (Tricor) 134 mg PO HS GUS Stop: 04/15/18 20:59 Last Admin: 02/18/18 21:07 Dose: 134 mg Latanoprost (Xalatan 0.005% Ophth Soln) 1 drop EACH EYE HS GUS Stop: 04/15/18 20:59 Last Admin: 02/18/18 21:08 Dose: Not Given Levothyroxine Sodium (Synthroid) 0.088 mg PO QDAC GUS Stop: 04/15/18 07:29 Last Admin: 02/19/18 06:34 Dose: Not Given Lorazepam (Ativan) 0.5 mg PO Q4H PRN; Protocol PRN Reason: Agitation Stop: 04/14/18 21:49 Last Admin: 02/17/18 03:09 Dose: 0.5 mg Magnesium Hydroxide (Milk Of Magnesia) 30 ml PO HS PRN PRN Reason: Constipation Stop: 04/14/18 21:51 Mirtazapine (Remeron) 30 mg PO HS GUS; Protocol Stop: 04/15/18 20:59 Last Admin: 02/18/18 21:07 Dose: 30 mg Multivitamins/Vitamin C (Theragran) 1 tab PO DAILY GUS Stop: 04/15/18 08:59 Last Admin: 02/19/18 08:41 Dose: 1 tab Quetiapine Fumarate (Seroquel) 50 mg PO BID GUS; Protocol Stop: 04/15/18 08:59 Last Admin: 02/19/18 08:41 Dose: 50 mg Quetiapine Fumarate (Seroquel) 50 mg PO HS GUS; Protocol Stop: 04/15/18 20:59 Last Admin: 02/18/18 21:08 Dose: 50 mg Zolpidem Tartrate (Ambien) 5 mg PO HS PRN PRN Reason: Insomnia Stop: 04/14/18 20:38 Last Admin: 02/16/18 20:46 Dose: 5 mg General: demented HEENT: NC/AT, PERRLA Neck: Supple Lungs: CTAB Cardiovascular: RRR, Normal S1, Normal S2, without murmur Abdomen: globular Extremities: excoriation Neurological: alert, disorganized - Procedures Procedures: Procedures Procedure Code Date EMERGENCY DEPT VISIT 37393 11/13/11 EMERGENCY DEPT VISIT 76412 10/11/11 Internal Medicine Assmt/Plan - Assessment Assessment: - Assessment Assessment: htn dyslipidemia gerd hypothyroidism arthritis dementia agitation - Plan Plan: fall precautions monitor i+o monitor bp continue current plan of care - Plan Plan: cpm Nutritional Asmnt/Malnutr-PDOC - Dietary Evaluation Malnutrition Findings (Please click <Entered> for more info): Nutritional Asmnt/Malnutrition Start: 02/18/18 16: 14 Text: Status: Complete Freq: Protocol: Document 02/18/18 16:14 MARIBEL (Rec: 02/18/18 16:38 MARIBEL [email or web address]) Nutritional Asmnt/Malnutrition Patient General Information Nutritional Screening Low Risk Diagnosis psychosis Pertinent Medical Hx/Surgical Hx HTN, dyslipidemia, PUD, GERD, hypothyroid, arthritis, dementia Subjective Information Pt seen in bed at time of visit, awake. pt was very confused, only oriented to self and place. Pt stated good appetite. Per EMR, PO intake 100%. Current Diet Order/ Nutrition Support regular, high protein nourishement 4 oz with lunch Pertinent Medications synthorid, remeron, theragran, seroquel Pertinent Labs 02/13 Bun 29, glucose 102, Cr 5 .4 Nutritional Hx/Data Height 1.55 m Height (Calculated Centimeters) 154.9 Current Weight (lbs) 61.235 kg Weight (Calculated Kilograms) 61.2 Weight (Calculated Grams) 77181.0 [place] Body Weight 105 Body Mass Index (BMI) 25.4 Weight Status Overweight GI Symptoms GI Symptoms None Last BM 02/16 x 2 Difficult in: None Skin Integrity/Comment: intact Current %PO Good (75-100%) Estimated Nutritional Goals BEE in Kcals: Using Current wt Calories/Kcals/Kg 23-27 Kcals Calculated 2088-8554 Protein: Using Current wt Protein g/k.8 Protein Calculated 49 Fluid: ml 1403-1647ml (1ml/kcal) Nutritional Problem No current Nutrition Prob Problem N/A Malnutrition Alert Is there a minimum of two criteria No selected? Query Text:Check all the applicable criteria. A minimum of two criteria are recommended for diagnosis of either severe or non-severe malnutrition. Malnutrition Related to Morbid Obesity Malnutrition related to morbid obesity No Intervention/Recommendation Comments 1. Continue with regular diet as ordered. 2. Monitor PO intake, wt, labs and skin integrity 3. F/U as low risk in 7 days, 02/25 Expected Outcomes/Goals Expected Outcomes/Goals 1. PO intake to meet at least 75% of nutritional needs. 2. Wt stability, skin to remain intact, labs to approach WNL.
== END 2018-02-19 16:15 | DRG 885 ==
LOC: ER 18:18 → GERO2 20:09
DX: F25.9 Schizoaffective disorder, unspecified (principal); F23 Brief psychotic disorder; I10 Essential (primary) hypertension; E78.5 Hyperlipidemia, unspecified; K21.9 Gastro-esophageal reflux disease without esophagitis; K27.9 Peptic ulcer, site unspecified, unspecified as acute or chronic, without hemorrhage or perforation; M19.90 Unspecified osteoarthritis, unspecified site; F03.90 Unspecified dementia, unspecified severity, without behavioral disturbance, psychotic disturbance, mood disturbance, and anxiety; E03.9 Hypothyroidism, unspecified; Z82.49 Family history of ischemic heart disease and other diseases of the circulatory system
CPT/HCPCS: 36415-UA; 80053-TC; 80061-TC; 80320-TC; 80329-TC; 83036-90; 84443-TC; 84484-TC; 85025-TC; 86592-TC; 93005; Z7610

== ENCOUNTER 2019-01-01 19:52 | Inpatient (IN) | payer MEDICARE, MEDICAID ==
--- NOTE | 2019-01-01 20:14 | ED Physician Chart ---
ED Chief Complaint/HPI - Patient Information Date Seen:: 01/01/19 Time Seen:: 20:10 Chief Complaint:: FAILURE TO THRIVE History of Present Illness:: 68 YR OLD FEMALE FROM [facility] FAILURE TO THRIVE REFUSES MEALS AND MEALS FOR 2 DAYS WITH SOME WEAKNESS AWAKE ALERT FOLLOWING DIRECTIONS TO CERTAIN DEGREE NO REPORTS OF FEVER COUGH CHEST OR ABD PAIN NO TRAUMA NO NVDC Allergies:: Allergies Allergy/AdvReac Type Severity Reaction Status Date / Time No Known Allergies Allergy Verified 10/25/17 12:03 Vitals:: Vital Signs - 8 hr 01/01/19 19:58 Temp 97.8 F HR 72 RR 19 BP 130/60 O2 Sat % 95 ED Review of Systems - Review of Systems General/Constitutional: No fever, No chills, No weight loss, No weakness, No diaphoresis, No edema, No loss of appetite Skin: No skin lesions, No rash, No bruising Head: No headache, No light-headedness Eyes: No loss of vision, No pain, No diplopia ENT: No earache, No nasal drainage, No sore throat, No tinnitus Neck: No neck pain, No swelling, No thyromegaly, No stiffness, No mass noted Cardio Vascular: No chest pain, No palpitations, No PND, No orthopnea, No edema Pulmonary: No SOB, No cough, No sputum, No wheezing GI: No nausea, No vomiting, No diarrhea, No pain, No melena, No hematochezia, No constipation, No hematemesis G/U: No dysuria, No frequency, No hematuria Musculoskeletal: No bone or joint pain, No back pain, No muscle pain Endocrine: No polyuria, No polydipsia Psychiatric: No prior psych history, No depression, No anxiety, No suicidal ideation Hematopoietic: No bruising, No lymphadenopathy Allergic/Immuno: No urticaria, No angioedema Neurological: No syncope, No focal symptoms, No weakness, No paresthesia, No headache, No seizure, No dizziness, No confusion, No vertigo ED Past Medical History - Past Medical History Past Medical History: Other (GERD COPD ANEMIA DEMENTIA) Family Medical History - Family Member Mother History Unknown: Yes Ethnicity: Non- Living Status: Unknown Hx Family Cancer: No Hx Family Coronary Artery Disease: No Hx Family Congestive Heart Failure: No Hx Family Hypertension: No Hx Family Stroke: No Hx Family Diabetes: No Hx Family Seizures: No Hx Family Dementia: No Hx Family AIDS: No Hx Family HIV: No Hx Family COPD: No Hx Family Hepatitis: No Hx Family Psychiatric Problems: Yes Hx Family Tuberculosis: No ED Physical Exam - Physical Examination General/Constitutional: Awake, Well-developed, well-nourished, Alert, No distress, GCS 15, Non-toxic appearing, Ambulatory Head: Atraumatic Eyes: Lids, conjuctiva normal, PERRL, EOMI Skin: Nl inspection, No rash, No skin lesions, No ecchymosis, Well hydrated, No lymphadenopathy ENMT: External ears, nose nl, Nasal exam nl, Lips, teeth, gums nl Neck: Nontender, Full ROM w/o pain, No JVD, No nuchal rigidity, No bruit, No mass, No stridor Respiratory: Nl effort/Exclusion, Clear to Auscultation, No Wheeze/Rhonchi/Rales Cardio Vascular: RRR, No murmur, gallop, rubs, NL S1 S2 GI: No tenderness/rebounding/guarding, No organomegaly, No hernia, Normal BS's, Nondistended, No mass/bruits, No McBurney tenderness : No CVA tenderness Extremities: No tenderness or effusion, Full ROM, normal strength in all extremities, No edema, Normal digits & nails Neuro/Psych: Alert/oriented, DTR's symmetric, Normal sensory exam, Normal motor strength, Judgement/insight normal, Mood normal, Normal gait, No focal deficits Misc: Normal back, No paraspinal tenderness ED Assessment - Assessment General Assessment: FAILURE TO THRIVE REFUSING FOOD MEDS ED Septic Shock - . Is Septic Shock (SBP<90, OR Lactate>4 mmol\L) present?: No - <6hrs of presentation: Vital Signs: Vital Signs - 8 hr 01/01/19 19:58 Temp 97.8 F HR 72 RR 19 BP 130/60 O2 Sat % 95 ED Reassessment (Disposition) - Reassessment Reassessment:: FAILURE TO THRIVE REFUSING MEDS AND FOOD - Diagnosis Diagnosis:: ABOVE - Patient Disposition Discharge/Transfer:: Acute Care w/in this hosp Admitted to:: Med/Surg Condition at Disposition:: Stable
[2019-01-01 20:28] LABS: % EOSINOPHILS 0.7 % (0.0-5.0); % LYMPHOCYTES 23.4 % (20.0-50.0); % MONOCYTES 6.5 % (2.0-10.0); % NEUTROPHILS 69.4 % (40.0-80.0); EOSINOPHILE ABSOLUTE 0.1 Th/cmm (0.1-0.4); HEMATOCRIT 43.7 % (41.0-60); HEMOGLOBIN 14.7 gm/dL (12-16); LYMPHOCYTE ABSOLUTE 2.3 Th/cmm (1.5-3.0); MEAN CORPUSCULAR HEMOGLOBIN 29.9 pg (27.0-31.0); MEAN CORPUSCULAR HGB CONC 33.6 pg (28.0-36.0); MEAN PLATELET VOLUME 6.8 fl; MONOCYTE ABSOLUTE 0.6 Th/cmm (0.3-1.0); NEUTROPHILE ABSOLUTE 6.8 Th/cmm (1.8-8.0); PLATELET COUNT 377 Th/cmm (150-400); RED BLOOD COUNT 4.91 Mil/cmm (3.80-5.20); RED CELL DISTRIBUTION WIDTH 12.6 % (11.5-20.0); WHITE BLOOD COUNT 9.8 Th/cmm (4.8-10.8)
[2019-01-01 20:39] LABS: ALB/GLOB RATIO 1.1 (1.0-1.8); ALBUMIN 4.1 gm/dL (3.7-5.3); ALKALINE PHOSPHATASE 73 U/L (34-104); ANION GAP 15.4 (7.0-16.0); BILIRUBIN,TOTAL 1.6 mg/dL (0.3-1.0); BUN - UREA NITROGEN 22 mg/dL (7-25); CALCIUM SERUM 9.3 mg/dL (8.6-10.3); CARBON DIOXIDE 23.4 mEq/L (21.0-31.0); CHLORIDE 104 mEq/L (98-107); CREATININE - SERUM 0.7 mg/dL (0.6-1.2); GFR AFRICAN-AMERICAN > 60.0 ml/min (>90); GFR NON AFRICAN-AMERICAN > 60.0 ml/min; GLUCOSE 87 mg/dL (70-105); POTASSIUM SERUM 3.8 mEq/L (3.5-5.1); SGOT 18 U/L (13-39); SGPT/ALT 13 U/L (7-52); SODIUM SERUM 139 mEq/L (136-145); TOTAL PROTEIN,SERUM 7.8 gm/dL (6.0-8.3)
[2019-01-01] MEDS ORDERED: Maalox 30 mL Cup PO PRN (21:22)
[2019-01-01] MEDS ORDERED: Albuterol Nebulizer 2.5mg/3mL HHN PRN (21:22)
[2019-01-01] MEDS ORDERED: Ipratropium Neb 0.5 mg/2.5 mL UD HHN PRN (21:22)
--- NOTE | 2019-01-01 21:59 | History & Physical ---
ADMIT DATE: 01/01/2019 CHIEF COMPLAINT: Not taking medications or eating. HISTORY OF PRESENT ILLNESS: This is a 68-year-old Hebrew female with history of COPD, anemia, dementia, and arthritis, who recently admitted from nursing facility secondary to refusing to eat or take her medications. The patient has been getting weak, unable to ambulate properly. The patient brought in for further evaluation. The patient not very compliant. PAST MEDICAL HISTORY: As mentioned in the history of present illness. PAST SURGICAL HISTORY: Denies surgeries in the past. ALLERGIES: No known drug allergies. MEDICATIONS: The patient is on atorvastatin, Benadryl, fenofibrate, Haldol, [place], Synthroid, multivitamin. FAMILY HISTORY: Noncontributory. SOCIAL HISTORY: [facility]. The patient requiring 24-hour total care. REVIEW OF SYSTEMS: This is limited secondary to the patient's comatose state. We will try to obtain more detailed review of system at a later date by talking to family members listed on pay sheet. We will try to get information from Dr. Archer as well. PHYSICAL EXAMINATION: VITAL SIGNS: Blood pressure 130/60, respiration 18, pulse 70 and temperature 97.8. GENERAL: Elderly female. NECK: Supple. No mass. LUNGS: Equal breath sounds, a few rhonchi. HEART: Regular rate and rhythm with a systolic ejection murmur. ABDOMEN: Soft and globular. EXTREMITIES: Positive excoriations. NEUROLOGIC: Limited. LABORATORY DATA: WBC 9, hemoglobin 13, platelets 377. Sodium 139, potassium 3.8, BUN 22, creatinine 0.7, albumin ____, total bilirubin 1.6. X-ray is pending. UA is pending. ASSESSMENT AND PLAN: Failure to thrive, poor p.o. intake, worsening psych disorder, elevated cholesterol, hypothyroidism and osteoarthritis. We will continue the patient on IV hydration. We will perform calorie count. We will provide the patient with Megace. We will adjust the patient's medications. We will correct the patient's electrolyte abnormalities. We will refer the patient to Psychiatry for further management and adjustment of her psychotropic medications. JOB# [id number]
[2019-01-02 04:09] LABS: URINE SOURCE RANDOM
[2019-01-02 04:11] LABS: URINE BLOOD NEGATIVE (NEGATIVE); URINE GLUCOSE (UA) NEGATIVE (NEGATIVE); URINE KETONE TRACE mg/dL (NEGATIVE); URINE LEUKOCYTE ESTERASE TRACE (NEGATIVE); URINE MICROSCOPIC INDICATED? YES; URINE NITRATE NEGATIVE (NEGATIVE); URINE PROTEIN NEGATIVE (NEGATIVE); URINE UROBILINOGEN 0.2 E.U./dL (0.2 - 1.0)
[2019-01-02 04:29] LABS: URINE CLARITY HAZY (CLEAR); URINE COLOR ORANGE
[2019-01-02 04:31] LABS: URINE BACTERIA FEW /hpf (NONE SEEN); URINE EPITHELIAL CELLS FEW /lpf (FEW); URINE RBC 0-2 /hpf (0-5)
[2019-01-02 04:32] LABS: URINE BILIRUBIN SMALL (NEGATIVE)
[2019-01-02] MEDS: Levothyroxine 0.088 Mg Tab PO SCH (06:59)
[2019-01-02] MEDS ORDERED: MULTIVITAMIN PO SCH (09:00)
[2019-01-02] MEDS: Atorvastatin Calcium 10 MG TAB PO SCH (09:20)
[2019-01-02] MEDS: Multivitamin Tab PO SCH (09:20)
--- NOTE | 2019-01-02 12:26 | Internal Medicine Prog Note ---
Internal Medicine Subjective - Subjective Patient seen and examined:: with staff, chart reviewed Patient is:: awake, verbal, interactive, ambulating, agitated, confused Patient Complaints of:: congestion Per staff patient has:: no adverse event, poor appetite, poor oral intake, combative, refusing care, refusing labs Internal Medicine Objective - Results Result Diagrams: 01/01/19 20:15 01/01/19 20:15 Recent Labs: Laboratory Last Values WBC 9.8 Th/cmm (4.8-10.8) 01/01/19 20:15 RBC 4.91 Mil/cmm (3.80-5.20) 01/01/19 20:15 Hgb 14.7 gm/dL (12-16) 01/01/19 20:15 Hct 43.7 % (41.0-60) 01/01/19 20:15 MCV 89.0 fl (81-100) 01/01/19 20:15 MCH 29.9 pg (27.0-31.0) 01/01/19 20:15 MCHC Differential 33.6 pg (28.0-36.0) 01/01/19 20:15 RDW 12.6 % (11.5-20.0) 01/01/19 20:15 Plt Count 377 Th/cmm (150-400) 01/01/19 20:15 MPV 6.8 fl 01/01/19 20:15 Neutrophils % 69.4 % (40.0-80.0) 01/01/19 20:15 Lymphocytes % 23.4 % (20.0-50.0) 01/01/19 20:15 Monocytes % 6.5 % (2.0-10.0) 01/01/19 20:15 Eosinophils % 0.7 % (0.0-5.0) 01/01/19 20:15 Basophils % 0.0 % (0.0-2.0) 01/01/19 20:15 Sodium 139 mEq/L (136-145) 01/01/19 20:15 Potassium 3.8 mEq/L (3.5-5.1) 01/01/19 20:15 Chloride 104 mEq/L (98-107) 01/01/19 20:15 Carbon Dioxide 23.4 mEq/L (21.0-31.0) 01/01/19 20:15 Anion Gap 15.4 (7.0-16.0) 01/01/19 20:15 BUN 22 mg/dL (7-25) 01/01/19 20:15 Creatinine 0.7 mg/dL (0.6-1.2) 01/01/19 20:15 Est GFR ( Amer) > 60.0 ml/min (>90) 01/01/19 20:15 Est GFR (Non-Af Amer) > 60.0 ml/min 01/01/19 20:15 BUN/Creatinine Ratio 31.4 01/01/19 20:15 Glucose 87 mg/dL (70-105) 01/01/19 20:15 Calcium 9.3 mg/dL (8.6-10.3) 01/01/19 20:15 Total Bilirubin 1.6 mg/dL (0.3-1.0) H 01/01/19 20:15 AST 18 U/L (13-39) 01/01/19 20:15 ALT 13 U/L (7-52) 01/01/19 20:15 Alkaline Phosphatase 73 U/L (34-104) 01/01/19 20:15 Total Protein 7.8 gm/dL (6.0-8.3) 01/01/19 20:15 Albumin 4.1 gm/dL (3.7-5.3) 01/01/19 20:15 Globulin 3.7 gm/dL 01/01/19 20:15 Albumin/Globulin Ratio 1.1 (1.0-1.8) 01/01/19 20:15 TSH 1.02 uIU/ml (0.34-5.60) 01/01/19 20:15 Urine Source RANDOM 01/02/19 03:55 Urine Color ORANGE 01/02/19 03:55 Urine Clarity HAZY (CLEAR) 01/02/19 03:55 Urine pH 6.0 (4.6 - 8.0) 01/02/19 03:55 Ur Specific [place] 1.025 (1.005-1.030) 01/02/19 03:55 Urine Protein NEGATIVE mg/dL (NEGATIVE) 01/02/19 03:55 Urine Glucose (UA) NEGATIVE mg/dL (NEGATIVE) 01/02/19 03:55 Urine Ketones TRACE mg/dL (NEGATIVE) 01/02/19 03:55 Urine Blood NEGATIVE (NEGATIVE) 01/02/19 03:55 Urine Nitrate NEGATIVE (NEGATIVE) 01/02/19 03:55 Urine Bilirubin SMALL (NEGATIVE) H 01/02/19 03:55 Urine Urobilinogen 0.2 E.U./dL (0.2 - 1.0) 01/02/19 03:55 Ur Leukocyte Esterase TRACE (NEGATIVE) H 01/02/19 03:55 Urine RBC 0-2 /hpf (0-5) 01/02/19 03:55 Urine WBC 6-10 /hpf (0-5) H 01/02/19 03:55 Ur Epithelial Cells FEW /lpf (FEW) 01/02/19 03:55 Urine Bacteria FEW /hpf (NONE SEEN) 01/02/19 03:55 - Physical Exam Vitals and I&O: Vital Signs Temp 97.1 F 01/02/19 11:55 Pulse 65 01/02/19 11:55 Resp 18 01/02/19 11:55 BP 158/92 01/02/19 11:55 Pulse Ox 96 01/02/19 11:55 Intake & Output 01/01/19 01/02/19 01/02/19 18:59 06:59 18:59 Intake Total 100 Balance 100 Weight (lbs) 54.431 kg Intake: Oral 100 Other: # Voids 2 Weight Source Bedscale Active Medications: Current Medications Acetaminophen (Tylenol) 650 mg PO Q4H PRN PRN Reason: Pain Or Fever above 101 Stop: 03/02/19 21:21 Al Hydrox/Mg Hydrox/Simethicone (Maalox) 30 ml PO Q6H PRN PRN Reason: Dyspepsia Stop: 03/02/19 21:21 Albuterol Sulfate (Albuterol 2.5mg/3ml Neb Ud) 2.5 mg HHN Q2HRT PRN PRN Reason: Shortness of Breath or Wheeze Stop: 03/02/19 21:21 Atorvastatin Calcium (Lipitor) 10 mg PO DAILY [facility]; Protocol Stop: 03/03/19 08:59 Last Admin: 01/02/19 09:20 Dose: 10 mg Diphenhydramine HCl (Benadryl) 25 mg PO HS PRN PRN Reason: Insomnia Stop: 03/03/19 20:59 Fenofibrate (Tricor) 134 mg PO HS [facility] Stop: 03/03/19 20:59 Haloperidol Decanoate (Haldol Dec) 75 mg IM QMONTH [facility]; Protocol Stop: 03/03/19 09:59 Dextrose/Sodium Chloride (D5-0.9%Ns) 1,000 mls @ 80 mls/hr IV .[id number] [facility] Stop: 03/02/19 21:29 Ipratropium [place] (Atrovent Neb 0.5mg/2.5ml) 0.5 mg HHN Q2HRT PRN PRN Reason: Shortness of Breath or Wheeze Stop: 03/02/19 21:21 Latanoprost (Xalatan 0.005% Ophth Soln) 1 drop EACH EYE HS [facility] Stop: 03/03/19 20:59 Levothyroxine Sodium (Synthroid) 0.088 mg PO QDAC [facility] Stop: 03/03/19 07:29 Last Admin: 01/02/19 06:59 Dose: Not Given Megestrol Acetate (Megace) 400 mg PO BID [facility]; Protocol Stop: 03/03/19 08:59 Multivitamins/Vitamin C (Theragran) 1 tab PO DAILY [facility] Stop: 03/03/19 08:59 Last Admin: 01/02/19 09:20 Dose: 1 tab Ondansetron HCl (Zofran) 4 mg IV Q8H PRN PRN Reason: Nausea / Vomiting Stop: 03/02/19 21:21 General: demented HEENT: NC/AT, PERRLA, EOMI Neck: Supple, No JVD Lungs: congested Cardiovascular: RRR, Normal S1, Normal S2, with murmur Abdomen: soft, non-distended, positive bowel sound Extremities: excoriation Neurological: no change - Procedures Procedures: Procedures Procedure Code Date EMERGENCY DEPT VISIT 62306 11/13/11 EMERGENCY DEPT VISIT 59428 10/11/11 Internal Medicine Assmt/Plan - Assessment Assessment: ASSESSMENT AND PLAN: Failure to thrive, poor p.o. intake, worsening psych disorder, elevated cholesterol, hypothyroidism and osteoarthritis. uti - Plan Plan: We will continue the patient on IV hydration. We will perform calorie count. We will provide the patient with Megace. We will adjust the patient's medications. We will correct the patient's electrolyte abnormalities. We will refer the patient to Psychiatry for further management and adjustment of her psychotropic medications.
--- NOTE | 2019-01-02 19:55 | Consultation ---
DATE OF CONSULTATION: 01/02/2019 PSYCHIATRIC CONSULTATION REQUESTING PHYSICIAN: Bhanu Turcios D.O. REASON FOR CONSULTATION: Psychosis. HISTORY OF PRESENT ILLNESS: This patient is a 68-year-old woman, resident of [facility]. Information obtained by directly interviewing the patient as well as reviewing the admission papers. The patient is admitted for refusal to comply with the treatment and refusal to eat. Chart is reviewed. Staff was spoken to. The patient is interviewed. The patient is reluctant to give much of information. The patient has been insisting that she needs to be back at [facility]. PAST PSYCHIATRIC HISTORY: Significant for the patient being hospitalized on multiple occasions and has been diagnosed to have schizoaffective disorder and has not been consistent with medication. The patient is being followed up by Dr. Archer on an outpatient basis. Sleep and appetite prior to the hospitalization are reported to be very poor. SOCIAL HISTORY: The patient is a resident of a [facility] facility. MENTAL STATUS EXAMINATION: The patient is a 68-year-old, thin built, superficially cooperative. The patient is screaming and yelling. The patient is stating that she does not need to take any medications and continues to have paranoid delusions. The patient is responding to internal stimuli. The patient is alert and oriented. Mood is noted to be irritable. Affect is constricted. Attention span and concentration are noted to be poor at this time. DIAGNOSTIC IMPRESSION: AXIS I: Schizoaffective disorder. AXIS II: None. AXIS III: As per Dr. Turcios. IMMEDIATE TREATMENT PLAN: The patient is going to be continued with supportive therapy, encouraged to verbalize the concerns. The patient is going to be continued on her Haldol Decanoate. The patient is going to be started on low dose of Zyprexa. The patient is going to be followed up with supportive therapy. Thank you. [facility]# [id number]
[2019-01-02] MEDS: Fenofibrate, Micronized 134 mg Cap PO SCH (20:49)
[2019-01-02] MEDS: D5-0.9%NS 1,000 ML IV SCH (22:12)
[2019-01-03 06:03] LABS: % BASOPHILS 0.8 % (0.0-2.0); % EOSINOPHILS 1.7 % (0.0-5.0); % LYMPHOCYTES 32.6 % (20.0-50.0); % MONOCYTES 9.9 % (2.0-10.0); BASOPHILE ABSOLUTE 0.1 Th/cumm (0-0.2); EOSINOPHILE ABSOLUTE 0.1 Th/cmm (0.1-0.4); HEMOGLOBIN 12.5 gm/dL (12-16); LYMPHOCYTE ABSOLUTE 2.2 Th/cmm (1.5-3.0); MEAN CORPUSCULAR HEMOGLOBIN 29.7 pg (27.0-31.0); MEAN CORPUSCULAR HGB CONC 33.8 pg (28.0-36.0); MEAN PLATELET VOLUME 6.4 fl; MONOCYTE ABSOLUTE 0.7 Th/cmm (0.3-1.0); NEUTROPHILE ABSOLUTE 3.7 Th/cmm (1.8-8.0); PLATELET COUNT 354 Th/cmm (150-400); RED BLOOD COUNT 4.21 Mil/cmm (3.80-5.20); RED CELL DISTRIBUTION WIDTH 12.6 % (11.5-20.0); WHITE BLOOD COUNT 6.8 Th/cmm (4.8-10.8)
[2019-01-03 06:30] LABS: ANION GAP 8.5 (7.0-16.0); BUN - UREA NITROGEN 17 mg/dL (7-25); CALCIUM SERUM 8.4 mg/dL (8.6-10.3); CARBON DIOXIDE 24.8 mEq/L (21.0-31.0); CHLORIDE 114 mEq/L (98-107); CREATININE - SERUM 0.6 mg/dL (0.6-1.2); GFR AFRICAN-AMERICAN > 60.0 ml/min (>90); GFR NON AFRICAN-AMERICAN > 60.0 ml/min; GLUCOSE 106 mg/dL (70-105); MAGNESIUM 2.2 mg/dL (1.9-2.7); POTASSIUM SERUM 3.3 mEq/L (3.5-5.1); SODIUM SERUM 144 mEq/L (136-145)
[2019-01-03] MEDS: Levothyroxine 0.088 Mg Tab PO SCH (06:44)
[2019-01-03] MEDS: Multivitamin Tab PO SCH (08:18)
[2019-01-03] MEDS: Atorvastatin Calcium 10 MG TAB PO SCH (08:18)
[2019-01-03] MEDS ORDERED: Potassium Chloride 20 mEq ER Tab PO ONE (12:05)
--- NOTE | 2019-01-03 12:06 | Internal Medicine Prog Note ---
Internal Medicine Subjective - Subjective Patient seen and examined:: with staff, chart reviewed Patient is:: awake, verbal, interactive, ambulating, agitated, confused Patient Complaints of:: congestion Per staff patient has:: no adverse event, poor appetite, poor oral intake, combative, refusing care, refusing labs Internal Medicine Objective - Results Result Diagrams: 01/03/19 05:56 01/03/19 05:56 Recent Labs: Laboratory Last Values WBC 6.8 Th/cmm (4.8-10.8) 01/03/19 05:56 RBC 4.21 Mil/cmm (3.80-5.20) 01/03/19 05:56 Hgb 12.5 gm/dL (12-16) 01/03/19 05:56 Hct 37.0 % (41.0-60) L 01/03/19 05:56 MCV 88.0 fl (81-100) 01/03/19 05:56 MCH 29.7 pg (27.0-31.0) 01/03/19 05:56 MCHC Differential 33.8 pg (28.0-36.0) 01/03/19 05:56 RDW 12.6 % (11.5-20.0) 01/03/19 05:56 Plt Count 354 Th/cmm (150-400) 01/03/19 05:56 MPV 6.4 fl 01/03/19 05:56 Neutrophils % 55.0 % (40.0-80.0) 01/03/19 05:56 Lymphocytes % 32.6 % (20.0-50.0) 01/03/19 05:56 Monocytes % 9.9 % (2.0-10.0) 01/03/19 05:56 Eosinophils % 1.7 % (0.0-5.0) 01/03/19 05:56 Basophils % 0.8 % (0.0-2.0) 01/03/19 05:56 Sodium 144 mEq/L (136-145) 01/03/19 05:56 Potassium 3.3 mEq/L (3.5-5.1) L 01/03/19 05:56 Chloride 114 mEq/L (98-107) H 01/03/19 05:56 Carbon Dioxide 24.8 mEq/L (21.0-31.0) 01/03/19 05:56 Anion Gap 8.5 (7.0-16.0) 01/03/19 05:56 BUN 17 mg/dL (7-25) 01/03/19 05:56 Creatinine 0.6 mg/dL (0.6-1.2) 01/03/19 05:56 Est GFR ( Amer) > 60.0 ml/min (>90) 01/03/19 05:56 Est GFR (Non-Af Amer) > 60.0 ml/min 01/03/19 05:56 BUN/Creatinine Ratio 28.3 01/03/19 05:56 Glucose 106 mg/dL (70-105) H 01/03/19 05:56 Calcium 8.4 mg/dL (8.6-10.3) L 01/03/19 05:56 Magnesium 2.2 mg/dL (1.9-2.7) 01/03/19 05:56 Total Bilirubin 1.6 mg/dL (0.3-1.0) H 01/01/19 20:15 AST 18 U/L (13-39) 01/01/19 20:15 ALT 13 U/L (7-52) 01/01/19 20:15 Alkaline Phosphatase 73 U/L (34-104) 01/01/19 20:15 Ammonia 46 umol/L (16-53) 01/03/19 05:56 B-Natriuretic Peptide 11.6 pg/mL (5.0-100.0) 01/03/19 05:56 Total Protein 7.8 gm/dL (6.0-8.3) 01/01/19 20:15 Albumin 4.1 gm/dL (3.7-5.3) 01/01/19 20:15 Globulin 3.7 gm/dL 01/01/19 20:15 Albumin/Globulin Ratio 1.1 (1.0-1.8) 01/01/19 20:15 TSH 1.02 uIU/ml (0.34-5.60) 01/01/19 20:15 Urine Source RANDOM 01/02/19 03:55 Urine Color ORANGE 01/02/19 03:55 Urine Clarity HAZY (CLEAR) 01/02/19 03:55 Urine pH 6.0 (4.6 - 8.0) 01/02/19 03:55 Ur Specific [place] 1.025 (1.005-1.030) 01/02/19 03:55 Urine Protein NEGATIVE mg/dL (NEGATIVE) 01/02/19 03:55 Urine Glucose (UA) NEGATIVE mg/dL (NEGATIVE) 01/02/19 03:55 Urine Ketones TRACE mg/dL (NEGATIVE) 01/02/19 03:55 Urine Blood NEGATIVE (NEGATIVE) 01/02/19 03:55 Urine Nitrate NEGATIVE (NEGATIVE) 01/02/19 03:55 Urine Bilirubin SMALL (NEGATIVE) H 01/02/19 03:55 Urine Urobilinogen 0.2 E.U./dL (0.2 - 1.0) 01/02/19 03:55 Ur Leukocyte Esterase TRACE (NEGATIVE) H 01/02/19 03:55 Urine RBC 0-2 /hpf (0-5) 01/02/19 03:55 Urine WBC 6-10 /hpf (0-5) H 01/02/19 03:55 Ur Epithelial Cells FEW /lpf (FEW) 01/02/19 03:55 Urine Bacteria FEW /hpf (NONE SEEN) 01/02/19 03:55 - Physical Exam Vitals and I&O: Vital Signs Temp 97.7 F 01/03/19 11:59 Pulse 62 01/03/19 11:59 Resp 18 01/03/19 11:59 BP 117/54 01/03/19 11:59 Pulse Ox 99 01/03/19 11:59 Intake & Output 01/02/19 01/03/19 01/03/19 18:59 06:59 18:59 Weight (lbs) 54.63 kg Other: # Voids 4 # Bowel Movements 0 Weight Source Bedscale Active Medications: Current Medications Acetaminophen (Tylenol) 650 mg PO Q4H PRN PRN Reason: Pain Or Fever above 101 Stop: 03/02/19 21:21 Al Hydrox/Mg Hydrox/Simethicone (Maalox) 30 ml PO Q6H PRN PRN Reason: Dyspepsia Stop: 03/02/19 21:21 Albuterol Sulfate (Albuterol 2.5mg/3ml Neb Ud) 2.5 mg HHN Q2HRT PRN PRN Reason: Shortness of Breath or Wheeze Stop: 03/02/19 21:21 Atorvastatin Calcium (Lipitor) 10 mg PO DAILY [facility]; Protocol Stop: 03/03/19 08:59 Last Admin: 01/03/19 08:18 Dose: 10 mg Diphenhydramine HCl (Benadryl) 25 mg PO HS PRN PRN Reason: Insomnia Stop: 03/03/19 20:59 Fenofibrate (Tricor) 134 mg PO HS [facility] Stop: 03/03/19 20:59 Last Admin: 01/02/19 20:49 Dose: 134 mg Haloperidol Decanoate (Haldol Dec) 75 mg IM QMONTH [facility]; Protocol Stop: 03/03/19 09:59 Last Admin: 01/02/19 13:56 Dose: Not Given Dextrose/Sodium Chloride (D5-0.9%Ns) 1,000 mls @ 80 mls/hr IV .[id number] [facility] Stop: 03/02/19 21:29 Last Admin: 01/02/19 22:12 Dose: 80 mls/hr Ipratropium [place] (Atrovent Neb 0.5mg/2.5ml) 0.5 mg HHN Q2HRT PRN PRN Reason: Shortness of Breath or Wheeze Stop: 03/02/19 21:21 Latanoprost (Xalatan 0.005% Ophth Soln) 1 drop EACH EYE HS [facility] Stop: 03/03/19 20:59 Last Admin: 01/02/19 20:49 Dose: 1 drop Levothyroxine Sodium (Synthroid) 0.088 mg PO QDAC [facility] Stop: 03/03/19 07:29 Last Admin: 01/03/19 06:44 Dose: 0.088 mg Lorazepam (Ativan) 1 mg IVP Q6HR PRN; Protocol PRN Reason: Anxiety/agitation Stop: 03/03/19 20:49 Megestrol Acetate (Megace) 400 mg PO BID [facility]; Protocol Stop: 03/03/19 08:59 Last Admin: 01/03/19 08:22 Dose: Not Given Multivitamins/Vitamin C (Theragran) 1 tab PO DAILY [facility] Stop: 03/03/19 08:59 Last Admin: 01/03/19 08:18 Dose: 1 tab Olanzapine (Zyprexa) 5 mg PO HS [facility]; Protocol Stop: 03/03/19 20:59 Last Admin: 01/02/19 20:49 Dose: 5 mg Ondansetron HCl (Zofran) 4 mg IV Q8H PRN PRN Reason: Nausea / Vomiting Stop: 03/02/19 21:21 General: demented HEENT: NC/AT, PERRLA, EOMI Neck: Supple, No JVD Lungs: congested Cardiovascular: RRR, Normal S1, Normal S2, with murmur Abdomen: soft, non-distended, positive bowel sound Extremities: excoriation Neurological: no change - Procedures Procedures: Procedures Procedure Code Date EMERGENCY DEPT VISIT 53135 11/13/11 EMERGENCY DEPT VISIT 43650 10/11/11 Internal Medicine Assmt/Plan - Assessment Assessment: ASSESSMENT AND PLAN: Failure to thrive, poor p.o. intake, worsening psych disorder, elevated cholesterol, hypothyroidism and osteoarthritis. uti - Plan Plan: We will continue the patient on IV hydration. We will perform calorie count. We will provide the patient with Megace. We will adjust the patient's medications. We will correct the patient's electrolyte abnormalities. We will refer the patient to Psychiatry for further management and adjustment of her psychotropic medications. Nutritional Asmnt/Malnutr-PDOC - Dietary Evaluation Malnutrition Findings (Please click <Entered> for more info): Nutritional Asmnt/Malnutrition Start: 01/02/19 16: 07 Text: Status: Complete Freq: Protocol: Document 01/02/19 16:07 LCHENG (Rec: 01/02/19 16:19 LCHENG [email or web address]) Nutritional Asmnt/Malnutrition Patient General Information Nutritional Screening High Risk Diagnosis FTT, generalized weakness Pertinent Medical Hx/Surgical Hx GERD, COPD, anemia, dementia Subjective Information Pt seen in her room, finished about 75% of lunch. Per nurse pt ate 50% of breakfast. Pt appeared good appetite, confused. Pt stated she does not want to eat too much because she stays in bed all day. Current Diet Order/ Nutrition Support regular Pertinent Medications D5-0.9%ns, synthroid, megace, theragran Pertinent Labs 01/01 reviewed Nutritional Hx/Data Height 1.55 m Height (Calculated Centimeters) 154.9 Current Weight (lbs) 54.431 kg Weight (Calculated Kilograms) 54.4 Weight (Calculated Grams) 80365.1 [place] Body Weight 105 Body Mass Index (BMI) 22.6 Weight Status Approriate GI Symptoms GI Symptoms None Last BM not indicated Difficult in: None Skin Integrity/Comment: intact Current %PO Fair (50-74%) Estimated Nutritional Goals BEE in Kcals: Using Current wt Calories/Kcals/Kg 25-30 Kcals Calculated 1283-8660 Protein: Using Current wt Protein g/k Protein Calculated 55 Fluid: ml 1375-1650ml (1ml/kcal) Nutritional Problem No current Nutrition Prob Problem N/A Intervention/Recommendation Comments 1. Continue with current diet as ordered. 2. Monitor PO intake, wt, labs and skin integrity 3. F/U as low risk in 7 days Expected Outcomes/Goals Expected Outcomes/Goals 1. PO intake to meet at least 75% of nutritional needs. 2. Wt stability, skin to remain intact, labs to approach WNL.
[2019-01-03] MEDS: D5-0.9%NS 1,000 ML IV SCH (12:52)
[2019-01-03] MEDS: Fenofibrate, Micronized 134 mg Cap PO SCH (21:25)
--- NOTE | 2019-01-04 04:11 | Consultation ---
DATE OF CONSULTATION: 01/03/2019 REFERRING PHYSICIAN: Milla Mcclelland MD TYPE OF CONSULTATION: Psychology. HISTORY OF PRESENT ILLNESS: The patient is a 68-year-old female. The patient is a resident of [facility]. The following is by record review and by the patient's self-report. The patient is known to this chart writer from multiple previous hospitalizations. The patient is being admitted for noncompliance with treatment and refusing to eat. The patient, at the time of the interview, is not providing much information. The patient was able to deny any suicidal ideation, plan or intention. PAST MEDICAL HISTORY: Please see history and physical by Dr. Turcios. PAST PSYCHIATRIC HISTORY: The patient has multiple previous hospitalizations. The patient has a history of schizoaffective disorder. The patient is being followed by Dr. Archer at her placement. SUBSTANCE ABUSE HISTORY: The patient declined to answer these questions. PSYCHOSOCIAL HISTORY: The patient declined to answer these questions. Review of the medical record indicates the patient's son, Justo, is involved in her care. The patient is . The record indicates no specific synagogue affiliation. She denied any history of physical or sexual abuse. She denied any current legal problems. The patient is expected to return to her placement. MENTAL STATUS EXAMINATION: The patient appears to be older than her stated age. She is thin and frail. Attitude is superficially cooperative. Eye contact is poor. Speech is intermittently loud. Staff reports the patient has had intermittent yelling episodes. The patient is stating she does not need to take medications. Thought process shows to be confused and includes paranoid ideation. The patient did not answer questions about experiencing auditory or visual hallucinations. The patient appears to be responding to internal stimuli. Mood is irritable. Affect is constricted. Impulse control is inadequate. Concentration is poor. Sensorium is alert and oriented to self only. The patient did not participate in the memory assessment. She did not participate in the interpretation of proverbs. Insight is impaired. Judgment is impaired. DIAGNOSTIC IMPRESSION: AXIS I: Schizoaffective disorder by history. AXIS II: Deferred. AXIS III: Per Dr. Turcios. TREATMENT PLAN: The patient has been seen by Dr. Mcclelland for psychiatric evaluation and for the management of the patient's psychotropic medications. We will provide supportive psychotherapy to include reality orientation, differentiation and integration. We will provide motivational enhancement for the patient to become compliant and stay compliant with all aspects of her care and treatment. We will encourage the patient to demonstrate emotional and self-regulation and to verbalize her concerns versus verbally acting out. We will provide coping strategies for phase of life issues as well. We will follow up in 2 days to continue the present treatment. Thank you, Dr. Archer and Dr. Mcclelland, for this consult and the opportunity to participate in this patient's care. [facility]# [id number] HARLAN
--- NOTE | 2019-01-04 05:04 | Progress Notes ---
DATE: 01/03/2019 SUBJECTIVE: Staff was spoken to. The patient is interviewed. Mood is noted to be irritable. Affect is constricted. Insight and judgment at this time are noted to be still impaired. Impulse control is noted to be limited. The patient is very psychotic and agitated and not making much sense. Coping skills are noted to be very poor. PLAN: It is decided to increase the dose of the Zyprexa to 10 mg and follow the patient up. JOB# [id number]
[2019-01-04] MEDS: Levothyroxine 0.088 Mg Tab PO SCH (06:42)
[2019-01-04] MEDS: Atorvastatin Calcium 10 MG TAB PO SCH (08:12)
[2019-01-04] MEDS: Multivitamin Tab PO SCH (08:12)
[2019-01-04 08:31] LABS: ALB/GLOB RATIO 1.2 (1.0-1.8); ALBUMIN 3.7 gm/dL (3.7-5.3); ALKALINE PHOSPHATASE 72 U/L (34-104); ANION GAP 14.3 (7.0-16.0); BILIRUBIN,TOTAL 0.7 mg/dL (0.3-1.0); BUN - UREA NITROGEN 13 mg/dL (7-25); CALCIUM SERUM 9.4 mg/dL (8.6-10.3); CARBON DIOXIDE 24.8 mEq/L (21.0-31.0); CHLORIDE 109 mEq/L (98-107); CREATININE - SERUM 0.6 mg/dL (0.6-1.2); GFR AFRICAN-AMERICAN > 60.0 ml/min (>90); GFR NON AFRICAN-AMERICAN > 60.0 ml/min; GLUCOSE 112 mg/dL (70-105); MAGNESIUM 2.2 mg/dL (1.9-2.7); POTASSIUM SERUM 4.1 mEq/L (3.5-5.1); SGOT 20 U/L (13-39); SGPT/ALT 18 U/L (7-52); SODIUM SERUM 144 mEq/L (136-145); TOTAL PROTEIN,SERUM 6.9 gm/dL (6.0-8.3)
--- NOTE | 2019-01-04 12:15 | Internal Medicine Prog Note ---
Internal Medicine Subjective - Subjective Patient seen and examined:: with staff, chart reviewed Patient is:: awake, verbal, interactive, ambulating, agitated, confused Patient Complaints of:: congestion Per staff patient has:: no adverse event, poor appetite, poor oral intake, combative, refusing care, refusing labs Internal Medicine Objective - Results Result Diagrams: 01/03/19 05:56 01/04/19 08:05 Recent Labs: Laboratory Last Values WBC 6.8 Th/cmm (4.8-10.8) 01/03/19 05:56 RBC 4.21 Mil/cmm (3.80-5.20) 01/03/19 05:56 Hgb 12.5 gm/dL (12-16) 01/03/19 05:56 Hct 37.0 % (41.0-60) L 01/03/19 05:56 MCV 88.0 fl (81-100) 01/03/19 05:56 MCH 29.7 pg (27.0-31.0) 01/03/19 05:56 MCHC Differential 33.8 pg (28.0-36.0) 01/03/19 05:56 RDW 12.6 % (11.5-20.0) 01/03/19 05:56 Plt Count 354 Th/cmm (150-400) 01/03/19 05:56 MPV 6.4 fl 01/03/19 05:56 Neutrophils % 55.0 % (40.0-80.0) 01/03/19 05:56 Lymphocytes % 32.6 % (20.0-50.0) 01/03/19 05:56 Monocytes % 9.9 % (2.0-10.0) 01/03/19 05:56 Eosinophils % 1.7 % (0.0-5.0) 01/03/19 05:56 Basophils % 0.8 % (0.0-2.0) 01/03/19 05:56 Sodium 144 mEq/L (136-145) 01/04/19 08:05 Potassium 4.1 mEq/L (3.5-5.1) 01/04/19 08:05 Chloride 109 mEq/L (98-107) H 01/04/19 08:05 Carbon Dioxide 24.8 mEq/L (21.0-31.0) 01/04/19 08:05 Anion Gap 14.3 (7.0-16.0) 01/04/19 08:05 BUN 13 mg/dL (7-25) 01/04/19 08:05 Creatinine 0.6 mg/dL (0.6-1.2) 01/04/19 08:05 Est GFR ( Amer) > 60.0 ml/min (>90) 01/04/19 08:05 Est GFR (Non-Af Amer) > 60.0 ml/min 01/04/19 08:05 BUN/Creatinine Ratio 21.7 01/04/19 08:05 Glucose 112 mg/dL (70-105) H 01/04/19 08:05 Calcium 9.4 mg/dL (8.6-10.3) 01/04/19 08:05 Magnesium 2.2 mg/dL (1.9-2.7) 01/04/19 08:05 Total Bilirubin 0.7 mg/dL (0.3-1.0) 01/04/19 08:05 AST 20 U/L (13-39) 01/04/19 08:05 ALT 18 U/L (7-52) 01/04/19 08:05 Alkaline Phosphatase 72 U/L (34-104) 01/04/19 08:05 Ammonia 46 umol/L (16-53) 01/03/19 05:56 B-Natriuretic Peptide 11.6 pg/mL (5.0-100.0) 01/03/19 05:56 Total Protein 6.9 gm/dL (6.0-8.3) 01/04/19 08:05 Albumin 3.7 gm/dL (3.7-5.3) 01/04/19 08:05 Globulin 3.2 gm/dL 01/04/19 08:05 Albumin/Globulin Ratio 1.2 (1.0-1.8) 01/04/19 08:05 TSH 1.02 uIU/ml (0.34-5.60) 01/01/19 20:15 Urine Source RANDOM 01/02/19 03:55 Urine Color ORANGE 01/02/19 03:55 Urine Clarity HAZY (CLEAR) 01/02/19 03:55 Urine pH 6.0 (4.6 - 8.0) 01/02/19 03:55 Ur Specific [place] 1.025 (1.005-1.030) 01/02/19 03:55 Urine Protein NEGATIVE mg/dL (NEGATIVE) 01/02/19 03:55 Urine Glucose (UA) NEGATIVE mg/dL (NEGATIVE) 01/02/19 03:55 Urine Ketones TRACE mg/dL (NEGATIVE) 01/02/19 03:55 Urine Blood NEGATIVE (NEGATIVE) 01/02/19 03:55 Urine Nitrate NEGATIVE (NEGATIVE) 01/02/19 03:55 Urine Bilirubin SMALL (NEGATIVE) H 01/02/19 03:55 Urine Urobilinogen 0.2 E.U./dL (0.2 - 1.0) 01/02/19 03:55 Ur Leukocyte Esterase TRACE (NEGATIVE) H 01/02/19 03:55 Urine RBC 0-2 /hpf (0-5) 01/02/19 03:55 Urine WBC 6-10 /hpf (0-5) H 01/02/19 03:55 Ur Epithelial Cells FEW /lpf (FEW) 01/02/19 03:55 Urine Bacteria FEW /hpf (NONE SEEN) 01/02/19 03:55 - Physical Exam Vitals and I&O: Vital Signs Temp 97.6 F 01/04/19 11:59 Pulse 83 01/04/19 11:59 Resp 18 01/04/19 11:59 BP 109/54 01/04/19 11:59 Pulse Ox 98 01/04/19 11:59 Intake & Output 01/03/19 01/04/19 01/04/19 18:59 06:59 18:59 Intake Total 1675 340 Balance 1675 340 Weight (lbs) 54.63 kg 53.252 kg Intake: Intake, IV Amount 1000 D5-0.9%Ns 1,000 ml @ 80 1000 mls/hr IV .[id number] [facility] Rx #:[id number] Oral 675 340 Other: # Voids 3 2 # Bowel Movements 0 Weight Source Bedscale Bedscale Active Medications: Current Medications Acetaminophen (Tylenol) 650 mg PO Q4H PRN PRN Reason: Pain Or Fever above 101 Stop: 03/02/19 21:21 Al Hydrox/Mg Hydrox/Simethicone (Maalox) 30 ml PO Q6H PRN PRN Reason: Dyspepsia Stop: 03/02/19 21:21 Albuterol Sulfate (Albuterol 2.5mg/3ml Neb Ud) 2.5 mg HHN Q2HRT PRN PRN Reason: Shortness of Breath or Wheeze Stop: 03/02/19 21:21 Atorvastatin Calcium (Lipitor) 10 mg PO DAILY [facility]; Protocol Stop: 03/03/19 08:59 Last Admin: 01/04/19 08:12 Dose: 10 mg Diphenhydramine HCl (Benadryl) 25 mg PO HS PRN PRN Reason: Insomnia Stop: 03/03/19 20:59 Fenofibrate (Tricor) 134 mg PO HS [facility]US Stop: 03/03/19 20:59 Last Admin: 01/03/19 21:25 Dose: 134 mg Haloperidol Decanoate (Haldol Dec) 75 mg IM QMONTH [facility]; Protocol Stop: 03/03/19 09:59 Last Admin: 01/02/19 13:56 Dose: Not Given Dextrose/Sodium Chloride (D5-0.9%Ns) 1,000 mls @ 80 mls/hr IV .[id number] [facility] Stop: 03/02/19 21:29 Last Admin: 01/03/19 12:52 Dose: 80 mls/hr Ipratropium [place] (Atrovent Neb 0.5mg/2.5ml) 0.5 mg HHN Q2HRT PRN PRN Reason: Shortness of Breath or Wheeze Stop: 03/02/19 21:21 Latanoprost (Xalatan 0.005% Ophth Soln) 1 drop EACH EYE HS [facility] Stop: 03/03/19 20:59 Last Admin: 01/03/19 21:37 Dose: Not Given Levothyroxine Sodium (Synthroid) 0.088 mg PO QDAC [facility] Stop: 03/03/19 07:29 Last Admin: 01/04/19 06:42 Dose: 0.088 mg Lorazepam (Ativan) 1 mg IVP Q6HR PRN; Protocol PRN Reason: Anxiety/agitation Stop: 03/03/19 20:49 Megestrol Acetate (Megace) 400 mg PO BID [facility]; Protocol Stop: 03/03/19 08:59 Last Admin: 01/04/19 08:12 Dose: 400 mg Multivitamins/Vitamin C (Theragran) 1 tab PO DAILY [facility] Stop: 03/03/19 08:59 Last Admin: 01/04/19 08:12 Dose: 1 tab Olanzapine (Zyprexa) 10 mg PO HS [facility]; Protocol Stop: 03/04/19 20:59 Last Admin: 01/03/19 21:24 Dose: 10 mg Ondansetron HCl (Zofran) 4 mg IV Q8H PRN PRN Reason: Nausea / Vomiting Stop: 03/02/19 21:21 General: demented HEENT: NC/AT, PERRLA, EOMI Neck: Supple, No JVD Lungs: congested Cardiovascular: RRR, Normal S1, Normal S2, with murmur Abdomen: soft, non-distended, positive bowel sound Extremities: excoriation Neurological: no change - Procedures Procedures: Procedures Procedure Code Date EMERGENCY DEPT VISIT 08575 11/13/11 EMERGENCY DEPT VISIT 76570 10/11/11 Internal Medicine Assmt/Plan - Assessment Assessment: ASSESSMENT AND PLAN: Failure to thrive, poor p.o. intake, worsening psych disorder, elevated cholesterol, hypothyroidism and osteoarthritis. uti - Plan Plan: We will continue the patient on IV hydration. We will perform calorie count. We will provide the patient with Megace. We will adjust the patient's medications. We will correct the patient's electrolyte abnormalities. We will refer the patient to Psychiatry for further management and adjustment of her psychotropic medications. Nutritional Asmnt/Malnutr-PDOC - Dietary Evaluation Malnutrition Findings (Please click <Entered> for more info): Nutritional Asmnt/Malnutrition Start: 01/02/19 16: 07 Text: Status: Complete Freq: Protocol: Document 01/02/19 16:07 LCHENG (Rec: 01/02/19 16:19 LCHENG [email or web address]) Nutritional Asmnt/Malnutrition Patient General Information Nutritional Screening High Risk Diagnosis FTT, generalized weakness Pertinent Medical Hx/Surgical Hx GERD, COPD, anemia, dementia Subjective Information Pt seen in her room, finished about 75% of lunch. Per nurse pt ate 50% of breakfast. Pt appeared good appetite, confused. Pt stated she does not want to eat too much because she stays in bed all day. Current Diet Order/ Nutrition Support regular Pertinent Medications D5-0.9%ns, synthroid, megace, theragran Pertinent Labs 01/01 reviewed Nutritional Hx/Data Height 1.55 m Height (Calculated Centimeters) 154.9 Current Weight (lbs) 54.431 kg Weight (Calculated Kilograms) 54.4 Weight (Calculated Grams) 47512.1 [place] Body Weight 105 Body Mass Index (BMI) 22.6 Weight Status Approriate GI Symptoms GI Symptoms None Last BM not indicated Difficult in: None Skin Integrity/Comment: intact Current %PO Fair (50-74%) Estimated Nutritional Goals BEE in Kcals: Using Current wt Calories/Kcals/Kg 25-30 Kcals Calculated 6688-6660 Protein: Using Current wt Protein g/k Protein Calculated 55 Fluid: ml 1375-1650ml (1ml/kcal) Nutritional Problem No current Nutrition Prob Problem N/A Intervention/Recommendation Comments 1. Continue with current diet as ordered. 2. Monitor PO intake, wt, labs and skin integrity 3. F/U as low risk in 7 days Expected Outcomes/Goals Expected Outcomes/Goals 1. PO intake to meet at least 75% of nutritional needs. 2. Wt stability, skin to remain intact, labs to approach WNL.
--- NOTE | 2019-01-04 14:39 | Progress Notes ---
DATE: 01/04/2019 SUBJECTIVE: Staff was spoken to. The patient is interviewed. Mood is noted to be irritable. Affect is constricted. Continues to be paranoid and going on a tangent. The patient has no insight into her illness. ASSESSMENT: The patient is still grossly psychotic and impulsive and not able to contract for safety. PLAN: To continue the patient with the Zyprexa and encourage the patient to verbalize the concerns rather than to act out. [facility]# [id number]
[2019-01-04] MEDS: D5-0.9%NS 1,000 ML IV SCH (16:06)
[2019-01-04] MEDS: Fenofibrate, Micronized 134 mg Cap PO SCH (20:30)
[2019-01-05] MEDS: Levothyroxine 0.088 Mg Tab PO SCH (06:38)
[2019-01-05] MEDS: D5-0.9%NS 1,000 ML IV SCH ×2 (06:39→18:36)
[2019-01-05] MEDS: Multivitamin Tab PO SCH (08:14)
[2019-01-05] MEDS: Atorvastatin Calcium 10 MG TAB PO SCH (08:14)
--- NOTE | 2019-01-05 11:45 | Internal Medicine Prog Note ---
Internal Medicine Subjective - Subjective Patient seen and examined:: with staff, chart reviewed Patient is:: awake, verbal, interactive, ambulating, agitated, confused Patient Complaints of:: congestion Per staff patient has:: no adverse event, poor appetite, poor oral intake, combative, refusing care, refusing labs Internal Medicine Objective - Results Result Diagrams: 01/03/19 05:56 01/04/19 08:05 Recent Labs: Laboratory Last Values WBC 6.8 Th/cmm (4.8-10.8) 01/03/19 05:56 RBC 4.21 Mil/cmm (3.80-5.20) 01/03/19 05:56 Hgb 12.5 gm/dL (12-16) 01/03/19 05:56 Hct 37.0 % (41.0-60) L 01/03/19 05:56 MCV 88.0 fl (81-100) 01/03/19 05:56 MCH 29.7 pg (27.0-31.0) 01/03/19 05:56 MCHC Differential 33.8 pg (28.0-36.0) 01/03/19 05:56 RDW 12.6 % (11.5-20.0) 01/03/19 05:56 Plt Count 354 Th/cmm (150-400) 01/03/19 05:56 MPV 6.4 fl 01/03/19 05:56 Neutrophils % 55.0 % (40.0-80.0) 01/03/19 05:56 Lymphocytes % 32.6 % (20.0-50.0) 01/03/19 05:56 Monocytes % 9.9 % (2.0-10.0) 01/03/19 05:56 Eosinophils % 1.7 % (0.0-5.0) 01/03/19 05:56 Basophils % 0.8 % (0.0-2.0) 01/03/19 05:56 Sodium 144 mEq/L (136-145) 01/04/19 08:05 Potassium 4.1 mEq/L (3.5-5.1) 01/04/19 08:05 Chloride 109 mEq/L (98-107) H 01/04/19 08:05 Carbon Dioxide 24.8 mEq/L (21.0-31.0) 01/04/19 08:05 Anion Gap 14.3 (7.0-16.0) 01/04/19 08:05 BUN 13 mg/dL (7-25) 01/04/19 08:05 Creatinine 0.6 mg/dL (0.6-1.2) 01/04/19 08:05 Est GFR ( Amer) > 60.0 ml/min (>90) 01/04/19 08:05 Est GFR (Non-Af Amer) > 60.0 ml/min 01/04/19 08:05 BUN/Creatinine Ratio 21.7 01/04/19 08:05 Glucose 112 mg/dL (70-105) H 01/04/19 08:05 Calcium 9.4 mg/dL (8.6-10.3) 01/04/19 08:05 Magnesium 2.2 mg/dL (1.9-2.7) 01/04/19 08:05 Total Bilirubin 0.7 mg/dL (0.3-1.0) 01/04/19 08:05 AST 20 U/L (13-39) 01/04/19 08:05 ALT 18 U/L (7-52) 01/04/19 08:05 Alkaline Phosphatase 72 U/L (34-104) 01/04/19 08:05 Ammonia 46 umol/L (16-53) 01/03/19 05:56 B-Natriuretic Peptide 11.6 pg/mL (5.0-100.0) 01/03/19 05:56 Total Protein 6.9 gm/dL (6.0-8.3) 01/04/19 08:05 Albumin 3.7 gm/dL (3.7-5.3) 01/04/19 08:05 Globulin 3.2 gm/dL 01/04/19 08:05 Albumin/Globulin Ratio 1.2 (1.0-1.8) 01/04/19 08:05 TSH 1.02 uIU/ml (0.34-5.60) 01/01/19 20:15 Urine Source RANDOM 01/02/19 03:55 Urine Color ORANGE 01/02/19 03:55 Urine Clarity HAZY (CLEAR) 01/02/19 03:55 Urine pH 6.0 (4.6 - 8.0) 01/02/19 03:55 Ur Specific [place] 1.025 (1.005-1.030) 01/02/19 03:55 Urine Protein NEGATIVE mg/dL (NEGATIVE) 01/02/19 03:55 Urine Glucose (UA) NEGATIVE mg/dL (NEGATIVE) 01/02/19 03:55 Urine Ketones TRACE mg/dL (NEGATIVE) 01/02/19 03:55 Urine Blood NEGATIVE (NEGATIVE) 01/02/19 03:55 Urine Nitrate NEGATIVE (NEGATIVE) 01/02/19 03:55 Urine Bilirubin SMALL (NEGATIVE) H 01/02/19 03:55 Urine Urobilinogen 0.2 E.U./dL (0.2 - 1.0) 01/02/19 03:55 Ur Leukocyte Esterase TRACE (NEGATIVE) H 01/02/19 03:55 Urine RBC 0-2 /hpf (0-5) 01/02/19 03:55 Urine WBC 6-10 /hpf (0-5) H 01/02/19 03:55 Ur Epithelial Cells FEW /lpf (FEW) 01/02/19 03:55 Urine Bacteria FEW /hpf (NONE SEEN) 01/02/19 03:55 - Physical Exam Vitals and I&O: Vital Signs Temp 97.3 F 01/05/19 11:37 Pulse 68 01/05/19 11:37 Resp 18 01/05/19 11:37 BP 121/68 01/05/19 11:37 Pulse Ox 98 01/05/19 11:37 Intake & Output 01/04/19 01/05/19 01/05/19 18:59 06:59 18:59 Intake Total 600 1240 Balance 600 1240 Weight (lbs) 54.431 kg 54.431 kg Intake: Intake, IV Amount 1000 D5-0.9%Ns 1,000 ml @ 80 1000 mls/hr IV .[id number] [facility] Rx #:[id number] Oral 600 240 Other: # Voids 3 3 # Bowel Movements 0 0 Weight Source Bedscale Bedscale Active Medications: Current Medications Acetaminophen (Tylenol) 650 mg PO Q4H PRN PRN Reason: Pain Or Fever above 101 Stop: 03/02/19 21:21 Al Hydrox/Mg Hydrox/Simethicone (Maalox) 30 ml PO Q6H PRN PRN Reason: Dyspepsia Stop: 03/02/19 21:21 Albuterol Sulfate (Albuterol 2.5mg/3ml Neb Ud) 2.5 mg HHN Q2HRT PRN PRN Reason: Shortness of Breath or Wheeze Stop: 03/02/19 21:21 Atorvastatin Calcium (Lipitor) 10 mg PO DAILY [facility]; Protocol Stop: 03/03/19 08:59 Last Admin: 01/05/19 08:14 Dose: 10 mg Diphenhydramine HCl (Benadryl) 25 mg PO HS PRN PRN Reason: Insomnia Stop: 03/03/19 20:59 Fenofibrate (Tricor) 134 mg PO HS GUS Stop: 03/03/19 20:59 Last Admin: 01/04/19 20:30 Dose: 134 mg Haloperidol Decanoate (Haldol Dec) 75 mg IM QMONTH [facility]; Protocol Stop: 03/03/19 09:59 Last Admin: 01/02/19 13:56 Dose: Not Given Dextrose/Sodium Chloride (D5-0.9%Ns) 1,000 mls @ 80 mls/hr IV .[id number] [facility] Stop: 03/02/19 21:29 Last Admin: 01/05/19 06:39 Dose: 80 mls/hr Ipratropium [place] (Atrovent Neb 0.5mg/2.5ml) 0.5 mg HHN Q2HRT PRN PRN Reason: Shortness of Breath or Wheeze Stop: 03/02/19 21:21 Latanoprost (Xalatan 0.005% Ophth Soln) 1 drop EACH EYE HS [facility] Stop: 03/03/19 20:59 Last Admin: 01/04/19 20:30 Dose: 1 drop Levothyroxine Sodium (Synthroid) 0.088 mg PO QDAC [facility] Stop: 03/03/19 07:29 Last Admin: 01/05/19 06:38 Dose: 0.088 mg Lorazepam (Ativan) 1 mg IVP Q6HR PRN; Protocol PRN Reason: Anxiety/agitation Stop: 03/03/19 20:49 Megestrol Acetate (Megace) 400 mg PO BID [facility]; Protocol Stop: 03/03/19 08:59 Last Admin: 01/05/19 08:14 Dose: 400 mg Multivitamins/Vitamin C (Theragran) 1 tab PO DAILY [facility] Stop: 03/03/19 08:59 Last Admin: 01/05/19 08:14 Dose: 1 tab Olanzapine (Zyprexa) 10 mg PO HS [facility]; Protocol Stop: 03/04/19 20:59 Last Admin: 01/04/19 20:30 Dose: 10 mg Ondansetron HCl (Zofran) 4 mg IV Q8H PRN PRN Reason: Nausea / Vomiting Stop: 03/02/19 21:21 General: demented HEENT: NC/AT, PERRLA, EOMI Neck: Supple, No JVD Lungs: congested Cardiovascular: RRR, Normal S1, Normal S2, with murmur Abdomen: soft, non-distended, positive bowel sound Extremities: excoriation Neurological: no change - Procedures Procedures: Procedures Procedure Code Date EMERGENCY DEPT VISIT 27936 11/13/11 EMERGENCY DEPT VISIT 98846 10/11/11 Internal Medicine Assmt/Plan - Assessment Assessment: ASSESSMENT AND PLAN: Failure to thrive, poor p.o. intake, worsening psych disorder, elevated cholesterol, hypothyroidism and osteoarthritis. uti - Plan Plan: We will continue the patient on IV hydration. We will perform calorie count. We will provide the patient with Megace. We will adjust the patient's medications. We will correct the patient's electrolyte abnormalities. We will refer the patient to Psychiatry for further management and adjustment of her psychotropic medications. Nutritional Asmnt/Malnutr-PDOC - Dietary Evaluation Malnutrition Findings (Please click <Entered> for more info): Nutritional Asmnt/Malnutrition Start: 01/02/19 16: 07 Text: Status: Complete Freq: Protocol: Document 01/02/19 16:07 LCHENG (Rec: 01/02/19 16:19 LCHENG [email or web address]) Nutritional Asmnt/Malnutrition Patient General Information Nutritional Screening High Risk Diagnosis FTT, generalized weakness Pertinent Medical Hx/Surgical Hx GERD, COPD, anemia, dementia Subjective Information Pt seen in her room, finished about 75% of lunch. Per nurse pt ate 50% of breakfast. Pt appeared good appetite, confused. Pt stated she does not want to eat too much because she stays in bed all day. Current Diet Order/ Nutrition Support regular Pertinent Medications D5-0.9%ns, synthroid, megace, theragran Pertinent Labs 01/01 reviewed Nutritional Hx/Data Height 1.55 m Height (Calculated Centimeters) 154.9 Current Weight (lbs) 54.431 kg Weight (Calculated Kilograms) 54.4 Weight (Calculated Grams) 31350.1 [place] Body Weight 105 Body Mass Index (BMI) 22.6 Weight Status Approriate GI Symptoms GI Symptoms None Last BM not indicated Difficult in: None Skin Integrity/Comment: intact Current %PO Fair (50-74%) Estimated Nutritional Goals BEE in Kcals: Using Current wt Calories/Kcals/Kg 25-30 Kcals Calculated 2212-5568 Protein: Using Current wt Protein g/k Protein Calculated 55 Fluid: ml 1375-1650ml (1ml/kcal) Nutritional Problem No current Nutrition Prob Problem N/A Intervention/Recommendation Comments 1. Continue with current diet as ordered. 2. Monitor PO intake, wt, labs and skin integrity 3. F/U as low risk in 7 days Expected Outcomes/Goals Expected Outcomes/Goals 1. PO intake to meet at least 75% of nutritional needs. 2. Wt stability, skin to remain intact, labs to approach WNL.
--- NOTE | 2019-01-05 17:33 | Progress Notes ---
DATE: 01/05/2019 SUBJECTIVE: Staff was spoken to. The patient is interviewed. Mood is noted to be irritable. Affect is constricted. Coping skills are noted to very poor. The patient has been pacing on the unit. The patient is talking to self, laughing and giggling, not making much sense. The patient is currently on Zyprexa and is able to tolerate the medication. ASSESSMENT: The patient is still grossly psychotic. PLAN: To continue the patient with the supportive therapy and followup. [facility]# [id number]
[2019-01-05] MEDS: Fenofibrate, Micronized 134 mg Cap PO SCH (21:07)
[2019-01-06] MEDS: Multivitamin Tab PO SCH (08:07)
[2019-01-06] MEDS: Levothyroxine 0.088 Mg Tab PO SCH (08:07)
[2019-01-06] MEDS: Atorvastatin Calcium 10 MG TAB PO SCH (08:07)
--- NOTE | 2019-01-06 20:25 | Discharge Summary ---
DATE OF DISCHARGE: 01/06/2019 CHIEF COMPLAINT: Failure to thrive, not taking medication. FINAL DIAGNOSES: Failure to thrive, dehydration, worsening psychiatric disorder, poor p.o. intake, hypothyroidism, osteoarthritis. HISTORY: This is a 68-year-old Armenian female with history of COPD, anemia, dementia, arthritis, schizoaffective disorder, admitted from a nursing facility secondary to not taking medication, not eating, and not drinking fluid. The patient is seen in the ER, was admitted for dehydration. PHYSICAL EXAMINATION: VITAL SIGNS: Blood pressure 142/80, respirations 18, pulse 77, temperature 97.3. GENERAL: Elderly female, appears her stated age. NECK: Supple. No mass. LUNGS: Equal breath sounds, few rhonchi. HEART: Regular rate and rhythm. Systolic ejection murmur. ABDOMEN: Soft, globular. EXTREMITIES: Positive excoriations. HOSPITAL COURSE: The patient was admitted to medical floor. Continued on oxygen and bronchodilator treatment and aggressive IV hydration. Megace was added. The patient was referred to Dr. Mcclelland for Psychiatry. Psychotropic medications were adjusted. The patient was showing some improvement. CONDITION ON DISCHARGE: Fair. DISCHARGE INSTRUCTIONS: The patient was admitted to [facility] for continued acute psychiatric hospitalization. JOB# [id number]
--- NOTE | 2019-01-07 10:42 | Progress Notes ---
DATE: 01/06/2019 PSYCHOLOGY PROGRESS NOTE SUBJECTIVE: The patient is being transferred to the geropsychiatric unit today. Followup was provided. The patient is seen and interviewed. Case is discussed with staff. The patient presents as easily agitated and is responding to internal stimuli. The patient is talking to herself and laughing as well as giggling inappropriately. The patient is not making much sense when responding to the clinical questions. Responses seem to be irrelevant. OBJECTIVE: Mood is irritable. Affect is constricted. Thought process includes preoccupation with internal stimuli. The patient's thought process also shows to be confused with loose associations and/or flight of ideas. The patient did not answer questions about experiencing hallucinations or delusions; however, the patient clearly is responding to an inner dialogue. The patient's behavior has been difficult to redirect. The patient on occasion is laughing inappropriately and talking to herself. ASSESSMENT AND PLAN: The patient remains to be grossly psychotic. We provided reality orientation, differentiation and integration. We provided cognitive and behavioral redirection. We provided limit setting and de-escalation. We provided coping strategies for chronic and severe mental illness; however, the patient is not responding to the interventions provided. Behavioral management for stabilization was provided to encourage the patient to demonstrate emotional and self-regulation. We provided motivational enhancement for the patient to become compliant and to stay compliant with all aspects of her care and treatment. We will follow up in 2 days to continue the present treatment. JOB# [id number] HARLAN
== END 2019-01-06 14:06 | DRG 690 ==
LOC: ER 19:52 → MSI 21:29
PROVIDERS: ADMIT Internal Medicine; ATTEND Internal Medicine
DX: N39.0 Urinary tract infection, site not specified (principal); R62.7 Adult failure to thrive; E86.0 Dehydration; E03.9 Hypothyroidism, unspecified; M19.90 Unspecified osteoarthritis, unspecified site; F25.9 Schizoaffective disorder, unspecified; J44.9 Chronic obstructive pulmonary disease, unspecified; F03.90 Unspecified dementia, unspecified severity, without behavioral disturbance, psychotic disturbance, mood disturbance, and anxiety; Z68.21 Body mass index [BMI] 21.0-21.9, adult
CPT/HCPCS: 36415-UA; 80048-TC; 80053-TC; 81001-TC; 82140-TC; 83735-TC; 83880-TC; 84443-TC; 85025-TC; 93005; 94760; 96374; J0696; J1631; J7042; J7051

== ENCOUNTER 2019-01-06 14:07 | Inpatient (IN) | payer MEDICARE, MEDICAID ==
[2019-01-06] MEDS ORDERED: Magnesium Hydroxide (MOM) 30 mL UDC PO PRN (16:53)
[2019-01-06] MEDS ORDERED: Maalox 30 mL Cup PO PRN ×2 (16:53→16:58)
[2019-01-06] MEDS ORDERED: Albuterol Nebulizer 2.5mg/3mL HHN PRN (16:58)
[2019-01-06] MEDS ORDERED: Ipratropium Neb 0.5 mg/2.5 mL UD HHN PRN (16:58)
[2019-01-06 17:21] VITALS: BP 113/78
[2019-01-06] MEDS: Fenofibrate, Micronized 134 mg Cap PO SCH (21:10)
--- NOTE | 2019-01-07 04:45 | Psychiatric Evaluation ---
DATE OF SERVICE: PSYCHIATRIC EVALUATION AND MENTAL EXAMINATION IDENTIFYING DATA: The patient is a 68-year-old woman, resident of [facility]. The information obtained directly interviewing the patient as well as reviewing the admission papers. JUSTIFICATION FOR HOSPITALIZATION: The patient is admitted over here for acute agitation and psychosis. CHIEF COMPLAINT: "They are trying to do all these things. They are sucking blood out of me, I am very much upset." HISTORY OF PRESENT ILLNESS: This is one of multiple psychiatric hospitalizations for this patient who has been diagnosed to have schizoaffective disorder and is being followed up on an outpatient basis by Dr. Archer at [facility]. The patient is reported to have been screaming and yelling. The patient has initially been admitted to the medical floor for stabilization following which she has been transferred over here, trying to interview the patient, the patient is very upset that they are going to ____ draw the blood and the patient is screaming and yelling at the laboratory clerk and the patient at this time is not able to provide the much information. PAST PSYCHIATRIC HISTORY: Please refer to the above. MEDICAL HISTORY AND PHYSICAL EXAMINATION: Requested to be done by Dr. Turcios. SUBSTANCE ABUSE HISTORY: None. PHYSICAL OR SEXUAL ABUSE HISTORY: None. LEGAL PROBLEMS: None at this time. STRENGTH AND ASSETS: The patient is motivated. MENTAL STATUS EXAMINATION: The patient is a 68-year-old, looking her stated age, superficially cooperative. Eye contact is poor. Mood is noted to be irritable. Affect is constricted. The patient has paranoid delusions. The patient is actively responding to internal stimuli. The patient is also having acute mood swings. The patient is screaming and yelling at this time. The patient has no insight into her illness. The patient's behavior is a clear danger to others. The patient is not suicidal. Attention span and concentration are noted to be fair. DIAGNOSTIC IMPRESSION: AXIS I: Schizoaffective disorder. AXIS II: None. AXIS III: None. IMMEDIATE TREATMENT PLAN: The patient is going to be observed on the inpatient unit, provided with supportive psychotherapy. The patient is going to be closely monitored. The Zyprexa is going to be gradually increased. JOB# [id number]
[2019-01-07] MEDS: Levothyroxine 0.088 Mg Tab PO SCH (06:38)
[2019-01-07] MEDS ORDERED: Multivitamin Tab PO SCH (09:00)
[2019-01-07] MEDS: Atorvastatin Calcium 10 MG TAB PO SCH (09:26)
[2019-01-07] MEDS: Multivitamin Tab PO SCH (09:26)
--- NOTE | 2019-01-07 11:59 | Internal Medicine Prog Note ---
Internal Medicine Subjective - Subjective Patient seen and examined:: with staff, chart reviewed Patient is:: awake, verbal, interactive, ambulating, confused Patient Complaints of:: congestion Per staff patient has:: no adverse event, no episodes of fall, poor appetite, noncompliant, confused Internal Medicine Objective - Physical Exam Vitals and I&O: Vital Signs Temp 98 F 01/07/19 06:40 Pulse 76 01/07/19 07:15 Resp 19 01/07/19 08:00 BP 123/73 01/07/19 06:40 Pulse Ox 98 01/07/19 07:15 Intake & Output 01/06/19 01/07/19 01/07/19 18:59 06:59 18:59 Intake Total 240 Balance 240 Intake: Oral 240 Other: # Voids 3 # Bowel Movements 0 Weight Source Estimated Active Medications: Current Medications Acetaminophen (Tylenol) 650 mg PO Q4H PRN PRN Reason: Pain Or Fever above 101 Stop: 03/07/19 16:57 Al Hydrox/Mg Hydrox/Simethicone (Maalox) 30 ml PO Q4HR PRN PRN Reason: GI DISTRESS Stop: 03/07/19 16:52 Albuterol Sulfate (Albuterol 2.5mg/3ml Neb Ud) 2.5 mg HHN Q2HRT PRN PRN Reason: Shortness of Breath or Wheeze Stop: 03/07/19 16:57 Atorvastatin Calcium (Lipitor) 10 mg PO DAILY [facility]; Protocol Stop: 03/08/19 08:59 Last Admin: 01/07/19 09:26 Dose: 10 mg Diphenhydramine HCl (Benadryl) 25 mg PO HS PRN PRN Reason: Extrapyramidal symptoms Stop: 03/07/19 16:57 Fenofibrate (Tricor) 134 mg PO HS GUS Stop: 03/07/19 20:59 Last Admin: 01/06/19 21:10 Dose: 134 mg Ipratropium [place] (Atrovent Neb 0.5mg/2.5ml) 0.5 mg HHN Q2HRT PRN PRN Reason: Shortness of Breath or Wheeze Stop: 03/07/19 16:57 Latanoprost (Xalatan 0.005% Ophth Soln) 1 drop EACH EYE HS GUS Stop: 03/07/19 20:59 Last Admin: 01/06/19 21:10 Dose: 1 drop Levothyroxine Sodium (Synthroid) 0.088 mg PO QDAC GUS Stop: 03/08/19 07:29 Last Admin: 01/07/19 06:38 Dose: 0.088 mg Lorazepam (Ativan) 0.5 mg PO Q4HR PRN; Protocol PRN Reason: Anxiety Stop: 03/07/19 19:59 Magnesium Hydroxide (Milk Of Magnesia) 30 ml PO HS PRN PRN Reason: Constipation Multivitamins/Vitamin C (Theragran) 1 tab PO DAILY GUS Stop: 03/08/19 08:59 Last Admin: 01/07/19 09:26 Dose: 1 tab Olanzapine (Zyprexa) 10 mg PO HS GUS; Protocol Stop: 03/07/19 20:59 Last Admin: 01/06/19 21:10 Dose: 10 mg Zolpidem Tartrate (Ambien) 5 mg PO HS PRN PRN Reason: Insomnia Stop: 03/07/19 20:59 General: demented HEENT: NC/AT, PERRLA, EOMI Neck: Supple, No JVD, No thyromegaly, No LAD Lungs: CTAB Cardiovascular: RRR, Normal S1, Normal S2, without murmur Abdomen: soft, non-tender, thin, positive bowel sound Extremities: excoriation Neurological: no change - Procedures Procedures: Procedures Procedure Code Date EMERGENCY DEPT VISIT 33250 11/13/11 EMERGENCY DEPT VISIT 66735 10/11/11 Internal Medicine Assmt/Plan - Assessment Assessment: - Assessment Assessment: ASSESSMENT AND PLAN: Failure to thrive, poor p.o. intake, worsening psych disorder, elevated cholesterol, hypothyroidism and osteoarthritis. uti - Plan Plan: - Plan Plan: We will continue the patient on adequate diet and fluid. We will perform calorie count. We will provide the patient with Megace. We will adjust the patient's medications. We will correct the patient's electrolyte abnormalities. We will refer the patient to Psychiatry for further management and adjustment of her psychotropic medications.
[2019-01-07] MEDS: Fenofibrate, Micronized 134 mg Cap PO SCH (22:00)
--- NOTE | 2019-01-08 01:01 | Progress Notes ---
DATE: 01/07/2019 PSYCHIATRIC PROGRESS NOTE SUBJECTIVE: Staff was spoken to. The patient is interviewed. Mood is noted to be anxious. Affect is appropriate. Insight and judgment are noted to be impaired still. Impulse control seems to be limited. The patient is screaming and yelling at one of the staff members. The patient has been very paranoid. The patient is currently on Zyprexa and he is able to tolerate the medication. No side effects to the medications are noted. ASSESSMENT: The patient is still psychotic. PLAN: To continue the patient with supportive therapy and follow up. JOB# [id number]
[2019-01-08] MEDS: Levothyroxine 0.088 Mg Tab PO SCH (06:49)
[2019-01-08] MEDS: Atorvastatin Calcium 10 MG TAB PO SCH (08:58)
[2019-01-08] MEDS: Multivitamin Tab PO SCH (08:58)
--- NOTE | 2019-01-08 11:49 | Internal Medicine Prog Note ---
Internal Medicine Subjective - Subjective Patient seen and examined:: with staff, chart reviewed Patient is:: awake, verbal, interactive, ambulating, confused Patient Complaints of:: congestion Per staff patient has:: no adverse event, no episodes of fall, poor appetite, noncompliant, confused Internal Medicine Objective - Physical Exam Vitals and I&O: Vital Signs Temp 98.2 F 01/08/19 06:26 Pulse 74 01/08/19 06:53 Resp 18 01/08/19 06:53 BP 101/61 01/08/19 06:26 Pulse Ox 96 01/08/19 06:53 Intake & Output 01/07/19 01/08/19 01/08/19 18:59 06:59 18:59 Intake Total 1080 300 Balance 1080 300 Intake: Oral 1080 300 Other: # Voids 3 1 # Bowel Movements 0 0 Active Medications: Current Medications Acetaminophen (Tylenol) 650 mg PO Q4H PRN PRN Reason: Pain Or Fever above 101 Stop: 03/07/19 16:57 Al Hydrox/Mg Hydrox/Simethicone (Maalox) 30 ml PO Q4HR PRN PRN Reason: GI DISTRESS Stop: 03/07/19 16:52 Albuterol Sulfate (Albuterol 2.5mg/3ml Neb Ud) 2.5 mg HHN Q2HRT PRN PRN Reason: Shortness of Breath or Wheeze Stop: 03/07/19 16:57 Atorvastatin Calcium (Lipitor) 10 mg PO DAILY GUS; Protocol Stop: 03/08/19 08:59 Last Admin: 01/08/19 08:58 Dose: 10 mg Diphenhydramine HCl (Benadryl) 25 mg PO HS PRN PRN Reason: Extrapyramidal symptoms Stop: 03/07/19 16:57 Fenofibrate (Tricor) 134 mg PO HS GUS Stop: 03/07/19 20:59 Last Admin: 01/07/19 22:00 Dose: 134 mg Ipratropium [place] (Atrovent Neb 0.5mg/2.5ml) 0.5 mg HHN Q2HRT PRN PRN Reason: Shortness of Breath or Wheeze Stop: 03/07/19 16:57 Latanoprost (Xalatan 0.005% Ophth Soln) 1 drop EACH EYE HS GUS Stop: 03/07/19 20:59 Last Admin: 01/07/19 22:00 Dose: Not Given Levothyroxine Sodium (Synthroid) 0.088 mg PO QDAC GUS Stop: 03/08/19 07:29 Last Admin: 01/08/19 06:49 Dose: 0.088 mg Lorazepam (Ativan) 0.5 mg PO Q4HR PRN; Protocol PRN Reason: Anxiety Stop: 03/07/19 19:59 Magnesium Hydroxide (Milk Of Magnesia) 30 ml PO HS PRN PRN Reason: Constipation Multivitamins/Vitamin C (Theragran) 1 tab PO DAILY GUS Stop: 03/08/19 08:59 Last Admin: 01/08/19 08:58 Dose: 1 tab Olanzapine (Zyprexa) 10 mg PO HS GUS; Protocol Stop: 03/07/19 20:59 Last Admin: 01/07/19 22:00 Dose: 10 mg Zolpidem Tartrate (Ambien) 5 mg PO HS PRN PRN Reason: Insomnia Stop: 03/07/19 20:59 General: demented HEENT: NC/AT, PERRLA, EOMI Neck: Supple, No JVD, No thyromegaly, No LAD Lungs: CTAB Cardiovascular: RRR, Normal S1, Normal S2, without murmur Abdomen: soft, non-tender, thin, positive bowel sound Extremities: excoriation Neurological: no change - Procedures Procedures: Procedures Procedure Code Date EMERGENCY DEPT VISIT 92161 11/13/11 EMERGENCY DEPT VISIT 53313 10/11/11 Internal Medicine Assmt/Plan - Assessment Assessment: - Assessment Assessment: ASSESSMENT AND PLAN: Failure to thrive, poor p.o. intake, worsening psych disorder, elevated cholesterol, hypothyroidism and osteoarthritis. uti - Plan Plan: - Plan Plan: We will continue the patient on adequate diet and fluid. We will perform calorie count. We will provide the patient with Megace. We will adjust the patient's medications. We will correct the patient's electrolyte abnormalities. We will refer the patient to Psychiatry for further management and adjustment of her psychotropic medications.
[2019-01-08] MEDS: Fenofibrate, Micronized 134 mg Cap PO SCH (21:06)
--- NOTE | 2019-01-08 23:28 | Progress Notes ---
DATE: 01/08/2019 SUBJECTIVE: Staff was spoken to. The patient is interviewed. Mood is noted to be still irritable. Affect is constricted. Insight and judgment are noted to be still impaired. Impulse control is noted to be limited. Coping skills are noted to be limited. The patient is screaming and yelling and has been responding to internal stimuli. The patient is still not able to contract for safety. ASSESSMENT: The patient is still grossly psychotic. PLAN: Continue the patient on Zyprexa and followup. JOB# [id number]
--- NOTE | 2019-01-09 06:32 | Progress Notes ---
DATE: 01/08/2019 PSYCHOLOGY PROGRESS NOTE SUBJECTIVE: The patient is seen and is interviewed. Case is discussed with staff. The patient presents as anxious and fearful as well as guarded. The patient has limited insight and coping skills with respect to her illness. Staff reports the patient has had multiple yelling episodes. The patient's paranoia persists. OBJECTIVE: Mood is anxious. Affect is mood congruent. Thought process shows psychotic process. The patient denied any hallucinations or delusions; however, the patient is responding to internal stimuli. There is evidence of paranoid ideation. The patient's behavior has been difficult to redirect and has had intermittent yelling episodes. ASSESSMENT AND PLAN: The patient's psychosis persists. We provided reality orientation, differentiation, and integration. We provided de-escalation and limit setting. We encouraged the patient to demonstrate emotional and self-regulation and to verbalize her concerns versus acting out. We provided coping strategies for phase of life issues. We provided remotivation for the patient to become compliant and stay compliant with her care and treatment. We will follow up in 2 days to continue present treatment if the patient remains admitted on the unit. JOB# [id number] HARLAN
[2019-01-09] MEDS: Levothyroxine 0.088 Mg Tab PO SCH (06:43)
[2019-01-09] MEDS: Multivitamin Tab PO SCH (08:49)
[2019-01-09] MEDS: Atorvastatin Calcium 10 MG TAB PO SCH (08:49)
--- NOTE | 2019-01-09 11:45 | Internal Medicine Prog Note ---
Internal Medicine Subjective - Subjective Patient seen and examined:: with staff, chart reviewed Patient is:: awake, verbal, interactive, ambulating, confused Patient Complaints of:: congestion Per staff patient has:: no adverse event, no episodes of fall, poor appetite, noncompliant, confused Internal Medicine Objective - Physical Exam Vitals and I&O: Vital Signs Temp 97.6 F 01/09/19 06:55 Pulse 72 01/09/19 07:58 Resp 20 01/09/19 07:58 BP 106/64 01/09/19 06:55 Pulse Ox 96 01/09/19 07:58 Intake & Output 01/08/19 01/09/19 01/09/19 18:59 06:59 18:59 Intake Total 1200 180 Balance 1200 180 Intake: Oral 1200 180 Other: # Voids 2 # Bowel Movements 1 0 Active Medications: Current Medications Acetaminophen (Tylenol) 650 mg PO Q4H PRN PRN Reason: Pain Or Fever above 101 Stop: 03/07/19 16:57 Al Hydrox/Mg Hydrox/Simethicone (Maalox) 30 ml PO Q4HR PRN PRN Reason: GI DISTRESS Stop: 03/07/19 16:52 Albuterol Sulfate (Albuterol 2.5mg/3ml Neb Ud) 2.5 mg HHN Q2HRT PRN PRN Reason: Shortness of Breath or Wheeze Stop: 03/07/19 16:57 Atorvastatin Calcium (Lipitor) 10 mg PO DAILY [facility]US; Protocol Stop: 03/08/19 08:59 Last Admin: 01/09/19 08:49 Dose: 10 mg Diphenhydramine HCl (Benadryl) 25 mg PO HS PRN PRN Reason: Extrapyramidal symptoms Stop: 03/07/19 16:57 Fenofibrate (Tricor) 134 mg PO HS GUS Stop: 03/07/19 20:59 Last Admin: 01/08/19 21:06 Dose: 134 mg Ipratropium [place] (Atrovent Neb 0.5mg/2.5ml) 0.5 mg HHN Q2HRT PRN PRN Reason: Shortness of Breath or Wheeze Stop: 03/07/19 16:57 Latanoprost (Xalatan 0.005% Ophth Soln) 1 drop EACH EYE HS GUS Stop: 03/07/19 20:59 Last Admin: 01/08/19 21:06 Dose: 1 drop Levothyroxine Sodium (Synthroid) 0.088 mg PO QDAC GUS Stop: 03/08/19 07:29 Last Admin: 01/09/19 06:43 Dose: 0.088 mg Lorazepam (Ativan) 0.5 mg PO Q4HR PRN; Protocol PRN Reason: Anxiety Stop: 03/07/19 19:59 Magnesium Hydroxide (Milk Of Magnesia) 30 ml PO HS PRN PRN Reason: Constipation Multivitamins/Vitamin C (Theragran) 1 tab PO DAILY GUS Stop: 03/08/19 08:59 Last Admin: 01/09/19 08:49 Dose: 1 tab Olanzapine (Zyprexa) 10 mg PO HS GUS; Protocol Stop: 03/07/19 20:59 Last Admin: 01/08/19 21:06 Dose: 10 mg Zolpidem Tartrate (Ambien) 5 mg PO HS PRN PRN Reason: Insomnia Stop: 03/07/19 20:59 General: demented HEENT: NC/AT, PERRLA, EOMI Neck: Supple, No JVD, No thyromegaly, No LAD Lungs: CTAB Cardiovascular: RRR, Normal S1, Normal S2, without murmur Abdomen: soft, non-tender, thin, positive bowel sound Extremities: excoriation Neurological: no change - Procedures Procedures: Procedures Procedure Code Date EMERGENCY DEPT VISIT 83792 11/13/11 EMERGENCY DEPT VISIT 65211 10/11/11 Internal Medicine Assmt/Plan - Assessment Assessment: - Assessment Assessment: ASSESSMENT AND PLAN: Failure to thrive, poor p.o. intake, worsening psych disorder, elevated cholesterol, hypothyroidism and osteoarthritis. uti - Plan Plan: - Plan Plan: We will continue the patient on adequate diet and fluid. We will perform calorie count. We will provide the patient with Megace. We will adjust the patient's medications. We will correct the patient's electrolyte abnormalities. We will refer the patient to Psychiatry for further management and adjustment of her psychotropic medications.
[2019-01-09] MEDS: Fenofibrate, Micronized 134 mg Cap PO SCH (21:21)
--- NOTE | 2019-01-10 01:38 | Progress Notes ---
DATE: 01/09/2019 PSYCHIATRIC PROGRESS NOTE SUBJECTIVE: Staff was spoken to. The patient is interviewed. The patient continues to be dysphoric, pacing on the unit. Insight and judgment are noted to be still impaired. Impulse control is noted to be limited. No side effects to the medications are noted. The patient is screaming and yelling at the staff members, but could be redirectable today. ASSESSMENT: The patient is still psychotic and impulsive. PLAN: To continue the patient with the supportive therapy and followup. [facility]# [id number]
[2019-01-10] MEDS: Levothyroxine 0.088 Mg Tab PO SCH (06:35)
[2019-01-10] MEDS: Multivitamin Tab PO SCH (08:48)
[2019-01-10] MEDS: Atorvastatin Calcium 10 MG TAB PO SCH (08:48)
--- NOTE | 2019-01-10 12:14 | Internal Medicine Prog Note ---
Internal Medicine Subjective - Subjective Patient seen and examined:: with staff, chart reviewed Patient is:: awake, verbal, interactive, ambulating, confused Patient Complaints of:: congestion Per staff patient has:: no adverse event, no episodes of fall, poor appetite, noncompliant, confused Internal Medicine Objective - Physical Exam Vitals and I&O: Vital Signs Temp 97.1 F 01/10/19 06:38 Pulse 75 01/10/19 07:33 Resp 19 01/10/19 07:36 BP 132/62 01/10/19 06:38 Pulse Ox 97 01/10/19 07:33 Intake & Output 01/09/19 01/10/19 01/10/19 18:59 06:59 18:59 Intake Total 1000 180 Balance 1000 180 Intake: Oral 1000 180 Other: # Voids 4 3 # Bowel Movements 1 0 Active Medications: Current Medications Acetaminophen (Tylenol) 650 mg PO Q4H PRN PRN Reason: Pain Or Fever above 101 Stop: 03/07/19 16:57 Al Hydrox/Mg Hydrox/Simethicone (Maalox) 30 ml PO Q4HR PRN PRN Reason: GI DISTRESS Stop: 03/07/19 16:52 Albuterol Sulfate (Albuterol 2.5mg/3ml Neb Ud) 2.5 mg HHN Q2HRT PRN PRN Reason: Shortness of Breath or Wheeze Stop: 03/07/19 16:57 Atorvastatin Calcium (Lipitor) 10 mg PO DAILY GUS; Protocol Stop: 03/08/19 08:59 Last Admin: 01/10/19 08:48 Dose: 10 mg Diphenhydramine HCl (Benadryl) 25 mg PO HS PRN PRN Reason: Extrapyramidal symptoms Stop: 03/07/19 16:57 Fenofibrate (Tricor) 134 mg PO HS GUS Stop: 03/07/19 20:59 Last Admin: 01/09/19 21:21 Dose: 134 mg Ipratropium [place] (Atrovent Neb 0.5mg/2.5ml) 0.5 mg HHN Q2HRT PRN PRN Reason: Shortness of Breath or Wheeze Stop: 03/07/19 16:57 Latanoprost (Xalatan 0.005% Ophth Soln) 1 drop EACH EYE HS GUS Stop: 03/07/19 20:59 Last Admin: 01/09/19 21:21 Dose: 1 drop Levothyroxine Sodium (Synthroid) 0.088 mg PO QDAC GUS Stop: 03/08/19 07:29 Last Admin: 01/10/19 06:35 Dose: 0.088 mg Lorazepam (Ativan) 0.5 mg PO Q4HR PRN; Protocol PRN Reason: Anxiety Stop: 03/07/19 19:59 Magnesium Hydroxide (Milk Of Magnesia) 30 ml PO HS PRN PRN Reason: Constipation Multivitamins/Vitamin C (Theragran) 1 tab PO DAILY GUS Stop: 03/08/19 08:59 Last Admin: 01/10/19 08:48 Dose: 1 tab Olanzapine (Zyprexa) 10 mg PO HS GUS; Protocol Stop: 03/07/19 20:59 Last Admin: 01/09/19 21:21 Dose: 10 mg Zolpidem Tartrate (Ambien) 5 mg PO HS PRN PRN Reason: Insomnia Stop: 03/07/19 20:59 General: demented HEENT: NC/AT, PERRLA, EOMI Neck: Supple, No JVD, No thyromegaly, No LAD Lungs: CTAB Cardiovascular: RRR, Normal S1, Normal S2, without murmur Abdomen: soft, non-tender, thin, positive bowel sound Extremities: excoriation Neurological: no change - Procedures Procedures: Procedures Procedure Code Date EMERGENCY DEPT VISIT 81629 11/13/11 EMERGENCY DEPT VISIT 01173 10/11/11 Internal Medicine Assmt/Plan - Assessment Assessment: - Assessment Assessment: ASSESSMENT AND PLAN: Failure to thrive, poor p.o. intake, worsening psych disorder, elevated cholesterol, hypothyroidism and osteoarthritis. uti - Plan Plan: - Plan Plan: We will continue the patient on adequate diet and fluid. We will perform calorie count. We will provide the patient with Megace. We will adjust the patient's medications. We will correct the patient's electrolyte abnormalities. We will refer the patient to Psychiatry for further management and adjustment of her psychotropic medications.
[2019-01-10] MEDS: Fenofibrate, Micronized 134 mg Cap PO SCH (20:48)
--- NOTE | 2019-01-11 02:05 | Progress Notes ---
DATE: 01/10/2019 SUBJECTIVE: Staff was spoken to. The patient is interviewed. Mood is noted to be irritable. Affect is constricted. The patient is pacing on the unit. Insight and judgment at this time are noted to be still impaired. Impulse control seems to be limited. The patient has been pacing on the unit, but the aggressive behavior seems to be coming down. ASSESSMENT: The patient is still psychotic. PLAN: To continue the patient with the supportive therapy. Encouraged the patient to verbalize the concerns rather than to act out. JOB# [id number]
[2019-01-11] MEDS: Atorvastatin Calcium 10 MG TAB PO SCH (08:56)
[2019-01-11] MEDS: Multivitamin Tab PO SCH (08:56)
--- NOTE | 2019-01-11 11:35 | Progress Notes ---
DATE: 01/10/2019 PSYCHOLOGY PROGRESS NOTE SUBJECTIVE: The patient is seen and is interviewed. Case is discussed with staff. The patient is lying in bed in her room and is somnolent, but arousable verbally. The patient presents as confused. Staff reports the patient continues to have yelling episodes. The patient continues to deny that she needs to be hospitalized. The patient is requesting to be discharged. OBJECTIVE: Mood is dysphoric and guarded. Affect is blunted. Thought process shows to be confused. The patient denied any auditory or visual hallucinations. There is some paranoid ideation present. The patient's behavior includes pacing on the unit with intermittent yelling episodes and poor redirectability. ASSESSMENT AND PLAN: The patient's psychosis and impulsivity persist. We provided limit setting and de-escalation. We provided reality orientation, differentiation, and integration. We encouraged the patient to verbalize her concerns and to demonstrate emotional and self-regulation versus acting out. We provided remotivation for the patient to become compliant and stay compliant with all aspects of her care and treatment. We will follow up in 2 days to continue the present treatment if the patient remains admitted on the unit. JOB# [id number] HARLAN
--- NOTE | 2019-01-11 14:40 | Internal Medicine Prog Note ---
Internal Medicine Subjective - Subjective Service Date: 01/11/19 Patient is:: awake, verbal, interactive, ambulating, confused Patient Complaints of:: congestion Per staff patient has:: no adverse event, no episodes of fall, poor appetite, noncompliant, confused Internal Medicine Objective - Physical Exam Vitals and I&O: Vital Signs Temp 98.0 F 01/11/19 14:00 Pulse 92 01/11/19 14:00 Resp 20 01/11/19 14:00 BP 103/52 01/11/19 14:00 Pulse Ox 97 01/11/19 14:00 Intake & Output 01/10/19 01/11/19 01/11/19 18:59 06:59 18:59 Intake Total 0 Balance 0 Intake: Oral 0 Other: # Voids 2 # Bowel Movements 1 Active Medications: Current Medications Acetaminophen (Tylenol) 650 mg PO Q4H PRN PRN Reason: Pain Or Fever above 101 Stop: 03/07/19 16:57 Al Hydrox/Mg Hydrox/Simethicone (Maalox) 30 ml PO Q4HR PRN PRN Reason: GI DISTRESS Stop: 03/07/19 16:52 Albuterol Sulfate (Albuterol 2.5mg/3ml Neb Ud) 2.5 mg HHN Q2HRT PRN PRN Reason: Shortness of Breath or Wheeze Stop: 03/07/19 16:57 Atorvastatin Calcium (Lipitor) 10 mg PO DAILY GUS; Protocol Stop: 03/08/19 08:59 Last Admin: 01/11/19 08:56 Dose: 10 mg Diphenhydramine HCl (Benadryl) 25 mg PO HS PRN PRN Reason: Extrapyramidal symptoms Stop: 03/07/19 16:57 Fenofibrate (Tricor) 134 mg PO HS GUS Stop: 03/07/19 20:59 Last Admin: 01/10/19 20:48 Dose: 134 mg Ipratropium [place] (Atrovent Neb 0.5mg/2.5ml) 0.5 mg HHN Q2HRT PRN PRN Reason: Shortness of Breath or Wheeze Stop: 03/07/19 16:57 Latanoprost (Xalatan 0.005% Ophth Soln) 1 drop EACH EYE HS [facility] Stop: 03/07/19 20:59 Last Admin: 01/10/19 20:48 Dose: 1 drop Levothyroxine Sodium (Synthroid) 0.088 mg PO QDAC GUS Stop: 03/08/19 07:29 Last Admin: 01/10/19 06:35 Dose: 0.088 mg Lorazepam (Ativan) 0.5 mg PO Q4HR PRN; Protocol PRN Reason: Anxiety Stop: 03/07/19 19:59 Magnesium Hydroxide (Milk Of Magnesia) 30 ml PO HS PRN PRN Reason: Constipation Multivitamins/Vitamin C (Theragran) 1 tab PO DAILY GUS Stop: 03/08/19 08:59 Last Admin: 01/11/19 08:56 Dose: 1 tab Olanzapine (Zyprexa) 10 mg PO HS GUS; Protocol Stop: 03/07/19 20:59 Last Admin: 01/10/19 20:48 Dose: 10 mg Zolpidem Tartrate (Ambien) 5 mg PO HS PRN PRN Reason: Insomnia Stop: 03/07/19 20:59 General: demented HEENT: NC/AT, PERRLA, EOMI Neck: Supple, No JVD, No thyromegaly, No LAD Lungs: CTAB Cardiovascular: RRR, Normal S1, Normal S2, without murmur Abdomen: soft, non-tender, thin, positive bowel sound Extremities: excoriation Neurological: no change - Procedures Procedures: Procedures Procedure Code Date EMERGENCY DEPT VISIT 28263 11/13/11 EMERGENCY DEPT VISIT 54707 10/11/11 Internal Medicine Assmt/Plan - Assessment Assessment: Failure to thrive, poor p.o. intake, worsening psych disorder, elevated cholesterol, hypothyroidism ,uti . - Plan Plan: We will continue the patient on adequate diet and fluid. We will perform calorie count. We will provide the patient with Megace. We will adjust the patient's medications. We will correct the patient's electrolyte abnormalities. We will refer the patient to Psychiatry for further management and adjustment of her psychotropic medications
[2019-01-11] MEDS: Fenofibrate, Micronized 134 mg Cap PO SCH (20:49)
--- NOTE | 2019-01-11 22:56 | Progress Notes ---
DATE: 01/11/2019 PSYCHIATRIC PROGRESS NOTE SUBJECTIVE: Staff was spoken to. The patient is interviewed. Mood is noted to be anxious. The patient has been less irritable. The patient has paranoid delusions and pacing on the unit. Sleep and appetite are noted to be improving. No side effects to the medications are noted. ASSESSMENT: The patient's psychosis is resolving. PLAN: To continue the patient with the current medications and possibly discharge the patient in a day or two back to the shelter facility. [facility]# [id number]
[2019-01-12] MEDS: Levothyroxine 0.088 Mg Tab PO SCH (06:40)
--- NOTE | 2019-01-12 08:36 | Internal Medicine Prog Note ---
Internal Medicine Subjective - Subjective Service Date: 01/12/19 Patient is:: awake, verbal, interactive, ambulating, confused Patient Complaints of:: congestion Per staff patient has:: no adverse event, no episodes of fall, poor appetite, noncompliant, confused Internal Medicine Objective - Physical Exam Vitals and I&O: Vital Signs Temp 97.9 F 01/12/19 06:14 Pulse 82 01/12/19 07:00 Resp 18 01/12/19 07:00 BP 112/71 01/12/19 06:14 Pulse Ox 97 01/12/19 07:00 Intake & Output 01/11/19 01/12/19 01/12/19 18:59 06:59 18:59 Intake Total 1000 480 Balance 1000 480 Intake: Oral 1000 480 Other: # Voids 4 1 # Bowel Movements 1 Active Medications: Current Medications Acetaminophen (Tylenol) 650 mg PO Q4H PRN PRN Reason: Pain Or Fever above 101 Stop: 03/07/19 16:57 Al Hydrox/Mg Hydrox/Simethicone (Maalox) 30 ml PO Q4HR PRN PRN Reason: GI DISTRESS Stop: 03/07/19 16:52 Albuterol Sulfate (Albuterol 2.5mg/3ml Neb Ud) 2.5 mg HHN Q2HRT PRN PRN Reason: Shortness of Breath or Wheeze Stop: 03/07/19 16:57 Atorvastatin Calcium (Lipitor) 10 mg PO DAILY [facility]; Protocol Stop: 03/08/19 08:59 Last Admin: 01/11/19 08:56 Dose: 10 mg Diphenhydramine HCl (Benadryl) 25 mg PO HS PRN PRN Reason: Extrapyramidal symptoms Stop: 03/07/19 16:57 Fenofibrate (Tricor) 134 mg PO HS GUS Stop: 03/07/19 20:59 Last Admin: 01/11/19 20:49 Dose: 134 mg Ipratropium [place] (Atrovent Neb 0.5mg/2.5ml) 0.5 mg HHN Q2HRT PRN PRN Reason: Shortness of Breath or Wheeze Stop: 03/07/19 16:57 Latanoprost (Xalatan 0.005% Ophth Soln) 1 drop EACH EYE HS GUS Stop: 03/07/19 20:59 Last Admin: 01/11/19 20:49 Dose: 1 drop Levothyroxine Sodium (Synthroid) 0.088 mg PO QDAC GUS Stop: 03/08/19 07:29 Last Admin: 01/12/19 06:40 Dose: 0.088 mg Lorazepam (Ativan) 0.5 mg PO Q4HR PRN; Protocol PRN Reason: Anxiety Stop: 03/07/19 19:59 Magnesium Hydroxide (Milk Of Magnesia) 30 ml PO HS PRN PRN Reason: Constipation Multivitamins/Vitamin C (Theragran) 1 tab PO DAILY GUS Stop: 03/08/19 08:59 Last Admin: 01/11/19 08:56 Dose: 1 tab Olanzapine (Zyprexa) 10 mg PO HS GUS; Protocol Stop: 03/07/19 20:59 Last Admin: 01/11/19 20:49 Dose: 10 mg Zolpidem Tartrate (Ambien) 5 mg PO HS PRN PRN Reason: Insomnia Stop: 03/07/19 20:59 General: demented HEENT: NC/AT, PERRLA, EOMI Neck: Supple, No JVD, No thyromegaly, No LAD Lungs: CTAB Cardiovascular: RRR, Normal S1, Normal S2, without murmur Abdomen: soft, non-tender, thin, positive bowel sound Extremities: excoriation Neurological: no change - Procedures Procedures: Procedures Procedure Code Date EMERGENCY DEPT VISIT 91533 11/13/11 EMERGENCY DEPT VISIT 51861 10/11/11 Internal Medicine Assmt/Plan - Assessment Assessment: Failure to thrive, poor p.o. intake, worsening psych disorder, elevated cholesterol, hypothyroidism ,uti . - Plan Plan: We will continue the patient on adequate diet and fluid. We will perform calorie count. We will provide the patient with Megace. We will adjust the patient's medications. We will correct the patient's electrolyte abnormalities. We will refer the patient to Psychiatry for further management and adjustment of her psychotropic medications
[2019-01-12] MEDS: Atorvastatin Calcium 10 MG TAB PO SCH (09:36)
[2019-01-12] MEDS: Multivitamin Tab PO SCH (09:36)
[2019-01-12] MEDS: Fenofibrate, Micronized 134 mg Cap PO SCH (20:23)
--- NOTE | 2019-01-12 23:54 | Progress Notes ---
DATE: 01/12/2019 SUBJECTIVE: Staff was spoken to. The patient is interviewed. Mood is noted to be anxious. Affect is appropriate. The patient is not suicidal or homicidal. The patient has been pacing on the unit. Continues to be paranoid, but the command hallucinations are going down. Sleep and appetite are noted to be improving. No side effects to medications are noted at this time. The patient has been able to tolerate the Zyprexa. ASSESSMENT: The patient is less impulsive. PLAN: To continue the patient with the supportive therapy, encouraged the patient to verbalize the concerns rather than to act out. [facility]# [id number]
[2019-01-13] MEDS: Levothyroxine 0.088 Mg Tab PO SCH (06:31)
[2019-01-13] MEDS: Multivitamin Tab PO SCH (09:06)
[2019-01-13] MEDS: Atorvastatin Calcium 10 MG TAB PO SCH (09:06)
--- NOTE | 2019-01-13 12:05 | Internal Medicine Prog Note ---
Internal Medicine Subjective - Subjective Patient seen and examined:: with staff, chart reviewed Patient is:: awake, verbal, interactive, ambulating, confused Patient Complaints of:: congestion Per staff patient has:: no adverse event, no episodes of fall, poor appetite, noncompliant, confused Internal Medicine Objective - Physical Exam Vitals and I&O: Vital Signs Temp 97.9 F 01/13/19 06:23 Pulse 96 01/13/19 08:06 Resp 16 01/13/19 08:06 BP 114/68 01/13/19 06:23 Pulse Ox 97 01/13/19 08:06 Intake & Output 01/12/19 01/13/19 01/13/19 18:59 06:59 18:59 Intake Total 1080 600 Balance 1080 600 Intake: Oral 1080 600 Other: # Voids 3 1 # Bowel Movements 0 0 Active Medications: Current Medications Acetaminophen (Tylenol) 650 mg PO Q4H PRN PRN Reason: Pain Or Fever above 101 Stop: 03/07/19 16:57 Al Hydrox/Mg Hydrox/Simethicone (Maalox) 30 ml PO Q4HR PRN PRN Reason: GI DISTRESS Stop: 03/07/19 16:52 Albuterol Sulfate (Albuterol 2.5mg/3ml Neb Ud) 2.5 mg HHN Q2HRT PRN PRN Reason: Shortness of Breath or Wheeze Stop: 03/07/19 16:57 Atorvastatin Calcium (Lipitor) 10 mg PO DAILY GUS; Protocol Stop: 03/08/19 08:59 Last Admin: 01/13/19 09:06 Dose: 10 mg Diphenhydramine HCl (Benadryl) 25 mg PO HS PRN PRN Reason: Extrapyramidal symptoms Stop: 03/07/19 16:57 Fenofibrate (Tricor) 134 mg PO HS GUS Stop: 03/07/19 20:59 Last Admin: 01/12/19 20:23 Dose: 134 mg Ipratropium [place] (Atrovent Neb 0.5mg/2.5ml) 0.5 mg HHN Q2HRT PRN PRN Reason: Shortness of Breath or Wheeze Stop: 03/07/19 16:57 Latanoprost (Xalatan 0.005% Ophth Soln) 1 drop EACH EYE HS GUS Stop: 03/07/19 20:59 Last Admin: 01/12/19 20:22 Dose: Not Given Levothyroxine Sodium (Synthroid) 0.088 mg PO QDAC GUS Stop: 03/08/19 07:29 Last Admin: 01/13/19 06:31 Dose: 0.088 mg Lorazepam (Ativan) 0.5 mg PO Q4HR PRN; Protocol PRN Reason: Anxiety Stop: 03/07/19 19:59 Last Admin: 01/12/19 09:36 Dose: 0.5 mg Magnesium Hydroxide (Milk Of Magnesia) 30 ml PO HS PRN PRN Reason: Constipation Multivitamins/Vitamin C (Theragran) 1 tab PO DAILY GUS Stop: 03/08/19 08:59 Last Admin: 01/13/19 09:06 Dose: 1 tab Olanzapine (Zyprexa) 10 mg PO HS GUS; Protocol Stop: 03/07/19 20:59 Last Admin: 01/12/19 20:23 Dose: 10 mg Zolpidem Tartrate (Ambien) 5 mg PO HS PRN PRN Reason: Insomnia Stop: 03/07/19 20:59 General: demented HEENT: NC/AT, PERRLA, EOMI Neck: Supple, No JVD, No thyromegaly, No LAD Lungs: CTAB Cardiovascular: RRR, Normal S1, Normal S2, without murmur Abdomen: soft, non-tender, thin, positive bowel sound Extremities: excoriation Neurological: no change - Procedures Procedures: Procedures Procedure Code Date EMERGENCY DEPT VISIT 94295 11/13/11 EMERGENCY DEPT VISIT 12583 10/11/11 Internal Medicine Assmt/Plan - Assessment Assessment: - Assessment Assessment: ASSESSMENT AND PLAN: Failure to thrive, poor p.o. intake, worsening psych disorder, elevated cholesterol, hypothyroidism and osteoarthritis. uti - Plan Plan: - Plan Plan: We will continue the patient on adequate diet and fluid. We will perform calorie count. We will provide the patient with Megace. We will adjust the patient's medications. We will correct the patient's electrolyte abnormalities. We will refer the patient to Psychiatry for further management and adjustment of her psychotropic medications.
--- NOTE | 2019-01-14 00:49 | Progress Notes ---
DATE: 01/13/2019 DATE OF SERVICE: 01/13/2019 PSYCHOLOGY PROGRESS NOTE SUBJECTIVE: The patient is seen and is interviewed. Case is discussed with staff. The patient presents as anxious and fearful. The staff reports the patient continues to pace on the unit. The patient is guarded and suspicious. The patient stated that the auditory hallucinations are diminishing. OBJECTIVE: Mood is anxious. Affect is mood congruent. Thought process shows to be confused and includes paranoid ideation. The patient denied any visual hallucinations. The patient states the voices are diminishing. The patient's behavior is still somewhat restless and impulsive. The patient is taking her p.o. medications. The patient is possibly approaching baseline stabilization. ASSESSMENT AND PLAN: The patient's impulsivity persists buy has lessened. We provided reality orientation, differentiation, and integration. We provided remotivation for the patient to become compliant and stay compliant with her care and treatment. We provided coping strategies for phase of life issues as well as for chronic severe mental illness. We encouraged the patient to be able to verbalize her concerns versus acting out and to demonstrate emotional and self-regulation. We provided stress management to assist the patient to increase her frustration tolerance and to be able to follow through with staff direction both here on the unit as well as at her placement. There will be no follow up as the patient is scheduled for discharge today or tomorrow. JOB# [id number] HARLAN
--- NOTE | 2019-01-14 03:32 | Progress Notes ---
DATE: 01/13/2019 PSYCHIATRIC PROGRESS NOTE SUBJECTIVE: Staff was spoken to. The patient is interviewed. Mood is noted to be anxious. Affect is appropriate. She is not suicidal or homicidal. Insight and judgment are noted to be improving. Impulse control is noted to be fair. Coping skills are noted to be very fair. The patient has been able to verbalize her concerns. No major behavioral problems are noted. ASSESSMENT: The patient is stabilizing. PLAN: To discharge the patient today to [facility] for further followup. [facility]# [id number]
== END 2019-01-13 17:15 | DRG 885 ==
LOC: GERO 14:07
DX: F25.9 Schizoaffective disorder, unspecified (principal); N39.0 Urinary tract infection, site not specified; R62.7 Adult failure to thrive; E03.9 Hypothyroidism, unspecified; M19.90 Unspecified osteoarthritis, unspecified site; Z68.21 Body mass index [BMI] 21.0-21.9, adult
CPT/HCPCS: 83036-90; 90899; 94760; G0410; J7051